=== PATIENT | male | born 1945 ===

== ENCOUNTER 2020-07-02 19:53 | Inpatient (IN) | payer MEDICARE, OTHER ==
[~2020-07-02 19:53] MED LIST: Iopamidol-370 76% 500 ML 1 ML ONE
[2020-07-02] MEDS ORDERED: cefTRIAXone\\ROCEPHIN 1 GM VIAL ONE (20:11)
[2020-07-02] MEDS ORDERED: Magnesium 2 GM/50 ML BAG (IN WATER) ONE (20:11)
[2020-07-02] MEDS ORDERED: Azithromycin 500 MG VIAL ONE (20:11)
[2020-07-02] MEDS ORDERED: Dexamethasone 10 MG/ML VIAL ONE (20:11)
[2020-07-02] MEDS ORDERED: Ondansetron PF 4 MG/2 ML Vial ONE (20:25)
[2020-07-02 20:27] LABS: Base Excess-Venous -8.6 mmol/L (-2.0 to 3.0); Bicarbonate (HCO3v) 16.1 mmol/L (22.0-28.0); CO2 Tension (PvCO2) 31.7 mmHg (40.0-50.0); Calcium, Ionized 0.89 mmol/L (1.15-1.33); Chloride 105 mmol/L (98-107); Hemoglobin - Calc 18.6 g/dL (14.0-18.0); Potassium 4.6 mmol/L (3.5-5.1); Sodium 133 mmol/L (138-145); T. Carbon Dioxide 17.1 mmol/L (22.0-28.0); vO2 Saturation-calc 47.8 % (60.0-85.0)
[2020-07-02 20:27] LABS: #Basophils 0.1 thou/uL (0.0-0.2); #Lymphocytes 1.3 thou/uL (1.20-3.40); #Monocytes 0.4 thou/uL (0.11-0.59); #Neutrophils 6.5 thou/uL (1.40-6.50); %Basophils 0.7 % (0.0-1.0); %Eosinophils 0.1 % (0.0-10.0); %Lymphocytes 15.9 % (21.0-51.0); %Monocytes 4.5 % (0.0-10.0); %Neutrophils 78.8 % (42.0-75.0); Hemoglobin 16.5 g/dL (14.0-18.0); Mean Corpuscular HGB CONC 34.1 g/dL (32.0-36.0); Mean Corpuscular Hemoglobin 34.1 pg (27.0-31.0); Mean Platelet Volume 8.5 fL (7.4-10.4); Platelet Count 150 thou/uL (130-400); RBC Distribution Width 12.7 % (11.5-14.5); Red Blood Cell (RBC) Count 4.85 mill/uL (4.70-6.10); White Blood Cell (WBC) Count 8.3 thou/uL (4.8-10.8)
--- NOTE | 2020-07-02 20:48 | RAD ---
Exam: Chest one view HISTORY: Shortness of breath. COVID positive patient. Comparison: 03/04/2013 FINDINGS: Cardiac silhouette: Normal Aorta: Unremarkable Pulmonary vessels: Normal Costophrenic angles: Clear LUNGS: Multifocal interstitial and alveolar opacities. Pneumothorax: None Osseous abnormalities: Incompletely evaluated cervical fusion hardware IMPRESSION: Multi lobar COVID pneumonia
[2020-07-02 21:12] LABS: ALT (SGPT) 20 U/L (8-55); AST (SGOT) 92 U/L (5-34); Alkaline Phosphatase 59 U/L (40-110); Anion Gap 26 mmol/L (10-20); BUN (Urea Nitrogen) 70 mg/dL (8.4-25.7); Bilirubin, Total 0.6 mg/dL (0.2-1.2); Calc. Creatinine Clearance 0 mL/min (70-130); Calcium 8.6 mg/dL (7.8-10.44); Carbon Dioxide 16 mmol/L (23-31); Chloride 98 mmol/L (98-107); Globulin 3.9 g/dL (2.4-3.5); Glucose 202 mg/dL (83-110); Lipase 38 U/L (8-78); Magnesium 2.5 mg/dL (1.6-2.6); Potassium 4.9 mmol/L (3.5-5.1); Protein, Total 7.9 g/dL (5.8-8.1); Sodium 135 mmol/L (136-145)
[2020-07-02 21:14] LABS: CKMB 16.3 ng/mL (0-6.6)
[2020-07-02] MEDS ORDERED: Norepinephrine 8 MG in Dextrose 5% in Water 242 ML IVPB PRN (21:30)
[2020-07-02 22:03] LABS: SARS-CoV-2 NAA Rapid Test DETECTED (NotDetected)
--- NOTE | 2020-07-02 22:34 | RAD ---
Exam: Chest one view HISTORY:Status post central line placement Comparison: 07/02/2019 1:39 PM FINDINGS: Lines and tubes: Interval placement of right-sided vascular catheter. Distal tip projects over the ex pected region of the superior vena cava. LUNGS: Stable multifocal opacities in the lung parenchyma. Pneumothorax: None Osseous abnormalities: None IMPRESSION: 1. Interval placement of right-sided vascular catheter. No pneumothorax.
--- NOTE | 2020-07-02 23:26 | CT ---
Exam: CT angiogram of the chest HISTORY: COVID positive patient. Respiratory distress. COMPARISON: None TECHNIQUE: CT angiogram of the chest is performed in the axial plane. Three-dimensional reformatted i mages are submitted for interpretation FINDINGS: Mediastinum: Upper normal mediastinal lymph nodes. HEART: Normal size. No significant pericardial fluid. Aorta: Scattered atherosclerosis. No aneurysm, dissection or periaortic fat stranding Upper solid abdominal viscera: No abnormality enhancement. Trachea and central bronchi: Patent Pleural spaces: No effusion Lung parenchyma: Extensive fibrotic changes throughout the lung parenchyma. There are scattered groun dglass opacities. More focal consolidation in the left lower lobe may represent atelectasis, pneumonia or radiation. Pneumothorax: None Osseous structures: There are no lytic or blastic lesions in the osseous structures. Multilevel degen erative change throughout the thoracic spine. Incompletely evaluated cervical fusion hardware. Pulmonary arteries:Adequate contrast opacification the pulmonary arterial system to the level of the distal lobar arteries. Evaluation of the segmental and subsegmental arteries is limited due to patient motion. IMPRESSION: 1. Extensive fibrotic changes of the lung parenchyma. Left lower lobe atelectasis, aspiration or pneu monia. 2. No evidence of a pulmonary artery embolism to the level of the distal lobar arteries. Evaluation t he segmental and subsegmental arteries is limited due to patient motion.
[2020-07-02 23:27] LABS: Lactic Acid 1.2 mmol/L (0.5-2.2)
[2020-07-02 23:33] LABS: Troponin I 0.066 ng/mL (< 0.028)
--- NOTE | 2020-07-02 23:55 | PDOC.HHP ---
Hospitalist HPI - History of Present Illness Shortness of breath History of Present Illness: This is a 74-year-old male patient pneumonia, prostate cancer, sleep apnea, Parkinson's disease TIA who presented on account of shortness of breath for the past couple of days.. His history was generally limited due to significant respiratory distress. He was positive for Covid 2 weeks ago. As presentation patient was awake but in significant respiratory distress and tachypneic in the 40s. His initial blood pressure was 135/101 pulse 82, saturating 93% on BiPAP which she was placed on at presentation. Blood pressures gradually worsened to as low as 79/51. He received 30 mils per KG IV fluids and subsequently a central line was placed and was started on Levophed. Initial plan was to have the patient transferred to the [facility] however given his general instability decision was made to continue treating him here. He was relatively stable on BiPAPplan for possible intubation was consulted. His labs showed lactate of 6.7, sodium 135, bicarb 16, anion gap 21, creatinine was elevated at 2.85 with no baseline on file. AST was elevated at 92, troponin 0 0.032. Chest x-ray showed multifocal interstitial and alveolar opacities and a CT scan revealed no pulmonary embolism. He was started on azithromycin and ceftriaxone dexamethasone and duo nebs. Hospitalist team consulted for admission. Hospitalist ROS - Review of Systems Respiratory: reports: cough, shortness of breath, SOB with excertion - Medication Medications: medications: Currently refer to ambulatory list. Allergies: No known drug allergies Hospitalist History - Past Medical History Other Medical History: Hypertension - Past Surgical History Past Surgical History: reports: no pertinent history - Family History Family History: reports: no pertinent history - Social History Smoking Status: Never smoker Alcohol: reports: None Living Situation: With Family - Exam General Appearance: awake alert General - other findings: In respiratory distress. BiPAP in place Eye: PERRL, anicteric sclera Heart: RRR, no murmur, no gallops, no rubs Respiratory: tachypneic, wheezes Respiratory - other findings: Coarse breath sounds Gastrointestinal: soft, non-tender, non-distended, normal bowel sounds Extremities: no cyanosis, no clubbing, no edema Neurological: cranial nerve grossly intact, no focal deficits Psychiatric: normal affect, A&O x 3 Hospitalist Results - Labs Result Diagrams: 07/02/20 20:18 07/02/20 20:18 Lab results: WBC 8.3 thou/uL (4.8-10.8) 07/02/20 20:18 Hgb 16.5 g/dL (14.0-18.0) 07/02/20 20:18 Hct 48.4 % (42.0-52.0) 07/02/20 20:18 MCV 100.0 fL (78.0-98.0) H 07/02/20 20:18 Plt Count 150 thou/uL (130-400) 07/02/20 20:18 Neutrophils % 78.8 % (42.0-75.0) H 07/02/20 20:18 VBG pCO2 31.7 mmHg (40.0-50.0) L 07/02/20 20:20 VBG pO2 27.8 mmHg (35.0-45.0) L 07/02/20 20:20 Sodium 135 mmol/L (136-145) L 07/02/20 20:18 Potassium 4.9 mmol/L (3.5-5.1) 07/02/20 20:18 Chloride 98 mmol/L (98-107) 07/02/20 20:18 Carbon Dioxide 16 mmol/L (23-31) L 07/02/20 20:18 BUN 70 mg/dL (8.4-25.7) H 07/02/20 20:18 Creatinine 2.85 mg/dL (0.7-1.3) H 07/02/20 20:18 Glucose 202 mg/dL (83-110) H 07/02/20 20:18 Lactic Acid 1.2 mmol/L (0.5-2.2) 07/02/20 22:57 Calcium 8.6 mg/dL (7.8-10.44) 07/02/20 20:18 Total Bilirubin 0.6 mg/dL (0.2-1.2) 07/02/20 20:18 AST 92 U/L (5-34) H 07/02/20 20:18 ALT 20 U/L (8-55) 07/02/20 20:18 Alkaline Phosphatase 59 U/L (40-110) 07/02/20 20:18 CK-MB (CK-2) 16.3 ng/mL (0-6.6) H* 07/02/20 20:17 Troponin I 0.066 ng/mL (< 0.028) H 07/02/20 22:57 B-Natriuretic Peptide 39.1 pg/mL (0-100) 07/02/20 20:14 Serum Total Protein 7.9 g/dL (5.8-8.1) 07/02/20 20:18 Albumin 4.0 g/dL (3.4-4.8) 07/02/20 20:18 Lipase 38 U/L (8-78) 07/02/20 20:18 Hospitalist H&P A/P - Plan Plan: This is a 74-year-old male patient history of diabetes tested positive for Covid 2 weeks ago here in acute hypoxic respiratory failure and septic shock. Acute hypoxic respiratory failure The setting of Covid Currently on BiPAP at 100% FiO2 Monitor closely May need intubation if deteriorates. Pulmonology consult in a.m. Pneumonia due to Covid Status deteriorateswe will continue Vitamin, zinc Likely out of the window for remdesivir and also poor renal function Consider convalescent plasma in a.m. Septic shock Presenting lactic acidosis 6.7 reduced to 1.2 with IV fluids. Also hypotensive refractory to fluids now on Levophed With tachypnea and Zosyn in the lungs. Currently covered on azithromycin and ceftriaxone for pneumonia Follow-up cultures NSTEMI Initial troponin 0 0.032 increased to 0.066. No concerning EKG changes Is likely due to hypoxemia unlikely ACS Also poor renal function We will keep trending Start on the coagulation Respiratory JACIEL/CKD Creatinine elevated at 2.85GFR less than 30 Unclear whether this is acute or chronic Received IV fluidswe will monitor BMP Nephro consult in a.m. Hypertension Blood pressure stable Continue monitoring. Macrocytosis Hepatology Check B12 and folate VT prophylaxisLovenox CODE STATUSfull code
[2020-07-03] MEDS: Lactated Ringer's 1,000 ML IV SCH ×3 (01:07→12:47)
[2020-07-03] MEDS ORDERED: Dextrose 50% Abboject 50 ML SYRINGE SLOW IVP PRN (01:26)
[2020-07-03] MEDS ORDERED: Dextrose 5% in Water 1,000 ML IV PRN (01:26)
[2020-07-03] MEDS ORDERED: Enoxaparin Sodium 30 MG/0.3 ML SYRINGE SC SCH ×2 (03:00→09:00)
--- NOTE | 2020-07-03 04:48 | PDOC.EVN ---
Event Note - Event Note Event Note: patient not urinating at this time- nursing completed bladder scan and showed 1L in bladder. order to place rodrigues.
[2020-07-03 05:50] LABS: Troponin I 0.064 ng/mL (< 0.028)
[2020-07-03] MEDS: HumaLOG 300 UNITS/3 ML VIAL SC PRN (06:12)
[2020-07-03] MEDS ORDERED: Dexamethasone 4 mg/ml Vial SLOW IVP SCH (09:00)
[2020-07-03] MEDS: Cholecalciferol (Vitamin D3) 400 UNITS TAB PO SCH (09:47)
[2020-07-03] MEDS: Cefepime 2 GM in Sodium Chloride 0.9% 100 ML IVPB SCH (09:47)
[2020-07-03] MEDS: Dexamethasone 4 mg/ml Vial SLOW IVP SCH (09:47)
[2020-07-03] MEDS: Ascorbic Acid 500 mg Chewable Tablet PO SCH (09:47)
--- NOTE | 2020-07-03 14:01 | CON ---
DATE OF CONSULTATION: 07/03/2020 SERVICE: Renal Medicine. HISTORY OF PRESENT ILLNESS: Mr. Cooley is a 74-year-old white male, who was admitted for COVID-19 pneumonia. He came in complaining of shortness of breath. He has been short of breath for the last couple of weeks. He said to have been COVID positive about 2 weeks ago. We are now being consulted for his presumed acute renal failure. The patient is currently on BiPAP. REVIEW OF SYSTEMS: Positive for shortness of breath. Positive for urinary retention. No nausea. No vomiting. Denies any overt fever. No chest pain. Appetite and energy level are decreased. No gross hematuria. No diarrhea. No constipation. No abdominal pain. No headache. No syncopal episode. MEDICATIONS: The patient is currently on; 1. Azithromycin 500 mg IV q.24 hours. 2. Cefepime 2 g IV q.24 hours. 3. Vitamin D 400 international units daily. 4. Dexamethasone at 8 mg IV daily. 5. Dexmedetomidine as directed. 6. Lovenox at 30 mg subcu daily. 7. Levophed drip. 8. Lactated Ringer's 175 mL/h. 9. Humalog sliding scale. PAST MEDICAL HISTORY: The patient has history of, 1. Prostate cancer in remission. 2. Sleep apnea. 3. Status post TIA. 4. Parkinson's disease. 5. Restless legs syndrome. 6. Status post pneumonia. 7. History of hypertension. 8. Hyperlipidemia. PAST SURGICAL HISTORY: Includes prostate biopsy, status post back surgery, and status post shoulder repair surgery. SOCIAL HISTORY: The patient originally from [place], currently lives in [facility]. He used to smoke - cigarettes, last smoking was about 3 years ago. He lives at home with family. He is status post cocaine abuse. Alcohol, 5 drinks per day. ALLERGIES: GABAPENTIN CAUSES DIZZINESS, BUT NO KNOWN DRUG ALLERGIES. TRAUMA: None. IMMUNIZATIONS: Up to date. FAMILY HISTORY: Noncontributory. PHYSICAL EXAMINATION: VITAL SIGNS: Blood pressure is 121/70, heart rate 70. GENERAL: The patient is awake, supine, comfortable. Currently noted to be on BiPAP. SKIN: Adequate turgor. HEENT: He has a pinkish conjunctivae. Anicteric sclerae. NECK: No neck mass. No carotid bruits. No JVD. CHEST: No deformities. LUNGS: Decreased breath sounds. HEART: Normal sinus rhythm. No murmur. No gallops. No rubs. No gallops. ABDOMEN: Globular, soft, and nontender. EXTREMITIES: No edema. NEUROLOGICAL: Awake and oriented to 3 spheres. Moving all extremities. No tremors. No asterixis. LABORATORY DATA: Laboratories of July 02, 2020; white count 8.3, hemoglobin 16.5. On July 03, 2020, glucose 193. On July 02, 2020, sodium 133, potassium 4.6, chloride 105, carbon dioxide 17, BUN 70, creatinine 2.85, and GFR 22 mL/minute. Albumin is noted at 4.0. Troponin I 0.064. Calcium 8.6. Chest x-ray, pneumonia. No evidence of overt CHF. CT angio, no evidence of PE. Serologies on July 02, 2020, positive for COVID-19. ASSESSMENT AND PLAN: 1. Acute kidney injury, consider hemodynamically-mediated renal dysfunction. I could not rule out the possibility of low bladder outlet obstruction. The patient has urinary retention and was found to have bladder full up to 1 L. Unable to do the renal ultrasound at the present time due to the COVID-19 status of this patient. Gutierrez catheter has been inserted and he has a good urine outflow. For the moment, agree with current management. Continue IV fluid - lactated Ringer's 175 mL/h. The patient is making an excellent urine output. No indication for any emergent hemodialysis. 2. Chronic renal failure - unclear if he has any underlying chronic renal failure. We will review urinalysis with this patient. 3. COVID-19 pneumonia. Continue supportive care. The patient is relatively stable at the present time. Job ID: [id number]
[2020-07-03 15:13] LABS: Bacteria/HPF None Seen HPF (None Seen); Bilirubin Negative (Negative); Blood, Urine 2+ (Negative); Clarity Clear (Clear); Glucose, Urine (Dipstick) Normal (Negative); Ketone, Urine Negative (Negative); Leukocyte Negative Leu/uL (Negative); Nitrite Negative (Negative); Protein, Urine (Dipstick) 70 mg/dL (Neg-Trace); Specific Gravity, Urine 1.026 (1.002-1.036); Squamous Epithelial None Seen HPF (0-3); Urobilinogen Normal mg/dL (Less than 2); WBC/HPF 0-3 HPF (0-3); pH, Urine 5.5 (5.0-9.0)
[2020-07-03] MEDS ORDERED: Fentanyl BOLUS 250 ML IVPB PRN (16:45)
[2020-07-03] MEDS ORDERED: Morphine 2 MG/ML VIAL SLOW IVP PRN (16:45)
[2020-07-03] MEDS ORDERED: DISCONTINUE PREVIOUS NARCOTIC PAIN MEDICATIONS AND BENZODIAZEPINES FS SCH (16:45)
[2020-07-03] MEDS ORDERED: Propofol BOLUS 1,000 MG/100 ML VIAL IV PRN (16:45)
[2020-07-03] MEDS: fentaNYL Citrate/PF 2,000 MCG in Sodium Chloride 0.9% 60 ML IV SCH (17:00)
--- NOTE | 2020-07-03 17:12 | RAD ---
PORTABLE CHEST: 07/03/20 HISTORY: Post intubation. COVID. Diffuse changes of COVID pneumonia are present. Endotracheal and NG tubes are in satisfactory positi on. IMPRESSION: Placement of endotracheal and NG tubes which are in satisfactory position. POS: OFF
[2020-07-03 17:40] LABS: Base Excess (BEa) -6.5 mEq/L (-2.0 to +3.0); Calcium, Ionized (arterial) 1.14 mmol/L (1.12-1.30); Carboxyhemoglobin (COHb) 0.2 gm% (0.0-3.0); Hemoglobin (Hb) 14.6 g/dL (14.0-18.0); O2 Tension (PaO2), arterial 72.8 mmHg (> 70.0); Potassium - ABG Lab 4.96 mmol/L (3.70-5.30); pH, Arterial 7.35 (7.35-7.45)
[2020-07-03 17:53] LABS: Puncture Site RRA
--- NOTE | 2020-07-03 18:16 | PDOC.HOSPP ---
- Subjective Encounter Date: 07/03/20 Encounter Time: 13:00 Subjective: F/u: COVID The patient was wearing his BIPAP mask , respiratory rate was around 35. He denies excessive cough. He has been SOB for the past few days. He states his tested negative. He quit smoking a few years ago. He wears oxygen at baseline at home. This afternoon, patient pulled off his BiPAP mask. He desaturated to 70%. He became extremely anxious. Due to poor work of breathing, anesthesia was called to come intubate the patient. The patient states he was diagnosed with ALS recently. He is able to move all four extremities. He states he was initially worked up for ALS because he was experiencing left arm fasciculations/twitching - Objective Vital Signs & Weight: Vital Signs (12 hours) Temp Pulse Resp Pulse Ox 07/03/20 17:15 63 07/03/20 15:26 76 39 H 91 L 07/03/20 08:00 97 07/03/20 07:00 98.2 F Weight Weight 163 lb 9.328 oz Most Recent Monitor Data Heart Rate from ECG 59 NIBP 138/89 NIBP BP-Mean 105 Respiration from ECG 37 SpO2 95 I&O: 07/02/20 07/03/20 07/04/20 06:59 06:59 06:59 Intake Total 729.5 102 Output Total 950 995 Balance -220.5 -893 Result Diagrams: 07/02/20 20:18 07/02/20 20:18 Additional Labs: Accuchecks 07/03/20 07/03/20 16:05 04:04 POC Glucose 192 H 193 H Hospitalist ROS - Review of Systems Constitutional: denies: fever, chills - Medication Medications: Active Medications Generic Name Dose Route Start Last Admin Trade Name Freq PRN Reason Stop Dose Admin Ascorbic Acid 1,000 mg 07/03/20 09:00 07/03/20 09:47 Ascorbic Acid 500 Mg Chewable Tablet PO 1,000 mg DAILY JOHN Administration Cholecalciferol 400 units 07/03/20 09:00 07/03/20 09:47 Cholecalciferol (Vitamin D3) 400 Units Tab PO 400 units DAILY JOHN Administration Dexamethasone 8 mg 07/03/20 09:00 07/03/20 09:47 Dexamethasone 4 Mg/Ml Vial SLOW IVP 8 mg DAILY JOHN Administration Cefepime HCl 2 gm/ Sodium 100 mls @ 200 mls/hr 07/03/20 09:00 07/03/20 09:47 Chloride IVPB 100 mls Q24HR JOHN Administration Dexmedetomidine HCl 400 mcg/ 100 mls @ 0 mls/hr 07/03/20 09:45 07/03/20 10:09 Sodium Chloride IVPB 100 mls INF JOHN Administration Protocol Titrate Insulin Human Lispro 0 units 07/03/20 01:26 07/03/20 06:12 Humalog 300 Units/3 Ml Vial SC 2 unit .MILD SLIDING SCALE PRN Administration Mild Correctional Scale - Exam General Appearance: NAD, awake alert General - other findings: Tachypneic on BiPAP Eye: PERRL, anicteric sclera ENT: normocephalic atraumatic, no oropharyngeal lesions Neck: no JVD Heart: RRR, no murmur, no gallops, no rubs Respiratory: CTAB, no wheezes, no rales, no ronchi Gastrointestinal: soft, non-tender, non-distended Extremities: no cyanosis, no clubbing, no edema Neurological: cranial nerve grossly intact, no weakness, no focal deficits Musculoskeletal: normal tone, normal strength, no muscle wasting Psychiatric: A&O x 3, oriented to person Hosp A/P - Plan CTA chest 07/02: extensive fibrotic changes of the lung parenchyma, left lower lobe atelectasis Chest xray 07/03: ET tube in satisfactory position This is a 74-year-old male with hole in one of his lungs from pneumonia, prostate cancer, s leep apnea, ALS, Parkinson's disease who presented with shortness of breath Acute hypoxic respiratory failure secondary to COVID vs lung fibrosis - continue cefepime and azithromycin and lovenox 60 mg SC - patient had increased work of breathing on BIPAP and was subsequently intubated .Will repeat albs - continue IV dexamethasone Hyponatremia - sodium 133. He received LR yesterday. Will resume IV fluids JACIEL - possibly from bladder outlet obstruction vs pre-renal etiology - creatinine 2.85. Gutierrez catheter was placed. Will repeat BMP . Will continue IV fluids - unable to do renal ultrasound due to COVID. Nephrology is on board Lactic acidosis -Lactic acid improved from 6.7-1.2 Transaminitis -AST is 92 on admission. Will repeat Type II NSTEMI -Troponin 0 0.032. CK-MB 16.3. Troponin peaked at 0.066. The patient denies chest pain History of Parkinson's disease and ALS - supportive care
[2020-07-03 18:54] LABS: Hemoglobin 14.4 g/dL (14.0-18.0); Mean Corpuscular HGB CONC 33.6 g/dL (32.0-36.0); Mean Corpuscular Hemoglobin 33.9 pg (27.0-31.0); Mean Platelet Volume 8.5 fL (7.4-10.4); Platelet Count 141 thou/uL (130-400); RBC Distribution Width 12.8 % (11.5-14.5); Red Blood Cell (RBC) Count 4.24 mill/uL (4.70-6.10); White Blood Cell (WBC) Count 12.5 thou/uL (4.8-10.8)
[2020-07-03 19:09] LABS: Prothrombin Time 13.3 sec (12.0-14.7)
[2020-07-03 19:10] LABS: PTT 34.7 sec (22.9-36.1)
[2020-07-03 19:14] LABS: ALT (SGPT) 22 U/L (8-55); AST (SGOT) 97 U/L (5-34); Albumin 3.1 g/dL (3.4-4.8); Alkaline Phosphatase 52 U/L (40-110); Anion Gap 17 mmol/L (10-20); BUN (Urea Nitrogen) 45 mg/dL (8.4-25.7); Bilirubin, Total 0.7 mg/dL (0.2-1.2); Calc. Creatinine Clearance 46 mL/min (70-130); Calcium 8.1 mg/dL (7.8-10.44); Carbon Dioxide 16 mmol/L (23-31); Chloride 112 mmol/L (98-107); Globulin 3.3 g/dL (2.4-3.5); Glucose 213 mg/dL (83-110); Potassium 5.3 mmol/L (3.5-5.1); Protein, Total 6.4 g/dL (5.8-8.1); Sodium 140 mmol/L (136-145)
--- NOTE | 2020-07-03 19:14 | CON ---
DATE OF CONSULTATION: 07/03/2020 HISTORY OF PRESENT ILLNESS: A 74-year-old male with multiple medical problems. He was tested positive 2 weeks prior to admission with COVID according to the admission history and physical. He presented with respiratory distress, was placed on BiPAP, was admitted to the intensive care unit. Today, he has progressed. He has become more agitated, so he has subsequently been intubated. PAST MEDICAL HISTORY: Remarkable for: 1. Prostate cancer. 2. Sleep apnea. 3. Parkinson disease. 4. History of TIA. FAMILY HISTORY: Negative for lung disease in early age. REVIEW OF SYSTEMS: Not obtainable. PHYSICAL EXAMINATION: VITAL SIGNS: Heart rate is in the 50s, blood pressure 131/84, respiratory rates in the 20s to 30s. HEAD AND NECK: Unremarkable. LUNGS: Remarkable for equal breath sounds. HEART: Regular rhythm. ABDOMEN: Soft. EXTREMITIES: Without asymmetry. LABORATORY DATA: White count has not been repeated since yesterday. No electrolytes today. IMPRESSION: COVID pneumonia with respiratory failure, convalescent plasma and remdesivir since he is 2 weeks out. He needs to continue with steroids. Supportive care mainly from here forward. Empiric gentle anticoagulation is reasonable. We will need to watch the Lovenox with a creatinine of 2.85. It would be reasonable to give him 60 mg once a day in my opinion. We will follow the other physicians caring for him. Critical care time 30 min. excluding procedure. Job ID: [id number] MTDD
[2020-07-03] MEDS: Sodium Chloride 0.9% 1,000 ML IV SCH (20:05)
[2020-07-03] MEDS: Azithromycin 500 MG in Sodium Chloride 0.9% 250 ML 250 ML IVPB SCH (20:05)
[2020-07-04] MEDS: Propofol 1,000 MG/100 ML VIAL IV PRN ×3 (00:27→20:45)
[2020-07-04] MEDS: Sodium Chloride 0.9% 1,000 ML IV SCH ×2 (06:21→20:46)
[2020-07-04] MEDS ORDERED: Enoxaparin Sodium 30 MG/0.3 ML SYRINGE SC SCH (09:00)
[2020-07-04] MEDS: Enoxaparin Sodium 60 MG/0.6 ML SYRINGE SC SCH (09:30)
[2020-07-04] MEDS: Ascorbic Acid 500 mg Chewable Tablet PO SCH (09:30)
[2020-07-04] MEDS: Dexamethasone 4 mg/ml Vial SLOW IVP SCH (09:30)
[2020-07-04] MEDS: Cholecalciferol (Vitamin D3) 400 UNITS TAB PO SCH (09:30)
[2020-07-04] MEDS: fentaNYL Citrate/PF 2,000 MCG in Sodium Chloride 0.9% 60 ML IV SCH (09:51)
[2020-07-04] MEDS: Cefepime 2 GM in Sodium Chloride 0.9% 100 ML IVPB SCH (10:07)
--- NOTE | 2020-07-04 10:13 | PRG ---
DATE OF SERVICE: 07/04/2020 SUBJECTIVE: Mr. Cooley is a 74-year-old white male, who was admitted for COVID-19 pneumonia. We are consulting this patient with regard to his acute kidney injury. Renal function has much improved with empiric volume repletion. In addition, he also had a Gutierrez catheter placed. My suspicion is there may be a combination of dehydration and/or low bladder outlet obstruction. Renal function is much improved recently. He is still diuresing. No acute events noted last night. OBJECTIVE: VITAL SIGNS: Blood pressure 116/69, heart rate 60, respiratory rate 20, O2 saturation is 97%. GENERAL: The patient is sedated, intubated, noted to be comfortable, not in distress. HEENT: He has a pinkish conjunctivae. Anicteric sclerae. No neck mass. No carotid bruits. No JVD. CHEST: No deformities. LUNGS: Decreased breath sounds. HEART: Normal sinus rhythm. No murmurs, no gallops, no rubs. ABDOMEN: Globular, soft, nontender. No masses. EXTREMITIES: No edema. MEDICATIONS: Of July 04, 2020were reviewed. LABORATORY DATA: Of July 03, 2020; white count 12.5, hemoglobin 14.4; on July 03, 2020 at 1837, sodium 140, potassium 5.3, chloride 112, carbon dioxide 16, BUN 45, creatinine 1.53, glucose 213, calcium 8.1, AST 97, ALT 22, albumin 3.1. On July 03, 2020, chest x-ray, multifocal lesions-suggestive of pneumonia. ASSESSMENT AND PLAN: 1. Acute kidney injury, consider a possibility of simple dehydration versus and/or low bladder outlet obstruction. Currently, on a Gutierrez catheter, and the patient is diuresing well. IV fluids have been adjusted downwards to a 75 mL/h of normal saline. 2. Mild hyperkalemia. We will simply observe this. There is no indication for any intervention. 3. The patient is doing better with acute kidney injury. 4. COVID-19 pneumonia. Continuing supportive care. 5. Overall prognosis remains guarded. 6. We will recheck basic metabolics in a.m. Job ID: [id number]
--- NOTE | 2020-07-04 12:56 | PDOC.HOSPP ---
- Subjective Encounter Date: 07/04/20 Encounter Time: 12:54 Subjective: F/u: COVID The patient is intubated. He is on propofol of 20, precedex of 0.7. When precedex was weaned off, patient got extremely agitated and very jerky per nursing Urine output seems adequate. His blood pressure is 122 and he is off levofed now - Objective Vital Signs & Weight: Vital Signs (12 hours) Temp Pulse Resp BP Pulse Ox 07/04/20 12:08 62 07/04/20 12:00 99.1 F 07/04/20 10:00 20 07/04/20 09:00 98.8 F 07/04/20 08:00 20 97 07/04/20 07:43 58 L 07/04/20 06:00 20 07/04/20 04:00 98.4 F 07/04/20 02:34 58 L 120/73 07/04/20 02:00 20 Weight Weight 163 lb 9.328 oz Most Recent Monitor Data Heart Rate from ECG 62 NIBP 120/69 NIBP BP-Mean 86 Respiration from ECG 20 SpO2 93 I&O: 07/03/20 07/04/20 07/05/20 06:59 06:59 06:59 Intake Total 729.5 5410.9 196.5 Output Total 950 2505 400 Balance -220.5 2905.9 -203.5 Result Diagrams: 07/03/20 18:37 07/03/20 18:37 Additional Labs: Accuchecks 07/04/20 07/03/20 06:25 16:05 POC Glucose 192 H 192 H Hospitalist ROS - Review of Systems ROS unobtainable: due to endotracheal tube Constitutional: denies: fever, chills - Medication Medications: Active Medications Generic Name Dose Route Start Last Admin Trade Name Freq PRN Reason Stop Dose Admin Ascorbic Acid 1,000 mg 07/03/20 09:00 07/04/20 09:30 Ascorbic Acid 500 Mg Chewable Tablet PO 1,000 mg DAILY JOHN Administration Cholecalciferol 400 units 07/03/20 09:00 07/04/20 09:30 Cholecalciferol (Vitamin D3) 400 Units Tab PO 400 units DAILY JOHN Administration Dexamethasone 8 mg 07/03/20 09:00 07/04/20 09:30 Dexamethasone 4 Mg/Ml Vial SLOW IVP 8 mg DAILY JOHN Administration Enoxaparin Sodium 60 mg 07/04/20 09:00 07/04/20 09:30 Enoxaparin Sodium 60 Mg/0.6 Ml Syringe SC 60 mg 0900 JOHN Administration Azithromycin 500 mg/ Sodium 250 mls @ 250 mls/hr 07/03/20 21:00 07/03/20 20:05 Chloride IVPB 250 mls Q24HR JOHN Administration Cefepime HCl 2 gm/ Sodium 100 mls @ 200 mls/hr 07/03/20 09:00 07/04/20 10:07 Chloride IVPB 100 mls Q24HR JOHN Administration Dexmedetomidine HCl 400 mcg/ 100 mls @ 0 mls/hr 07/03/20 09:45 07/04/20 06:21 Sodium Chloride IVPB 100 mls INF JOHN Administration Protocol Titrate Fentanyl Citrate 2,000 mcg/ 100 mls @ 0 mls/hr 07/03/20 16:45 07/04/20 09:51 Sodium Chloride IV 08/02/20 16:45 100 mls INF JOHN Administration Protocol Per Protocol Sodium Chloride 1,000 mls @ 75 mls/hr 07/03/20 18:30 07/04/20 06:21 Normal Saline 0.9% IV 1,000 mls .[id number] JOHN Administration Insulin Human Lispro 0 units 07/03/20 01:26 07/03/20 06:12 Humalog 300 Units/3 Ml Vial SC 2 unit .MILD SLIDING SCALE PRN Administration Mild Correctional Scale Propofol 1,000 mg 07/03/20 16:45 07/04/20 09:30 Propofol 1,000 Mg/100 Ml Vial IV 08/02/20 16:45 1,000 mg INF PRN Administration TO ACHIEVE GOAL RASS Protocol Sodium Chloride 10 ml 07/03/20 21:00 07/04/20 09:31 Flush - Normal Saline 10 Ml Syringe IVF 10 ml Q12HR JONH Administration - Exam General - other findings: intubated Eye: PERRL, anicteric sclera ENT: normocephalic atraumatic, no oropharyngeal lesions Neck: no JVD Heart: RRR, no murmur, no gallops, no rubs Respiratory: CTAB, no wheezes, no rales, no ronchi Gastrointestinal: soft, non-tender, non-distended, normal bowel sounds, no splenomegaly Extremities: no cyanosis, no clubbing, no edema Skin: normal turgor, no lesions, no rashes Hosp A/P - Plan CTA chest 07/02: extensive fibrotic changes of the lung parenchyma, left lower lobe atelectasis Chest xray 07/03: ET tube in satisfactory position This is a 74-year-old male with hole in one of his lungs from pneumonia, prostate cancer, s leep apnea, ALS, Parkinson's disease who presented with shortness of breath . He was on BIPAP but due to increased work of breathing, he was intubated on 07/03. Acute hypoxic respiratory failure secondary to COVID vs lung fibrosis - currently intubated. Continue cefepime and azithromycin and lovenox 60 mg SC - gets very agitated off sedation . WBC up to 12, could be reactive. Continue current antibiotics. Repeat CBC and chest Xray today JACIEL - possibly from bladder outlet obstruction vs pre-renal etiology - creatinine down to 1.53. Improving with rodrigues catheter placement. Repeat BMP today Transaminitis -AST still up to 97, may have been from hypotension. Repeat LFTS today Hyponatremia - resolved. Dayday repeat BMP Lactic acidosis -resolved Type II NSTEMI -Troponin 0 0.032. CK-MB 16.3. Troponin peaked at 0.066. The patient denies chest pain History of Parkinson's disease and ALS - supportive care
[2020-07-04 13:07] LABS: Hemoglobin 14.4 g/dL (14.0-18.0); Mean Corpuscular HGB CONC 33.4 g/dL (32.0-36.0); Mean Corpuscular Hemoglobin 33.5 pg (27.0-31.0); Mean Platelet Volume 8.8 fL (7.4-10.4); Platelet Count 150 thou/uL (130-400); RBC Distribution Width 12.7 % (11.5-14.5); Red Blood Cell (RBC) Count 4.28 mill/uL (4.70-6.10); White Blood Cell (WBC) Count 7.2 thou/uL (4.8-10.8)
--- NOTE | 2020-07-04 13:21 | RAD ---
Exam: Chest one view HISTORY:Intubated patient. Respiratory distress. COVID pneumonia. Comparison: 07/03/2020 FINDINGS: Lines and tubes: Endotracheal tube, nasogastric tube and right-sided vascular catheter are once again demonstrated. Cardiac silhouette:Upper normal heart size Aorta: Atherosclerosis Pulmonary vessels: Normal Costophrenic angles: Clear LUNGS: Stable multifocal interstitial and to lesser extent alveolar opacities. Pneumothorax: None Osseous abnormalities: Redemonstration of a cervical fusion plate. IMPRESSION: No significant interval change.
[2020-07-04 13:26] LABS: Anion Gap 16 mmol/L (10-20); BUN (Urea Nitrogen) 38 mg/dL (8.4-25.7); Calc. Creatinine Clearance 57 mL/min (70-130); Calcium 8.2 mg/dL (7.8-10.44); Carbon Dioxide 21 mmol/L (23-31); Chloride 111 mmol/L (98-107); Glucose 212 mg/dL (83-110); Potassium 5.1 mmol/L (3.5-5.1); Sodium 143 mmol/L (136-145)
--- NOTE | 2020-07-04 18:15 | PRG ---
DATE OF SERVICE: 07/04/2020 SUBJECTIVE: Mr. Cooley remains stable. His hemodynamics are stable. OBJECTIVE: VITAL SIGNS: Respiratory rate is 20, FiO2 is at 40, heart rate 60, blood pressure 123/73. LUNGS: Remarkable for equal breath sounds. HEART: Regular rhythm. ABDOMEN: Soft. EXTREMITIES: Without edema. LABORATORY DATA: White count 7.2, hemoglobin 14.4, platelets 150. Sodium 143, potassium 5.1, chloride 111, bicarb 21, BUN 38, creatinine 1.24. Chest x-ray is unchanged. IMPRESSION: Pneumonia with respiratory failure, clinically stable, currently not weanable. We will continue to minimize FiO2, try to gradually decrease ventilatory support. Now, this patient improved rapidly. Hopefully, he will make some progress in the next 2 or 3 days. Critical care time 30 min. Job ID: [id number] MTDD
[2020-07-04] MEDS: Azithromycin 500 MG in Sodium Chloride 0.9% 250 ML 250 ML IVPB SCH (20:44)
[2020-07-05] MEDS: HumaLOG 300 UNITS/3 ML VIAL SC PRN ×3 (01:50→18:39)
[2020-07-05] MEDS: Propofol 1,000 MG/100 ML VIAL IV PRN ×3 (04:10→23:37)
[2020-07-05 04:40] LABS: Hemoglobin 13.4 g/dL (14.0-18.0); Mean Corpuscular HGB CONC 31.8 g/dL (32.0-36.0); Mean Corpuscular Hemoglobin 32.1 pg (27.0-31.0); Mean Platelet Volume 8.6 fL (7.4-10.4); Platelet Count 184 thou/uL (130-400); RBC Distribution Width 12.6 % (11.5-14.5); Red Blood Cell (RBC) Count 4.17 mill/uL (4.70-6.10)
[2020-07-05 05:03] LABS: Anion Gap 17 mmol/L (10-20); BUN (Urea Nitrogen) 42 mg/dL (8.4-25.7); Calc. Creatinine Clearance 59 mL/min (70-130); Calcium 7.8 mg/dL (7.8-10.44); Carbon Dioxide 21 mmol/L (23-31); Chloride 113 mmol/L (98-107); Glucose 203 mg/dL (83-110); Potassium 4.8 mmol/L (3.5-5.1); Sodium 146 mmol/L (136-145)
[2020-07-05] MEDS: fentaNYL Citrate/PF 2,000 MCG in Sodium Chloride 0.9% 60 ML IV SCH (05:30)
[2020-07-05 08:25] LABS: Magnesium 2.5 mg/dL (1.6-2.6); Phosphorus 2.7 mg/dL (2.3-4.7)
[2020-07-05] MEDS: Cholecalciferol (Vitamin D3) 400 UNITS TAB PO SCH (09:25)
[2020-07-05] MEDS: Cefepime 2 GM in Sodium Chloride 0.9% 100 ML IVPB SCH (09:25)
[2020-07-05] MEDS: Enoxaparin Sodium 60 MG/0.6 ML SYRINGE SC SCH (09:25)
[2020-07-05] MEDS: Ascorbic Acid 500 mg Chewable Tablet PO SCH (09:25)
[2020-07-05] MEDS: Dexamethasone 4 mg/ml Vial SLOW IVP SCH (09:25)
[2020-07-05] MEDS: Sodium Chloride 0.9% 1,000 ML IV SCH (13:50)
--- NOTE | 2020-07-05 14:54 | PDOC.HOSPP ---
- Subjective Encounter Date: 07/05/20 non-verbal - Objective Vital Signs & Weight: Vital Signs (12 hours) Temp Pulse Resp BP Pulse Ox 07/05/20 14:25 57 L 07/05/20 14:00 20 07/05/20 12:00 98.9 F 20 07/05/20 10:58 59 L 07/05/20 10:00 20 07/05/20 08:00 98.1 F 20 92 L 07/05/20 07:51 58 L 07/05/20 06:00 21 H 07/05/20 04:34 97.7 F 07/05/20 04:00 97.7 F 20 07/05/20 03:18 61 122/66 Weight Admit Weight 163 lb 9.328 oz Weight 163 lb 9.328 oz Most Recent Monitor Data Heart Rate from ECG 62 NIBP 110/66 NIBP BP-Mean 80 Respiration from ECG 24 SpO2 94 I&O: 07/04/20 07/05/20 07/06/20 06:59 06:59 06:59 Intake Total 5410.9 3758.5 163 Output Total 2505 2350 900 Balance 2905.9 1408.5 -737 Result Diagrams: 07/05/20 04:10 07/05/20 04:10 Additional Labs: Accuchecks 07/05/20 07/05/20 07/04/20 12:37 00:12 17:49 POC Glucose 216 H 209 H 185 H Hospitalist ROS - Medication Medications: Active Medications Generic Name Dose Route Start Last Admin Trade Name Delroyq PRN Reason Stop Dose Admin Ascorbic Acid 1,000 mg 07/03/20 09:00 07/05/20 09:25 Ascorbic Acid 500 Mg Chewable Tablet PO 1,000 mg DAILY JOHN Administration Cholecalciferol 400 units 07/03/20 09:00 07/05/20 09:25 Cholecalciferol (Vitamin D3) 400 Units Tab PO 400 units DAILY JOHN Administration Dexamethasone 8 mg 07/03/20 09:00 07/05/20 09:25 Dexamethasone 4 Mg/Ml Vial SLOW IVP 8 mg DAILY JOHN Administration Enoxaparin Sodium 60 mg 07/04/20 09:00 07/05/20 09:25 Enoxaparin Sodium 60 Mg/0.6 Ml Syringe SC 60 mg 09 JOHN Administration Azithromycin 500 mg/ Sodium 250 mls @ 250 mls/hr 07/03/20 21:00 07/04/20 2 0:44 Chloride IVPB 250 mls Q24HR JOHN Administration Cefepime HCl 2 gm/ Sodium 100 mls @ 200 mls/hr 07/03/20 09:00 07/05/20 09:25 Chloride IVPB 100 mls Q24HR JOHN Administration Dexmedetomidine HCl 400 mcg/ 100 mls @ 0 mls/hr 07/03/20 09:45 07/05/20 05:34 Sodium Chloride IVPB 100 mls INF JOHN Administration Protocol Titrate Fentanyl Citrate 2,000 mcg/ 100 mls @ 0 mls/hr 07/03/20 16:45 07/05/20 05:30 Sodium Chloride IV 08/02/20 16:45 100 mls INF JOHN Administration Protocol Per Protocol Sodium Chloride 1,000 mls @ 75 mls/hr 07/03/20 18:30 07/05/20 13:50 Normal Saline 0.9% IV 1,000 mls .[id number] JOHN Administration Insulin Human Lispro 0 units 07/03/20 01:26 07/05/20 06:13 Humalog 300 Units/3 Ml Vial SC 2 unit .MILD SLIDING SCALE PRN Administration Mild Correctional Scale Propofol 1,000 mg 07/03/20 16:45 07/05/20 04:10 Propofol 1,000 Mg/100 Ml Vial IV 08/02/20 16:45 1,000 mg INF PRN Administration TO ACHIEVE GOAL RASS Protocol Sodium Chloride 10 ml 07/03/20 21:00 07/05/20 09:26 Flush - Normal Saline 10 Ml Syringe IVF 10 ml Q12HR JOHN Administration - Exam General Appearance: NAD, awake alert General - other findings: Intubated and sedated Heart: RRR, no murmur, no gallops Respiratory: rales (Modest scattered) Gastrointestinal: soft, non-distended, normal bowel sounds Extremities: no cyanosis, no clubbing, no edema Hosp A/P (1) Acute respiratory failure with hypoxia Code(s): J96.01 - ACUTE RESPIRATORY FAILURE WITH HYPOXIA Status: Acute (2) Pneumonia due to COVID-19 virus Code(s): U07.1 - COVID-19; J12.82 - PNEUMONIA DUE TO CORONAVIRUS DISEASE 2019 Status: Acute (3) Hematuria Code(s): R31.9 - HEMATURIA, UNSPECIFIED Status: Acute (4) Anemia of chronic disease Code(s): D63.8 - ANEMIA IN OTHER CHRONIC DISEASES CLASSIFIED ELSEWHERE Status: Acute (5) Hypertension Code(s): I10 - ESSENTIAL (PRIMARY) HYPERTENSION Status: Acute (6) Hyperlipidemia Code(s): E78.5 - HYPERLIPIDEMIA, UNSPECIFIED Status: Acute - Plan Acute hypoxic respiratory failure: Secondary to COVID-19 pneumonia. Remains on the ventilator. Pulmonary critical care following this patient for the respiratory issues. COVID-19 pneumonia: Currently on dexamethasone and therapeutic level Lovenox. COPD: Patient is a significant smoker. May be contributing some of his respiratory failure. Patient is on Rocephin and azithromycin which is not indicated for COVID-19 pneumonia but may be reasonable considering this could be a component of severe COPD exacerbation as well. Hypertension: Patient's blood pressure is very well controlled here without medications. Hyperlipidemia: Takes atorvastatin at home. Will resume that when and if he is able to go back to taking p.o.'s adequately.
--- NOTE | 2020-07-05 18:02 | PRG ---
DATE OF SERVICE: 07/05/2020 SUBJECTIVE: Mr. Cooley remains mechanically ventilated. OBJECTIVE: VITAL SIGNS: Heart rates in the 60s, blood pressure 123/72, respiratory rates in the 20s, oximetry is in the mid 90s with a high PEEP of 32, his exhaled volumes up to 750, so his lung compliance appears to be improved. LUNGS: Remarkable for equal breath sounds. HEART: Regular rhythm. ABDOMEN: Soft. EXTREMITIES: Without edema. DIAGNOSTIC STUDIES: There is no chest x-ray today. White count 6, hemoglobin 13, and platelets 184. Sodium 146, potassium 4.8, chloride 113, bicarb 21, BUN 42, and creatinine 1.19. IMPRESSION: Respiratory failure associated with COVID pneumonia. PLAN: Continue supportive care. Might be switched both to volume ventilation and might be possible move towards a spontaneous breathing trial here within a few days hopefully. Job ID: [id number] MTDD
[2020-07-05] MEDS: Azithromycin 500 MG in Sodium Chloride 0.9% 250 ML 250 ML IVPB SCH (21:40)
[2020-07-06] MEDS: fentaNYL Citrate/PF 2,000 MCG in Sodium Chloride 0.9% 60 ML IV SCH ×2 (00:44→16:56)
[2020-07-06] MEDS: HumaLOG 300 UNITS/3 ML VIAL SC PRN ×3 (00:47→16:35)
[2020-07-06] MEDS: Sodium Chloride 0.9% 1,000 ML IV SCH (04:14)
[2020-07-06] MEDS: Sodium Chloride 0.45% 1,000 ML IV SCH ×2 (06:13→20:22)
--- NOTE | 2020-07-06 08:23 | PRG ---
DATE OF SERVICE: 07/06/2020 SUBJECTIVE: Mr. Cooley remains mechanically ventilated. OBJECTIVE: VITAL SIGNS: Heart rates in the 50s, respiratory rate is 20, FiO2 is 45%, blood pressure 125/73. LUNGS: Clear. HEART: Regular rhythm. ABDOMEN: Soft. EXTREMITIES: Without edema. There is no lab today. Chest radiograph shows a minimal increase in interstitial markings. We will continue mechanical ventilatory support. Hopefully, we can continue to gradually decrease ventilatory support. I suspect we will reach a point where he will be a candidate for extubation in 24 to 48 hours. Critical care time 30 min. Job ID: [id number] MTDD
[2020-07-06] MEDS: Dexamethasone 4 mg/ml Vial SLOW IVP SCH (08:51)
[2020-07-06] MEDS: Cholecalciferol (Vitamin D3) 400 UNITS TAB PO SCH (08:51)
[2020-07-06] MEDS: Ascorbic Acid 500 mg Chewable Tablet PO SCH (08:51)
[2020-07-06] MEDS: Cefepime 2 GM in Sodium Chloride 0.9% 100 ML IVPB SCH (08:52)
[2020-07-06] MEDS: Enoxaparin Sodium 60 MG/0.6 ML SYRINGE SC SCH (08:52)
--- NOTE | 2020-07-06 09:27 | RAD ---
CHEST 1 VIEW: Date: 07/06/2020 HISTORY: Ventilated patient. COMPARISON: Radiograph 2 days prior. FINDINGS: Right IJ central venous catheter tip sits at the inferior SVC. The lung consolidation has improved. N o pneumothorax. No effusion. No pneumomediastinum. Enteric tube tip gastric body. IMPRESSION: 1. Slight improved lung aeration. 2. Endotracheal tube tip in similar location. POS: HOME
[2020-07-06] MEDS: Propofol 1,000 MG/100 ML VIAL IV PRN ×2 (12:06→23:31)
[2020-07-06] MEDS ORDERED: Norepinephrine 8 MG/0.9% NS 250 ML IVPB SCH (14:30)
--- NOTE | 2020-07-06 15:07 | PDOC.HOSPP ---
- Subjective Encounter Date: 07/06/20 Encounter Time: 08:30 Subjective: on vent, sedated - Objective Vital Signs & Weight: Vital Signs (12 hours) Temp Pulse Resp Pulse Ox 07/06/20 14:35 66 07/06/20 14:00 20 07/06/20 13:00 100.4 F H 07/06/20 12:00 20 07/06/20 11:13 51 L 07/06/20 10:00 20 07/06/20 08:00 99.4 F 55 L 99 07/06/20 07:20 20 07/06/20 06:00 20 07/06/20 04:00 100.7 F H 20 Weight Admit Weight 163 lb 9.328 oz Weight 154 lb 8.705 oz Most Recent Monitor Data Heart Rate from ECG 61 NIBP 140/84 NIBP BP-Mean 102 Respiration from ECG 19 SpO2 95 I&O: 07/05/20 07/06/20 07/07/20 06:59 06:59 06:59 Intake Total 3758.5 2897 150 Output Total 2350 2285 700 Balance 1408.5 612 -550 Result Diagrams: 07/05/20 04:10 07/05/20 04:10 Additional Labs: Accuchecks 07/06/20 07/05/20 07/05/20 06:19 23:46 18:18 POC Glucose 217 H 232 H 246 H 07/05/20 07/04/20 05:41 00:30 POC Glucose 168 H 186 H Hospitalist ROS - Medication Medications: Active Medications Generic Name Dose Route Start Last Admin Trade Name Delroyq PRN Reason Stop Dose Admin Ascorbic Acid 1,000 mg 07/03/20 09:00 07/06/20 08:51 Ascorbic Acid 500 Mg Chewable Tablet PO 1,000 mg DAILY JOHN Administration Cholecalciferol 400 units 07/03/20 09:00 07/06/20 08:51 Cholecalciferol (Vitamin D3) 400 Units Tab PO 400 units DAILY JOHN Administration Dexamethasone 8 mg 07/03/20 09:00 07/06/20 08:51 Dexamethasone 4 Mg/Ml Vial SLOW IVP 8 mg DAILY JOHN Administration Enoxaparin Sodium 60 mg 07/04/20 09:00 07/06/20 08:52 Enoxaparin Sodium 60 Mg/0.6 Ml Syringe SC 60 mg 0900 JOHN Administration Azithromycin 500 mg/ Sodium 250 mls @ 250 mls/hr 07/03/20 21:00 07/05/20 21:40 Chloride IVPB 250 mls Q24HR JOHN Administration Cefepime HCl 2 gm/ Sodium 100 mls @ 200 mls/hr 07/03/20 09:00 07/06/20 08:52 Chloride IVPB 100 mls Q24HR JOHN Administration Dexmedetomidine HCl 400 mcg/ 100 mls @ 0 mls/hr 07/03/20 09:45 07/06/20 09:00 Sodium Chloride IVPB 100 mls INF JOHN Administration Protocol Titrate Fentanyl Citrate 2,000 mcg/ 100 mls @ 0 mls/hr 07/03/20 16:45 07/06/20 00:44 Sodium Chloride IV 08/02/20 16:45 100 mls INF JOHN Administration Protocol Per Protocol Sodium Chloride 1,000 mls @ 75 mls/hr 07/06/20 06:15 07/06/20 06:13 1/2 Normal Saline IV 1,000 mls .[id number] JOHN Administration Insulin Human Lispro 0 units 07/03/20 01:26 07/06/20 06:20 Humalog 300 Units/3 Ml Vial SC 3 unit .MILD SLIDING SCALE PRN Administration Mild Correctional Scale Propofol 1,000 mg 07/03/20 16:45 07/06/20 12:06 Propofol 1,000 Mg/100 Ml Vial IV 08/02/20 16:45 1,000 mg INF PRN Administration TO ACHIEVE GOAL RASS Protocol Sodium Chloride 10 ml 07/03/20 21:00 07/06/20 08:52 Flush - Normal Saline 10 Ml Syringe IVF 10 ml Q12HR JOHN Administration - Exam Eye: PERRL, anicteric sclera ENT: no oropharyngeal lesions, dry oral mucosa Neck: supple, no JVD Heart: RRR, no murmur Respiratory: no wheezes, rales, rhonchi Gastrointestinal: soft, non-tender, non-distended, normal bowel sounds Extremities: no cyanosis, no edema Neurological: cranial nerve grossly intact, no focal deficits Hosp A/P (1) Pneumonia due to COVID-19 virus Code(s): U07.1 - COVID-19; J12.82 - PNEUMONIA DUE TO CORONAVIRUS DISEASE 2019 Status: Acute (2) Acute respiratory failure with hypoxia Code(s): J96.01 - ACUTE RESPIRATORY FAILURE WITH HYPOXIA Status: Acute (3) JACIEL (acute kidney injury) Code(s): N17.9 - ACUTE KIDNEY FAILURE, UNSPECIFIED Status: Acute (4) Anemia of chronic disease Code(s): D63.8 - ANEMIA IN OTHER CHRONIC DISEASES CLASSIFIED ELSEWHERE Status: Chronic (5) Diabetes mellitus type 2 in nonobese Code(s): E11.9 - TYPE 2 DIABETES MELLITUS WITHOUT COMPLICATIONS Status: Chr onic (6) Hyperlipidemia Code(s): E78.5 - HYPERLIPIDEMIA, UNSPECIFIED Status: Chronic Qualifiers: Hyperlipidemia type: unspecified Qualified Code(s): E78.5 - Hyperlipidemia, unspecified (7) Hypertension Code(s): I10 - ESSENTIAL (PRIMARY) HYPERTENSION Status: Chronic Qualifiers: Hypertension type: essential hypertension Qualified Code(s): I10 - Essential (primary) hypertension (8) TAMMY (obstructive sleep apnea) Code(s): G47.33 - OBSTRUCTIVE SLEEP APNEA (ADULT) (PEDIATRIC) Status: Chronic (9) Parkinson disease Code(s): G20 - PARKINSON'S DISEASE Status: Chronic - Plan weaning per pulm advice is on 1/2 ns, cefepime, zithromax, dexamethasone and lovenox renal function is almost at baseline d/w and gave full updates will add mirapex, cymbalta and wellbutryn to active med list has multiple med conditions in addition to extensive infiltrates seen on cxr from covid, prognosis guarded
[2020-07-06] MEDS: Acetaminophen 650 MG/20.3 ML UDCUP PER TUBE PRN ×2 (15:17→21:17)
[2020-07-06] MEDS: buPROPion 75 MG TAB PO SCH (20:23)
[2020-07-06] MEDS: Pramipexole Di-HCl 1 MG TAB PO SCH (20:23)
[2020-07-06] MEDS: Azithromycin 500 MG in Sodium Chloride 0.9% 250 ML 250 ML IVPB SCH (20:23)
[2020-07-07] MEDS: HumaLOG 300 UNITS/3 ML VIAL SC PRN ×4 (00:05→22:53)
[2020-07-07 04:05] LABS: Anion Gap 13 mmol/L (10-20); BUN (Urea Nitrogen) 44 mg/dL (8.4-25.7); Calc. Creatinine Clearance 67 mL/min (70-130); Carbon Dioxide 24 mmol/L (23-31); Chloride 109 mmol/L (98-107); Glucose 211 mg/dL (83-110); Potassium 4.8 mmol/L (3.5-5.1); Sodium 141 mmol/L (136-145)
[2020-07-07] MEDS: Ascorbic Acid 500 mg Chewable Tablet PO SCH (07:43)
[2020-07-07] MEDS: Enoxaparin Sodium 60 MG/0.6 ML SYRINGE SC SCH (07:43)
[2020-07-07] MEDS: DULoxetine 60 MG CAP PO SCH (07:43)
[2020-07-07] MEDS: buPROPion 75 MG TAB PO SCH ×2 (07:43→20:36)
[2020-07-07] MEDS: Dexamethasone 4 mg/ml Vial SLOW IVP SCH (07:43)
[2020-07-07] MEDS: Cholecalciferol (Vitamin D3) 400 UNITS TAB PO SCH (07:43)
[2020-07-07] MEDS: Pramipexole Di-HCl 1 MG TAB PO SCH ×3 (07:44→20:36)
[2020-07-07] MEDS: Sodium Chloride 0.45% 1,000 ML IV SCH ×2 (07:44→23:07)
--- NOTE | 2020-07-07 07:55 | RAD ---
XR Chest 1 View Portable History: Ventilated patient Comparison: Radiograph prior day Findings: Right IJ central venous catheter tip projects over the mid SVC. Enteric tube tip below diap hragm although out of field of view. Slight expiratory effort relative to the prior exam. Moderate perihilar and peripheral airspace opaci ties are similar. No pneumothorax. Impression: Given differences in inspiratory effort, similar examination of the chest.
[2020-07-07] MEDS ORDERED: Fentanyl CADD 100 ML ONE (10:42)
[2020-07-07] MEDS: Propofol 1,000 MG/100 ML VIAL IV PRN ×2 (11:37→20:36)
[2020-07-07] MEDS: Cefepime 2 GM in Sodium Chloride 0.9% 100 ML IVPB SCH (11:43)
[2020-07-07] MEDS ORDERED: Bisacodyl 10 MG SUPP PR SCH (14:15)
--- NOTE | 2020-07-07 15:48 | PDOC.HOSPP ---
- Subjective Encounter Date: 07/07/20 Encounter Time: 09:10 Subjective: is on vent, mild sedation - Objective Vital Signs & Weight: Vital Signs (12 hours) Temp Pulse Resp 07/07/20 14:48 53 L 07/07/20 14:00 20 07/07/20 12:00 20 07/07/20 11:00 54 L 07/07/20 10:00 20 07/07/20 08:00 100.6 F H 20 07/07/20 07:26 51 L 07/07/20 06:00 07/07/20 04:00 99.3 F 20 Weight Admit Weight 163 lb 9.328 oz Weight 159 lb 13.362 oz Most Recent Monitor Data Heart Rate from ECG 51 NIBP 138/70 NIBP BP-Mean 92 Respiration from ECG 20 SpO2 92 I&O: 07/06/20 07/07/20 07/08/20 06:59 06:59 06:59 Intake Total 2897 3282.5 60 Output Total 2285 2355 1190 Balance 612 927.5 -1130 Result Diagrams: 07/05/20 04:10 07/07/20 03:30 Additional Labs: Accuchecks 07/07/20 07/07/20 07/07/20 15:36 10:14 06:17 POC Glucose 233 H 195 H 197 H 07/06/20 07/06/20 23:44 16:32 POC Glucose 240 H 300 H Hospitalist ROS - Medication Medications: Active Medications Generic Name Dose Route Start Last Admin Trade Name Freq PRN Reason Stop Dose Admin Acetaminophen 1,000 mg 07/06/20 14:14 07/06/20 21:17 Acetaminophen 650 Mg/20.3 Ml Udcup PER TUBE 1,000 mg Q6H PRN Administration Headache/Fever or Pain Ascorbic Acid 1,000 mg 07/03/20 09:00 07/07/20 07:43 Ascorbic Acid 500 Mg Chewable Tablet PO 1,000 mg DAILY JOHN Administration Bisacodyl 10 mg 07/07/20 14:15 07/07/20 15:28 Bisacodyl 10 Mg Supp GA 07/07/20 17:00 10 mg NOW JOHN Administration Bupropion HCl 75 mg 07/06/20 21:00 07/07/20 07:43 Bupropion 75 Mg Tab PO 75 mg BID JOHN Administration Cholecalciferol 400 units 07/03/20 09:00 07/07/20 07:43 Cholecalciferol (Vitamin D3) 400 Units Tab PO 400 units DAILY JOHN Administration Dexamethasone 8 mg 07/03/20 09:00 07/07/20 07:43 Dexamethasone 4 Mg/Ml Vial SLOW IVP 8 mg DAILY JOHN Administration Duloxetine HCl 60 mg 07/07/20 09:00 07/07/20 07:43 Duloxetine 60 Mg Cap PO 60 mg DAILY JOHN Administration Enoxaparin Sodium 60 mg 07/04/20 09:00 07/07/20 07:43 Enoxaparin Sodium 60 Mg/0.6 Ml Syringe SC 60 mg 0900 JOHN Administration Cefepime HCl 2 gm/ Sodium 100 mls @ 200 mls/hr 07/03/20 09:00 07/07/20 11:43 Chloride IVPB 100 mls Q24HR JOHN Administration Dexmedetomidine HCl 400 mcg/ 100 mls @ 0 mls/hr 07/03/20 09:45 07/07/20 15:30 Sodium Chloride IVPB 100 mls INF JOHN Administration Protocol Titrate Fentanyl Citrate 2,000 mcg/ 100 mls @ 0 mls/hr 07/03/20 16:45 07/06/20 16:56 Sodium Chloride IV 08/02/20 16:45 100 mls INF JOHN Administration Protocol Per Protocol Sodium Chloride 1,000 mls @ 75 mls/hr 07/06/20 06:15 07/07/20 07:44 1/2 Normal Saline IV Not Given .[id number] [facility] Insulin Human Lispro 0 units 07/03/20 01:26 07/07/20 06:39 Humalog 300 Units/3 Ml Vial SC 2 unit .MILD SLIDING SCALE PRN Administration Mild Correctional Scale Pramipexole Dihydrochloride 1 mg 07/06/20 21:00 07/07/20 15:28 Pramipexole Di-Hcl 1 Mg Tab PO 1 mg TID JOHN Administration Propofol 1,000 mg 07/03/20 16:45 07/07/20 11:37 Propofol 1,000 Mg/100 Ml Vial IV 08/02/20 16:45 1,000 mg INF PRN Administration TO ACHIEVE GOAL RASS Protocol Sodium Chloride 10 ml 07/03/20 21:00 07/07/20 07:44 Flush - Normal Saline 10 Ml Syringe IVF 10 ml Q12HR JOHN Administration - Exam Eye: PERRL, anicteric sclera ENT: no oropharyngeal lesions, moist mucosa Neck: supple, no JVD Heart: RRR, no murmur Respiratory: no wheezes, no rales, rhonchi Gastrointestinal: soft, non-tender, non-distended, normal bowel sounds Extremities: no cyanosis, no edema Neurological: cranial nerve grossly intact, no focal deficits Hosp A/P (1) Pneumonia due to COVID-19 virus Code(s): U07.1 - COVID-19; J12.82 - PNEUMONIA DUE TO CORONAVIRUS DISEASE 2019 Status: Acute (2) Acute respiratory failure with hypoxia Code(s): J96.01 - ACUTE RESPIRATORY FAILURE WITH HYPOXIA Status: Acute (3) JACIEL (acute kidney injury) Code(s): N17.9 - ACUTE KIDNEY FAILURE, UNSPECIFIED Status: Acute (4) Anemia of chronic disease Code(s): D63.8 - ANEMIA IN OTHER CHRONIC DISEASES CLASSIFIED ELSEWHERE Status: Chronic (5) Diabetes mellitus type 2 in nonobese Code(s): E11.9 - TYPE 2 DIABETES MELLITUS WITHOUT COMPLICATIONS Status: Chronic (6) Hyperlipidemia Code(s): E78.5 - HYPERLIPIDEMIA, UNSPECIFIED Status: Chronic Qualifiers: Hyperlipidemia type: unspecified Qualified Code(s): E78.5 - Hyperlipidemia, unspecified (7) Hypertension Code(s): I10 - ESSENTIAL (PRIMARY) HYPERTENSION Status: Chronic Qualifiers: Hypertension type: essential hypertension Qualified Code(s): I10 - Essential (primary) hypertension (8) TAMMY (obstructive sleep apnea) Code(s): G47.33 - OBSTRUCTIVE SLEEP APNEA (ADULT) (PEDIATRIC) Status: Chronic (9) Parkinson disease Code(s): G20 - PARKINSON'S DISEASE Status: Chronic - Plan weaning per pulm advice is on 1/2 ns, cefepime, zithromax, dexamethasone and lovenox renal function is almost at baseline d/w and gave full updates daily. continue mirapex, cymbalta and wellbutryn has multiple med conditions in addition to extensive infiltrates seen on cxr from covid, prognosis guarded
--- NOTE | 2020-07-07 16:44 | PRG ---
DATE OF SERVICE: 07/07/2020 OBJECTIVE: VITAL SIGNS: Mr. Cooley'jossue heart rate is in the 50s, respiratory rate 20s, FiO2 is at 45%, blood pressure 138/70. LUNGS: Remarkable for clear breath sounds. HEART: Regular rhythm. ABDOMEN: Soft. EXTREMITIES: Without edema. LABORATORY DATA: White count 6, hemoglobin 13.4, platelets 184,000. Sodium 141, potassium 4.8, chloride 109, bicarb 24, BUN 44, creatinine is 0.99. IMPRESSION: His exhaled tidal volumes now are increasing. Dramatically increasing lung compliance. He is actually getting close to a point where we consider a spontaneous breathing trial and may be extubation. Continue current supportive care. Critical care time 30 min. Job ID: [id number] MTDD
[2020-07-08] MEDS: HumaLOG 300 UNITS/3 ML VIAL SC PRN ×3 (00:04→16:43)
[2020-07-08] MEDS ORDERED: Fentanyl CADD 100 ML ONE (04:47)
[2020-07-08] MEDS: Acetaminophen 650 MG/20.3 ML UDCUP PER TUBE PRN ×2 (05:37→13:19)
[2020-07-08] MEDS: Cholecalciferol (Vitamin D3) 400 UNITS TAB PO SCH (08:00)
[2020-07-08] MEDS: Ascorbic Acid 500 mg Chewable Tablet PO SCH (08:00)
[2020-07-08] MEDS: Enoxaparin Sodium 60 MG/0.6 ML SYRINGE SC SCH (08:01)
[2020-07-08] MEDS: Pramipexole Di-HCl 1 MG TAB PO SCH ×3 (08:01→20:39)
[2020-07-08] MEDS: Dexamethasone 4 mg/ml Vial SLOW IVP SCH (08:01)
[2020-07-08] MEDS: DULoxetine 60 MG CAP PO SCH (08:01)
[2020-07-08] MEDS: buPROPion 75 MG TAB PO SCH ×2 (08:01→20:39)
--- NOTE | 2020-07-08 08:02 | RAD ---
XR Chest 1 View Portable History: Ventilated patient Comparison: Radiograph prior day Findings: The right IJ central venous catheter tip projects over the inferior SVC. Airspace opacities are similar. Small left effusion. No pneumothorax or pneumomediastinum. Enteric tube tip below diaphragm although out of field of view. Impression: Similar examination of the chest.
[2020-07-08] MEDS: Cefepime 2 GM in Sodium Chloride 0.9% 100 ML IVPB SCH (10:05)
[2020-07-08] MEDS: Sodium Chloride 0.45% 1,000 ML IV SCH (10:05)
--- NOTE | 2020-07-08 15:54 | PDOC.HOSPP ---
- Subjective Encounter Date: 07/08/20 Encounter Time: 09:45 Subjective: is on vent, mild sedation awakens to touch, is not oriented is seen moving all extremities - Objective Vital Signs & Weight: Vital Signs (12 hours) Temp Pulse Resp 07/08/20 14:00 18 07/08/20 13:19 100.6 F H 07/08/20 12:00 20 07/08/20 10:17 55 L 07/08/20 10:00 20 07/08/20 08:00 99.6 F 20 07/08/20 07:49 59 L 07/08/20 06:00 20 07/08/20 05:37 100.3 F H 07/08/20 05:00 100.3 F H 07/08/20 04:00 20 Weight Admit Weight 163 lb 9.328 oz Weight 159 lb 13.362 oz Most Recent Monitor Data Heart Rate from ECG 67 NIBP 101/57 NIBP BP-Mean 71 Respiration from ECG 18 SpO2 92 I&O: 07/07/20 07/08/20 07/09/20 06:59 06:59 06:59 Intake Total 3282.5 2836.6 60 Output Total 2355 2715 775 Balance 927.5 121.6 -715 Result Diagrams: 07/05/20 04:10 07/07/20 03:30 Additional Labs: Accuchecks 07/08/20 07/08/20 07/08/20 10:49 05:20 02:14 POC Glucose 198 H 202 H 187 H 07/08/20 07/07/20 00:03 21:06 POC Glucose 174 H 228 H Hospitalist ROS - Medication Medications: Active Medications Generic Name Dose Route Start Last Admin Trade Name Freq PRN Reason Stop Dose Admin Acetaminophen 1,000 mg 07/06/20 14:14 07/08/20 13:19 Acetaminophen 650 Mg/20.3 Ml Udcup PER TUBE 1,000 mg Q6H PRN Administration Headache/Fever or Pain Ascorbic Acid 1,000 mg 07/03/20 09:00 07/08/20 08:00 Ascorbic Acid 500 Mg Chewable Tablet PO 1,000 mg DAILY JOHN Administration Bupropion HCl 75 mg 07/06/20 21:00 07/08/20 08:01 Bupropion 75 Mg Tab PO 75 mg BID JOHN Administration Cholecalciferol 400 units 07/03/20 09:00 07/08/20 08:00 Cholecalciferol (Vitamin D3) 400 Units Tab PO 400 units DAILY JOHN Administration Dexamethasone 8 mg 07/03/20 09:00 07/08/20 08:01 Dexamethasone 4 Mg/Ml Vial SLOW IVP 8 mg DAILY JOHN Administration Duloxetine HCl 60 mg 07/07/20 09:00 07/08/20 08:01 Duloxetine 60 Mg Cap PO 60 mg DAILY JOHN Administration Enoxaparin Sodium 60 mg 07/04/20 09:00 07/08/20 08:01 Enoxaparin Sodium 60 Mg/0.6 Ml Syringe SC 60 mg 0900 JOHN Administration Cefepime HCl 2 gm/ Sodium 100 mls @ 200 mls/hr 07/03/20 09:00 07/08/20 10:05 Chloride IVPB 100 mls Q24HR JOHN Administration Dexmedetomidine HCl 400 mcg/ 100 mls @ 0 mls/hr 07/03/20 09:45 07/08/20 05:39 Sodium Chloride IVPB 100 mls INF JOHN Administration Protocol Titrate Fentanyl Citrate 2,000 mcg/ 100 mls @ 0 mls/hr 07/03/20 16:45 07/06/20 16:56 Sodium Chloride IV 08/02/20 16:45 100 mls INF JOHN Administration Protocol Per Protocol Sodium Chloride 1,000 mls @ 75 mls/hr 07/06/20 06:15 07/08/20 10:05 1/2 Normal Saline IV 1,000 mls .[id number] JOHN Administration Insulin Human Lispro 0 units 07/03/20 01:26 07/08/20 00:04 Humalog 300 Units/3 Ml Vial SC 2 unit .MILD SLIDING SCALE PRN Administration Mild Correctional Scale Pramipexole Dihydrochloride 1 mg 07/06/20 21:00 07/08/20 08:01 Pramipexole Di-Hcl 1 Mg Tab PO 1 mg TID JOHN Administration Propofol 1,000 mg 07/03/20 16:45 07/07/20 20:36 Propofol 1,000 Mg/100 Ml Vial IV 08/02/20 16:45 1,000 mg INF PRN Administration TO ACHIEVE GOAL RASS Protocol Sodium Chloride 10 ml 07/03/20 21:00 07/08/20 08:01 Flush - Normal Saline 10 Ml Syringe IVF 10 ml Q12HR JOHN Administration - Exam General Appearance: ill appearing Eye: PERRL, anicteric sclera ENT: no oropharyngeal lesions, dry oral mucosa Neck: supple, no JVD Heart: RRR, no murmur Respiratory: no wheezes, no rales, rhonchi Gastrointestinal: soft, non-tender, non-distended, normal bowel sounds Extremities: no cyanosis, no edema Neurological: cranial nerve grossly intact, no focal deficits Hosp A/P (1) Pneumonia due to COVID-19 virus Code(s): U07.1 - COVID-19; J12.82 - PNEUMONIA DUE TO CORONAVIRUS DISEASE 2019 Status: Acute (2) Acute respiratory failure with hypoxia Code(s): J96.01 - ACUTE RESPIRATORY FAILURE WITH HYPOXIA Status: Acute (3) JACIEL (acute kidney injury) Code(s): N17.9 - ACUTE KIDNEY FAILURE, UNSPECIFIED Status: Acute (4) Anemia of chronic disease Code(s): D63.8 - ANEMIA IN OTHER CHRONIC DISEASES CLASSIFIED ELSEWHERE Status: Chronic (5) Diabetes mellitus type 2 in nonobese Code(s): E11.9 - TYPE 2 DIABETES MELLITUS WITHOUT COMPLICATIONS Status: Chronic (6) Hyperlipidemia Code(s): E78.5 - HYPERLIPIDEMIA, UNSPECIFIED Status: Chronic Qualifiers: Hyperlipidemia type: unspecified Qualified Code(s): E78.5 - Hyperlipidemia, unspecified (7) Hypertension Code(s): I10 - ESSENTIAL (PRIMARY) HYPERTENSION Status: Chronic Qualifiers: Hypertension type: essential hypertension Qualified Code(s): I10 - Essential (primary) hypertension (8) TAMMY (obstructive sleep apnea) Code(s): G47.33 - OBSTRUCTIVE SLEEP APNEA (ADULT) (PEDIATRIC) Status: Chronic (9) Parkinson disease Code(s): G20 - PARKINSON'S DISEASE Status: Chronic - Plan weaning per pulm advice, may get extubated if he awakens a little more and follow verbal stimuli. is on 1/2 ns, cefepime, zithromax, dexamethasone and lovenox renal function is almost at baseline d/w and gave full updates daily. continue mirapex, cymbalta and wellbutryn has multiple med conditions in addition to extensive infiltrates seen on cxr from covid, prognosis guarded has physical deconditioning
[2020-07-08] MEDS: Propofol 1,000 MG/100 ML VIAL IV PRN (17:00)
[2020-07-08] MEDS: Famotidine 20 MG TAB PO SCH (20:39)
--- NOTE | 2020-07-08 21:33 | PRG ---
DATE OF SERVICE: 07/08/2020 SUBJECTIVE: Abhay Cooley remains mechanically ventilated. OBJECTIVE: VITAL SIGNS: Heart rates in the 50s, blood pressure 102/65, FiO2 is 40. LUNGS: Remarkable for coarse equal breath sounds. HEART: Regular rhythm. ABDOMEN: Soft. EXTREMITIES: Without edema. LABORATORY DATA: CBC has not been repeated since the . Electrolytes also have not been repeated since yesterday. IMPRESSION: COVID pneumonia. PLAN: Continue supportive care. He needs a daily CBC in my opinion and a daily Chem-7. These patients are obviously at risk for nosocomial infection, so they have been in the hospital 10 to 14 days. We will continue to follow, hopefully move towards weaning and extubation. Critical care time 30 min. Job ID: [id number] MTDD
[2020-07-09] MEDS: Sodium Chloride 0.45% 1,000 ML IV SCH ×2 (00:14→12:21)
[2020-07-09] MEDS ORDERED: Fentanyl CADD 100 ML ONE ×2 (02:00→16:17)
[2020-07-09] MEDS: Propofol 1,000 MG/100 ML VIAL IV PRN ×3 (02:35→18:42)
[2020-07-09 05:02] LABS: Anion Gap 12 mmol/L (10-20); BUN (Urea Nitrogen) 34 mg/dL (8.4-25.7); Calc. Creatinine Clearance 91 mL/min (70-130); Calcium 8.2 mg/dL (7.8-10.44); Carbon Dioxide 24 mmol/L (23-31); Chloride 103 mmol/L (98-107); Glucose 172 mg/dL (83-110); Potassium 4.4 mmol/L (3.5-5.1); Sodium 135 mmol/L (136-145)
[2020-07-09 05:36] LABS: Hemoglobin 13.6 g/dL (14.0-18.0); Hypochromia SLIGHT = 6-15 cells (100X) (0-5/hpf); Lymphocytes 9 % (21-51); MDiff Complete? YES; Macrocytosis SLIGHT = 6-15 cells (100X) (0-5/hpf); Mean Corpuscular HGB CONC 33.6 g/dL (32.0-36.0); Mean Corpuscular Hemoglobin 34.6 pg (27.0-31.0); Monocytes 12 % (0-10); Neutrophil 79 % (42-75); Platelet Count 278 thou/uL (130-400); Platelet Morphology Comment Appears Adequate; RBC Distribution Width 12.3 % (11.5-14.5); Red Blood Cell (RBC) Count 3.94 mill/uL (4.70-6.10); White Blood Cell (WBC) Count 8.4 thou/uL (4.8-10.8)
--- NOTE | 2020-07-09 08:57 | RAD ---
Exam: Chest one view HISTORY:Respiratory distress. Ventilated patient. Comparison: 07/08/2020 FINDINGS: Lines and tubes: Stable endotracheal tube, nasogastric tube and right-sided internal jugular vascular catheter Cardiac silhouette: Normal Aorta: Unremarkable Pulmonary vessels: Normal Costophrenic angles: Clear LUNGS: Persistent interstitial and alveolar opacities Pneumothorax: None Osseous abnormalities: None IMPRESSION: No significant interval change.
[2020-07-09] MEDS: Dexamethasone 4 mg/ml Vial SLOW IVP SCH (09:09)
[2020-07-09] MEDS: Cholecalciferol (Vitamin D3) 400 UNITS TAB PO SCH (09:09)
[2020-07-09] MEDS: Lorazepam 2 MG/ML VIAL SLOW IVP PRN ×4 (09:10→21:50)
[2020-07-09] MEDS: DULoxetine 60 MG CAP PO SCH (09:10)
[2020-07-09] MEDS: Enoxaparin Sodium 60 MG/0.6 ML SYRINGE SC SCH (09:10)
[2020-07-09] MEDS: Famotidine 20 MG TAB PO SCH ×2 (09:10→22:36)
[2020-07-09] MEDS: Ascorbic Acid 500 mg Chewable Tablet PO SCH (09:10)
[2020-07-09] MEDS: buPROPion 75 MG TAB PO SCH ×2 (09:10→22:36)
[2020-07-09] MEDS: Pramipexole Di-HCl 1 MG TAB PO SCH ×3 (09:11→22:35)
[2020-07-09] MEDS: Cefepime 2 GM in Sodium Chloride 0.9% 100 ML IVPB SCH (09:11)
[2020-07-09] MEDS: HumaLOG 300 UNITS/3 ML VIAL SC PRN (13:53)
[2020-07-09] MEDS ORDERED: Fentanyl CADD 100 ML IV SCH (14:15)
--- NOTE | 2020-07-09 16:02 | PDOC.HOSPP ---
- Subjective Encounter Date: 07/09/20 Encounter Time: 10:45 Subjective: is on vent with sedation - Objective Vital Signs & Weight: Vital Signs (12 hours) Temp Pulse Resp 07/09/20 15:02 65 07/09/20 14:00 24 H 07/09/20 13:00 98.3 F 07/09/20 12:00 24 H 07/09/20 11:44 61 07/09/20 10:00 16 07/09/20 08:17 76 07/09/20 08:00 98.3 F 16 07/09/20 05:36 16 07/09/20 04:00 16 Weight Admit Weight 163 lb 9.328 oz Weight 159 lb 13.362 oz Most Recent Monitor Data Heart Rate from ECG 68 NIBP 101/63 NIBP BP-Mean 75 Respiration from ECG 23 SpO2 90 I&O: 07/08/20 07/09/20 07/10/20 06:59 06:59 06:59 Intake Total 2836.6 2217.5 892.1 Output Total 2715 2400 685 Balance 121.6 -182.5 207.1 Result Diagrams: 07/09/20 04:23 07/09/20 04:23 Additional Labs: Accuchecks 07/09/20 07/08/20 07/08/20 12:49 23:20 16:31 POC Glucose 180 H 159 H 215 H Hospitalist ROS - Medication Medications: Active Medications Generic Name Dose Route Start Last Admin Trade Name Freq PRN Reason Stop Dose Admin Acetaminophen 1,000 mg 07/06/20 14:14 07/08/20 13:19 Acetaminophen 650 Mg/20.3 Ml Udcup PER TUBE 1,000 mg Q6H PRN Administration Headache/Fever or Pain Ascorbic Acid 1,000 mg 07/03/20 09:00 07/09/20 09:10 Ascorbic Acid 500 Mg Chewable Tablet PO 1,000 mg DAILY JOHN Administration Bupropion HCl 75 mg 07/06/20 21:00 07/09/20 09:10 Bupropion 75 Mg Tab PO 75 mg BID JOHN Administration Cholecalciferol 400 units 07/03/20 09:00 07/09/20 09:09 Cholecalciferol (Vitamin D3) 400 Units Tab PO 400 units DAILY JOHN Administration Dexamethasone 8 mg 07/03/20 09:00 07/09/20 09:09 Dexamethasone 4 Mg/Ml Vial SLOW IVP 8 mg DAILY JOHN Administration Duloxetine HCl 60 mg 07/07/20 09:00 07/09/20 09:10 Duloxetine 60 Mg Cap PO 60 mg DAILY JOHN Administration Enoxaparin Sodium 60 mg 07/04/20 09:00 07/09/20 09:10 Enoxaparin Sodium 60 Mg/0.6 Ml Syringe SC 60 mg 0900 JOHN Administration Famotidine 20 mg 07/08/20 21:00 07/09/20 09:10 Famotidine 20 Mg Tab PO 20 mg BID JOHN Administration Cefepime HCl 2 gm/ Sodium 100 mls @ 200 mls/hr 07/03/20 09:00 07/09/20 09:11 Chloride IVPB 100 mls Q24HR JOHN Administration Dexmedetomidine HCl 400 mcg/ 100 mls @ 0 mls/hr 07/03/20 09:45 07/09/20 12:32 Sodium Chloride IVPB 100 mls INF JOHN Administration Protocol Titrate Sodium Chloride 1,000 mls @ 75 mls/hr 07/06/20 06:15 07/09/20 12:21 1/2 Normal Saline IV 1,000 mls .[id number] JOHN Administration Norepinephrine Bitartrate 250 mls @ 0 mls/hr 07/06/20 14:30 07/09/20 06:27 Levophed IVPB 250 mls INF JOHN Administration Protocol Titrate Fentanyl 100 mls @ 0 mls/hr 07/09/20 14:15 07/09/20 15:07 Fentanyl Cadd IV 08/08/20 14:15 100 mls INF JOHN Administration Protocol Per Protocol Insulin Human Lispro 0 units 07/03/20 01:26 07/09/20 13:53 Humalog 300 Units/3 Ml Vial SC 2 unit .MILD SLIDING SCALE PRN Administration Mild Correctional Scale Lorazepam 2 mg 07/03/20 16:45 07/09/20 09:10 Lorazepam 2 Mg/Ml Vial SLOW IVP 08/02/20 16:45 2 mg Q1H PRN Administration Breakthrough agitation Pramipexole Dihydrochloride 1 mg 07/06/20 21:00 07/09/20 15:06 Pramipexole Di-Hcl 1 Mg Tab PO 1 mg TID JOHN Administration Propofol 1,000 mg 07/03/20 16:45 07/09/20 09:09 Propofol 1,000 Mg/100 Ml Vial IV 08/02/20 16:45 1,000 mg INF PRN Administration TO ACHIEVE GOAL RASS Protocol Sodium Chloride 10 ml 07/03/20 21:00 07/09/20 09:12 Flush - Normal Saline 10 Ml Syringe IVF 10 ml Q12HR JOHN Administration - Exam Eye: PERRL, anicteric sclera ENT: no oropharyngeal lesions, dry oral mucosa Neck: supple, no JVD Heart: RRR, no murmur Respiratory: no wheezes, rales, rhonchi Gastrointestinal: soft, non-tender, non-distended, normal bowel sounds Extremities: no cyanosis, no edema Neurological: cranial nerve grossly intact, no focal deficits Hosp A/P (1) Pneumonia due to COVID-19 virus Code(s): U07.1 - COVID-19; J12.82 - PNEUMONIA DUE TO CORONAVIRUS DISEASE 2018 Status: Acute (2) Acute respiratory failure with hypoxia Code(s): J96.01 - ACUTE RESPIRATORY FAILURE WITH HYPOXIA Status: Acute (3) JACIEL (acute kidney injury) Code(s): N17.9 - ACUTE KIDNEY FAILURE, UNSPECIFIED Status: Resolved (4) Anemia of chronic disease Code(s): D63.8 - ANEMIA IN OTHER CHRONIC DISEASES CLASSIFIED ELSEWHERE Status: Chronic (5) Diabetes mellitus type 2 in nonobese Code(s): E11.9 - TYPE 2 DIABETES MELLITUS WITHOUT COMPLICATIONS Status: Chronic (6) Hyperlipidemia Code(s): E78.5 - HYPERLIPIDEMIA, UNSPECIFIED Status: Chronic Qualifiers: Hyperlipidemia type: unspecified Qualified Code(s): E78.5 - Hyperlipidemia, unspecified (7) Hypertension Code(s): I10 - ESSENTIAL (PRIMARY) HYPERTENSION Status: Chronic Qualifiers: Hypertension type: essential hypertension Qualified Code(s): I10 - Essential (primary) hypertension (8) TAMMY (obstructive sleep apnea) Code(s): G47.33 - OBSTRUCTIVE SLEEP APNEA (ADULT) (PEDIATRIC) Status: Chronic (9) Parkinson disease Code(s): G20 - PARKINSON'S DISEASE Status: Chronic - Plan weaning per pulm advice is on 1/2 ns, cefepime, zithromax, dexamethasone and lovenox renal function is almost at baseline d/w and gave full updates daily. continue mirapex, cymbalta and wellbutryn has multiple med conditions in addition to extensive infiltrates seen on cxr from covid, prognosis guarded has physical deconditioning he used to drink bourbon x2 daily per , will add thiamine and folic acid
--- NOTE | 2020-07-09 19:29 | PRG ---
DATE OF SERVICE: 07/09/2020 SUBJECTIVE: Mr. Cooley is allowed to awaken more today. as the afternoon progressed, he appeared to become almost rigid. His is concerned he might be alcohol withdrawing. He apparently has fairly severe Parkinson's and drinks significant amount of [place] every night, starting about 3 o'clock in the afternoon. We placed him back on propofol, but it is equally likely or more probable that this is just his Parkinson's, making him rigid. We have asked the nursing staff to contact the hospitalist to get him back on his Parkinson meds at regular intervals and we can try weaning again. OBJECTIVE: VITAL SIGNS: His heart rate is in the 60s, blood pressure 109/69, respiratory rate is 30, oximetry is in the high 80s to low 90s. His FiO2 has been between 45% and 50%. LUNGS: Remarkable for equal breath sounds. HEART: Regular rhythm. ABDOMEN: Soft. EXTREMITIES: Without asymmetry. LABORATORY DATA AND IMAGING STUDIES: Chest x-ray is unchanged. White count 8.4, hemoglobin 13.6, and platelets 278. Sodium 135, potassium 4.4, chloride 103, bicarb 24, BUN 34, creatinine 0.75. IMPRESSION: 1. Respiratory failure associated with COVID pneumonia. 2. Underlying Parkinson disease. PLAN: As above. I believe he may end up being a candidate for weaning and extubation given his static compliance has improved dramatically over several days. Critical care time 30 min. Job ID: [id number] MTDD
[2020-07-09 23:16] LABS: Actual Bicarbonate (HCO3a) 25.4 mEq/L (22-28); Base Excess (BEa) 2.1 mEq/L (-2.0 to +3.0); CO2 Tension 35.5 mmHg (35.0-45.0); Calcium, Ionized (arterial) 1.13 mmol/L (1.12-1.30); Carboxyhemoglobin (COHb) 1.6 gm% (0.0-3.0); Hemoglobin (Hb) 14.8 g/dL (14.0-18.0); Potassium - ABG Lab 4.45 mmol/L (3.70-5.30); pH, Arterial 7.47 (7.35-7.45)
[2020-07-09 23:26] LABS: O2 Tension (PaO2), arterial 42.2 mmHg (> 70.0)
[2020-07-09 23:27] LABS: Puncture Site RRA
[2020-07-09 23:31] LABS: ALV-art Gradient 412.525 mmHg (0-20)
--- NOTE | 2020-07-09 23:36 | RAD ---
Portable frontal chest radiograph: 07/09/2020 COMPARISON: 07/09/2020 HISTORY: Hypoxia, Covid pneumonia FINDINGS: Stable endotracheal tube and nasogastric tube are. Stable right-sided vascular catheter. Th ere is severe extensive interstitial and alveolar opacity bilaterally which appears to have worsened in the upper lobe regions when compared to the prior study performed earlier on 07/09/2020. IMPRESSION: Severe extensive interstitial and alveolar opacity, worsened when compared to the prior e xam.
[2020-07-09] MEDS: Acetaminophen 650 MG/20.3 ML UDCUP PER TUBE PRN (23:47)
[2020-07-10] MEDS ORDERED: Fentanyl CADD 100 ML ONE (01:12)
[2020-07-10] MEDS: Sodium Chloride 0.45% 1,000 ML IV SCH (02:29)
[2020-07-10 04:06] LABS: Anion Gap 15 mmol/L (10-20); BUN (Urea Nitrogen) 28 mg/dL (8.4-25.7); Calc. Creatinine Clearance 87 mL/min (70-130); Carbon Dioxide 24 mmol/L (23-31); Chloride 102 mmol/L (98-107); Glucose 150 mg/dL (83-110); Potassium 4.6 mmol/L (3.5-5.1); Sodium 136 mmol/L (136-145)
[2020-07-10 04:52] LABS: Band 10 % (5-11); Hemoglobin 13.8 g/dL (14.0-18.0); Lymphocytes 5 % (21-51); MDiff Complete? YES; Mean Corpuscular HGB CONC 33.6 g/dL (32.0-36.0); Mean Corpuscular Hemoglobin 33.8 pg (27.0-31.0); Mean Platelet Volume 7.8 fL (7.4-10.4); Monocytes 1 % (0-10); Neutrophil 82 % (42-75); Platelet Count 354 thou/uL (130-400); RBC Distribution Width 12.3 % (11.5-14.5); Reactive Lymphocytes 2 % (0-10); Red Blood Cell (RBC) Count 4.09 mill/uL (4.70-6.10); White Blood Cell (WBC) Count 11.8 thou/uL (4.8-10.8)
[2020-07-10] MEDS: Pramipexole Di-HCl 1 MG TAB PO SCH ×3 (07:12→20:05)
[2020-07-10] MEDS: Scopolamine 1.5 mg/72 hour Patch TOP SCH (07:43)
[2020-07-10] MEDS: Cholecalciferol (Vitamin D3) 400 UNITS TAB PO SCH (08:13)
[2020-07-10] MEDS: Folic Acid 1 MG TAB PO SCH (08:13)
[2020-07-10] MEDS: Ascorbic Acid 500 mg Chewable Tablet PO SCH (08:13)
[2020-07-10] MEDS: DULoxetine 60 MG CAP PO SCH (08:13)
[2020-07-10] MEDS: Enoxaparin Sodium 60 MG/0.6 ML SYRINGE SC SCH (08:13)
[2020-07-10] MEDS: Famotidine 20 MG TAB PO SCH (08:13)
[2020-07-10] MEDS: Dexamethasone 4 mg/ml Vial SLOW IVP SCH (08:13)
[2020-07-10] MEDS: buPROPion 75 MG TAB PO SCH ×2 (08:14→20:05)
[2020-07-10] MEDS: Pantoprazole 40 MG VIAL IVP SCH (08:15)
[2020-07-10] MEDS: Cefepime 2 GM in Sodium Chloride 0.9% 100 ML IVPB SCH (08:20)
[2020-07-10] MEDS ORDERED: Thiamine 100 MG TAB PO SCH (09:00)
--- NOTE | 2020-07-10 09:20 | RAD ---
PORTABLE CHEST: COMPARISON: Prior day's exam. HISTORY: COVID pneumonia, hypoxia. FINDINGS: Endotracheal and NG tubes and right central line are unchanged in position. Parenchymal lung infiltr ates are stable. IMPRESSION: Stable exam. POS: RAFFY
[2020-07-10] MEDS: Meropenem 2 GM, Admixture Fee 1 EACH in Sodium Chloride 0.9% 100 ML IVPB SCH ×2 (10:31→17:43)
[2020-07-10] MEDS: Albumin 25% 25 GM/100 ML BOT IVPB SCH ×2 (10:31→16:51)
--- NOTE | 2020-07-10 14:17 | PRG ---
DATE OF SERVICE: 07/10/2020 SUBJECTIVE: Abhay Cooley remains mechanically ventilated. Thought he was approaching extubation when we spiked the temperature. He has been cultured and antibiotics have been changed this morning. OBJECTIVE: VITAL SIGNS: Blood pressure is 115/77, heart rate 80, FiO2 is 50. Had increased his PEEP back up to 10. His saturations are not stable. His exhaled tidal volume is dropped from almost 700 mL to 580 mL. He is now on vancomycin and meropenem. He had been here on steroids believe that he would have potential fungal process, so enough fungal agents have been started. LUNGS: Otherwise unchanged. HEART: Otherwise unchanged. ABDOMEN: Otherwise unchanged. LABORATORY DATA: White count 11.8, hemoglobin 13.8, platelets 354. Electrolytes are unremarkable. BUN 28, creatinine 0.7. Intake and outputs +1459. We will continue current care. We will add daily Lasix to try to keep him negative fluid balance. He is unlikely to be weanable this weekend. Critical care time 30 min. Job ID: [id number] MTDD
[2020-07-10] MEDS ORDERED: Furosemide 40 MG/4 ML VIAL ONE (14:43)
[2020-07-10] MEDS: Furosemide 40 MG/4 ML VIAL SLOW IVP SCH (14:49)
--- NOTE | 2020-07-10 15:57 | PDOC.HOSPP ---
- Subjective Encounter Date: 07/10/20 Encounter Time: 10:45 Subjective: is sedated, on vent had temp of 101 last night - Objective Vital Signs & Weight: Vital Signs (12 hours) Temp Pulse Resp BP Pulse Ox 07/10/20 14:00 24 H 07/10/20 13:51 64 97/59 L 07/10/20 12:00 101.2 F H 24 H 07/10/20 10:31 80 115/77 07/10/20 10:00 24 H 07/10/20 09:00 100.1 F H 07/10/20 08:00 24 H 93 L 07/10/20 07:55 61 102/65 07/10/20 06:00 100.6 F H 24 H 07/10/20 05:00 100.6 F H 07/10/20 04:00 101.2 F H 24 H Weight Admit Weight 163 lb 9.328 oz Weight 159 lb 13.362 oz Most Recent Monitor Data Heart Rate from ECG 62 NIBP 94/57 NIBP BP-Mean 69 Respiration from ECG 24 SpO2 96 I&O: 07/09/20 07/10/20 07/11/20 06:59 06:59 06:59 Intake Total 2217.5 3924.1 150 Output Total 2400 2465 900 Balance -182.5 1459.1 -750 Result Diagrams: 07/10/20 03:00 07/10/20 03:00 Additional Labs: Accuchecks 07/10/20 07/10/20 07/09/20 15:45 09:38 17:25 POC Glucose 207 H 137 H 117 H Hospitalist ROS - Medication Medications: Active Medications Generic Name Dose Route Start Last Admin Trade Name Freq PRN Reason Stop Dose Admin Acetaminophen 1,000 mg 07/06/20 14:14 07/09/20 23:47 Acetaminophen 650 Mg/20.3 Ml Udcup PER TUBE 1,000 mg Q6H PRN Administration Headache/Fever or Pain Albumin Human 25 gm 07/10/20 12:00 07/10/20 10:31 Albumin 25% 25 Gm/100 Ml Bot IVPB 07/11/20 12:01 25 gm Q6HR JOHN Administration Ascorbic Acid 1,000 mg 07/03/20 09:00 07/10/20 08:13 Ascorbic Acid 500 Mg Chewable Tablet PO 1,000 mg DAILY JOHN Administration Bupropion HCl 75 mg 07/06/20 21:00 07/10/20 08:14 Bupropion 75 Mg Tab PO 75 mg BID JOHN Administration Cholecalciferol 400 units 07/03/20 09:00 07/10/20 08:13 Cholecalciferol (Vitamin D3) 400 Units Tab PO 400 units DAILY JOHN Administration Dexamethasone 8 mg 07/03/20 09:00 07/10/20 08:13 Dexamethasone 4 Mg/Ml Vial SLOW IVP 8 mg DAILY JOHN Administration Duloxetine HCl 60 mg 07/07/20 09:00 07/10/20 08:13 Duloxetine 60 Mg Cap PO 60 mg DAILY JOHN Administration Enoxaparin Sodium 60 mg 07/04/20 09:00 07/10/20 08:13 Enoxaparin Sodium 60 Mg/0.6 Ml Syringe SC 60 mg 0900 JOHN Administration Famotidine 20 mg 07/08/20 21:00 07/10/20 08:13 Famotidine 20 Mg Tab PO 20 mg BID JOHN Administration Folic Acid 1 mg 07/10/20 09:00 07/10/20 08:13 Folic Acid 1 Mg Tab PO 1 mg DAILY JOHN Administration Furosemide 40 mg 07/11/20 09:00 07/10/20 14:49 Furosemide 40 Mg/4 Ml Vial SLOW IVP 40 mg DAILY JOHN Administration Dexmedetomidine HCl 400 mcg/ 100 mls @ 0 mls/hr 07/03/20 09:45 07/10/20 10:31 Sodium Chloride IVPB 100 mls INF JOHN Administration Protocol Titrate Fentanyl 100 mls @ 0 mls/hr 07/09/20 14:15 07/09/20 15:07 Fentanyl Cadd IV 08/08/20 14:15 100 mls INF JOHN Administration Protocol Per Protocol Midazolam HCl 100 mg/ Sodium 100 mls @ 0 mls/hr 07/09/20 23:15 07/09/20 23:54 Chloride IVPB 100 mls INF PRN Administration Sedation Protocol As Directed Meropenem 2 gm/ Miscellaneous 100 mls @ 200 mls/hr 07/10/20 10:00 07/10/20 10:31 Medication 1 each/ Sodium IVPB 100 mls Chloride 0200,1000,1800 JOHN Administration Insulin Human Lispro 0 units 07/03/20 01:26 07/09/20 13:53 Humalog 300 Units/3 Ml Vial SC 2 unit .MILD SLIDING SCALE PRN Administration Mild Correctional Scale Lorazepam 2 mg 07/03/20 16:45 07/09/20 21:50 Lorazepam 2 Mg/Ml Vial SLOW IVP 08/02/20 16:45 2 mg Q1H PRN Administration Breakthrough agitation Pantoprazole Sodium 40 mg 07/10/20 09:00 07/10/20 08:15 Pantoprazole 40 Mg Vial IVP 40 mg DAILY JOHN Administration Pramipexole Dihydrochloride 1 mg 07/09/20 22:00 07/10/20 14:49 Pramipexole Di-Hcl 1 Mg Tab PO 1 mg Q8HR JOHN Administration Propofol 1,000 mg 07/03/20 16:45 07/09/20 18:42 Propofol 1,000 Mg/100 Ml Vial IV 08/02/20 16:45 1,000 mg INF PRN Administration TO ACHIEVE GOAL RASS Protocol Scopolamine 1.5 mg 07/09/20 23:59 07/10/20 07:43 Scopolamine 1.5 Mg/72 Hour Patch TOP 1.5 mg Q3D JOHN Administration Sodium Chloride 10 ml 07/03/20 21:00 07/10/20 08:13 Flush - Normal Saline 10 Ml Syringe IVF 10 ml Q12HR JOHN Administration - Exam General Appearance: ill appearing Eye: PERRL, anicteric sclera ENT: no oropharyngeal lesions, dry oral mucosa Neck: supple, no JVD Heart: RRR, no murmur Respiratory: no wheezes, rales, rhonchi Gastrointestinal: soft, non-tender, non-distended, normal bowel sounds Extremities: no cyanosis, no edema Neurological: cranial nerve grossly intact, no focal deficits Hosp A/P (1) Pneumonia due to COVID-19 virus Code(s): U07.1 - COVID-19; J12.82 - PNEUMONIA DUE TO CORONAVIRUS DISEASE 2019 Status: Acute (2) Acute respiratory failure with hypoxia Code(s): J96.01 - ACUTE RESPIRATORY FAILURE WITH HYPOXIA Status: Acute (3) JACIEL (acute kidney injury) Code(s): N17.9 - ACUTE KIDNEY FAILURE, UNSPECIFIED Status: Resolved (4) Anemia of chronic disease Code(s): D63.8 - ANEMIA IN OTHER CHRONIC DISEASES CLASSIFIED ELSEWHERE Status: Chronic (5) Diabetes mellitus type 2 in nonobese Code(s): E11.9 - TYPE 2 DIABETES MELLITUS WITHOUT COMPLICATIONS Status: Chronic (6) Hyperlipidemia Code(s): E78.5 - HYPERLIPIDEMIA, UNSPECIFIED Status: Chronic Qualifiers: Hyperlipidemia type: unspecified Qualified Code(s): E78.5 - Hyperlipidemia, unspecified (7) Hypertension Code(s): I10 - ESSENTIAL (PRIMARY) HYPERTENSION Status: Chronic Qualifiers: Hypertension type: essential hypertension Qualified Code(s): I10 - Essential (primary) hypertension (8) TAMMY (obstructive sleep apnea) Code(s): G47.33 - OBSTRUCTIVE SLEEP APNEA (ADULT) (PEDIATRIC) Status: Chronic (9) Parkinson disease Code(s): G20 - PARKINSON'S DISEASE Status: Chronic - Plan weaning per pulm advice is on 1/2 ns, meropenem and vanc along with repeat cultures done last evening for temp of 101, dexamethasone and lovenox renal function is at baseline d/w and gave full updates every day. continue mirapex q8h for both restless legs and parkinson's per ([facility] derrell has multiple med conditions in addition to extensive infiltrates seen on cxr from covgera, prognosis guarded has physical deconditioning he used to drink bourbon x2 daily per , on thiamine and folic acid
[2020-07-10] MEDS: HumaLOG 300 UNITS/3 ML VIAL SC PRN (17:37)
[2020-07-10] MEDS: Vancomycin 1 GM in Premix Bag 1 BAG IVPB SCH (20:04)
[2020-07-11] MEDS: HumaLOG 300 UNITS/3 ML VIAL SC PRN ×3 (00:55→17:00)
[2020-07-11] MEDS: Albumin 25% 25 GM/100 ML BOT IVPB SCH ×3 (01:01→13:15)
[2020-07-11] MEDS: Meropenem 2 GM, Admixture Fee 1 EACH in Sodium Chloride 0.9% 100 ML IVPB SCH ×3 (02:53→18:38)
[2020-07-11 04:07] LABS: Anion Gap 15 mmol/L (10-20); BUN (Urea Nitrogen) 34 mg/dL (8.4-25.7); Calc. Creatinine Clearance 82 mL/min (70-130); Calcium 8.3 mg/dL (7.8-10.44); Carbon Dioxide 27 mmol/L (23-31); Chloride 102 mmol/L (98-107); Glucose 177 mg/dL (83-110); Sodium 140 mmol/L (136-145)
[2020-07-11 04:23] LABS: Band 5 % (5-11); Hemoglobin 12.1 g/dL (14.0-18.0); Lymphocytes 6 % (21-51); MDiff Complete? YES; Mean Corpuscular HGB CONC 34.3 g/dL (32.0-36.0); Mean Corpuscular Hemoglobin 34.4 pg (27.0-31.0); Mean Platelet Volume 8.1 fL (7.4-10.4); Monocytes 9 % (0-10); Neutrophil 79 % (42-75); Platelet Count 264 thou/uL (130-400); RBC Distribution Width 12.2 % (11.5-14.5); Reactive Lymphocytes 1 % (0-10); Red Blood Cell (RBC) Count 3.52 mill/uL (4.70-6.10); White Blood Cell (WBC) Count 9.5 thou/uL (4.8-10.8)
[2020-07-11] MEDS: Pramipexole Di-HCl 1 MG TAB PO SCH ×3 (05:48→21:04)
[2020-07-11] MEDS: Lorazepam 2 MG/ML VIAL SLOW IVP PRN ×2 (07:31→13:15)
--- NOTE | 2020-07-11 08:30 | RAD ---
EXAM: CHEST ONE VIEW HISTORY: On ventilator. Follow-up evaluation. COMPARISON: 07/10/2020 FINDINGS: Endotracheal tube, nasogastric tube, right-sided vascular catheter remain in place. Cardiac silhouett e is within normal limits. Linear density overlies the lateral left midlung zone which is most likely related to an overlying skin fold. Increased interstitial and alveolar opacities are again see n within the lungs bilaterally not significantly changed given differences in technique. Postoperative changes lower cervical and upper thoracic spine with degenerative changes spine are aga in seen. No interval change from prior study. IMPRESSION: Stable chest.
--- NOTE | 2020-07-11 09:04 | CON ---
DATE OF CONSULTATION: 07/11/2020 CONSULTING PHYSICIAN: Hospitalist Service. IMPRESSION: 1. History of Parkinson disease. 2. Ongoing COVID infection with respiratory failure. 3. Diabetes. 4. Hyperlipidemia. 5. Hypertension. PLAN: 1. Recall when the patient is off sedation if he have any further questions. 2. Continue Mirapex per NG tube. HISTORY OF PRESENT ILLNESS: Mr. Cooley is an elderly gentleman, who was admitted with acute COVID respiratory failure. He has past history of Parkinson disease, among other issues as noted above. He has had a persistent fever over 100 for the last few days. He is currently on IV sedation. He apparently is encephalopathic and agitated when the sedation is reduced. I was called to give a neurologic opinion. The nurses did not have any other information as to why I was being consulted. PAST HISTORY: As listed above. ALLERGIES: NONE. SOCIAL HISTORY: Unremarkable as per chart. MEDICATIONS: List was reviewed. REVIEW OF SYSTEMS: Not obtainable. PHYSICAL EXAMINATION: VITAL SIGNS: Pulse 68; respirations, on ventilatory support; and temperature 101. HEENT: Pupils are equal. Conjunctivae clear. He is orally intubated. Cranium, normocephalic and atraumatic. NECK: Supple. No lymphadenopathy noted. ABDOMEN: Soft and nontender by gross palpation. EXTREMITIES: There are some distal ecchymoses of the great toes bilaterally. No similar lesions were noted in the hands. SKIN: Otherwise clear. NEUROLOGIC: He is deeply sedated. He responds to some peripheral stimulation in a symmetric fashion. No abnormal movements were seen. His tone appeared to be symmetric. LABORATORY STUDIES: Reviewed. SUMMARY: This is an elderly man with Parkinson disease, who is currently having an active COVID infection with respiratory failure. I did not see any acute neurologic issues at this point. Encephalopathy would be expected under these circumstances. Job ID: [id number]
[2020-07-11] MEDS: Furosemide 40 MG/4 ML VIAL SLOW IVP SCH (09:59)
[2020-07-11] MEDS: Dexamethasone 4 mg/ml Vial SLOW IVP SCH (09:59)
[2020-07-11] MEDS: DULoxetine 60 MG CAP PO SCH (09:59)
[2020-07-11] MEDS: Folic Acid 1 MG TAB PO SCH (09:59)
[2020-07-11] MEDS: Ascorbic Acid 500 mg Chewable Tablet PO SCH (09:59)
[2020-07-11] MEDS: buPROPion 75 MG TAB PO SCH ×2 (09:59→21:04)
[2020-07-11] MEDS: Cholecalciferol (Vitamin D3) 400 UNITS TAB PO SCH (09:59)
[2020-07-11] MEDS: Pantoprazole 40 MG VIAL IVP SCH (10:00)
[2020-07-11] MEDS: Vancomycin 1 GM in Premix Bag 1 BAG IVPB SCH ×2 (10:00→21:04)
[2020-07-11] MEDS: Enoxaparin Sodium 60 MG/0.6 ML SYRINGE SC SCH (10:00)
--- NOTE | 2020-07-11 10:04 | PDOC.HOSPP ---
- Subjective Encounter Date: 07/11/20 Encounter Time: 10:02 Subjective: Mr. Cooley was seen today in follow-up of respiratory failure due to COVID pneumonia. He is intubated. He is moving all extremities. - Objective Vital Signs & Weight: Vital Signs (12 hours) Temp Pulse Resp BP 07/11/20 08:30 60 07/11/20 06:00 24 H 07/11/20 04:00 24 H 07/11/20 02:35 62 116/71 07/11/20 02:00 98.9 F 24 H 07/11/20 01:54 67 109/69 07/11/20 01:04 97.7 F 07/11/20 01:00 98.7 F 07/10/20 22:18 59 L 114/70 Weight Admit Weight 163 lb 9.328 oz Weight 159 lb 13.362 oz Most Recent Monitor Data Heart Rate from ECG 58 NIBP 169/87 NIBP BP-Mean 114 Respiration from ECG 24 SpO2 99 I&O: 07/10/20 07/11/20 07/12/20 06:59 06:59 06:59 Intake Total 3924.1 1726 Output Total 2465 3200 Balance 1459.1 -1474 Result Diagrams: 07/11/20 03:00 07/11/20 03:00 Additional Labs: Accuchecks 07/10/20 07/10/20 20:36 15:45 POC Glucose 182 H 207 H Hospitalist ROS - Medication Medications: Active Medications Generic Name Dose Route Start Last Admin Trade Name Freq PRN Reason Stop Dose Admin Acetaminophen 1,000 mg 07/06/20 14:14 07/09/20 23:47 Acetaminophen 650 Mg/20.3 Ml Udcup PER TUBE 1,000 mg Q6H PRN Administration Headache/Fever or Pain Albumin Human 25 gm 07/10/20 12:00 07/11/20 05:48 Albumin 25% 25 Gm/100 Ml Bot IVPB 07/11/20 12:01 25 gm Q6HR JOHN Administration Ascorbic Acid 1,000 mg 07/03/20 09:00 07/11/20 09:59 Ascorbic Acid 500 Mg Chewable Tablet PO 1,000 mg DAILY JOHN Administration Bupropion HCl 75 mg 07/06/20 21:00 07/11/20 09:59 Bupropion 75 Mg Tab PO 75 mg BID JOHN Administration Cholecalciferol 400 units 07/03/20 09:00 07/11/20 09:59 Cholecalciferol (Vitamin D3) 400 Units Tab PO 400 units DAILY JOHN Administration Dexamethasone 8 mg 07/03/20 09:00 07/11/20 09:59 Dexamethasone 4 Mg/Ml Vial SLOW IVP 8 mg DAILY JOHN Administration Duloxetine HCl 60 mg 07/07/20 09:00 07/11/20 09:59 Duloxetine 60 Mg Cap PO 60 mg DAILY JOHN Administration Enoxaparin Sodium 60 mg 07/04/20 09:00 07/11/20 10:00 Enoxaparin Sodium 60 Mg/0.6 Ml Syringe SC 60 mg 0900 JOHN Administration Folic Acid 1 mg 07/10/20 09:00 07/11/20 09:59 Folic Acid 1 Mg Tab PO 1 mg DAILY JOHN Administration Furosemide 40 mg 07/11/20 09:00 07/11/20 09:59 Furosemide 40 Mg/4 Ml Vial SLOW IVP 40 mg DAILY JOHN Administration Dexmedetomidine HCl 400 mcg/ 100 mls @ 0 mls/hr 07/03/20 09:45 07/11/20 09:21 Sodium Chloride IVPB 100 mls INF JOHN Administration Protocol Titrate Fentanyl 100 mls @ 0 mls/hr 07/09/20 14:15 07/09/20 15:07 Fentanyl Cadd IV 08/08/20 14:15 100 mls INF JOHN Administration Protocol Per Protocol Midazolam HCl 100 mg/ Sodium 100 mls @ 0 mls/hr 07/09/20 23:15 07/11/20 08:36 Chloride IVPB 100 mls INF PRN Administration Sedation Protocol As Directed Meropenem 2 gm/ Miscellaneous 100 mls @ 200 mls/hr 07/10/20 10:00 07/11/20 02:53 Medication 1 each/ Sodium IVPB 100 mls Chloride 0200,1000,1800 JOHN Administration Vancomycin HCl 1 gm/ Device 200 mls @ 200 mls/hr 07/10/20 21:00 07/11/20 10:00 IVPB 200 mls Q12HR JOHN Administration Insulin Human Lispro 0 units 07/03/20 01:26 07/11/20 00:55 Humalog 300 Units/3 Ml Vial SC 2 unit .MILD SLIDING SCALE PRN Administration Mild Correctional Scale Lorazepam 2 mg 07/03/20 16:45 07/11/20 07:31 Lorazepam 2 Mg/Ml Vial SLOW IVP 08/02/20 16:45 2 mg Q1H PRN Administration Breakthrough agitation Pantoprazole Sodium 40 mg 07/10/20 09:00 07/11/20 10:00 Pantoprazole 40 Mg Vial IVP 40 mg DAILY JOHN Administration Pramipexole Dihydrochloride 1 mg 07/09/20 22:00 07/11/20 05:48 Pramipexole Di-Hcl 1 Mg Tab PO 1 mg Q8HR JOHN Administration Propofol 1,000 mg 07/03/20 16:45 07/09/20 18:42 Propofol 1,000 Mg/100 Ml Vial IV 08/02/20 16:45 1,000 mg INF PRN Administration TO ACHIEVE GOAL RASS Protocol Scopolamine 1.5 mg 07/09/20 23:59 07/10/20 07:43 Scopolamine 1.5 Mg/72 Hour Patch TOP 1.5 mg Q3D JOHN Administration Sodium Chloride 10 ml 07/03/20 21:00 07/11/20 10:00 Flush - Normal Saline 10 Ml Syringe IVF 10 ml Q12HR JOHN Administration - Exam Eye: PERRL, anicteric sclera Heart: RRR, no murmur, no gallops, no rubs, normal peripheral pulses Respiratory: rales (rales and rhonchi at both bases), rhonchi Gastrointestinal: soft, non-tender, non-distended, normal bowel sounds Extremities: no edema (both d.p. pulses are palpable, but his left 1 toe, has purplish discoloration, and the tip of the right toe) Hosp A/P (1) Acute respiratory failure with hypoxia Code(s): J96.01 - ACUTE RESPIRATORY FAILURE WITH HYPOXIA Status: Acute (2) Pneumonia due to COVID-19 virus Code(s): U07.1 - COVID-19; J12.82 - PNEUMONIA DUE TO CORONAVIRUS DISEASE 2019 Status: Acute (3) Diabetes mellitus type 2 in nonobese Code(s): E11.9 - TYPE 2 DIABETES MELLITUS WITHOUT COMPLICATIONS Status: Chronic (4) Hypertension Code(s): I10 - ESSENTIAL (PRIMARY) HYPERTENSION Status: Chronic Qualifiers: Hypertension type: essential hypertension Qualified Code(s): I10 - Essential (primary) hypertension (5) TAMMY (obstructive sleep apnea) Code(s): G47.33 - OBSTRUCTIVE SLEEP APNEA (ADULT) (PEDIATRIC) Status: Chronic (6) Parkinson disease Code(s): G20 - PARKINSON'S DISEASE Status: Chronic - Plan * Acute respiratory failure due to COVID pneumonia- continue supportive care. * Continue Decadron IV * Slow wean from the ventilator as per PCCM * HTN- blood pressure has been a bit labile- Lisinopril is on hold due to JACIEL- will start low dose Amlodipine for now, and consider switch back to Lisinopril at a later date * JACIEL- resolved * DM- blood glucose is stable * DVT- prophylaxis- continue Lovenox * Parkinson's disease- continue Pramipexole
--- NOTE | 2020-07-11 11:15 | EKG ---
Test Reason : Blood Pressure : / mmHG Vent. Rate : 138 BPM Atrial Rate : 138 BPM P-R Int : 124 ms QRS Dur : 092 ms QT Int : 284 ms P-R-T Axes : 023 -44 002 degrees QTc Int : 430 ms Sinus tachycardia with occasional Premature ventricular complexes and Fusion complexes Possible Left atrial enlargement Left axis deviation Incomplete right bundle branch block Abnormal ECG Confirmed by TRIPP BALLARD ([id number]), design editor JOSE MARIA MONTILLA ([id number]) on 07/11/2020 11:14:47 AM Referred By: Confirmed By:TRIPP BALLARD
--- NOTE | 2020-07-11 14:11 | PRG ---
DATE OF SERVICE: 07/11/2020 This is 35 minutes critical care time. SUBJECTIVE: The patient remains intubated on mechanical ventilation. He is sedated on Versed drip. PHYSICAL EXAMINATION: VITAL SIGNS: His temperature is 98.9, pulse 58, blood pressure 169/87. 24-hour intake 1726, output 3200. HEENT: Unremarkable. NECK: No adenopathy or JVD. LUNGS: Clear anteriorly. CARDIAC: S1 and S2, regular. ABDOMEN: Soft. EXTREMITIES: No edema. LABORATORY DATA: White blood cell count 9.5, hematocrit 35.3, and platelet count 264. Sodium 140, potassium 4, chloride 102, CO2 of 27, BUN 34, creatinine 0.8, glucose 177. Chest x-ray shows diffuse bilateral infiltrates, which may have cleared some compared to previous. His current ventilator settings show respiratory rate 24, high PEEP of 26, low PEEP of 10, and FiO2 of 40%. ASSESSMENT: 1. Acute hypoxic respiratory failure requiring mechanical ventilation. 2. COVID-19 pneumonia. 3. Encephalopathy. PLAN: I have decreased his respiratory rate some on the vent. He will continue on antibiotics, anticoagulation, and IV steroids. Job ID: [id number]
[2020-07-12] MEDS: HumaLOG 300 UNITS/3 ML VIAL SC PRN ×5 (00:28→23:05)
[2020-07-12] MEDS: Meropenem 2 GM, Admixture Fee 1 EACH in Sodium Chloride 0.9% 100 ML IVPB SCH ×3 (03:28→18:18)
[2020-07-12 05:03] LABS: Anion Gap 15 mmol/L (10-20); BUN (Urea Nitrogen) 36 mg/dL (8.4-25.7); Calc. Creatinine Clearance 88 mL/min (70-130); Calcium 8.7 mg/dL (7.8-10.44); Carbon Dioxide 25 mmol/L (23-31); Chloride 100 mmol/L (98-107); Glucose 179 mg/dL (83-110); Potassium 4.1 mmol/L (3.5-5.1); Sodium 136 mmol/L (136-145)
[2020-07-12 05:23] LABS: Band 2 % (5-11); Hemoglobin 12.9 g/dL (14.0-18.0); Lymphocytes 1 % (21-51); MDiff Complete? YES; Mean Corpuscular HGB CONC 32.9 g/dL (32.0-36.0); Mean Corpuscular Hemoglobin 32.9 pg (27.0-31.0); Mean Corpuscular Volume 99.9 fL (78.0-98.0); Mean Platelet Volume 8.2 fL (7.4-10.4); Monocytes 4 % (0-10); Neutrophil 93 % (42-75); Platelet Count 302 thou/uL (130-400); Red Blood Cell (RBC) Count 3.93 mill/uL (4.70-6.10); Toxic Granulation SLIGHT; White Blood Cell (WBC) Count 10.3 thou/uL (4.8-10.8)
[2020-07-12] MEDS: Pramipexole Di-HCl 1 MG TAB PO SCH ×3 (05:44→21:02)
--- NOTE | 2020-07-12 08:42 | RAD ---
XR Chest 1 View Portable History: Ventilated patient Comparison: Radiograph prior day Findings: Endotracheal tube tip sits above the shirin 2.8 cm. Enteric tube tip below diaphragm althou gh out of field of view. Right IJ central venous catheter tip projects over the inferior SVC. No pneumothorax or pneumomediast inum. Airspace opacities are similar. Impression: No significant change in the radiographic appearance of the chest. No pneumothorax or pne umomediastinum.
--- NOTE | 2020-07-12 08:54 | PRG ---
DATE OF SERVICE: 07/12/2020 35 minutes critical care time. SUBJECTIVE: The patient remains intubated on mechanical ventilation. He is sedated with Precedex and midazolam. OBJECTIVE: VITAL SIGNS: His temperature is 98.5, pulse 52, blood pressure 113/72, O2 saturation 97%. 24 hour intake 6096, output 3115. His current ventilator parameters are bilevel rate of 18, high pressure of 26, low pressure 10, and FiO2 of 40%. HEENT: Unremarkable. NECK: No adenopathy or JVD. LUNGS: Fairly clear anteriorly. CARDIAC: S1 and S2 regular. ABDOMEN: Soft and nontender. EXTREMITIES: No edema. IMAGING: His x-ray shows patchy bilateral infiltrates, no worse than before. LABORATORY DATA: White blood cell count 10.3, hematocrit 39.3, and platelet count 302. Sodium 136, potassium 4.1, chloride 100, CO2 of 25, BUN 36, creatinine 0.7, glucose 179. ASSESSMENT: 1. COVID-19 pneumonia. 2. Acute hypoxic respiratory failure requiring mechanical ventilation. 3. Encephalopathy. PLAN: Begin weaning the pressure and his respiratory rate. We will continue the antibiotics, anticoagulation, and steroids. Prognosis is guarded. Job ID: [id number]
[2020-07-12] MEDS: Enoxaparin Sodium 60 MG/0.6 ML SYRINGE SC SCH (08:55)
[2020-07-12] MEDS: Pantoprazole 40 MG VIAL IVP SCH (08:56)
[2020-07-12] MEDS: Cholecalciferol (Vitamin D3) 400 UNITS TAB PO SCH (08:56)
[2020-07-12] MEDS: Folic Acid 1 MG TAB PO SCH (08:56)
[2020-07-12] MEDS: buPROPion 75 MG TAB PO SCH ×2 (08:56→21:02)
[2020-07-12] MEDS: Ascorbic Acid 500 mg Chewable Tablet PO SCH (08:56)
[2020-07-12] MEDS: Furosemide 40 MG/4 ML VIAL SLOW IVP SCH (08:56)
[2020-07-12] MEDS: DULoxetine 60 MG CAP PO SCH (08:56)
[2020-07-12] MEDS: Dexamethasone 4 mg/ml Vial SLOW IVP SCH (08:56)
[2020-07-12] MEDS: Vancomycin 1 GM in Premix Bag 1 BAG IVPB SCH ×2 (08:58→21:02)
--- NOTE | 2020-07-12 11:07 | PDOC.HOSPP ---
- Subjective Encounter Date: 07/12/20 Encounter Time: 11:05 Subjective: Mr. Cooley was seen today in follow-up of respiratory failure due to COVID pneumonia. He is intubated and sedated. No problems voiced. - Objective Vital Signs & Weight: Vital Signs (12 hours) Temp Pulse Resp BP Pulse Ox 07/12/20 10:55 57 L 110/67 07/12/20 10:00 33 H 07/12/20 08:00 99.0 F 52 L 34 H 94 L 07/12/20 06:00 18 07/12/20 04:00 98.5 F 19 07/12/20 02:33 51 L 116/71 07/12/20 02:00 18 07/12/20 00:33 51 L 122/73 07/12/20 00:00 98.0 F 18 Weight Admit Weight 163 lb 9.328 oz Weight 159 lb 13.362 oz Most Recent Monitor Data Heart Rate from ECG 57 NIBP 112/69 NIBP BP-Mean 83 Respiration from ECG 34 SpO2 97 I&O: 07/11/20 07/12/20 07/13/20 06:59 06:59 06:59 Intake Total 1726 1696.8 120 Output Total 3200 3515 75 Balance -1474 -1818.2 45 Result Diagrams: 07/12/20 03:50 07/12/20 03:50 Additional Labs: Accuchecks 07/12/20 07/12/20 07/11/20 03:55 00:12 16:55 POC Glucose 183 H 205 H 178 H 07/11/20 11:07 POC Glucose 160 H Hospitalist ROS - Medication Medications: Active Medications Generic Name Dose Route Start Last Admin Trade Name Freq PRN Reason Stop Dose Admin Acetaminophen 1,000 mg 07/06/20 14:14 07/09/20 23:47 Acetaminophen 650 Mg/20.3 Ml Udcup PER TUBE 1,000 mg Q6H PRN Administration Headache/Fever or Pain Ascorbic Acid 1,000 mg 07/03/20 09:00 07/12/20 08:56 Ascorbic Acid 500 Mg Chewable Tablet PO 1,000 mg DAILY JOHN Administration Bupropion HCl 75 mg 07/06/20 21:00 07/12/20 08:56 Bupropion 75 Mg Tab PO 75 mg BID JOHN Administration Cholecalciferol 400 units 07/03/20 09:00 07/12/20 08:56 Cholecalciferol (Vitamin D3) 400 Units Tab PO 400 units DAILY JOHN Administration Dexamethasone 8 mg 07/03/20 09:00 07/12/20 08:56 Dexamethasone 4 Mg/Ml Vial SLOW IVP 8 mg DAILY JOHN Administration Duloxetine HCl 60 mg 07/07/20 09:00 07/12/20 08:56 Duloxetine 60 Mg Cap PO 60 mg DAILY JOHN Administration Enoxaparin Sodium 60 mg 07/04/20 09:00 07/12/20 08:55 Enoxaparin Sodium 60 Mg/0.6 Ml Syringe SC 60 mg 0900 JOHN Administration Folic Acid 1 mg 07/10/20 09:00 07/12/20 08:56 Folic Acid 1 Mg Tab PO 1 mg DAILY JOHN Administration Furosemide 40 mg 07/11/20 09:00 07/12/20 08:56 Furosemide 40 Mg/4 Ml Vial SLOW IVP 40 mg DAILY JOHN Administration Dexmedetomidine HCl 400 mcg/ 100 mls @ 0 mls/hr 07/03/20 09:45 07/12/20 10:34 Sodium Chloride IVPB 100 mls INF JOHN Administration Protocol Titrate Fentanyl 100 mls @ 0 mls/hr 07/09/20 14:15 07/09/20 15:07 Fentanyl Cadd IV 08/08/20 14:15 100 mls INF JOHN Administration Protocol Per Protocol Midazolam HCl 100 mg/ Sodium 100 mls @ 0 mls/hr 07/09/20 23:15 07/12/20 01:17 Chloride IVPB 100 mls INF PRN Administration Sedation Protocol As Directed Meropenem 2 gm/ Miscellaneous 100 mls @ 200 mls/hr 07/10/20 10:00 07/12/20 10 :33 Medication 1 each/ Sodium IVPB 100 mls Chloride 0200,1000,1800 JOHN Administration Vancomycin HCl 1 gm/ Device 200 mls @ 200 mls/hr 07/10/20 21:00 07/12/20 08:58 IVPB 200 mls Q12HR JOHN Administration Insulin Human Lispro 0 units 07/03/20 01:26 07/12/20 04:49 Humalog 300 Units/3 Ml Vial SC 2 unit .MILD SLIDING SCALE PRN Administration Mild Correctional Scale Lorazepam 2 mg 07/03/20 16:45 07/11/20 13:15 Lorazepam 2 Mg/Ml Vial SLOW IVP 08/02/20 16:45 2 mg Q1H PRN Administration Breakthrough agitation Pantoprazole Sodium 40 mg 07/10/20 09:00 07/12/20 08:56 Pantoprazole 40 Mg Vial IVP 40 mg DAILY JOHN Administration Pramipexole Dihydrochloride 1 mg 07/09/20 22:00 07/12/20 05:44 Pramipexole Di-Hcl 1 Mg Tab PO 1 mg Q8HR JOHN Administration Propofol 1,000 mg 07/03/20 16:45 07/09/20 18:42 Propofol 1,000 Mg/100 Ml Vial IV 08/02/20 16:45 1,000 mg INF PRN Administration TO ACHIEVE GOAL RASS Protocol Scopolamine 1.5 mg 07/09/20 23:59 07/10/20 07:43 Scopolamine 1.5 Mg/72 Hour Patch TOP 1.5 mg Q3D JOHN Administration Sodium Chloride 10 ml 07/03/20 21:00 07/12/20 08:58 Flush - Normal Saline 10 Ml Syringe IVF 10 ml Q12HR JOHN Administration - Exam Eye: PERRL, anicteric sclera Heart: RRR, no murmur, no gallops, no rubs, normal peripheral pulses Respiratory: no wheezes, no ronchi, rales (at the bases) Gastrointestinal: soft, non-tender, non-distended, normal bowel sounds, no palpable masses, no hepatomegaly Extremities: no cyanosis, no edema (pulses are palpable but diminished, the is purplish discoloration at the left 1st toe, and base of the 1st toe on the right foot) Hosp A/P (1) Acute respiratory failure with hypoxia Code(s): J96.01 - ACUTE RESPIRATORY FAILURE WITH HYPOXIA Status: Acute (2) Pneumonia due to COVID-19 virus Code(s): U07.1 - COVID-19; J12.82 - PNEUMONIA DUE TO CORONAVIRUS DISEASE 2019 Status: Acute (3) Diabetes mellitus type 2 in nonobese Code(s): E11.9 - TYPE 2 DIABETES MELLITUS WITHOUT COMPLICATIONS Status: Chronic (4) Hypertension Code(s): I10 - ESSENTIAL (PRIMARY) HYPERTENSION Status: Chronic Qualifiers: Hypertension type: essential hypertension Qualified Code(s): I10 - Essential (primary) hypertension (5) TMAMY (obstructive sleep apnea) Code(s): G47.33 - OBSTRUCTIVE SLEEP APNEA (ADULT) (PEDIATRIC) Status: Chronic (6) Parkinson disease Code(s): G20 - PARKINSON'S DISEASE Status: Chronic - Plan * Acute respiratory failure due to COVID pneumonia- continue supportive care. * Continue Decadron IV * Slow wean from the ventilator as per PCCM * HTN- blood pressure - is a bit better today * JACIEL- resolved * DM- blood glucose is stable * DVT- prophylaxis- continue Lovenox * Parkinson's disease- continue Pramipexole
[2020-07-12 20:36] LABS: Vancomycin, Trough 17.8 ug/mL
[2020-07-12] MEDS: Lorazepam 2 MG/ML VIAL SLOW IVP PRN (21:02)
[2020-07-13] MEDS: Scopolamine 1.5 mg/72 hour Patch TOP SCH
[2020-07-13] MEDS: Meropenem 2 GM, Admixture Fee 1 EACH in Sodium Chloride 0.9% 100 ML IVPB SCH ×3 (02:24→17:42)
[2020-07-13] MEDS: HumaLOG 300 UNITS/3 ML VIAL SC PRN ×2 (03:52→16:05)
[2020-07-13 04:54] LABS: Anion Gap 16 mmol/L (10-20); BUN (Urea Nitrogen) 42 mg/dL (8.4-25.7); Calc. Creatinine Clearance 82 mL/min (70-130); Calcium 8.7 mg/dL (7.8-10.44); Carbon Dioxide 25 mmol/L (23-31); Chloride 101 mmol/L (98-107); Glucose 171 mg/dL (83-110); Potassium 4.5 mmol/L (3.5-5.1); Sodium 137 mmol/L (136-145)
[2020-07-13] MEDS: Pramipexole Di-HCl 1 MG TAB PO SCH ×3 (05:34→21:10)
[2020-07-13 05:36] LABS: Band 3 % (5-11); Lymphocytes 7 % (21-51); MDiff Complete? YES; Mean Corpuscular HGB CONC 33.7 g/dL (32.0-36.0); Mean Corpuscular Hemoglobin 34.3 pg (27.0-31.0); Mean Platelet Volume 8.2 fL (7.4-10.4); Monocytes 5 % (0-10); Neutrophil 84 % (42-75); Platelet Count 327 thou/uL (130-400); Reactive Lymphocytes 1 % (0-10); Red Blood Cell (RBC) Count 4.08 mill/uL (4.70-6.10); Toxic Granulation SLIGHT; White Blood Cell (WBC) Count 15.7 thou/uL (4.8-10.8)
[2020-07-13] MEDS: Acetaminophen 650 MG/20.3 ML UDCUP PER TUBE PRN (05:54)
--- NOTE | 2020-07-13 09:15 | RAD ---
CHEST 1 VIEW: Date: 07/13/2020 HISTORY: Ventilated patient. COMPARISON: Radiograph prior day. FINDINGS: The central venous catheter right IJ approach with tip at inferior SVC. Enteric tube tip at gastric b thomas. Endotracheal tube tip just below the clavicular level. Heart size normal. No pneumothorax. No ef fusion. No acute osseous abnormality. Air space consolidation is slightly improving. IMPRESSION: 1. Slightly improving air space consolidation. 2. Satisfactory lines and tubes. POS: [facility]
[2020-07-13] MEDS: Folic Acid 1 MG TAB PO SCH (09:56)
[2020-07-13] MEDS: Ascorbic Acid 500 mg Chewable Tablet PO SCH (09:56)
[2020-07-13] MEDS: Furosemide 40 MG/4 ML VIAL SLOW IVP SCH (09:56)
[2020-07-13] MEDS: Cholecalciferol (Vitamin D3) 400 UNITS TAB PO SCH (09:56)
[2020-07-13] MEDS: Pantoprazole 40 MG VIAL IVP SCH (09:56)
[2020-07-13] MEDS: DULoxetine 60 MG CAP PO SCH (09:56)
[2020-07-13] MEDS: Dexamethasone 4 mg/ml Vial SLOW IVP SCH (09:56)
[2020-07-13] MEDS: Vancomycin 1 GM in Premix Bag 1 BAG IVPB SCH ×2 (09:57→21:10)
[2020-07-13] MEDS: Enoxaparin Sodium 60 MG/0.6 ML SYRINGE SC SCH (09:57)
[2020-07-13] MEDS: buPROPion 75 MG TAB PO SCH (09:58)
--- NOTE | 2020-07-13 11:08 | PDOC.HOSPP ---
- Subjective Encounter Date: 07/13/20 Encounter Time: 11:06 Subjective: Mr. Cooley was seen today in follow-up of COVID pneumonia. He is intubated and sedated. He was noted to become tachypeic when his FI02 was reduced. He was also noted to have high residuals with tube feeding. - Objective Vital Signs & Weight: Vital Signs (12 hours) Temp Pulse Resp BP 07/13/20 10:00 36 H 07/13/20 08:12 59 L 126/77 07/13/20 08:00 100.4 F H 34 H 07/13/20 06:00 40 H 07/13/20 05:54 100.5 F H 07/13/20 04:00 100.5 F H 38 H 07/13/20 03:20 65 07/13/20 02:00 36 H 07/13/20 00:00 99.0 F 38 H 07/12/20 23:29 63 112/72 Weight Admit Weight 163 lb 9.328 oz Weight 159 lb 13.362 oz Most Recent Monitor Data Heart Rate from ECG 61 NIBP 114/72 NIBP BP-Mean 86 Respiration from ECG 25 SpO2 100 I&O: 07/12/20 07/13/20 07/14/20 06:59 06:59 06:59 Intake Total 1696.8 3074.9 120 Output Total 3515 2740 210 Balance -1818.2 334.9 -90 Result Diagrams: 07/13/20 03:40 07/13/20 03:40 Additional Labs: Accuchecks 07/13/20 07/12/20 07/12/20 03:45 22:50 16:18 POC Glucose 172 H 191 H 191 H 07/12/20 07/11/20 07/10/20 11:38 00:42 03:14 POC Glucose 156 H 180 H 128 H 07/10/20 01:27 POC Glucose 104 H Hospitalist ROS - Medication Medications: Active Medications Generic Name Dose Route Start Last Admin Trade Name Freq PRN Reason Stop Dose Admin Acetaminophen 1,000 mg 07/06/20 14:14 07/13/20 05:54 Acetaminophen 650 Mg/20.3 Ml Udcup PER TUBE 1,000 mg Q6H PRN Administration Headache/Fever or Pain Ascorbic Acid 1,000 mg 07/03/20 09:00 07/13/20 09:56 Ascorbic Acid 500 Mg Chewable Tablet PO 1,000 mg DAILY JOHN Administration Bupropion HCl 75 mg 07/06/20 21:00 07/13/20 09:58 Bupropion 75 Mg Tab PO 75 mg BID JOHN Administration Cholecalciferol 400 units 07/03/20 09:00 07/13/20 09:56 Cholecalciferol (Vitamin D3) 400 Units Tab PO 400 units DAILY JOHN Administration Dexamethasone 8 mg 07/03/20 09:00 07/13/20 09:56 Dexamethasone 4 Mg/Ml Vial SLOW IVP 8 mg DAILY JOHN Administration Duloxetine HCl 60 mg 07/07/20 09:00 07/13/20 09:56 Duloxetine 60 Mg Cap PO 60 mg DAILY JOHN Administration Enoxaparin Sodium 60 mg 07/04/20 09:00 07/13/20 09:57 Enoxaparin Sodium 60 Mg/0.6 Ml Syringe SC 60 mg 0900 JOHN Administration Folic Acid 1 mg 07/10/20 09:00 07/13/20 09:56 Folic Acid 1 Mg Tab PO 1 mg DAILY JOHN Administration Furosemide 40 mg 07/11/20 09:00 07/13/20 09:56 Furosemide 40 Mg/4 Ml Vial SLOW IVP 40 mg DAILY JOHN Administration Dexmedetomidine HCl 400 mcg/ 100 mls @ 0 mls/hr 07/03/20 09:45 07/13/20 08:02 Sodium Chloride IVPB 100 mls INF JOHN Administration Protocol Titrate Fentanyl 100 mls @ 0 mls/hr 07/09/20 14:15 07/09/20 15:07 Fentanyl Cadd IV 08/08/20 14:15 100 mls INF JOHN Administration Protocol Per Protocol Midazolam HCl 100 mg/ Sodium 100 mls @ 0 mls/hr 07/09/20 23:15 07/13/20 09:27 Chloride IVPB 100 mls INF PRN Administration Sedation Protocol As Directed Meropenem 2 gm/ Miscellaneous 100 mls @ 200 mls/hr 07/10/20 10:00 07/13/20 02:24 Medication 1 each/ Sodium IVPB 100 mls Chloride 0200,1000,1800 JOHN Administration Vancomycin HCl 1 gm/ Device 200 mls @ 200 mls/hr 07/10/20 21:00 07/13/20 09:57 IVPB 200 mls Q12HR JOHN Administration Insulin Human Lispro 0 units 07/03/20 01:26 07/13/20 03:52 Humalog 300 Units/3 Ml Vial SC 2 unit .MILD SLIDING SCALE PRN Administration Mild Correctional Scale Lorazepam 2 mg 07/03/20 16:45 07/12/20 21:02 Lorazepam 2 Mg/Ml Vial SLOW IVP 08/02/20 16:45 2 mg Q1H PRN Administration Breakthrough agitation Morphine Sulfate 2 mg 07/03/20 16:45 07/12/20 22:40 Morphine 2 Mg/Ml Vial SLOW IVP 08/02/20 16:45 2 mg Q1H PRN Administration Breakthrough Pain/Agitation Pantoprazole Sodium 40 mg 07/10/20 09:00 07/13/20 09:56 Pantoprazole 40 Mg Vial IVP 40 mg DAILY JOHN Administration Pramipexole Dihydrochloride 1 mg 07/09/20 22:00 07/13/20 05:34 Pramipexole Di-Hcl 1 Mg Tab PO 1 mg Q8HR JOHN Administration Propofol 1,000 mg 07/03/20 16:45 07/09/20 18:42 Propofol 1,000 Mg/100 Ml Vial IV 08/02/20 16:45 1,000 mg INF PRN Administration TO ACHIEVE GOAL RASS Protocol Scopolamine 1.5 mg 07/09/20 23:59 07/13/20 00:00 Scopolamine 1.5 Mg/72 Hour Patch TOP 1.5 mg Q3D JOHN Administration Sodium Chloride 10 ml 07/03/20 21:00 07/13/20 09:58 Flush - Normal Saline 10 Ml Syringe IVF 10 ml Q12HR JOHN Administration - Exam Eye: PERRL, anicteric sclera Heart: RRR, no murmur, no gallops, no rubs, normal peripheral pulses Respiratory: rales (at both bases, and coarse breath sounds) Gastrointestinal: soft, non-tender, non-distended, normal bowel sounds, no palpable masses Extremities: no cyanosis, no edema (pulses are diminished but palpable. Feet appear the same) Hosp A/P (1) Acute respiratory failure with hypoxia Code(s): J96.01 - ACUTE RESPIRATORY FAILURE WITH HYPOXIA Status: Acute (2) Pneumonia due to COVID-19 virus Code(s): U07.1 - COVID-19; J12.82 - PNEUMONIA DUE TO CORONAVIRUS DISEASE 2019 Status: Acute (3) Diabetes mellitus type 2 in nonobese Code(s): E11.9 - TYPE 2 DIABETES MELLITUS WITHOUT COMPLICATIONS Status: Chronic (4) Hypertension Code(s): I10 - ESSENTIAL (PRIMARY) HYPERTENSION Status: Chronic Qualifiers: Hypertension type: essential hypertension Qualified Code(s): I10 - Essential (primary) hypertension (5) TAMMY (obstructive sleep apnea) Code(s): G47.33 - OBSTRUCTIVE SLEEP APNEA (ADULT) (PEDIATRIC) Status: Chronic (6) Parkinson disease Code(s): G20 - PARKINSON'S DISEASE Status: Chronic - Plan * Acute respiratory failure due to COVID pneumonia- continue supportive care . He is not yet weanable * Continue Decadron IV * HTN- blood pressure - is a bit better today * JACIEL- resolved * DM- blood glucose is stable * DVT- prophylaxis- continue Lovenox * Parkinson's disease- continue Pramipexole * Nutritional support with tube feeds- but with high residuals will add Dulcolax, and Reglan as needed
[2020-07-13] MEDS: Bisacodyl 10 MG SUPP PR PRN (12:18)
[2020-07-13] MEDS: Metoclopramide HCl 10 MG/2 ML VIAL IVP PRN (12:19)
[2020-07-13] MEDS ORDERED: Haloperidol Lactate 5 MG/ML VIAL IM SCH (17:30)
[2020-07-13] MEDS ORDERED: Fentanyl BOLUS 250 ML IVPB PRN (17:35)
--- NOTE | 2020-07-13 17:43 | PRG ---
DATE OF SERVICE: 07/13/2020 Abhay Cooley is very tachypneic. He is allowed to awaken. We may try putting him on some Haldol to see if this helps. I doubt the Wellbutrin is making much difference in his current clinical situation, so I will discontinue this. His lung compliance is still better than most of the COVID patients in the ICU, but given his agitation and his tachypnea, I am not sure he will wean successfully unless he is either more controlled psychologically or he has a tracheostomy. We will try adding Haldol [id number] for a day or two and see if this helps. I suspect he will at some point end up with a tracheostomy if he does not get better. Critical care time 30 min. Job ID: [id number] MTDD
[2020-07-13] MEDS: Haloperidol Lactate 5 MG/ML VIAL IM SCH (21:09)
[2020-07-14] MEDS: Sodium Chloride 0.45% 1,000 ML IV SCH (02:20)
[2020-07-14] MEDS: Haloperidol Lactate 5 MG/ML VIAL IM SCH ×8 (02:21→22:31)
[2020-07-14] MEDS: Meropenem 2 GM, Admixture Fee 1 EACH in Sodium Chloride 0.9% 100 ML IVPB SCH ×3 (03:08→18:24)
[2020-07-14 05:23] LABS: Anion Gap 17 mmol/L (10-20); BUN (Urea Nitrogen) 58 mg/dL (8.4-25.7); Calc. Creatinine Clearance 59 mL/min (70-130); Calcium 8.5 mg/dL (7.8-10.44); Carbon Dioxide 23 mmol/L (23-31); Chloride 100 mmol/L (98-107); Glucose 222 mg/dL (83-110); Potassium 4.2 mmol/L (3.5-5.1); Sodium 136 mmol/L (136-145)
[2020-07-14 05:54] LABS: Band 7 % (5-11); Hemoglobin 13.8 g/dL (14.0-18.0); Lymphocytes 5 % (21-51); MDiff Complete? YES; Mean Corpuscular HGB CONC 32.5 g/dL (32.0-36.0); Mean Corpuscular Hemoglobin 32.4 pg (27.0-31.0); Mean Corpuscular Volume 99.7 fL (78.0-98.0); Mean Platelet Volume 8.2 fL (7.4-10.4); Monocytes 7 % (0-10); Neutrophil 81 % (42-75); Platelet Count 398 thou/uL (130-400); RBC Distribution Width 12.1 % (11.5-14.5); Red Blood Cell (RBC) Count 4.24 mill/uL (4.70-6.10); White Blood Cell (WBC) Count 18.5 thou/uL (4.8-10.8)
[2020-07-14] MEDS: Pramipexole Di-HCl 1 MG TAB PO SCH ×3 (06:51→20:58)
--- NOTE | 2020-07-14 07:56 | RAD ---
Portable frontal chest radiograph: 07/14/2020 COMPARISON: 07/13/2020 HISTORY: Ventilated patient FINDINGS: Stable endotracheal tube, nasogastric tube, and right vascular catheter. Increased interstitial opacity noted bilaterally with superimposed groundglass opacity in the right l marina base, the lateral aspect of the right upper lobe region, and to a lesser degree, within the medial left base and lateral aspect of the mid left lung zone. Aeration appears to be slightly worsen ed within the right midlung zone and the right lung base. IMPRESSION: Lines and tubes as detailed above. Nonspecific interstitial and alveolar opacity, slightl y worsened on the right.
[2020-07-14] MEDS: Ascorbic Acid 500 mg Chewable Tablet PO SCH (09:36)
[2020-07-14] MEDS: DULoxetine 60 MG CAP PO SCH (09:37)
[2020-07-14] MEDS: Cholecalciferol (Vitamin D3) 400 UNITS TAB PO SCH (09:37)
[2020-07-14] MEDS: Enoxaparin Sodium 60 MG/0.6 ML SYRINGE SC SCH (09:37)
[2020-07-14] MEDS: Folic Acid 1 MG TAB PO SCH (09:37)
[2020-07-14] MEDS: Dexamethasone 4 mg/ml Vial SLOW IVP SCH (09:37)
[2020-07-14] MEDS: Vancomycin 1 GM in Premix Bag 1 BAG IVPB SCH (09:38)
[2020-07-14] MEDS: Pantoprazole 40 MG VIAL IVP SCH (09:38)
[2020-07-14] MEDS: HumaLOG 300 UNITS/3 ML VIAL SC PRN ×2 (11:50→17:21)
--- NOTE | 2020-07-14 14:18 | PDOC.HOSPP ---
- Subjective Encounter Date: 07/14/20 Encounter Time: 14:09 Subjective: Mr. Cooley was seen today in follow-up of respiratory failure. He is intubated, sedated, but will grimace a bit when I speak to him. - Objective Vital Signs & Weight: Vital Signs (12 hours) Temp Pulse Resp BP Pulse Ox 07/14/20 12:00 97.8 F 07/14/20 10:41 69 87/56 L 07/14/20 10:00 24 H 07/14/20 08:00 24 H 07/14/20 07:45 72 99/60 07/14/20 07:30 21 H 97 07/14/20 04:00 27 H 07/14/20 03:11 85 Weight Admit Weight 163 lb 9.328 oz Weight 159 lb 13.362 oz Most Recent Monitor Data Heart Rate from ECG 70 NIBP 99/62 NIBP BP-Mean 74 Respiration from ECG 25 SpO2 98 I&O: 07/13/20 07/14/20 07/15/20 06:59 06:59 06:59 Intake Total 3074.9 2455.1 300 Output Total 2740 1840 260 Balance 334.9 615.1 40 Result Diagrams: 07/14/20 04:00 07/14/20 04:00 Additional Labs: Accuchecks 07/14/20 07/13/20 07/13/20 11:32 21:25 16:01 POC Glucose 210 H 113 H 178 H Hospitalist ROS - Medication Medications: Active Medications Generic Name Dose Route Start Last Admin Trade Name Freq PRN Reason Stop Dose Admin Acetaminophen 1,000 mg 07/06/20 14:14 07/13/20 05:54 Acetaminophen 650 Mg/20.3 Ml Udcup PER TUBE 1,000 mg Q6H PRN Administration Headache/Fever or Pain Ascorbic Acid 1,000 mg 07/03/20 09:00 07/14/20 09:36 Ascorbic Acid 500 Mg Chewable Tablet PO 1,000 mg DAILY JOHN Administration Bisacodyl 10 mg 07/13/20 11:09 07/13/20 12:18 Bisacodyl 10 Mg Supp AR 10 mg Q8H PRN Administration Constipation Cholecalciferol 400 units 07/03/20 09:00 07/14/20 09:37 Cholecalciferol (Vitamin D3) 400 Units Tab PO 400 units DAILY JOHN Administration Dexamethasone 8 mg 07/03/20 09:00 07/14/20 09:37 Dexamethasone 4 Mg/Ml Vial SLOW IVP 8 mg DAILY JOHN Administration Duloxetine HCl 60 mg 07/07/20 09:00 07/14/20 09:37 Duloxetine 60 Mg Cap PO 60 mg DAILY JOHN Administration Folic Acid 1 mg 07/10/20 09:00 07/14/20 09:37 Folic Acid 1 Mg Tab PO 1 mg DAILY JOHN Administration Haloperidol Lactate 5 mg 07/13/20 21:00 07/14/20 13:55 Haloperidol Lactate 5 Mg/Ml Vial IM Not Given Q4HR JOHN Dexmedetomidine HCl 400 mcg/ 100 mls @ 0 mls/hr 07/03/20 09:45 07/14/20 04:53 Sodium Chloride IVPB 100 mls INF JOHN Administration Protocol Titrate Fentanyl 100 mls @ 0 mls/hr 07/09/20 14:15 07/09/20 15:07 Fentanyl Cadd IV 08/08/20 14:15 100 mls INF JOHN Administration Protocol Per Protocol Midazolam HCl 100 mg/ Sodium 100 mls @ 0 mls/hr 07/09/20 23:15 07/14/20 05:28 Chloride IVPB 100 mls INF PRN Administration Sedation Protocol As Directed Meropenem 2 gm/ Miscellaneous 100 mls @ 200 mls/hr 07/10/20 10:00 07/14/20 09:38 Medication 1 each/ Sodium IVPB 100 mls Chloride 0200,1000,1800 JOHN Administration Sodium Chloride 1,000 mls @ 0 mls/hr 07/10/20 13:40 07/14/20 02:20 1/2 Normal Saline IV 1,000 mls .Q0M JOHN Administration KVO Insulin Human Lispro 0 units 07/03/20 01:26 07/14/20 11:50 Humalog 300 Units/3 Ml Vial SC 3 unit .MILD SLIDING SCALE PRN Administration Mild Correctional Scale Metoclopramide HCl 10 mg 07/13/20 11:09 07/13/20 12:19 Metoclopramide Hcl 10 Mg/2 Ml Vial IVP 10 mg Q6H PRN Administration Nausea/Vomiting Pantoprazole Sodium 40 mg 07/10/20 09:00 07/14/20 09:38 Pantoprazole 40 Mg Vial IVP 40 mg DAILY JOHN Administration Pramipexole Dihydrochloride 1 mg 07/09/20 22:00 07/14/20 06:51 Pramipexole Di-Hcl 1 Mg Tab PO 1 mg Q8HR JOHN Administration Propofol 1,000 mg 07/03/20 16:45 07/09/20 18:42 Propofol 1,000 Mg/100 Ml Vial IV 08/02/20 16:45 1,000 mg INF PRN Administration TO ACHIEVE GOAL RASS Protocol Scopolamine 1.5 mg 07/09/20 23:59 07/13/20 00:00 Scopolamine 1.5 Mg/72 Hour Patch TOP 1.5 mg Q3D JOHN Administration Sodium Chloride 10 ml 07/03/20 21:00 07/14/20 09:38 Flush - Normal Saline 10 Ml Syringe IVF 10 ml Q12HR JOHN Administration - Exam Eye: PERRL, anicteric sclera Heart: RRR Respiratory: no wheezes, no ronchi, rales Gastrointestinal: soft, non-tender, non-distended, normal bowel sounds, no palpable masses, no hepatomegaly Extremities: no cyanosis (purplish discoloration of the 1st toe on the right foot, and tip of the 1st toe on the left foot), no edema Hosp A/P (1) Acute respiratory failure with hypoxia Code(s): J96.01 - ACUTE RESPIRATORY FAILURE WITH HYPOXIA Status: Acute (2) Pneumonia due to COVID-19 virus Code(s): U07.1 - COVID-19; J12.82 - PNEUMONIA DUE TO CORONAVIRUS DISEASE 2019 Status: Acute (3) Diabetes mellitus type 2 in nonobese Code(s): E11.9 - TYPE 2 DIABETES MELLITUS WITHOUT COMPLICATIONS Status: Chronic (4) Hypertension Code(s): I10 - ESSENTIAL (PRIMARY) HYPERTENSION Status: Chronic Qualifiers: Hypertension type: essential hypertension Qualified Code(s): I10 - Essential (primary) hypertension (5) TAMMY (obstructive sleep apnea) Code(s): G47.33 - OBSTRUCTIVE SLEEP APNEA (ADULT) (PEDIATRIC) Status: Chronic (6) Parkinson disease Code(s): G20 - PARKINSON'S DISEASE Status: Chronic - Plan * Acute respiratory failure due to COVID pneumonia- continue supportive care . He is not yet weanable- probable trach and PEG soon * Continue Decadron IV * HTN- blood pressure - is a bit on the lower side- will observe * JACIEL- resolved * DM- blood glucose is stable * DVT- prophylaxis- continue Lovenox * Parkinson's disease- continue Pramipexole * Nutritional support with tube feeds
--- NOTE | 2020-07-14 16:03 | PRG ---
DATE OF SERVICE: 07/14/2020 OBJECTIVE: VITAL SIGNS: Heart rate is 79, blood pressure 89/60, respiratory rates in the 20s, FiO2 is 40. LUNGS: Equal breath sounds. HEART: Regular rhythm. ABDOMEN: Soft. Met with the and answered all of her questions. I recommended a tracheostomy and PEG placement isolation. He is still in isolation, but his brought a COVID test that was from the end of May, so tomorrow morning we will discontinue his isolation. Critical care time 30 min. Job ID: [id number] MTDD
[2020-07-14] MEDS: Lorazepam 2 MG/ML VIAL SLOW IVP PRN (19:23)
[2020-07-15] MEDS: Meropenem 2 GM, Admixture Fee 1 EACH in Sodium Chloride 0.9% 100 ML IVPB SCH ×3 (02:41→18:20)
[2020-07-15] MEDS: Lorazepam 2 MG/ML VIAL SLOW IVP PRN (05:17)
[2020-07-15] MEDS: Haloperidol Lactate 5 MG/ML VIAL IM SCH ×5 (05:17→21:08)
[2020-07-15 05:26] LABS: Anion Gap 13 mmol/L (10-20); BUN (Urea Nitrogen) 52 mg/dL (8.4-25.7); Calc. Creatinine Clearance 76 mL/min (70-130); Calcium 8.3 mg/dL (7.8-10.44); Carbon Dioxide 25 mmol/L (23-31); Chloride 103 mmol/L (98-107); Glucose 158 mg/dL (83-110); Potassium 4.2 mmol/L (3.5-5.1); Sodium 137 mmol/L (136-145)
[2020-07-15 05:39] LABS: Band 3 % (5-11); Hemoglobin 12.4 g/dL (14.0-18.0); Lymphocytes 6 % (21-51); MDiff Complete? YES; Mean Corpuscular HGB CONC 34.7 g/dL (32.0-36.0); Mean Corpuscular Hemoglobin 35.2 pg (27.0-31.0); Monocytes 8 % (0-10); Neutrophil 83 % (42-75); Platelet Count 304 thou/uL (130-400); Red Blood Cell (RBC) Count 3.53 mill/uL (4.70-6.10); White Blood Cell (WBC) Count 15.9 thou/uL (4.8-10.8)
[2020-07-15] MEDS: Pramipexole Di-HCl 1 MG TAB PO SCH ×3 (07:53→21:10)
[2020-07-15] MEDS: Dexamethasone 4 mg/ml Vial SLOW IVP SCH (07:54)
[2020-07-15] MEDS: DULoxetine 60 MG CAP PO SCH (07:54)
[2020-07-15] MEDS: Folic Acid 1 MG TAB PO SCH (07:54)
[2020-07-15] MEDS: Cholecalciferol (Vitamin D3) 400 UNITS TAB PO SCH (07:54)
[2020-07-15] MEDS: Pantoprazole 40 MG VIAL IVP SCH (07:54)
[2020-07-15] MEDS: Ascorbic Acid 500 mg Chewable Tablet PO SCH (07:54)
--- NOTE | 2020-07-15 08:07 | RAD ---
Exam: Chest one view HISTORY:Respiratory distress. Ventilated patient. Comparison: 07/14/2020 FINDINGS: Lines and tubes: Stable endotracheal tube, nasogastric tube and right-sided internal jugular vascular catheter. Cardiac silhouette: Normal Aorta: Unremarkable Pulmonary vessels: Normal Costophrenic angles: Clear LUNGS: Stable multifocal interstitial and to lesser extent alveolar opacities. Pneumothorax: None Osseous abnormalities: None IMPRESSION: No significant interval change.
[2020-07-15] MEDS: Morphine 2 MG/ML VIAL SLOW IVP PRN (08:27)
--- NOTE | 2020-07-15 09:47 | CON ---
DATE OF CONSULTATION: HISTORY OF PRESENT ILLNESS: A 74-year-old male patient. I have been asked by Dr. Ames for a tracheostomy and PEG placement due to COVID pneumonia, respiratory failure, ventilator dependency, malnutrition, oropharyngeal dysphagia. The patient was admitted on 07/02/2020, presented to the emergency room, admitted to the hospitalist service, seen by Dr. Ames and Dr. Chakraborty. He has a history of pneumonia, prostate cancer, sleep apnea, Parkinson disease, TIA. He presented with dyspnea for 2 days. Positive for COVID 2 weeks prior. The patient was in respiratory distress, required ventilatory management and vasopressors. Central line administered. Initially, it was planned to transfer to [place], but instability precluded this and he was treated here locally. Lactate 6.7. CT scan; no pulmonary embolus, opacities consistent with COVID. Serology positive COVID past diagnosis 2 weeks ago. ALLERGIES: NONE. PAST MEDICAL HISTORY: As above. PAST SURGICAL HISTORY: Noncontributory. TOBACCO: None. ALCOHOL: None. PHYSICAL EXAMINATION: VITAL SIGNS: Height 5 feet 5 inches, 159 pounds. Blood pressure 94/53, heart rate 49. LUNGS: Clear to auscultation. Coarse rhonchi. No wheezing. CARDIAC: Regular rate and rhythm. ABDOMEN: Soft, nontender. No surgical scars. EXTREMITIES: Unremarkable. LABORATORY DATA: White count 15, hemoglobin 12. Basic metabolic profile; BUN 52, creatinine 0.9, GFR 83, glucose 133. ASSESSMENT AND PLAN: 1. COVID pneumonia, respiratory failure. Plan is. 2. Tracheostomy. 3. Malnutrition, oropharyngeal dysphagia, prolonged intubation. Plan is PEG tube placement. 4. Other medical problems as listed above. Job ID: [id number]
[2020-07-15] MEDS ORDERED: Rocuronium Bromide 10 MG/ML (10ML VIAL) ONE (09:55)
[2020-07-15] MEDS ORDERED: PHENYLEPHRINE-NS 100 MCG/ML 10 ML SYRINGE ONE (09:55)
[2020-07-15] MEDS ORDERED: ePHEDrine 50 MG/ML VIAL ONE (09:55)
--- NOTE | 2020-07-15 10:17 | PDOC.HOSPP ---
- Subjective Encounter Date: 07/15/20 Encounter Time: 10:15 Subjective: Mr. Cooley was seen today in follow-up of COVID pneumonia and respiratory failure. No complaints voiced by staff. - Objective Vital Signs & Weight: Vital Signs (12 hours) Pulse Resp BP Pulse Ox 07/15/20 07:53 49 L 86/52 L 07/15/20 07:15 28 H 95 07/15/20 06:00 25 H 07/15/20 03:42 55 L 97/62 07/15/20 00:00 14 07/14/20 23:28 58 L Weight Admit Weight 163 lb 9.328 oz Weight 159 lb 13.362 oz Most Recent Monitor Data Heart Rate from ECG 48 NIBP 83/49 NIBP BP-Mean 60 Respiration from ECG 29 SpO2 92 I&O: 07/14/20 07/15/20 07/16/20 06:59 06:59 06:59 Intake Total 2455.1 1392.4 Output Total 1840 1545 Balance 615.1 -152.6 Result Diagrams: 07/15/20 03:50 07/15/20 03:50 Additional Labs: Accuchecks 07/14/20 07/14/20 16:39 11:32 POC Glucose 263 H 210 H Hospitalist ROS - Medication Medications: Active Medications Generic Name Dose Route Start Last Admin Trade Name Freq PRN Reason Stop Dose Admin Acetaminophen 1,000 mg 07/06/20 14:14 07/13/20 05:54 Acetaminophen 650 Mg/20.3 Ml Udcup PER TUBE 1,000 mg Q6H PRN Administration Headache/Fever or Pain Ascorbic Acid 1,000 mg 07/03/20 09:00 07/15/20 07:54 Ascorbic Acid 500 Mg Chewable Tablet PO 1,000 mg DAILY JOHN Administration Bisacodyl 10 mg 07/13/20 11:09 07/13/20 12:18 Bisacodyl 10 Mg Supp MD 10 mg Q8H PRN Administration Constipation Cholecalciferol 400 units 07/03/20 09:00 07/15/20 07:54 Cholecalciferol (Vitamin D3) 400 Units Tab PO 400 units DAILY JOHN Administration Dexamethasone 8 mg 07/03/20 09:00 07/15/20 07:54 Dexamethasone 4 Mg/Ml Vial SLOW IVP 8 mg DAILY JOHN Administration Duloxetine HCl 60 mg 07/07/20 09:00 07/15/20 07:54 Duloxetine 60 Mg Cap PO 60 mg DAILY JOHN Administration Folic Acid 1 mg 07/10/20 09:00 07/15/20 07:54 Folic Acid 1 Mg Tab PO 1 mg DAILY JOHN Administration Haloperidol Lactate 5 mg 07/13/20 21:00 07/15/20 07:54 Haloperidol Lactate 5 Mg/Ml Vial IM 5 mg Q4HR JOHN Administration Dexmedetomidine HCl 400 mcg/ 100 mls @ 0 mls/hr 07/03/20 09:45 07/14/20 22:14 Sodium Chloride IVPB 100 mls INF JOHN Administration Protocol Titrate Fentanyl 100 mls @ 0 mls/hr 07/09/20 14:15 07/09/20 15:07 Fentanyl Cadd IV 08/08/20 14:15 100 mls INF JOHN Administration Protocol Per Protocol Midazolam HCl 100 mg/ Sodium 100 mls @ 0 mls/hr 07/09/20 23:15 07/14/20 22:06 Chloride IVPB 100 mls INF PRN Administration Sedation Protocol As Directed Meropenem 2 gm/ Miscellaneous 100 mls @ 200 mls/hr 07/10/20 10:00 07/15/20 02:41 Medication 1 each/ Sodium IVPB 100 mls Chloride 0200,1000,1800 JOHN Administration Sodium Chloride 1,000 mls @ 0 mls/hr 07/10/20 13:40 07/14/20 02:20 1/2 Normal Saline IV 1,000 mls .Q0M JOHN Administration KVO Insulin Human Lispro 0 units 07/03/20 01:26 07/14/20 17:21 Humalog 300 Units/3 Ml Vial SC 4 unit .MILD SLIDING SCALE PRN Administration Mild Correctional Scale Lorazepam 2 mg 07/13/20 17:35 07/15/20 05:17 Lorazepam 2 Mg/Ml Vial SLOW IVP 2 mg Q1H PRN Administration Breakthrough agitation Metoclopramide HCl 10 mg 07/13/20 11:09 07/13/20 12:19 Metoclopramide Hcl 10 Mg/2 Ml Vial IVP 10 mg Q6H PRN Administration Nausea/Vomiting Morphine Sulfate 2 mg 07/13/20 17:34 07/15/20 08:27 Morphine 2 Mg/Ml Vial SLOW IVP 08/12/20 17:35 2 mg Q1H PRN Administration Breakthrough Pain/Agitation Pantoprazole Sodium 40 mg 07/10/20 09:00 07/15/20 07:54 Pantoprazole 40 Mg Vial IVP 40 mg DAILY JOHN Administration Pramipexole Dihydrochloride 1 mg 07/09/20 22:00 07/15/20 07:53 Pramipexole Di-Hcl 1 Mg Tab PO 1 mg Q8HR JOHN Administration Propofol 1,000 mg 07/03/20 16:45 07/09/20 18:42 Propofol 1,000 Mg/100 Ml Vial IV 08/02/20 16:45 1,000 mg INF PRN Administration TO ACHIEVE GOAL RASS Protocol Scopolamine 1.5 mg 07/09/20 23:59 07/13/20 00:00 Scopolamine 1.5 Mg/72 Hour Patch TOP 1.5 mg Q3D JOHN Administration Sodium Chloride 10 ml 07/03/20 21:00 07/15/20 07:55 Flush - Normal Saline 10 Ml Syringe IVF 10 ml Q12HR JOHN Administration - Exam Eye: PERRL, anicteric sclera Heart: RRR, no murmur, no gallops, no rubs, normal peripheral pulses Respiratory: no wheezes, no ronchi, rales (at the bases) Gastrointestinal: soft, non-tender, non-distended, normal bowel sounds, no palpable masses, no hepatomegaly Extremities: no cyanosis, no edema (pulses palpable, no new lesions) Hosp A/P (1) Acute respiratory failure with hypoxia Code(s): J96.01 - ACUTE RESPIRATORY FAILURE WITH HYPOXIA Status: Acute (2) Pneumonia due to COVID-19 virus Code(s): U07.1 - COVID-19; J12.82 - PNEUMONIA DUE TO CORONAVIRUS DISEASE 2019 Status: Acute (3) Diabetes mellitus type 2 in nonobese Code(s): E11.9 - TYPE 2 DIABETES MELLITUS WITHOUT COMPLICATIONS Status: Chronic (4) Hypertension Code(s): I10 - ESSENTIAL (PRIMARY) HYPERTENSION Status: Chronic Qualifiers: Hypertension type: essential hypertension Qualified Code(s): I10 - Essential (primary) hypertension (5) TAMMY (obstructive sleep apnea) Code(s): G47.33 - OBSTRUCTIVE SLEEP APNEA (ADULT) (PEDIATRIC) Status: Chronic (6) Parkinson disease Code(s): G20 - PARKINSON'S DISEASE Status: Chronic - Plan * Acute respiratory failure due to COVID pneumonia- continue supportive care . He is not yet weanable- for trach and PEG today * Continue Decadron IV * HTN- blood pressure - is a bit on the lower side- will observe * JACIEL- resolved * DM- blood glucose is stable * DVT- prophylaxis- continue Lovenox * Parkinson's disease- continue Pramipexole * Nutritional support with tube feeds
[2020-07-15] MEDS ORDERED: Bupivacaine PF 0.5% 30 ML VIAL ONE (10:32)
[2020-07-15] MEDS ORDERED: Lidocaine 2% w/Epinephrine 1:200K 20 ML VIAL ONE (10:32)
[2020-07-15] MEDS ORDERED: Fentanyl 100 MCG/2 ML VIAL ONE (10:46)
[2020-07-15] MEDS ORDERED: Midazolam HCl 2 mg/2 ml Vial ONE (10:46)
--- NOTE | 2020-07-15 17:42 | PRG ---
DATE OF SERVICE: 07/15/2020 SUBJECTIVE: Abhay Cooley has tracheostomy in place now. I have met with the and answered her questions. We will try to start weaning process tomorrow LTAC placement. OBJECTIVE: VITAL SIGNS: Heart rate 60, blood pressure 89/62, and respiratory rate is 22. LUNGS: Remarkable for coarse equal breath sounds. HEART: Regular rhythm. ABDOMEN: Soft. LABORATORY DATA: White count 15.9, hemoglobin 12.4, platelets 304. Electrolytes are unchanged. IMPRESSION: 1. COVID pneumonia, now with tracheostomy and a PEG. Hopefully, we can get him into a long-term acute care facility for too long. I suspect he will progress nicely. He is underlying comorbidities of Parkinson disease, but he remains extremely active according to the . He also starts drinking whiskey at 3 o'clock in the afternoon and drinks most part till bedtime, but has not had any alcohol withdrawal while he has been here. He does have severe anxiety according to . 2. Start decreasing sedation, try to work more towards spontaneous breathing tomorrow. He is out of the COVID isolation. Job ID: [id number]
[2020-07-16] MEDS: Scopolamine 1.5 mg/72 hour Patch TOP SCH (01:26)
[2020-07-16] MEDS: Haloperidol Lactate 5 MG/ML VIAL IM SCH ×6 (02:39→21:08)
[2020-07-16] MEDS: Meropenem 2 GM, Admixture Fee 1 EACH in Sodium Chloride 0.9% 100 ML IVPB SCH ×3 (02:57→17:27)
[2020-07-16 05:30] LABS: Anion Gap 12 mmol/L (10-20); BUN (Urea Nitrogen) 44 mg/dL (8.4-25.7); Calc. Creatinine Clearance 90 mL/min (70-130); Calcium 8.1 mg/dL (7.8-10.44); Carbon Dioxide 25 mmol/L (23-31); Chloride 102 mmol/L (98-107); Glucose 143 mg/dL (83-110); Potassium 4.6 mmol/L (3.5-5.1); Sodium 134 mmol/L (136-145)
[2020-07-16 06:12] LABS: Band 11 % (5-11); Hemoglobin 12.2 g/dL (14.0-18.0); Lymphocytes 7 % (21-51); MDiff Complete? YES; Mean Corpuscular HGB CONC 32.5 g/dL (32.0-36.0); Mean Corpuscular Hemoglobin 32.4 pg (27.0-31.0); Mean Corpuscular Volume 99.7 fL (78.0-98.0); Mean Platelet Volume 7.9 fL (7.4-10.4); Monocytes 5 % (0-10); Neutrophil 77 % (42-75); Platelet Count 303 thou/uL (130-400); Red Blood Cell (RBC) Count 3.78 mill/uL (4.70-6.10); White Blood Cell (WBC) Count 13.7 thou/uL (4.8-10.8)
--- NOTE | 2020-07-16 06:15 | OP ---
DATE OF PROCEDURE: 07/15/2020 PREOPERATIVE DIAGNOSES: COVID pneumonia, respiratory failure, protein-calorie malnutrition, dysphagia, oropharyngeal phase. ANESTHESIA: General, local 0.5% Marcaine 30 mL mixed with 1% Xylocaine with epinephrine 20 mL. PROCEDURES PERFORMED: Tracheostomy, #8 Shiley low-pressure cuff, percutaneous endoscopic gastrostomy tube. DESCRIPTION OF PROCEDURE: The patient was taken to the operating room, where under general anesthesia, neck and chest and abdomen were prepared with ChloraPrep and draped in routine fashion. Local anesthetic was infiltrated into the skin and subcutaneous tissue about the operative sites. Incision was made at anterior neck inferiorly above the manubrium through an old scar, carried down to skin, platysma, strap muscles were reflected laterally. Scar tissue dissected free off the trachea placing strap sutures of 3-0 Prolene on either side of the trachea anterolateral, air knots tied. Tracheal hook inserted below the cricoid, anterior window of the trachea was created sharply over 2 cartilaginous rings. Visualized endotracheal tube, withdrawing it, inserting a #8 Shiley low-pressure cuffed tracheostomy tube in the trachea, balloon inflated, connected to the ventilator with good CO2 return, oxygenation. Hemostasis noted. Heena placed. Skin on either side approximated with continuous suture of 3-0 Prolene. Tracheostomy appliance was secured to the skin with 3-0 Prolene on both sides. Tracheostomy securing device secured. Sterile dressings applied. Endoscope was placed per os under direct visualization with air insufflation and passed throughout the esophagus into the stomach noting good indentation of left medial subcostal. Stab incision was made, trocar catheter was introduced percutaneously, visualized endoscopically within the gastric lumen, grasping the wire, introduced with a snare, removing the endoscope and snare and wire out of the mouth, noting normal esophagus, stomach visualized. Feeding tube lubricated, connected to the wire, dragged back down through the esophagus, stomach, fixated to the abdominal wall with fixation device and clamp device and tube tailored to length and transected. Feeding device secured. Sterile dressings applied. The patient tolerated the procedure well. Job ID: [id number]
[2020-07-16] MEDS: Pramipexole Di-HCl 1 MG TAB PO SCH ×3 (06:34→20:35)
[2020-07-16] MEDS: Sodium Chloride 0.45% 1,000 ML IV SCH (06:41)
--- NOTE | 2020-07-16 08:10 | PRG ---
DATE OF SERVICE: 07/16/2020 Mr. Cooley is doing well today. He underwent a tracheostomy and PEG tube yesterday. Tracheostomy site is dry. Abdomen is soft and nontender. He is tolerating his tube feedings. At this point, he is doing well, I will see him as needed, please call if necessary. Job ID: [id number]
--- NOTE | 2020-07-16 09:23 | PDOC.HOSPP ---
- Subjective Encounter Date: 07/16/20 Encounter Time: 09: Subjective: Mr. Cooley was seen today in follow-up of COVID pneumonia. He has a trach and PEG now. He will grimace some. - Objective Vital Signs & Weight: Vital Signs (12 hours) Temp Pulse Resp BP Pulse Ox 07/16/20 08:00 97.9 F 24 H 95 07/16/20 06:59 50 L 99/60 07/16/20 04:00 24 H 07/16/20 02:49 52 L 07/16/20 00:00 24 H 07/15/20 22:43 57 L Weight Admit Weight 163 lb 9.328 oz Weight 159 lb 13.362 oz Most Recent Monitor Data Heart Rate from ECG 55 NIBP 95/58 NIBP BP-Mean 70 Respiration from ECG 24 SpO2 94 I&O: 07/15/20 07/16/20 07/17/20 06:59 06:59 06:59 Intake Total 1392.4 934.5 Output Total 1545 1530 150 Balance -152.6 -595.5 -150 Result Diagrams: 07/16/20 04:40 07/16/20 04:40 Additional Labs: Accuchecks 07/15/20 07/15/20 22:16 16:50 POC Glucose 177 H 195 H Hospitalist ROS - Medication Medications: Active Medications Generic Name Dose Route Start Last Admin Trade Name Freq PRN Reason Stop Dose Admin Acetaminophen 1,000 mg 07/06/20 14:14 07/13/20 05:54 Acetaminophen 650 Mg/20.3 Ml Udcup PER TUBE 1,000 mg Q6H PRN Administration Headache/Fever or Pain Ascorbic Acid 1,000 mg 07/03/20 09:00 07/15/20 07:54 Ascorbic Acid 500 Mg Chewable Tablet PO 1,000 mg DAILY JOHN Administration Bisacodyl 10 mg 07/13/20 11:09 07/13/20 12:18 Bisacodyl 10 Mg Supp ME 10 mg Q8H PRN Administration Constipation Cholecalciferol 400 units 07/03/20 09:00 07/15/20 07:54 Cholecalciferol (Vitamin D3) 400 Units Tab PO 400 units DAILY JOHN Administration Dexamethasone 8 mg 07/03/20 09:00 07/15/20 07:54 Dexamethasone 4 Mg/Ml Vial SLOW IVP 8 mg DAILY JOHN Administration Duloxetine HCl 60 mg 07/07/20 09:00 07/15/20 07:54 Duloxetine 60 Mg Cap PO 60 mg DAILY JOHN Administration Folic Acid 1 mg 07/10/20 09:00 07/15/20 07:54 Folic Acid 1 Mg Tab PO 1 mg DAILY JOHN Administration Haloperidol Lactate 5 mg 07/13/20 21:00 07/16/20 06:32 Haloperidol Lactate 5 Mg/Ml Vial IM Not Given Q4HR JOHN Dexmedetomidine HCl 400 mcg/ 100 mls @ 0 mls/hr 07/03/20 09:45 07/16/20 01:28 Sodium Chloride IVPB 100 mls INF JOHN Administration Protocol Titrate Fentanyl 100 mls @ 0 mls/hr 07/09/20 14:15 07/09/20 15:07 Fentanyl Cadd IV 08/08/20 14:15 100 mls INF JOHN Administration Protocol Per Protocol Midazolam HCl 100 mg/ Sodium 100 mls @ 0 mls/hr 07/09/20 23:15 07/16/20 01:28 Chloride IVPB 100 mls INF PRN Administration Sedation Protocol As Directed Meropenem 2 gm/ Miscellaneous 100 mls @ 200 mls/hr 07/10/20 10:00 07/16/20 02:57 Medication 1 each/ Sodium IVPB 100 mls Chloride 0200,1000,1800 JOHN Administration Sodium Chloride 1,000 mls @ 0 mls/hr 07/10/20 13:40 07/16/20 06:41 1/2 Normal Saline IV 1,000 mls .Q0M JOHN Administration KVO Insulin Human Lispro 0 units 07/03/20 01:26 07/14/20 17:21 Humalog 300 Units/3 Ml Vial SC 4 unit .MILD SLIDING SCALE PRN Administration Mild Correctional Scale Lorazepam 2 mg 07/13/20 17:35 07/15/20 05:17 Lorazepam 2 Mg/Ml Vial SLOW IVP 2 mg Q1H PRN Administration Breakthrough agitation Metoclopramide HCl 10 mg 07/13/20 11:09 07/13/20 12:19 Metoclopramide Hcl 10 Mg/2 Ml Vial IVP 10 mg Q6H PRN Administration Nausea/Vomiting Morphine Sulfate 2 mg 07/13/20 17:34 07/15/20 08:27 Morphine 2 Mg/Ml Vial SLOW IVP 08/12/20 17:35 2 mg Q1H PRN Administration Breakthrough Pain/Agitation Pramipexole Dihydrochloride 1 mg 07/09/20 22:00 07/16/20 06:34 Pramipexole Di-Hcl 1 Mg Tab PO 1 mg Q8HR JOHN Administration Propofol 1,000 mg 07/03/20 16:45 07/09/20 18:42 Propofol 1,000 Mg/100 Ml Vial IV 08/02/20 16:45 1,000 mg INF PRN Administration TO ACHIEVE GOAL RASS Protocol Scopolamine 1.5 mg 07/09/20 23:59 07/16/20 01:26 Scopolamine 1.5 Mg/72 Hour Patch TOP 1.5 mg Q3D JOHN Administration Sodium Chloride 10 ml 07/03/20 21:00 07/15/20 21:10 Flush - Normal Saline 10 Ml Syringe IVF 10 ml Q12HR JOHN Administration - Exam Eye: PERRL, anicteric sclera Heart: RRR, no murmur, no gallops, no rubs, normal peripheral pulses Respiratory: no wheezes, no ronchi, rales (at the bases) Gastrointestinal: soft, non-tender, non-distended, normal bowel sounds, no palpable masses Extremities: no cyanosis, no edema Hosp A/P (1) Acute respiratory failure with hypoxia Code(s): J96.01 - ACUTE RESPIRATORY FAILURE WITH HYPOXIA Status: Acute (2) Pneumonia due to COVID-19 virus Code(s): U07.1 - COVID-19; J12.82 - PNEUMONIA DUE TO CORONAVIRUS DISEASE 2019 Status: Acute (3) Diabetes mellitus type 2 in nonobese Code(s): E11.9 - TYPE 2 DIABETES MELLITUS WITHOUT COMPLICATIONS Status: Chronic (4) Hypertension Code(s): I10 - ESSENTIAL (PRIMARY) HYPERTENSION Status: Chronic Qualifiers: Hypertension type: essential hypertension Qualified Code(s): I10 - Essential (primary) hypertension (5) TAMMY (obstructive sleep apnea) Code(s): G47.33 - OBSTRUCTIVE SLEEP APNEA (ADULT) (PEDIATRIC) Status: Chronic (6) Parkinson disease Code(s): G20 - PARKINSON'S DISEASE Status: Chronic - Plan * Acute respiratory failure due to COVID pneumonia- continue supportive care .- He had Trach and PEG tube placed * HTN- blood pressure - is a bit on the lower side- will observe * JACIEL- resolved * DM- blood glucose is stable * DVT- prophylaxis- continue Lovenox * Parkinson's disease- continue Pramipexole * Nutritional support with tube feeds * Continue Slow wean from the vent
[2020-07-16] MEDS: Ascorbic Acid 500 mg Chewable Tablet PO SCH (09:39)
[2020-07-16] MEDS: Enoxaparin Sodium 40 MG/0.4 ML SYRINGE SC SCH (09:40)
[2020-07-16] MEDS: DULoxetine 60 MG CAP PO SCH (09:40)
[2020-07-16] MEDS: Folic Acid 1 MG TAB PO SCH (09:40)
[2020-07-16] MEDS: Cholecalciferol (Vitamin D3) 400 UNITS TAB PO SCH (09:40)
[2020-07-16] MEDS: Dexamethasone 4 mg/ml Vial SLOW IVP SCH (09:40)
[2020-07-16] MEDS: Pantoprazole 40 MG GRANULES PACKET PER TUBE SCH (09:40)
--- NOTE | 2020-07-16 09:47 | PRG ---
DATE OF SERVICE: SUBJECTIVE: The patient is on mechanical ventilation through a tracheostomy. He looks comfortable. OBJECTIVE: VITAL SIGNS: Pulse is 58, blood pressure 87/59, O2 saturation 93%, respiratory rate 27, temperature 97.9. HEENT: Unremarkable. NECK: Trach in good position. LUNGS: Clear anteriorly. CARDIOVASCULAR: S1 and S2. Regular. ABDOMEN: Soft and nontender. EXTREMITIES: Trace edema. LABORATORY DATA: White blood cell count 13.7, hematocrit 37.7, platelet count 303. Sodium 134, potassium 4.6, chloride 102, CO2 of 25, BUN 44, creatinine 0.7, glucose 143. ASSESSMENT: COVID-19 pneumonia with persistent respiratory failure, requiring mechanical ventilation. PLAN: The patient is currently on fairly low ventilator parameters with bilevel rate 12, high pressure 20, low pressure 8 with FiO2 of 40%. I think he is definitely to the point where he can be sent to an LTAC for prolonged weaning. Job ID: [id number]
[2020-07-16] MEDS: HumaLOG 300 UNITS/3 ML VIAL SC PRN ×3 (12:53→21:08)
[2020-07-17] MEDS: Haloperidol Lactate 5 MG/ML VIAL IM SCH ×7 (02:47→20:27)
[2020-07-17] MEDS: Meropenem 2 GM, Admixture Fee 1 EACH in Sodium Chloride 0.9% 100 ML IVPB SCH ×3 (02:52→17:52)
[2020-07-17 05:08] LABS: Anion Gap 15 mmol/L (10-20); BUN (Urea Nitrogen) 44 mg/dL (8.4-25.7); Calc. Creatinine Clearance 87 mL/min (70-130); Calcium 8.1 mg/dL (7.8-10.44); Carbon Dioxide 20 mmol/L (23-31); Chloride 100 mmol/L (98-107); Glucose 194 mg/dL (83-110); Potassium 4.2 mmol/L (3.5-5.1); Sodium 131 mmol/L (136-145)
[2020-07-17 05:20] LABS: Band 4 % (5-11); Hemoglobin 12.3 g/dL (14.0-18.0); Hypochromia SLIGHT = 6-15 cells (100X) (0-5/hpf); Lymphocytes 10 % (21-51); MDiff Complete? YES; Mean Corpuscular HGB CONC 33.8 g/dL (32.0-36.0); Mean Corpuscular Hemoglobin 33.7 pg (27.0-31.0); Mean Corpuscular Volume 99.7 fL (78.0-98.0); Monocytes 8 % (0-10); Neutrophil 78 % (42-75); Platelet Count 276 thou/uL (130-400); Platelet Morphology Comment Appears Adequate; RBC Distribution Width 12.1 % (11.5-14.5); Red Blood Cell (RBC) Count 3.64 mill/uL (4.70-6.10); White Blood Cell (WBC) Count 13.3 thou/uL (4.8-10.8)
[2020-07-17] MEDS: Pramipexole Di-HCl 1 MG TAB PO SCH ×3 (06:44→20:27)
[2020-07-17] MEDS: DULoxetine 60 MG CAP PO SCH (08:19)
[2020-07-17] MEDS: Pantoprazole 40 MG GRANULES PACKET PER TUBE SCH (08:19)
[2020-07-17] MEDS: Folic Acid 1 MG TAB PO SCH (08:20)
[2020-07-17] MEDS: Enoxaparin Sodium 40 MG/0.4 ML SYRINGE SC SCH (08:20)
[2020-07-17] MEDS: Cholecalciferol (Vitamin D3) 400 UNITS TAB PO SCH (08:20)
[2020-07-17] MEDS: Ascorbic Acid 500 mg Chewable Tablet PO SCH (08:20)
[2020-07-17] MEDS: Dexamethasone 4 mg/ml Vial SLOW IVP SCH (08:20)
--- NOTE | 2020-07-17 08:32 | PDOC.HOSPP ---
- Subjective Encounter Date: 07/17/20 Encounter Time: 08:31 Subjective: Mr. Cooley was seen today in follow-up of COVID pneumonia. He is on a trach collar. He is following commands. He squeezed my hand,and gave a thumbs up on command. - Objective Vital Signs & Weight: Vital Signs (12 hours) Pulse Resp BP 07/17/20 06:46 60 94/61 07/17/20 04:00 26 H 07/17/20 02:27 62 07/17/20 00:00 23 H 07/16/20 22:59 61 Weight Admit Weight 163 lb 9.328 oz Weight 159 lb 13.362 oz Most Recent Monitor Data Heart Rate from ECG 61 NIBP 96/64 NIBP BP-Mean 74 Respiration from ECG 24 SpO2 95 I&O: 07/16/20 07/17/20 07/18/20 06:59 06:59 06:59 Intake Total 934.5 2063.7 Output Total 1530 1660 100 Balance -595.5 403.7 -100 Result Diagrams: 07/17/20 03:40 07/17/20 03:30 Additional Labs: Accuchecks 07/16/20 07/16/20 07/16/20 21:04 16:37 11:26 POC Glucose 210 H 184 H 170 H Hospitalist ROS - Medication Medications: Active Medications Generic Name Dose Route Start Last Admin Trade Name Freq PRN Reason Stop Dose Admin Acetaminophen 1,000 mg 07/06/20 14:14 07/13/20 05:54 Acetaminophen 650 Mg/20.3 Ml Udcup PER TUBE 1,000 mg Q6H PRN Administration Headache/Fever or Pain Ascorbic Acid 1,000 mg 07/03/20 09:00 07/17/20 08:20 Ascorbic Acid 500 Mg Chewable Tablet PO 1,000 mg DAILY JOHN Administration Bisacodyl 10 mg 07/13/20 11:09 07/13/20 12:18 Bisacodyl 10 Mg Supp [place] 10 mg Q8H PRN Administration Constipation Cholecalciferol 400 units 07/03/20 09:00 07/17/20 08:20 Cholecalciferol (Vitamin D3) 400 Units Tab PO 400 units DAILY JOHN Administration Dexamethasone 8 mg 07/03/20 09:00 07/17/20 08:20 Dexamethasone 4 Mg/Ml Vial SLOW IVP 8 mg DAILY JOHN Administration Duloxetine HCl 60 mg 07/07/20 09:00 07/17/20 08:19 Duloxetine 60 Mg Cap PO 60 mg DAILY JOHN Administration Enoxaparin Sodium 40 mg 07/16/20 09:00 07/17/20 08:20 Enoxaparin Sodium 40 Mg/0.4 Ml Syringe SC 40 mg 0900 JOHN Administration Folic Acid 1 mg 07/10/20 09:00 07/17/20 08:20 Folic Acid 1 Mg Tab PO 1 mg DAILY JOHN Administration Haloperidol Lactate 5 mg 07/13/20 21:00 07/17/20 05:33 Haloperidol Lactate 5 Mg/Ml Vial IM 5 mg Q4HR JOHN Administration Dexmedetomidine HCl 400 mcg/ 100 mls @ 0 mls/hr 07/03/20 09:45 07/16/20 20:35 Sodium Chloride IVPB 100 mls INF JOHN Administration Protocol Titrate Fentanyl 100 mls @ 0 mls/hr 07/09/20 14:15 07/09/20 15:07 Fentanyl Cadd IV 08/08/20 14:15 100 mls INF JOHN Administration Protocol Per Protocol Midazolam HCl 100 mg/ Sodium 100 mls @ 0 mls/hr 07/09/20 23:15 07/16/20 14:37 Chloride IVPB 100 mls INF PRN Administration Sedation Protocol As Directed Meropenem 2 gm/ Miscellaneous 100 mls @ 200 mls/hr 07/10/20 10:00 07/17/20 02:52 Medication 1 each/ Sodium IVPB 100 mls Chloride 0200,1000,1800 JOHN Administration Sodium Chloride 1,000 mls @ 0 mls/hr 07/10/20 13:40 07/16/20 06:41 1/2 Normal Saline IV 1,000 mls .Q0M JOHN Administration KVO Insulin Human Lispro 0 units 07/03/20 01:26 07/16/20 21:08 Humalog 300 Units/3 Ml Vial SC 3 unit .MILD SLIDING SCALE PRN Administration Mild Correctional Scale Lorazepam 2 mg 07/13/20 17:35 07/15/20 05:17 Lorazepam 2 Mg/Ml Vial SLOW IVP 2 mg Q1H PRN Administration Breakthrough agitation Metoclopramide HCl 10 mg 07/13/20 11:09 07/13/20 12:19 Metoclopramide Hcl 10 Mg/2 Ml Vial IVP 10 mg Q6H PRN Administration Nausea/Vomiting Morphine Sulfate 2 mg 07/13/20 17:34 07/15/20 08:27 Morphine 2 Mg/Ml Vial SLOW IVP 08/12/20 17:35 2 mg Q1H PRN Administration Breakthrough Pain/Agitation Pantoprazole Sodium 40 mg 07/16/20 09:00 07/17/20 08:19 Pantoprazole 40 Mg Granules Packet PER TUBE 40 mg DAILY JOHN Administration Pramipexole Dihydrochloride 1 mg 07/09/20 22:00 07/17/20 06:44 Pramipexole Di-Hcl 1 Mg Tab PO 1 mg Q8HR JOHN Administration Propofol 1,000 mg 07/03/20 16:45 07/09/20 18:42 Propofol 1,000 Mg/100 Ml Vial IV 08/02/20 16:45 1,000 mg INF PRN Administration TO ACHIEVE GOAL RASS Protocol Scopolamine 1.5 mg 07/09/20 23:59 07/16/20 01:26 Scopolamine 1.5 Mg/72 Hour Patch TOP 1.5 mg Q3D JOHN Administration Sodium Chloride 10 ml 07/03/20 21:00 07/17/20 08:20 Flush - Normal Saline 10 Ml Syringe IVF 10 ml Q12HR JOHN Administration - Exam Eye: PERRL Heart: RRR, no murmur, no gallops, no rubs, normal peripheral pulses Respiratory: no ronchi, rales (at the bases) Gastrointestinal: soft, non-tender, non-distended, normal bowel sounds, no palpa ble masses, no hepatomegaly Extremities: no cyanosis, no edema Hosp A/P (1) Acute respiratory failure with hypoxia Code(s): J96.01 - ACUTE RESPIRATORY FAILURE WITH HYPOXIA Status: Acute (2) Pneumonia due to COVID-19 virus Code(s): U07.1 - COVID-19; J12.82 - PNEUMONIA DUE TO CORONAVIRUS DISEASE 2019 Status: Acute (3) Diabetes mellitus type 2 in nonobese Code(s): E11.9 - TYPE 2 DIABETES MELLITUS WITHOUT COMPLICATIONS Status: Chronic (4) Hypertension Code(s): I10 - ESSENTIAL (PRIMARY) HYPERTENSION Status: Chronic Qualifiers: Hypertension type: essential hypertension Qualified Code(s): I10 - Essential (primary) hypertension (5) TAMMY (obstructive sleep apnea) Code(s): G47.33 - OBSTRUCTIVE SLEEP APNEA (ADULT) (PEDIATRIC) Status: Chronic (6) Parkinson disease Code(s): G20 - PARKINSON'S DISEASE Status: Chronic - Plan * Acute respiratory failure due to COVID pneumonia- continue supportive care .- He had Trach and PEG tube placed * HTN- blood pressure -low normal- continue to observe. Blood pressure medications are on hold * JACIEL- resolved * DM- blood glucose is stable * DVT- prophylaxis- continue Lovenox * Parkinson's disease- continue Pramipexole * Nutritional support with tube feeds * LTAC evaluation
[2020-07-17] MEDS: Bisacodyl 10 MG SUPP PR PRN (14:07)
[2020-07-17] MEDS: HumaLOG 300 UNITS/3 ML VIAL SC PRN (16:45)
--- NOTE | 2020-07-17 18:23 | PRG ---
DATE OF SERVICE: 07/17/2020 SUBJECTIVE: Abhay Cooley remains ventilated. He is afebrile, heart rate 70, blood pressure 107/70. Trying to work towards weaning from mechanical ventilation now that he has tracheostomy. OBJECTIVE: LUNGS: He has equal breath sounds. HEART: Regular rhythm. ABDOMEN: Soft. LABORATORY DATA: White count 13.3, hemoglobin 12.3, platelets 276. Sodium 131, potassium 4.2, chloride 100, bicarb 20, BUN 44, creatinine 0.79. His exhaled volumes are over 600 mL. IMPRESSION: COVID pneumonia with respiratory failure, now with a tracheostomy and a PEG. We switched him to volume ventilation and awaiting LTAC placement. Job ID: [id number]
[2020-07-17] MEDS ORDERED: Clopidogrel Bisulfate 75 MG TAB ONE ×2 (19:28→20:29)
[2020-07-18] MEDS: Haloperidol Lactate 5 MG/ML VIAL IM SCH ×6 (01:02→20:50)
[2020-07-18] MEDS: Meropenem 2 GM, Admixture Fee 1 EACH in Sodium Chloride 0.9% 100 ML IVPB SCH ×3 (02:38→17:04)
[2020-07-18 04:34] LABS: Band 5 % (5-11); Hemoglobin 12.5 g/dL (14.0-18.0); Lymphocytes 5 % (21-51); MDiff Complete? YES; Mean Corpuscular HGB CONC 32.9 g/dL (32.0-36.0); Mean Corpuscular Hemoglobin 32.7 pg (27.0-31.0); Mean Corpuscular Volume 99.6 fL (78.0-98.0); Monocytes 12 % (0-10); Neutrophil 78 % (42-75); Platelet Count 271 thou/uL (130-400); Platelet Morphology Comment Appears Adequate; RBC Distribution Width 12.1 % (11.5-14.5); Red Blood Cell (RBC) Count 3.82 mill/uL (4.70-6.10)
[2020-07-18 04:35] LABS: Anion Gap 14 mmol/L (10-20); BUN (Urea Nitrogen) 38 mg/dL (8.4-25.7); Calc. Creatinine Clearance 90 mL/min (70-130); Calcium 8.1 mg/dL (7.8-10.44); Carbon Dioxide 21 mmol/L (23-31); Chloride 102 mmol/L (98-107); Glucose 180 mg/dL (83-110); Sodium 133 mmol/L (136-145)
[2020-07-18] MEDS: Pramipexole Di-HCl 1 MG TAB PO SCH ×3 (06:16→20:46)
[2020-07-18] MEDS: HumaLOG 300 UNITS/3 ML VIAL SC PRN ×2 (06:17→20:52)
[2020-07-18] MEDS: DULoxetine 60 MG CAP PO SCH (09:39)
[2020-07-18] MEDS: Dexamethasone 4 mg/ml Vial SLOW IVP SCH (09:39)
[2020-07-18] MEDS: Enoxaparin Sodium 40 MG/0.4 ML SYRINGE SC SCH (09:39)
[2020-07-18] MEDS: Folic Acid 1 MG TAB PO SCH (09:39)
[2020-07-18] MEDS: Ascorbic Acid 500 mg Chewable Tablet PO SCH (09:39)
[2020-07-18] MEDS: Pantoprazole 40 MG GRANULES PACKET PER TUBE SCH (09:39)
[2020-07-18] MEDS: Cholecalciferol (Vitamin D3) 400 UNITS TAB PO SCH (09:39)
[2020-07-18] MEDS: Morphine 2 MG/ML VIAL SLOW IVP PRN (10:31)
--- NOTE | 2020-07-18 14:49 | PDOC.HOSPP ---
- Subjective Encounter Date: 07/18/20 Subjective: Pt seen laying comfortably in the room Denies complaints - Objective Vital Signs & Weight: Vital Signs (12 hours) Temp Pulse Resp BP Pulse Ox 07/18/20 14:00 25 H 07/18/20 12:00 21 H 07/18/20 11:30 68 100/63 07/18/20 11:12 99.1 F 07/18/20 10:00 26 H 07/18/20 08:00 34 H 95 07/18/20 07:43 96.0 F L 07/18/20 07:39 62 07/18/20 04:00 28 H Weight Admit Weight 163 lb 9.328 oz Weight 159 lb 13.362 oz Most Recent Monitor Data Heart Rate from ECG 71 NIBP 103/64 NIBP BP-Mean 77 Respiration from ECG 30 SpO2 98 I&O: 07/17/20 07/18/20 07/19/20 06:59 06:59 06:59 Intake Total 2063.7 1912.9 172 Output Total 1660 1865 682 Balance 403.7 47.9 -510 Result Diagrams: 07/18/20 03:40 07/18/20 03:40 Additional Labs: Accuchecks 07/18/20 07/17/20 11:06 20:37 POC Glucose 124 H 151 H Hospitalist ROS - Review of Systems Constitutional: denies: fever Eyes: denies: pain ENT: denies: ear pain Respiratory: reports: cough, shortness of breath Cardiovascular: denies: chest pain Gastrointestinal: denies: nausea Musculoskeletal: denies: neck pain Neurological: denies: weakness - Medication Medications: Active Medications Generic Name Dose Route Start Last Admin Trade Name Freq PRN Reason Stop Dose Admin Acetaminophen 1,000 mg 07/06/20 14:14 07/13/20 05:54 Acetaminophen 650 Mg/20.3 Ml Udcup PER TUBE 1,000 mg Q6H PRN Administration Headache/Fever or Pain Ascorbic Acid 1,000 mg 07/03/20 09:00 07/18/20 09:39 Ascorbic Acid 500 Mg Chewable Tablet PO 1,000 mg DAILY JOHN Administration Bisacodyl 10 mg 07/13/20 11:09 07/17/20 14:07 Bisacodyl 10 Mg Supp [place] 10 mg Q8H PRN Administration Constipation Cholecalciferol 400 units 07/03/20 09:00 07/18/20 09:39 Cholecalciferol (Vitamin D3) 400 Units Tab PO 400 units DAILY JOHN Administration Dexamethasone 8 mg 07/03/20 09:00 07/18/20 09:39 Dexamethasone 4 Mg/Ml Vial SLOW IVP 8 mg DAILY JOHN Administration Duloxetine HCl 60 mg 07/07/20 09:00 07/18/20 09:39 Duloxetine 60 Mg Cap PO 60 mg DAILY JOHN Administration Enoxaparin Sodium 40 mg 07/16/20 09:00 07/18/20 09:39 Enoxaparin Sodium 40 Mg/0.4 Ml Syringe SC 40 mg 0900 JOHN Administration Folic Acid 1 mg 07/10/20 09:00 07/18/20 09:39 Folic Acid 1 Mg Tab PO 1 mg DAILY JOHN Administration Haloperidol Lactate 5 mg 07/13/20 21:00 07/18/20 12:59 Haloperidol Lactate 5 Mg/Ml Vial IM 5 mg Q4HR JOHN Administration Dexmedetomidine HCl 400 mcg/ 100 mls @ 0 mls/hr 07/03/20 09:45 07/18/20 14:14 Sodium Chloride IVPB 100 mls INF JOHN Administration Protocol Titrate Fentanyl 100 mls @ 0 mls/hr 07/09/20 14:15 07/09/20 15:07 Fentanyl Cadd IV 08/08/20 14:15 100 mls INF JOHN Administration Protocol Per Protocol Midazolam HCl 100 mg/ Sodium 100 mls @ 0 mls/hr 07/09/20 23:15 07/17/20 08:36 Chloride IVPB 100 mls INF PRN Administration Sedation Protocol As Directed Meropenem 2 gm/ Miscellaneous 100 mls @ 200 mls/hr 07/10/20 10:00 07/18/20 10:28 Medication 1 each/ Sodium IVPB 100 mls Chloride 0200,1000,1800 JOHN Administration Sodium Chloride 1,000 mls @ 0 mls/hr 07/10/20 13:40 07/16/20 06:41 1/2 Normal Saline IV 1,000 mls .Q0M JOHN Administration KVO Insulin Human Lispro 0 units 07/03/20 01:26 07/18/20 06:17 Humalog 300 Units/3 Ml Vial SC 2 unit .MILD SLIDING SCALE PRN Administration Mild Correctional Scale Lorazepam 2 mg 07/13/20 17:35 07/15/20 05:17 Lorazepam 2 Mg/Ml Vial SLOW IVP 2 mg Q1H PRN Administration Breakthrough agitation Metoclopramide HCl 10 mg 07/13/20 11:09 07/13/20 12:19 Metoclopramide Hcl 10 Mg/2 Ml Vial IVP 10 mg Q6H PRN Administration Nausea/Vomiting Morphine Sulfate 2 mg 07/13/20 17:34 07/18/20 10:31 Morphine 2 Mg/Ml Vial SLOW IVP 08/12/20 17:35 2 mg Q1H PRN Administration Breakthrough Pain/Agitation Pantoprazole Sodium 40 mg 07/16/20 09:00 07/18/20 09:39 Pantoprazole 40 Mg Granules Packet PER TUBE 40 mg DAILY JOHN Administration Pramipexole Dihydrochloride 1 mg 07/09/20 22:00 07/18/20 12:59 Pramipexole Di-Hcl 1 Mg Tab PO 1 mg Q8HR JOHN Administration Propofol 1,000 mg 07/03/20 16:45 07/09/20 18:42 Propofol 1,000 Mg/100 Ml Vial IV 08/02/20 16:45 1,000 mg INF PRN Administration TO ACHIEVE GOAL RASS Protocol Scopolamine 1.5 mg 07/09/20 23:59 07/16/20 01:26 Scopolamine 1.5 Mg/72 Hour Patch TOP 1.5 mg Q3D JOHN Administration Sodium Chloride 10 ml 07/03/20 21:00 07/18/20 09:40 Flush - Normal Saline 10 Ml Syringe IVF 10 ml Q12HR JOHN Administration - Exam General Appearance: awake alert Eye: anicteric sclera ENT: normocephalic atraumatic Neck: symmetric Heart: no murmur Respiratory: no wheezes Gastrointestinal: soft Extremities: no cyanosis Skin: no lesions Neurological: cranial nerve grossly intact Musculoskeletal: normal tone Psychiatric: normal affect, oriented to person Hosp A/P - Plan Acute respiratory failure with hypoxia Pneumonia due to COVID-19 virus s/p Trach and peg , continue respiratory management as per Pulmonary , Continue steroids and antibiotics , Continue Nutritional support with tube feeds Diabetes mellitus type 2 in nonobese Continue to monitor blood sugar Hypertension Continue to monitor BP TAMMY (obstructive sleep apnea) Parkinson disease continue Pramipexole DVT prophylaxis Continue lovenox Pending disposition to LTAC once bed available Discussed with nursing staff and
--- NOTE | 2020-07-18 18:05 | PRG ---
DATE OF SERVICE: 07/18/2020 SUBJECTIVE: Abhay Cooley is awake and alert. OBJECTIVE: VITAL SIGNS: His heart rate is in the 50s, blood pressure is around 100 systolic, respiratory rate in the 20s, oximetry is in the high 90s. LUNGS: Unchanged. HEART: Unchanged. ABDOMEN: Unchanged. EXTREMITIES: Without edema. LABORATORY DATA: White count 13, hemoglobin 12.5, platelets 271. Sodium 133, potassium 4, chloride 102, bicarb 21, BUN 38, creatinine 0.76. IMPRESSION: Respiratory failure secondary to COVID-19. PLAN: He denies trach and PEG. He appears to be progressing nicely and working towards trach collar trials. Job ID: [id number] [facility]
[2020-07-18] MEDS: Lorazepam 2 MG/ML VIAL SLOW IVP PRN (23:14)
[2020-07-18] MEDS: Scopolamine 1.5 mg/72 hour Patch TOP SCH (23:47)
[2020-07-19] MEDS: Haloperidol Lactate 5 MG/ML VIAL IM SCH ×6 (01:57→21:14)
[2020-07-19] MEDS: Meropenem 2 GM, Admixture Fee 1 EACH in Sodium Chloride 0.9% 100 ML IVPB SCH ×3 (03:00→21:19)
[2020-07-19 04:39] LABS: Anion Gap 11 mmol/L (10-20); BUN (Urea Nitrogen) 31 mg/dL (8.4-25.7); Calc. Creatinine Clearance 101 mL/min (70-130); Calcium 8.4 mg/dL (7.8-10.44); Carbon Dioxide 23 mmol/L (23-31); Chloride 100 mmol/L (98-107); Glucose 129 mg/dL (83-110); Potassium 4.2 mmol/L (3.5-5.1); Sodium 130 mmol/L (136-145)
[2020-07-19 04:43] LABS: Band 2 % (5-11); Hemoglobin 12.3 g/dL (14.0-18.0); Hypochromia SLIGHT = 6-15 cells (100X) (0-5/hpf); Lymphocytes 9 % (21-51); MDiff Complete? YES; Mean Corpuscular HGB CONC 32.2 g/dL (32.0-36.0); Mean Corpuscular Hemoglobin 31.9 pg (27.0-31.0); Monocytes 13 % (0-10); Neutrophil 76 % (42-75); Platelet Count 249 thou/uL (130-400); Platelet Morphology Comment Appears Adequate; RBC Distribution Width 12.2 % (11.5-14.5); Red Blood Cell (RBC) Count 3.86 mill/uL (4.70-6.10); White Blood Cell (WBC) Count 12.3 thou/uL (4.8-10.8)
[2020-07-19] MEDS: Sodium Chloride 0.45% 1,000 ML IV SCH (05:06)
[2020-07-19] MEDS: Pramipexole Di-HCl 1 MG TAB PO SCH ×3 (05:07→20:42)
[2020-07-19] MEDS: Cholecalciferol (Vitamin D3) 400 UNITS TAB PO SCH (08:41)
[2020-07-19] MEDS: Folic Acid 1 MG TAB PO SCH (08:41)
[2020-07-19] MEDS: DULoxetine 60 MG CAP PO SCH (08:41)
[2020-07-19] MEDS: Ascorbic Acid 500 mg Chewable Tablet PO SCH (08:41)
[2020-07-19] MEDS: Pantoprazole 40 MG GRANULES PACKET PER TUBE SCH (08:42)
[2020-07-19] MEDS: Enoxaparin Sodium 40 MG/0.4 ML SYRINGE SC SCH (08:42)
[2020-07-19] MEDS: Dexamethasone 4 mg/ml Vial SLOW IVP SCH (08:42)
--- NOTE | 2020-07-19 11:57 | PDOC.HOSPP ---
- Subjective Encounter Date: 07/19/20 Subjective: Pt seen not in distress no complaints - Objective Vital Signs & Weight: Vital Signs (12 hours) Temp Pulse Resp 07/19/20 10:00 39 H 07/19/20 08:00 96.8 F L 07/19/20 07:33 37 H 07/19/20 07:25 65 07/19/20 04:26 97.9 F 07/19/20 04:00 35 H 07/19/20 03:11 57 L 07/19/20 00:00 29 H Weight Admit Weight 163 lb 9.328 oz Weight 159 lb 13.362 oz Most Recent Monitor Data Heart Rate from ECG 68 NIBP 114/70 NIBP BP-Mean 84 Respiration from ECG 34 SpO2 94 I&O: 07/18/20 07/19/20 07/20/20 06:59 06:59 06:59 Intake Total 1912.9 1910 Output Total 1865 1951 550 Balance 47.9 -42 -550 Result Diagrams: 07/19/20 04:00 07/19/20 04:00 Additional Labs: Accuchecks 07/19/20 07/18/20 07/18/20 10:05 19:52 16:13 POC Glucose 111 H 190 H 173 H Hospitalist ROS - Review of Systems Constitutional: denies: fever Eyes: denies: pain ENT: denies: ear discharge Respiratory: denies: cough Cardiovascular: denies: chest pain Gastrointestinal: denies: nausea Genitourinary: denies: dysuria Musculoskeletal: denies: neck pain Neurological: denies: weakness All other systems reviewed; all pertinent +/- noted in HPI/Subj - Medication Medications: Active Medications Generic Name Dose Route Start Last Admin Trade Name Freq PRN Reason Stop Dose Admin Acetaminophen 1,000 mg 07/06/20 14:14 07/13/20 05:54 Acetaminophen 650 Mg/20.3 Ml Udcup PER TUBE 1,000 mg Q6H PRN Administration Headache/Fever or Pain Ascorbic Acid 1,000 mg 07/03/20 09:00 07/19/20 08:41 Ascorbic Acid 500 Mg Chewable Tablet PO 1,000 mg DAILY JOHN Administration Bisacodyl 10 mg 07/13/20 11:09 07/17/20 14:07 Bisacodyl 10 Mg Supp [place] 10 mg Q8H PRN Administration Constipation Cholecalciferol 400 units 07/03/20 09:00 07/19/20 08:41 Cholecalciferol (Vitamin D3) 400 Units Tab PO 400 units DAILY JOHN Administration Dexamethasone 8 mg 07/03/20 09:00 07/19/20 08:42 Dexamethasone 4 Mg/Ml Vial SLOW IVP 8 mg DAILY JOHN Administration Duloxetine HCl 60 mg 07/07/20 09:00 07/19/20 08:41 Duloxetine 60 Mg Cap PO 60 mg DAILY JOHN Administration Enoxaparin Sodium 40 mg 07/16/20 09:00 07/19/20 08:42 Enoxaparin Sodium 40 Mg/0.4 Ml Syringe SC 40 mg 0900 JOHN Administration Folic Acid 1 mg 07/10/20 09:00 07/19/20 08:41 Folic Acid 1 Mg Tab PO 1 mg DAILY JOHN Administration Haloperidol Lactate 5 mg 07/13/20 21:00 07/19/20 08:42 Haloperidol Lactate 5 Mg/Ml Vial IM 5 mg Q4HR JOHN Administration Dexmedetomidine HCl 400 mcg/ 100 mls @ 0 mls/hr 07/03/20 09:45 07/18/20 22:58 Sodium Chloride IVPB 100 mls INF JOHN Administration Protocol Titrate Fentanyl 100 mls @ 0 mls/hr 07/09/20 14:15 07/09/20 15:07 Fentanyl Cadd IV 08/08/20 14:15 100 mls INF JOHN Administration Protocol Per Protocol Midazolam HCl 100 mg/ Sodium 100 mls @ 0 mls/hr 07/09/20 23:15 07/17/20 08:36 Chloride IVPB 100 mls INF PRN Administration Sedation Protocol As Directed Meropenem 2 gm/ Miscellaneous 100 mls @ 200 mls/hr 07/10/20 10:00 07/19/20 11:12 Medication 1 each/ Sodium IVPB 100 mls Chloride 0200,1000,1800 JOHN Administration Sodium Chloride 1,000 mls @ 0 mls/hr 07/10/20 13:40 07/19/20 05:06 1/2 Normal Saline IV 1,000 mls .Q0M JOHN Administration KVO Insulin Human Lispro 0 units 07/03/20 01:26 07/18/20 20:52 Humalog 300 Units/3 Ml Vial SC 2 unit .MILD SLIDING SCALE PRN Administration Mild Correctional Scale Lorazepam 2 mg 07/13/20 17:35 07/18/20 23:14 Lorazepam 2 Mg/Ml Vial SLOW IVP 2 mg Q1H PRN Administration Breakthrough agitation Metoclopramide HCl 10 mg 07/13/20 11:09 07/13/20 12:19 Metoclopramide Hcl 10 Mg/2 Ml Vial IVP 10 mg Q6H PRN Administration Nausea/Vomiting Morphine Sulfate 2 mg 07/13/20 17:34 07/18/20 10:31 Morphine 2 Mg/Ml Vial SLOW IVP 08/12/20 17:35 2 mg Q1H PRN Administration Breakthrough Pain/Agitation Pantoprazole Sodium 40 mg 07/16/20 09:00 07/19/20 08:42 Pantoprazole 40 Mg Granules Packet PER TUBE 40 mg DAILY JOHN Administration Pramipexole Dihydrochloride 1 mg 07/09/20 22:00 07/19/20 05:07 Pramipexole Di-Hcl 1 Mg Tab PO 1 mg Q8HR JOHN Administration Propofol 1,000 mg 07/03/20 16:45 07/09/20 18:42 Propofol 1,000 Mg/100 Ml Vial IV 08/02/20 16:45 1,000 mg INF PRN Administration TO ACHIEVE GOAL RASS Protocol Scopolamine 1.5 mg 07/09/20 23:59 07/18/20 23:47 Scopolamine 1.5 Mg/72 Hour Patch TOP 1.5 mg Q3D JOHN Administration Sodium Chloride 10 ml 07/03/20 21:00 07/19/20 08:42 Flush - Normal Saline 10 Ml Syringe IVF 10 ml Q12HR JOHN Administration - Exam Eye: negative: anicteric sclera ENT: negative: normocephalic atraumatic Neck: negative: symmetric Heart: negative: no murmur Respiratory - other findings: decrease air antry bases Gastrointestinal: soft Extremities: no cyanosis Neurological: cranial nerve grossly intact Musculoskeletal: normal tone Psychiatric: normal affect Hosp A/P - Plan Acute respiratory failure with hypoxia Pneumonia due to COVID-19 virus s/p Trach and peg , continue respiratory management as per Pulmonary Continue steroids and antibiotics , Continue Nutritional support with tube feeds Diabetes mellitus type 2 in nonobese Continue to monitor blood sugar Hypertension Continue to monitor BP TAMMY (obstructive sleep apnea) Parkinson disease continue Pramipexole DVT prophylaxis Continue lovenox Pending disposition to LTAC once bed available Discussed with nursing staff
[2020-07-19] MEDS ORDERED: Fentanyl CADD 100 ML IV SCH (14:30)
--- NOTE | 2020-07-19 16:00 | PRG ---
DATE OF SERVICE: 07/19/2020 SUBJECTIVE: Abhay Cooley is in no distress. OBJECTIVE: VITAL SIGNS: Heart rates in the 70s, blood pressure 110/69, FiO2 is at 40%. Bee: He is awake and nods and tries to interact and follows commands. LUNGS: Remarkable for equal breath sounds. HEART: Regular rhythm. ABDOMEN: Soft. EXTREMITIES: Without edema. LABORATORY DATA: White count 12.3, hemoglobin 12.3, and platelets 249. Sodium 130, potassium 4.2, chloride 100, bicarb 23, BUN 31, and creatinine 0.68. IMPRESSION: Respiratory failure, associated with COVID pneumonia, clinically improving, now with tracheostomy. He will have increase in times with T collar trials. Hopefully, make some progress and get him placed in a long-term acute care facility. Job ID: [id number]
--- NOTE | 2020-07-19 19:32 | EKG ---
Test Reason : Blood Pressure : / mmHG Vent. Rate : 051 BPM Atrial Rate : 051 BPM P-R Int : 120 ms QRS Dur : 096 ms QT Int : 500 ms P-R-T Axes : 055 010 -21 degrees QTc Int : 460 ms Sinus bradycardia Incomplete right bundle branch block Nonspecific ST abnormality Abnormal ECG Confirmed by SANTOSH ESTES MD ([id number] on 07/19/2020 7:32:21 PM Referred By: RADHA Confirmed By:SANTOSH ESTSE MD
[2020-07-20] MEDS: Haloperidol Lactate 5 MG/ML VIAL IM SCH ×4 (00:41→13:39)
[2020-07-20] MEDS: Meropenem 2 GM, Admixture Fee 1 EACH in Sodium Chloride 0.9% 100 ML IVPB SCH ×3 (03:44→17:32)
[2020-07-20 05:25] LABS: Band 9 % (5-11); Eosinophils 1 % (0-10); Hemoglobin 13.7 g/dL (14.0-18.0); Lymphocytes 2 % (21-51); MDiff Complete? YES; Mean Corpuscular HGB CONC 34.3 g/dL (32.0-36.0); Mean Corpuscular Hemoglobin 33.5 pg (27.0-31.0); Mean Corpuscular Volume 97.8 fL (78.0-98.0); Mean Platelet Volume 7.9 fL (7.4-10.4); Monocytes 2 % (0-10); Neutrophil 86 % (42-75); Platelet Count 251 thou/uL (130-400); Platelet Morphology Comment Appears Adequate; RBC Distribution Width 12.1 % (11.5-14.5); Red Blood Cell (RBC) Count 4.08 mill/uL (4.70-6.10); White Blood Cell (WBC) Count 14.6 thou/uL (4.8-10.8)
[2020-07-20 06:02] LABS: Anion Gap 14 mmol/L (10-20); BUN (Urea Nitrogen) 26 mg/dL (8.4-25.7); Calc. Creatinine Clearance 94 mL/min (70-130); Calcium 8.8 mg/dL (7.8-10.44); Carbon Dioxide 25 mmol/L (23-31); Chloride 97 mmol/L (98-107); Glucose 126 mg/dL (83-110); Potassium 4.1 mmol/L (3.5-5.1); Sodium 132 mmol/L (136-145)
[2020-07-20] MEDS: Pramipexole Di-HCl 1 MG TAB PO SCH ×3 (07:56→20:00)
[2020-07-20] MEDS: Cholecalciferol (Vitamin D3) 400 UNITS TAB PO SCH (08:04)
[2020-07-20] MEDS: DULoxetine 60 MG CAP PO SCH (08:04)
[2020-07-20] MEDS: Enoxaparin Sodium 40 MG/0.4 ML SYRINGE SC SCH (08:05)
[2020-07-20] MEDS: Pantoprazole 40 MG GRANULES PACKET PER TUBE SCH (08:05)
[2020-07-20] MEDS: Folic Acid 1 MG TAB PO SCH (08:05)
[2020-07-20] MEDS: Dexamethasone 4 mg/ml Vial SLOW IVP SCH (08:05)
[2020-07-20] MEDS: Ascorbic Acid 500 mg Chewable Tablet PO SCH (08:05)
--- NOTE | 2020-07-20 09:22 | PDOC.HOSPP ---
- Subjective Encounter Date: 07/20/20 Encounter Time: 11:30 Subjective: Patient sitting up in bed. Trach and vent in place. Patient is working with physical therapy. No events overnight. Awaiting bed at [facility]. - Objective Vital Signs & Weight: Vital Signs (12 hours) Temp Pulse Resp BP 07/20/20 07:41 29 H 07/20/20 07:33 68 120/77 07/20/20 07:00 96.7 F L 07/20/20 06:00 35 H 07/20/20 04:00 32 H 07/20/20 02:00 67 36 H 07/20/20 00:00 38 H 07/19/20 23:22 97.9 F 07/19/20 23:08 76 130/78 07/19/20 22:00 36 H Weight Admit Weight 163 lb 9.328 oz Weight 159 lb 13.362 oz Most Recent Monitor Data Heart Rate from ECG 61 NIBP 88/59 NIBP BP-Mean 68 Respiration from ECG 24 SpO2 94 I&O: 07/19/20 07/20/20 07/21/20 06:59 06:59 06:59 Intake Total 1910 2340 30 Output Total 1787 3241 275 Balance -42 -1455 -245 Result Diagrams: 07/20/20 05:00 07/20/20 05:00 Additional Labs: Accuchecks 07/20/20 07/19/20 07/19/20 05:07 20:20 17:51 POC Glucose 84 136 H 152 H 07/19/20 07/17/20 10:05 16:24 POC Glucose 111 H 244 H Hospitalist ROS - Review of Systems ROS unobtainable: due to endotracheal tube - Medication Medications: Active Medications Generic Name Dose Route Start Last Admin Trade Name Freq PRN Reason Stop Dose Admin Acetaminophen 1,000 mg 07/06/20 14:14 07/13/20 05:54 Acetaminophen 650 Mg/20.3 Ml Udcup PER TUBE 1,000 mg Q6H PRN Administration Headache/Fever or Pain Ascorbic Acid 1,000 mg 07/03/20 09:00 07/20/20 08:05 Ascorbic Acid 500 Mg Chewable Tablet PO 1,000 mg DAILY JOHN Administration Bisacodyl 10 mg 07/13/20 11:09 07/17/20 14:07 Bisacodyl 10 Mg Supp [place] 10 mg Q8H PRN Administration Constipation Cholecalciferol 400 units 07/03/20 09:00 07/20/20 08:04 Cholecalciferol (Vitamin D3) 400 Units Tab PO 400 units DAILY JOHN Administration Dexamethasone 8 mg 07/03/20 09:00 07/20/20 08:05 Dexamethasone 4 Mg/Ml Vial SLOW IVP 8 mg DAILY JOHN Administration Duloxetine HCl 60 mg 07/07/20 09:00 07/20/20 08:04 Duloxetine 60 Mg Cap PO 60 mg DAILY JOHN Administration Enoxaparin Sodium 40 mg 07/16/20 09:00 07/20/20 08:05 Enoxaparin Sodium 40 Mg/0.4 Ml Syringe SC 40 mg 0900 JOHN Administration Folic Acid 1 mg 07/10/20 09:00 07/20/20 08:05 Folic Acid 1 Mg Tab PO 1 mg DAILY JOHN Administration Haloperidol Lactate 5 mg 07/13/20 21:00 07/20/20 08:05 Haloperidol Lactate 5 Mg/Ml Vial IM 5 mg Q4HR JOHN Administration Dexmedetomidine HCl 400 mcg/ 100 mls @ 0 mls/hr 07/03/20 09:45 07/20/20 03:45 Sodium Chloride IVPB 100 mls INF JOHN Administration Protocol Titrate Meropenem 2 gm/ Miscellaneous 100 mls @ 200 mls/hr 07/10/20 10:00 07/20/20 03:44 Medication 1 each/ Sodium IVPB 100 mls Chloride 0200,1000,1800 JOHN Administration Sodium Chloride 1,000 mls @ 0 mls/hr 07/10/20 13:40 07/19/20 05:06 1/2 Normal Saline IV 1,000 mls .Q0M JOHN Administration KVO Insulin Human Lispro 0 units 07/03/20 01:26 07/18/20 20:52 Humalog 300 Units/3 Ml Vial SC 2 unit .MILD SLIDING SCALE PRN Administration Mild Correctional Scale Lorazepam 2 mg 07/13/20 17:35 07/18/20 23:14 Lorazepam 2 Mg/Ml Vial SLOW IVP 2 mg Q1H PRN Administration Breakthrough agitation Metoclopramide HCl 10 mg 07/13/20 11:09 07/13/20 12:19 Metoclopramide Hcl 10 Mg/2 Ml Vial IVP 10 mg Q6H PRN Administration Nausea/Vomiting Morphine Sulfate 2 mg 07/13/20 17:34 07/18/20 10:31 Morphine 2 Mg/Ml Vial SLOW IVP 08/12/20 17:35 2 mg Q1H PRN Administration Breakthrough Pain/Agitation Pantoprazole Sodium 40 mg 07/16/20 09:00 07/20/20 08:05 Pantoprazole 40 Mg Granules Packet PER TUBE 40 mg DAILY JOHN Administration Pramipexole Dihydrochloride 1 mg 07/20/20 07:00 07/20/20 07:56 Pramipexole Di-Hcl 1 Mg Tab PO 1 mg 0700,1300,2000 JOHN Administration Propofol 1,000 mg 07/03/20 16:45 07/09/20 18:42 Propofol 1,000 Mg/100 Ml Vial IV 08/02/20 16:45 1,000 mg INF PRN Administration TO ACHIEVE GOAL RASS Protocol Scopolamine 1.5 mg 07/09/20 23:59 07/18/20 23:47 Scopolamine 1.5 Mg/72 Hour Patch TOP 1.5 mg Q3D JOHN Administration Sodium Chloride 10 ml 07/03/20 21:00 07/20/20 08:05 Flush - Normal Saline 10 Ml Syringe IVF 10 ml Q12HR JOHN Administration - Exam General Appearance: NAD, awake alert ENT: moist mucosa Heart: RRR, no murmur, no gallops, no rubs Respiratory: CTAB, no wheezes, no rales, no ronchi Gastrointestinal: soft, non-tender, non-distended, normal bowel sounds Extremities: no edema Neurological - other findings: Moving all extremities Psychiatric: normal affect, normal behavior Hosp A/P - Plan (1) Acute respiratory failure with hypoxia Code(s): J96.01 - ACUTE RESPIRATORY FAILURE WITH HYPOXIA Status: Acute (2) Pneumonia due to COVID-19 virus Code(s): U07.1 - COVID-19; J12.82 - PNEUMONIA DUE TO CORONAVIRUS DISEASE 2019 Status: Acute (3) Diabetes mellitus type 2 in nonobese Code(s): E11.9 - TYPE 2 DIABETES MELLITUS WITHOUT COMPLICATIONS Status: Chronic (4) Hypertension Code(s): I10 - ESSENTIAL (PRIMARY) HYPERTENSION Status: Chronic Qualifiers: Hypertension type: essential hypertension Qualified Code(s): I10 - Essential (primary) hypertension (5) TAMMY (obstructive sleep apnea) Code(s): G47.33 - OBSTRUCTIVE SLEEP APNEA (ADULT) (PEDIATRIC) Status: Chronic (6) Parkinson disease Code(s): G20 - PARKINSON'S DISEASE Status: Chronic - Plan * Acute respiratory failure due to COVID pneumonia- continue supportive care .- He had Trach and PEG tube placed * HTN- blood pressure -low normal- continue to observe. Blood pressure medi cations are on hold * JACIEL- resolved * DM- blood glucose is stable * DVT- prophylaxis- continue Lovenox * Parkinson's disease- continue Pramipexole * Nutritional support with tube feeds * LTAC evaluation and placement- patient has been accepted to [facility] in [place], awaiting available bed.
--- NOTE | 2020-07-20 10:27 | PRG ---
DATE OF SERVICE: 07/20/2020 SUBJECTIVE: The patient is awake, alert. He is currently on minimal ventilator settings-CPAP 5, pressure support 5 with FiO2 40%. He is awake, interactive with me today. He is on a little bit of Precedex. OBJECTIVE: VITAL SIGNS: Temperature 96.7, pulse 61, blood pressure 88/59, and O2 saturation 94%. HEENT: Unremarkable. NECK: Trach in good position. LUNGS: Clear. CARDIAC: S1 and S2. Regular. ABDOMEN: Soft. EXTREMITIES: No edema. LABORATORY DATA: White blood cell count 14.6, hematocrit 39.9, and platelet count 251. Sodium 132, potassium 4.1, chloride 97, CO2 of 25, BUN 26, creatinine 0.7, glucose 126. ASSESSMENT: 1. COVID-19 pneumonia. 2. Respiratory failure, requiring tracheostomy and mechanical ventilation. PLAN: The patient is currently doing T-collar trials at times. I think he has low enough ventilator settings where he can do that again today. We will initiate physical therapy. He has been accepted to an LTAC, but they do not have a bed yet. Job ID: [id number]
[2020-07-20] MEDS: Lorazepam 2 MG/ML VIAL SLOW IVP PRN (19:56)
[2020-07-21 04:06] LABS: Band 7 % (5-11); Hemoglobin 14.4 g/dL (14.0-18.0); Hypochromia SLIGHT = 6-15 cells (100X) (0-5/hpf); Lymphocytes 8 % (21-51); MDiff Complete? YES; Mean Corpuscular HGB CONC 34.6 g/dL (32.0-36.0); Mean Corpuscular Volume 98.4 fL (78.0-98.0); Mean Platelet Volume 8.8 fL (7.4-10.4); Monocytes 3 % (0-10); Neutrophil 82 % (42-75); Platelet Count 264 thou/uL (130-400); Platelet Morphology Comment Appears Adequate; RBC Distribution Width 12.2 % (11.5-14.5); Red Blood Cell (RBC) Count 4.23 mill/uL (4.70-6.10); White Blood Cell (WBC) Count 14.2 thou/uL (4.8-10.8)
[2020-07-21 04:17] LABS: Anion Gap 15 mmol/L (10-20); BUN (Urea Nitrogen) 34 mg/dL (8.4-25.7); Calc. Creatinine Clearance 96 mL/min (70-130); Calcium 9.4 mg/dL (7.8-10.44); Carbon Dioxide 24 mmol/L (23-31); Chloride 98 mmol/L (98-107); Glucose 125 mg/dL (83-110); Potassium 4.2 mmol/L (3.5-5.1); Sodium 133 mmol/L (136-145)
[2020-07-21] MEDS: Ascorbic Acid 500 mg Chewable Tablet PO SCH (07:42)
[2020-07-21] MEDS: Cholecalciferol (Vitamin D3) 400 UNITS TAB PO SCH (07:42)
[2020-07-21] MEDS: Dexamethasone 4 mg/ml Vial SLOW IVP SCH (07:42)
[2020-07-21] MEDS: DULoxetine 60 MG CAP PO SCH (07:42)
[2020-07-21] MEDS: Enoxaparin Sodium 40 MG/0.4 ML SYRINGE SC SCH (07:42)
[2020-07-21] MEDS: Pantoprazole 40 MG GRANULES PACKET PER TUBE SCH (07:42)
[2020-07-21] MEDS: Pramipexole Di-HCl 1 MG TAB PO SCH ×3 (07:42→19:25)
[2020-07-21] MEDS: Folic Acid 1 MG TAB PO SCH (07:42)
--- NOTE | 2020-07-21 09:04 | PDOC.HOSPP ---
- Subjective Encounter Date: 07/21/20 Encounter Time: 11:45 Subjective: Patient without event overnight. A little agitated during the day today per the . Breathing easily on the vent. - Objective Vital Signs & Weight: Vital Signs (12 hours) Temp Pulse Resp Pulse Ox 07/21/20 08:00 97.6 F 07/21/20 07:11 92 L 07/21/20 06:59 60 07/21/20 06:00 24 H 07/21/20 04:00 97.9 F 30 H 07/21/20 02:52 64 07/21/20 02:00 22 H 07/21/20 00:00 97.6 F 24 H 07/20/20 22:39 64 07/20/20 22:00 27 H Weight Admit Weight 163 lb 9.328 oz Weight 143 lb 1.28 oz Most Recent Monitor Data Heart Rate from ECG 55 NIBP 87/61 NIBP BP-Mean 69 Respiration from ECG 30 SpO2 92 I&O: 07/20/20 07/21/20 07/22/20 06:59 06:59 06:59 Intake Total 2340 2152.9 30 Output Total 3795 2560 80 Balance -1455 -407.1 -50 Result Diagrams: 07/21/20 03:34 07/21/20 03:34 Additional Labs: Accuchecks 07/20/20 07/20/20 22:17 17:29 POC Glucose 138 H 158 H Hospitalist ROS - Review of Systems ROS unobtainable: due to endotracheal tube - Medication Medications: Active Medications Generic Name Dose Route Start Last Admin Trade Name Freq PRN Reason Stop Dose Admin Acetaminophen 1,000 mg 07/06/20 14:14 07/13/20 05:54 Acetaminophen 650 Mg/20.3 Ml Udcup PER TUBE 1,000 mg Q6H PRN Administration Headache/Fever or Pain Ascorbic Acid 1,000 mg 07/03/20 09:00 07/21/20 07:42 Ascorbic Acid 500 Mg Chewable Tablet PO 1,000 mg DAILY JOHN Administration Bisacodyl 10 mg 07/13/20 11:09 07/17/20 14:07 Bisacodyl 10 Mg Supp [place] 10 mg Q8H PRN Administration Constipation Cholecalciferol 400 units 07/03/20 09:00 07/21/20 07:42 Cholecalciferol (Vitamin D3) 400 Units Tab PO 400 units DAILY JOHN Administration Dexamethasone 8 mg 07/03/20 09:00 07/21/20 07:42 Dexamethasone 4 Mg/Ml Vial SLOW IVP 8 mg DAILY JOHN Administration Duloxetine HCl 60 mg 07/07/20 09:00 07/21/20 07:42 Duloxetine 60 Mg Cap PO 60 mg DAILY JOHN Administration Enoxaparin Sodium 40 mg 07/16/20 09:00 07/21/20 07:42 Enoxaparin Sodium 40 Mg/0.4 Ml Syringe SC 40 mg 0900 JOHN Administration Folic Acid 1 mg 07/10/20 09:00 07/21/20 07:42 Folic Acid 1 Mg Tab PO 1 mg DAILY JOHN Administration Dexmedetomidine HCl 400 mcg/ 100 mls @ 0 mls/hr 07/03/20 09:45 07/20/20 03:45 Sodium Chloride IVPB 100 mls INF JOHN Administration Protocol Titrate Sodium Chloride 1,000 mls @ 0 mls/hr 07/10/20 13:40 07/19/20 05:06 1/2 Normal Saline IV 1,000 mls .Q0M JOHN Administration KVO Insulin Human Lispro 0 units 07/03/20 01:26 07/18/20 20:52 Humalog 300 Units/3 Ml Vial SC 2 unit .MILD SLIDING SCALE PRN Administration Mild Correctional Scale Lorazepam 2 mg 07/13/20 17:35 07/20/20 19:56 Lorazepam 2 Mg/Ml Vial SLOW IVP 2 mg Q1H PRN Administration Breakthrough agitation Metoclopramide HCl 10 mg 07/13/20 11:09 07/13/20 12:19 Metoclopramide Hcl 10 Mg/2 Ml Vial IVP 10 mg Q6H PRN Administration Nausea/Vomiting Morphine Sulfate 2 mg 07/13/20 17:34 07/18/20 10:31 Morphine 2 Mg/Ml Vial SLOW IVP 08/12/20 17:35 2 mg Q1H PRN Administration Breakthrough Pain/Agitation Pantoprazole Sodium 40 mg 07/16/20 09:00 07/21/20 07:42 Pantoprazole 40 Mg Granules Packet PER TUBE 40 mg DAILY JOHN Administration Pramipexole Dihydrochloride 1 mg 07/20/20 07:00 07/21/20 07:42 Pramipexole Di-Hcl 1 Mg Tab PO 1 mg 0700,1300,2000 JOHN Administration Propofol 1,000 mg 07/03/20 16:45 07/09/20 18:42 Propofol 1,000 Mg/100 Ml Vial IV 08/02/20 16:45 1,000 mg INF PRN Administration TO ACHIEVE GOAL RASS Protocol Scopolamine 1.5 mg 07/09/20 23:59 07/18/20 23:47 Scopolamine 1.5 Mg/72 Hour Patch TOP 1.5 mg Q3D JOHN Administration Sodium Chloride 10 ml 07/03/20 21:00 07/21/20 07:42 Flush - Normal Saline 10 Ml Syringe IVF 10 ml Q12HR JOHN Administration Hospitalist Exam Vitals: Vital Signs (12 hours) Temp Pulse Resp Pulse Ox 07/21/20 08:00 97.6 F 07/21/20 07:11 92 L 07/21/20 06:59 60 07/21/20 06:00 24 H 07/21/20 04:00 97.9 F 30 H 07/21/20 02:52 64 07/21/20 02:00 22 H 07/21/20 00:00 97.6 F 24 H 07/20/20 22:39 64 07/20/20 22:00 27 H Weight Admit Weight 163 lb 9.328 oz Weight 143 lb 1.28 oz Most Recent Monitor Data Heart Rate from ECG 55 NIBP 87/61 NIBP BP-Mean 69 Respiration from ECG 30 SpO2 92 General Appearance: NAD, awake alert ENT: moist mucosa Heart: RRR, no murmur, no gallops, no rubs Respiratory: normal chest expansion, no tachypnea Respiratory - other findings: Coarse upper airway sounds otherwise clear Gastrointestinal: soft, non-tender, non-distended, normal bowel sounds Gastrointestinal - other findings: PEG tube in place, patient motions here when asked if in pain Extremities: no edema Neurological - other findings: Moves all extremities Psychiatric: normal affect, normal behavior Psychiatric - other findings: Following commands Hosp A/P - Plan (1) Acute respiratory failure with hypoxia Code(s): J96.01 - ACUTE RESPIRATORY FAILURE WITH HYPOXIA Status: Acute (2) Pneumonia due to COVID-19 virus Code(s): U07.1 - COVID-19; J12.82 - PNEUMONIA DUE TO CORONAVIRUS DISEASE 2019 Status: Acute (3) Diabetes mellitus type 2 in nonobese Code(s): E11.9 - TYPE 2 DIABETES MELLITUS WITHOUT COMPLICATIONS Status: Chronic (4) Hypertension Code(s): I10 - ESSENTIAL (PRIMARY) HYPERTENSION Status: Chronic Qualifiers: Hypertension type: essential hypertension Qualified Code(s): I10 - Essential (primary) hypertension (5) TAMMY (obstructive sleep apnea) Code(s): G47.33 - OBSTRUCTIVE SLEEP APNEA (ADULT) (PEDIATRIC) Status: Chronic (6) Parkinson disease Code(s): G20 - PARKINSON'S DISEASE Status: Chronic - Plan * Acute respiratory failure due to COVID pneumonia- continue supportive care .- He had Trach and PEG tube placed * HTN- blood pressure -low normal- continue to observe. Blood pressure medications are on hold. Stable. * JACIEL- resolved * DM- blood glucose is stable * DVT- prophylaxis- continue Lovenox * Parkinson's disease- continue Pramipexole * Nutritional support with tube feeds * LTAC evaluation and placement- patient has been accepted to [facility] in [place], awaiting available bed.
--- NOTE | 2020-07-21 15:47 | PRG ---
DATE OF SERVICE: 07/21/2020 SUBJECTIVE: Abhay Cooley remains stable on minimal ventilatory support. OBJECTIVE: VITAL SIGNS: Heart rates in the 70s, FiO2 is at 40, blood pressure 107/69, respiratory rates in the 20s, oximetry is 94% to 95%. LUNGS: Distant, clear. HEART: Regular rhythm. ABDOMEN: Soft. EXTREMITIES: Without edema. LABORATORY DATA: White count 14.2, hemoglobin 14.4, and platelets 264. Sodium 133, potassium 4.2, chloride 98, bicarb 24, BUN 34, and creatinine 0.7. IMPRESSION: Respiratory failure associated with COVID pneumonia with tracheostomy and PEG, dramatically improved, still weak. We will continue with physical therapy and T-collar trials as tolerated. Job ID: [id number]
[2020-07-21] MEDS: Lorazepam 2 MG/ML VIAL SLOW IVP PRN (21:24)
[2020-07-22] MEDS: Scopolamine 1.5 mg/72 hour Patch TOP SCH (02:06)
[2020-07-22] MEDS: Morphine 2 MG/ML VIAL SLOW IVP PRN (02:31)
[2020-07-22 04:46] LABS: Band 3 % (5-11); Hemoglobin 13.1 g/dL (14.0-18.0); Lymphocytes 4 % (21-51); MDiff Complete? YES; Mean Corpuscular HGB CONC 34.2 g/dL (32.0-36.0); Mean Corpuscular Hemoglobin 33.8 pg (27.0-31.0); Mean Corpuscular Volume 98.9 fL (78.0-98.0); Monocytes 6 % (0-10); Neutrophil 87 % (42-75); Platelet Count 224 thou/uL (130-400); Platelet Morphology Comment Appears Adequate; RBC Distribution Width 12.3 % (11.5-14.5); Red Blood Cell (RBC) Count 3.87 mill/uL (4.70-6.10); White Blood Cell (WBC) Count 14.4 thou/uL (4.8-10.8)
[2020-07-22 04:50] LABS: Anion Gap 13 mmol/L (10-20); BUN (Urea Nitrogen) 37 mg/dL (8.4-25.7); Calc. Creatinine Clearance 86 mL/min (70-130); Calcium 8.7 mg/dL (7.8-10.44); Carbon Dioxide 26 mmol/L (23-31); Chloride 98 mmol/L (98-107); Glucose 122 mg/dL (83-110); Sodium 133 mmol/L (136-145)
--- NOTE | 2020-07-22 07:51 | PDOC.HOSPP ---
- Subjective Encounter Date: 07/22/20 Encounter Time: 08:40 Subjective: Patient with some restlessness overnight and some confusion. Otherwise stable. - Objective Vital Signs & Weight: Vital Signs (12 hours) Temp Pulse Resp BP Pulse Ox 07/22/20 07:26 70 107/67 96 07/22/20 06:00 24 H 07/22/20 04:00 97.6 F 20 07/22/20 02:23 73 121/72 07/22/20 02:00 24 H 07/22/20 00:15 75 116/75 07/22/20 00:00 97.9 F 26 H 07/21/20 22:00 32 H 07/21/20 21:40 91 07/21/20 20:00 28 H 93 L Weight Admit Weight 163 lb 9.328 oz Weight 142 lb 10.225 oz Most Recent Monitor Data Heart Rate from ECG 75 NIBP 114/60 NIBP BP-Mean 78 Respiration from ECG 18 SpO2 92 I&O: 07/21/20 07/22/20 07/23/20 06:59 06:59 06:59 Intake Total 2152.9 1428.8 Output Total 2560 1600 Balance -407.1 -171.2 Result Diagrams: 07/22/20 04:05 07/22/20 04:05 Additional Labs: Accuchecks 07/21/20 07/21/20 17:07 10:14 POC Glucose 157 H 153 H Hospitalist ROS - Review of Systems ROS unobtainable: due to endotracheal tube - Medication Medications: Active Medications Generic Name Dose Route Start Last Admin Trade Name Freq PRN Reason Stop Dose Admin Acetaminophen 1,000 mg 07/06/20 14:14 07/13/20 05:54 Acetaminophen 650 Mg/20.3 Ml Udcup PER TUBE 1,000 mg Q6H PRN Administration Headache/Fever or Pain Ascorbic Acid 1,000 mg 07/03/20 09:00 07/21/20 07:42 Ascorbic Acid 500 Mg Chewable Tablet PO 1,000 mg DAILY JOHN Administration Bisacodyl 10 mg 07/13/20 11:09 07/17/20 14:07 Bisacodyl 10 Mg Supp [place] 10 mg Q8H PRN Administration Constipation Cholecalciferol 400 units 07/03/20 09:00 07/21/20 07:42 Cholecalciferol (Vitamin D3) 400 Units Tab PO 400 units DAILY JOHN Administration Dexamethasone 8 mg 07/03/20 09:00 07/21/20 07:42 Dexamethasone 4 Mg/Ml Vial SLOW IVP 8 mg DAILY JOHN Administration Duloxetine HCl 60 mg 07/07/20 09:00 07/21/20 07:42 Duloxetine 60 Mg Cap PO 60 mg DAILY JOHN Administration Enoxaparin Sodium 40 mg 07/16/20 09:00 07/21/20 07:42 Enoxaparin Sodium 40 Mg/0.4 Ml Syringe SC 40 mg 0900 JOHN Administration Folic Acid 1 mg 07/10/20 09:00 07/21/20 07:42 Folic Acid 1 Mg Tab PO 1 mg DAILY JOHN Administration Dexmedetomidine HCl 400 mcg/ 100 mls @ 0 mls/hr 07/03/20 09:45 07/20/20 03:45 Sodium Chloride IVPB 100 mls INF JOHN Administration Protocol Titrate Sodium Chloride 1,000 mls @ 0 mls/hr 07/10/20 13:40 07/19/20 05:06 1/2 Normal Saline IV 1,000 mls .Q0M JOHN Administration KVO Insulin Human Lispro 0 units 07/03/20 01:26 07/18/20 20:52 Humalog 300 Units/3 Ml Vial SC 2 unit .MILD SLIDING SCALE PRN Administration Mild Correctional Scale Lorazepam 2 mg 07/13/20 17:35 07/21/20 21:24 Lorazepam 2 Mg/Ml Vial SLOW IVP 2 mg Q1H PRN Administration Breakthrough agitation Metoclopramide HCl 10 mg 07/13/20 11:09 07/13/20 12:19 Metoclopramide Hcl 10 Mg/2 Ml Vial IVP 10 mg Q6H PRN Administration Nausea/Vomiting Morphine Sulfate 2 mg 07/13/20 17:34 07/22/20 02:31 Morphine 2 Mg/Ml Vial SLOW IVP 08/12/20 17:35 2 mg Q1H PRN Administration Breakthrough Pain/Agitation Pantoprazole Sodium 40 mg 07/16/20 09:00 07/21/20 07:42 Pantoprazole 40 Mg Granules Packet PER TUBE 40 mg DAILY JOHN Administration Pramipexole Dihydrochloride 1 mg 07/20/20 07:00 07/21/20 19:25 Pramipexole Di-Hcl 1 Mg Tab PO 1 mg 0700,1300,2000 JOHN Administration Propofol 1,000 mg 07/03/20 16:45 07/09/20 18:42 Propofol 1,000 Mg/100 Ml Vial IV 08/02/20 16:45 1,000 mg INF PRN Administration TO ACHIEVE GOAL RASS Protocol Scopolamine 1.5 mg 07/09/20 23:59 07/22/20 02:06 Scopolamine 1.5 Mg/72 Hour Patch TOP 1.5 mg Q3D JOHN Administration Sodium Chloride 10 ml 07/03/20 21:00 07/21/20 19:28 Flush - Normal Saline 10 Ml Syringe IVF 10 ml Q12HR JOHN Administration Hospitalist Exam Vitals: Vital Signs (12 hours) Temp Pulse Resp BP Pulse Ox 07/22/20 07:26 70 107/67 96 07/22/20 06:00 24 H 07/22/20 04:00 97.6 F 20 07/22/20 02:23 73 121/72 07/22/20 02:00 24 H 07/22/20 00:15 75 116/75 07/22/20 00:00 97.9 F 26 H 07/21/20 22:00 32 H 07/21/20 21:40 91 07/21/20 20:00 28 H 93 L Weight Admit Weight 163 lb 9.328 oz Weight 142 lb 10.225 oz Most Recent Monitor Data Heart Rate from ECG 75 NIBP 114/60 NIBP BP-Mean 78 Respiration from ECG 18 SpO2 92 General Appearance: NAD, awake alert ENT: moist mucosa ENT - other findings: Tracheostomy in place on ventilator Heart: RRR, no murmur, no gallops, no rubs Respiratory: CTAB, no wheezes, no rales, no ronchi Respiratory - other findings: Some upper airway noises from trach, good air movement throughout Gastrointestinal: soft, non-tender, non-distended, normal bowel sounds Gastrointestinal - other findings: PEG tube in place Extremities: no edema Psychiatric: normal affect, normal behavior Hosp A/P - Plan (1) Acute respiratory failure with hypoxia Code(s): J96.01 - ACUTE RESPIRATORY FAILURE WITH HYPOXIA Status: Acute (2) Pneumonia due to COVID-19 virus Code(s): U07.1 - COVID-19; J12.82 - PNEUMONIA DUE TO CORONAVIRUS DISEASE 2019 Status: Acute (3) Diabetes mellitus type 2 in nonobese Code(s): E11.9 - TYPE 2 DIABETES MELLITUS WITHOUT COMPLICATIONS Status: Chronic (4) Hypertension Code(s): I10 - ESSENTIAL (PRIMARY) HYPERTENSION Status: Chronic Qualifiers: Hypertension type: essential hypertension Qualified Code(s): I10 - Essential (primary) hypertension (5) TAMMY (obstructive sleep apnea) Code(s): G47.33 - OBSTRUCTIVE SLEEP APNEA (ADULT) (PEDIATRIC) Status: Chronic (6) Parkinson disease Code(s): G20 - PARKINSON'S DISEASE Status: Chronic - Plan * Acute respiratory failure due to COVID pneumonia- continue supportive care .- He had Trach and PEG tube placed * HTN- blood pressure -low normal- continue to observe. Blood pressure medications are on hold. Stable. * JACIEL- resolved * DM- blood glucose is stable * DVT- prophylaxis- continue Lovenox * Parkinson's disease- continue Pramipexole * Nutritional support with tube feeds * LTAC evaluation and placement- patient has been accepted to [facility] in [place], awaiting available bed.
[2020-07-22] MEDS: Enoxaparin Sodium 40 MG/0.4 ML SYRINGE SC SCH (09:01)
[2020-07-22] MEDS: DULoxetine 60 MG CAP PO SCH (09:02)
[2020-07-22] MEDS: Pantoprazole 40 MG GRANULES PACKET PER TUBE SCH (09:02)
[2020-07-22] MEDS: Ascorbic Acid 500 mg Chewable Tablet PO SCH (09:02)
[2020-07-22] MEDS: Cholecalciferol (Vitamin D3) 400 UNITS TAB PO SCH (09:03)
[2020-07-22] MEDS: Dexamethasone 4 mg/ml Vial SLOW IVP SCH (09:03)
[2020-07-22] MEDS: Folic Acid 1 MG TAB PO SCH (09:03)
[2020-07-22] MEDS: Pramipexole Di-HCl 1 MG TAB PO SCH ×3 (09:04→20:12)
--- NOTE | 2020-07-22 14:14 | PRG ---
DATE OF SERVICE: 07/22/2020 SUBJECTIVE: Heart rates in the 50s, blood pressures in the high 80s, respiratory rates in the 20s. Oximetry is in mid 90s. He is on and off minimal ventilatory support. OBJECTIVE: LUNGS: Remarkable for coarse equal breath sounds. HEART: Regular rhythm. ABDOMEN: Soft and nontender. EXTREMITIES: Without asymmetry. LABORATORY DATA: White count 14.4, hemoglobin 13.1, platelets 224. Sodium 133, potassium 4, chloride 98, bicarb 26, BUN 37, creatinine 0.7. IMPRESSION: Respiratory failure with tracheostomy and PEG in place after COVID pneumonia, making slow progress. Continue supportive care, awaiting placement. Job ID: [id number]
[2020-07-22] MEDS: Apixaban 2.5 MG TAB PO SCH (19:38)
[2020-07-23 04:52] LABS: Band 2 % (5-11); Eosinophils 1 % (0-10); Hemoglobin 12.2 g/dL (14.0-18.0); Hypochromia SLIGHT = 6-15 cells (100X) (0-5/hpf); MDiff Complete? YES; Mean Corpuscular HGB CONC 32.2 g/dL (32.0-36.0); Mean Corpuscular Volume 99.4 fL (78.0-98.0); Monocytes 15 % (0-10); Neutrophil 82 % (42-75); Platelet Count 222 thou/uL (130-400); Platelet Morphology Comment Appears Adequate; RBC Distribution Width 12.2 % (11.5-14.5); Red Blood Cell (RBC) Count 3.83 mill/uL (4.70-6.10); White Blood Cell (WBC) Count 13.4 thou/uL (4.8-10.8)
[2020-07-23 05:01] LABS: Anion Gap 14 mmol/L (10-20); BUN (Urea Nitrogen) 36 mg/dL (8.4-25.7); Calc. Creatinine Clearance 91 mL/min (70-130); Carbon Dioxide 26 mmol/L (23-31); Chloride 98 mmol/L (98-107); Glucose 114 mg/dL (83-110); Potassium 4.1 mmol/L (3.5-5.1); Sodium 134 mmol/L (136-145)
[2020-07-23] MEDS: Pramipexole Di-HCl 1 MG TAB PO SCH ×3 (08:08→20:04)
[2020-07-23] MEDS: Pantoprazole 40 MG GRANULES PACKET PER TUBE SCH (08:08)
[2020-07-23] MEDS: Dexamethasone 4 MG TAB PO SCH (08:08)
[2020-07-23] MEDS: DULoxetine 60 MG CAP PO SCH (08:08)
[2020-07-23] MEDS: Cholecalciferol (Vitamin D3) 400 UNITS TAB PO SCH (08:08)
[2020-07-23] MEDS: Ascorbic Acid 500 mg Chewable Tablet PO SCH ×2 (08:08→08:09)
[2020-07-23] MEDS: Folic Acid 1 MG TAB PO SCH (08:08)
[2020-07-23] MEDS: Metoclopramide HCl 10 MG/2 ML VIAL IVP PRN (11:25)
[2020-07-23] MEDS: HumaLOG 300 UNITS/3 ML VIAL SC PRN (12:44)
--- NOTE | 2020-07-23 14:26 | PDOC.HOSPP ---
- Subjective Encounter Date: 07/23/20 Encounter Time: 10:30 - Objective Vital Signs & Weight: Vital Signs (12 hours) Temp Pulse Resp BP 07/23/20 11:00 75 109/57 L 07/23/20 08:00 20 07/23/20 07:05 59 L 92/62 07/23/20 06:00 22 H 07/23/20 04:00 97.6 F 24 H Weight Admit Weight 163 lb 9.328 oz Weight 139 lb 8.842 oz Most Recent Monitor Data Heart Rate from ECG 65 NIBP 87/57 NIBP BP-Mean 67 Respiration from ECG 20 SpO2 95 I&O: 07/22/20 07/23/20 07/24/20 06:59 06:59 06:59 Intake Total 1428.8 1953 30 Output Total 1600 1620 175 Balance -171.2 333 -145 Result Diagrams: 07/23/20 03:25 07/23/20 03:25 Additional Labs: Accuchecks 07/23/20 07/22/20 11:29 18:36 POC Glucose 165 H 154 H Hospitalist ROS - Medication Medications: Active Medications Generic Name Dose Route Start Last Admin Trade Name Freq PRN Reason Stop Dose Admin Acetaminophen 1,000 mg 07/06/20 14:14 07/13/20 05:54 Acetaminophen 650 Mg/20.3 Ml Udcup PER TUBE 1,000 mg Q6H PRN Administration Headache/Fever or Pain Apixaban 2.5 mg 07/22/20 21:00 07/22/20 19:38 Apixaban 2.5 Mg Tab PO Not Given BID JOHN Ascorbic Acid 1,000 mg 07/03/20 09:00 07/23/20 08:09 Ascorbic Acid 500 Mg Chewable Tablet PO 1,000 mg DAILY JOHN Administration Bisacodyl 10 mg 07/13/20 11:09 07/17/20 14:07 Bisacodyl 10 Mg Supp [place] 10 mg Q8H PRN Administration Constipation Cholecalciferol 400 units 07/03/20 09:00 07/23/20 08:08 Cholecalciferol (Vitamin D3) 400 Units Tab PO 400 units DAILY JOHN Administration Dexamethasone 4 mg 07/23/20 08:00 07/23/20 08:08 Dexamethasone 4 Mg Tab PO 4 mg QA- JOHN Administration Duloxetine HCl 60 mg 07/07/20 09:00 07/23/20 08:08 Duloxetine 60 Mg Cap PO 60 mg DAILY JOHN Administration Folic Acid 1 mg 07/10/20 09:00 07/23/20 08:08 Folic Acid 1 Mg Tab PO 1 mg DAILY JOHN Administration Dexmedetomidine HCl 400 mcg/ 100 mls @ 0 mls/hr 07/03/20 09:45 07/23/20 13:05 Sodium Chloride IVPB 100 mls INF JOHN Administration Protocol Titrate Sodium Chloride 1,000 mls @ 0 mls/hr 07/10/20 13:40 07/19/20 05:06 1/2 Normal Saline IV 1,000 mls .Q0M JOHN Administration KVO Insulin Human Lispro 0 units 07/03/20 01:26 07/23/20 12:44 Humalog 300 Units/3 Ml Vial SC 2 unit .MILD SLIDING SCALE PRN Administration Mild Correctional Scale Metoclopramide HCl 10 mg 07/13/20 11:09 07/23/20 11:25 Metoclopramide Hcl 10 Mg/2 Ml Vial IVP 10 mg Q6H PRN Administration Nausea/Vomiting Morphine Sulfate 2 mg 07/13/20 17:34 07/22/20 02:31 Morphine 2 Mg/Ml Vial SLOW IVP 08/12/20 17:35 2 mg Q1H PRN Administration Breakthrough Pain/Agitation Pantoprazole Sodium 40 mg 07/16/20 09:00 07/23/20 08:08 Pantoprazole 40 Mg Granules Packet PER TUBE 40 mg DAILY JOHN Administration Pramipexole Dihydrochloride 1 mg 07/20/20 07:00 07/23/20 12:44 Pramipexole Di-Hcl 1 Mg Tab PO 1 mg 0700,1300,2000 JOHN Administration Scopolamine 1.5 mg 07/09/20 23:59 07/22/20 02:06 Scopolamine 1.5 Mg/72 Hour Patch TOP 1.5 mg Q3D JOHN Administration Sodium Chloride 10 ml 07/03/20 21:00 07/23/20 08:50 Flush - Normal Saline 10 Ml Syringe IVF 10 ml Q12HR JOHN Administration Hospitalist Exam Vitals: Vital Signs (12 hours) Temp Pulse Resp BP 07/23/20 11:00 75 109/57 L 07/23/20 08:00 20 07/23/20 07:05 59 L 92/62 07/23/20 06:00 22 H 07/23/20 04:00 97.6 F 24 H Weight Admit Weight 163 lb 9.328 oz Weight 139 lb 8.842 oz Most Recent Monitor Data Heart Rate from ECG 65 NIBP 87/57 NIBP BP-Mean 67 Respiration from ECG 20 SpO2 95 Hosp A/P - Plan Acute respiratory failure with hypoxia Code(s): J96.01 - ACUTE RESPIRATORY FAILURE WITH HYPOXIA Status: Acute (2) Pneumonia due to COVID-19 virus Code(s): U07.1 - COVID-19; J12.82 - PNEUMONIA DUE TO CORONAVIRUS DISEASE 2018 Status: Acute (3) Diabetes mellitus type 2 in nonobese Code(s): E11.9 - TYPE 2 DIABETES MELLITUS WITHOUT COMPLICATIONS Status: Chronic (4) Hypertension Code(s): I10 - ESSENTIAL (PRIMARY) HYPERTENSION Status: Chronic Qualifiers: Hypertension type: essential hypertension Qualified Code(s): I10 - Essential (primary) hypertension (5) TAMMY (obstructive sleep apnea) Code(s): G47.33 - OBSTRUCTIVE SLEEP APNEA (ADULT) (PEDIATRIC) Status: Chronic (6) Parkinson disease Code(s): G20 - PARKINSON'S DISEASE Status: Chronic - Plan * Parkinson's disease- continue Pramipexole * Acute respiratory failure due to COVID pneumonia-on steroid * - Trach and PEG tube placed * HTN- blood pressur * -Blood pressure medications are on hold. * -Short course of IV fluid bolus as needed to keep the systolic blood pressure above 85 * * * Mild leukocytes * -Probably because of being on steroid * * * JACIEL- resolved * DM- blood glucose is stable * DVT- prophylaxis- continue Lovenox * Nutritional support with tube feeds * LTAC evaluation and placement- patient has been accepted to [facility] in [place] * Pending bed availability.
[2020-07-23] MEDS ORDERED: Sodium Chloride 0.9% 250 ML IV SCH (14:30)
[2020-07-23] MEDS: Apixaban 2.5 MG TAB PO SCH ×2 (19:22→20:04)
--- NOTE | 2020-07-23 22:21 | PRG ---
DATE OF SERVICE: 07/23/2020 SUBJECTIVE: Mr. Cooley is tolerating very tiny decreases in ventilatory support. Making very small changes each day. OBJECTIVE: VITAL SIGNS: Blood pressure is 111/61, heart rate is in 70s, respiratory rates in the 20s, FiO2 is at 50%, oximetry is in mid 90s. LUNGS: Remarkable for coarse equal breath sounds. HEART: Regular rhythm. ABDOMEN: Soft. EXTREMITIES: Without edema. LABORATORY DATA: White count 13.4, hemoglobin 12.2, platelets 222. Sodium 134, potassium 4.1, chloride 98, bicarb 26, BUN 36, creatinine 0.67. IMPRESSION: COVID pneumonia with respiratory failure, status post tracheostomy and PEG, making clinically slow progress. We are awaiting LTAC placement. He is making much more progress from a strength standpoint over the last 3 days than I would have anticipated. Continue current tiny decreases in ventilatory support. Job ID: [id number] MTDD
[2020-07-24 05:08] LABS: Anion Gap 14 mmol/L (10-20); BUN (Urea Nitrogen) 32 mg/dL (8.4-25.7); Calc. Creatinine Clearance 79 mL/min (70-130); Calcium 9.3 mg/dL (7.8-10.44); Carbon Dioxide 29 mmol/L (23-31); Chloride 97 mmol/L (98-107); Glucose 113 mg/dL (83-110); Potassium 4.2 mmol/L (3.5-5.1); Sodium 136 mmol/L (136-145)
[2020-07-24 05:31] LABS: Hemoglobin 12.7 g/dL (14.0-18.0); Mean Corpuscular HGB CONC 32.5 g/dL (32.0-36.0); Mean Corpuscular Hemoglobin 32.2 pg (27.0-31.0); Mean Corpuscular Volume 99.1 fL (78.0-98.0); Platelet Count 211 thou/uL (130-400); RBC Distribution Width 12.1 % (11.5-14.5); Red Blood Cell (RBC) Count 3.94 mill/uL (4.70-6.10)
[2020-07-24 05:32] LABS: Band 6 % (5-11); Lymphocytes 6 % (21-51); MDiff Complete? YES; Monocytes 4 % (0-10); Neutrophil 84 % (42-75); Toxic Granulation SLIGHT
[2020-07-24] MEDS: Pramipexole Di-HCl 1 MG TAB PO SCH ×3 (08:31→19:22)
[2020-07-24] MEDS: Dexamethasone 4 MG TAB PO SCH (08:31)
[2020-07-24] MEDS: Ascorbic Acid 500 mg Chewable Tablet PO SCH (08:31)
[2020-07-24] MEDS: Apixaban 2.5 MG TAB PO SCH ×2 (08:31→19:22)
[2020-07-24] MEDS: DULoxetine 60 MG CAP PO SCH (08:31)
[2020-07-24] MEDS: Pantoprazole 40 MG GRANULES PACKET PER TUBE SCH (08:31)
[2020-07-24] MEDS: Cholecalciferol (Vitamin D3) 400 UNITS TAB PO SCH (08:32)
[2020-07-24] MEDS: Folic Acid 1 MG TAB PO SCH (08:32)
[2020-07-24] MEDS: Metoclopramide HCl 10 MG/2 ML VIAL IVP PRN (08:32)
--- NOTE | 2020-07-24 10:57 | PRG ---
DATE OF SERVICE: 07/24/2020 SUBJECTIVE: Mr. Cooley is awake, alert. He is texting on his phone. He is currently off the ventilator on a high-flow adaptor through his tracheostomy. OBJECTIVE: VITAL SIGNS: On exam, temperature 98.6, pulse 63, blood pressure 91/51, and O2 saturation 93%. HEENT: Unremarkable. NECK: No adenopathy or JVD. Trach in good position. LUNGS: Coarse rhonchi. CARDIAC: S1 and S2. Regular. ABDOMEN: Soft. EXTREMITIES: No edema. LABORATORY DATA: White blood cell count 14, hematocrit 39, and platelet count 211. Sodium 136, potassium 4.2, chloride 97, CO2 of 29, BUN 32, creatinine 0.7, and glucose 113. ASSESSMENT: 1. COVID-19 pneumonia. 2. Status post tracheostomy placement. PLAN: This patient is doing very well. Main issue is now rehabilitative in nature. Probably needs to be in an LTAC going forward. Discussed with his at bedside. Job ID: [id number]
[2020-07-24] MEDS: HumaLOG 300 UNITS/3 ML VIAL SC PRN (12:24)
--- NOTE | 2020-07-24 15:18 | PDOC.HOSPP ---
- Subjective Encounter Date: 07/24/20 Encounter Time: 11:45 Subjective: Patient complaining of some pleuritic related chest pain. at bedside. Previously he had normal conversation with the nurse. Analgesic as needed. He appears well during my exam. Not in any acute respiratory distress. - Objective Vital Signs & Weight: Vital Signs (12 hours) Temp Resp Pulse Ox 07/24/20 12:00 97.6 F 07/24/20 11:42 91 L 07/24/20 08:00 97.8 F 07/24/20 06:47 90 L 07/24/20 06:00 22 H 07/24/20 04:00 22 H Weight Admit Weight 163 lb 9.328 oz Weight 62 lb 6.4 oz Most Recent Monitor Data Heart Rate from ECG 60 NIBP 108/62 NIBP BP-Mean 77 Respiration from ECG 26 SpO2 92 I&O: 07/23/20 07/24/20 07/25/20 06:59 06:59 06:59 Intake Total 1953 1497 60 Output Total 1620 1885 380 Balance 333 -388 -320 Result Diagrams: 07/24/20 03:42 07/24/20 03:42 Additional Labs: Accuchecks 07/24/20 07/23/20 07/23/20 12:14 23:17 16:51 POC Glucose 170 H 112 H 119 H Hospitalist ROS - Medication Medications: Active Medications Generic Name Dose Route Start Last Admin Trade Name Freq PRN Reason Stop Dose Admin Acetaminophen 1,000 mg 07/06/20 14:14 07/13/20 05:54 Acetaminophen 650 Mg/20.3 Ml Udcup PER TUBE 1,000 mg Q6H PRN Administration Headache/Fever or Pain Apixaban 2.5 mg 07/22/20 21:00 07/24/20 08:31 Apixaban 2.5 Mg Tab PO 2.5 mg BID JOHN Administration Ascorbic Acid 1,000 mg 07/03/20 09:00 07/24/20 08:31 Ascorbic Acid 500 Mg Chewable Tablet PO 1,000 mg DAILY JOHN Administration Bisacodyl 10 mg 07/13/20 11:09 07/17/20 14:07 Bisacodyl 10 Mg Supp [place] 10 mg Q8H PRN Administration Constipation Cholecalciferol 400 units 07/03/20 09:00 07/24/20 08:32 Cholecalciferol (Vitamin D3) 400 Units Tab PO 400 units DAILY JOHN Administration Dexamethasone 4 mg 07/23/20 08:00 07/24/20 08:31 Dexamethasone 4 Mg Tab PO 4 mg QAM-WM JOHN Administration Duloxetine HCl 60 mg 07/07/20 09:00 07/24/20 08:31 Duloxetine 60 Mg Cap PO 60 mg DAILY JOHN Administration Folic Acid 1 mg 07/10/20 09:00 07/24/20 08:32 Folic Acid 1 Mg Tab PO 1 mg DAILY JOHN Administration Dexmedetomidine HCl 400 mcg/ 100 mls @ 0 mls/hr 07/03/20 09:45 07/24/20 09:18 Sodium Chloride IVPB 100 mls INF JOHN Administration Protocol Titrate Sodium Chloride 1,000 mls @ 0 mls/hr 07/10/20 13:40 07/19/20 05:06 1/2 Normal Saline IV 1,000 mls .Q0M JOHN Administration KVO Insulin Human Lispro 0 units 07/03/20 01:26 07/24/20 12:24 Humalog 300 Units/3 Ml Vial SC 2 unit .MILD SLIDING SCALE PRN Administration Mild Correctional Scale Metoclopramide HCl 10 mg 07/13/20 11:09 07/24/20 08:32 Metoclopramide Hcl 10 Mg/2 Ml Vial IVP 10 mg Q6H PRN Administration Nausea/Vomiting Pantoprazole Sodium 40 mg 07/16/20 09:00 07/24/20 08:31 Pantoprazole 40 Mg Granules Packet PER TUBE 40 mg DAILY JOHN Administration Pramipexole Dihydrochloride 1 mg 07/20/20 07:00 07/24/20 12:11 Pramipexole Di-Hcl 1 Mg Tab PO 1 mg 0700,1300,2000 JOHN Administration Scopolamine 1.5 mg 07/09/20 23:59 07/22/20 02:06 Scopolamine 1.5 Mg/72 Hour Patch TOP 1.5 mg Q3D JOHN Administration Sodium Chloride 10 ml 07/03/20 21:00 07/24/20 08:32 Flush - Normal Saline 10 Ml Syringe IVF 10 ml Q12HR JOHN Administration Hospitalist Exam Vitals: Vital Signs (12 hours) Temp Resp Pulse Ox 07/24/20 12:00 97.6 F 07/24/20 11:42 91 L 07/24/20 08:00 97.8 F 07/24/20 06:47 90 L 07/24/20 06:00 22 H 07/24/20 04:00 22 H Weight Admit Weight 163 lb 9.328 oz Weight 62 lb 6.4 oz Most Recent Monitor Data Heart Rate from ECG 60 NIBP 108/62 NIBP BP-Mean 77 Respiration from ECG 26 SpO2 92 General Appearance: NAD, awake alert Eye: PERRL ENT: normocephalic atraumatic Neck: supple Heart: RRR, normal peripheral pulses Respiratory: CTAB, normal chest expansion Gastrointestinal: soft, normal bowel sounds Neurological: no focal deficits Psychiatric: not oriented Hosp A/P - Plan Acute respiratory failure with hypoxia Code(s): J96.01 - ACUTE RESPIRATORY FAILURE WITH HYPOXIA Status: Acute (2) Pneumonia due to COVID-19 virus Code(s): U07.1 - COVID-19; J12.82 - PNEUMONIA DUE TO CORONAVIRUS DISEASE 2019 Status: Acute (3) Diabetes mellitus type 2 in nonobese Code(s): E11.9 - TYPE 2 DIABETES MELLITUS WITHOUT COMPLICATIONS Status: Chronic (4) Hypertension Code(s): I10 - ESSENTIAL (PRIMARY) HYPERTENSION Status: Chronic Qualifiers: Hypertension type: essential hypertension Qualified Code(s): I10 - Essential (primary) hypertension (5) TAMMY (obstructive sleep apnea) Code(s): G47.33 - OBSTRUCTIVE SLEEP APNEA (ADULT) (PEDIATRIC) Status: Chronic (6) Parkinson disease Code(s): G20 - PARKINSON'S DISEASE Status: Chronic - Plan * Parkinson's disease- continue Pramipexole * Acute respiratory failure due to COVID pneumonia-on steroid * - Trach and PEG tube placed * HTN- blood pressur * -Blood pressure medications are on hold. * -Short course of IV fluid bolus as needed to keep the systolic blood pressure above 85 * * * Mild leukocytes * -Probably because of being on steroid * * * JACIEL- resolved * DM- blood glucose is stable * DVT- prophylaxis- continue Lovenox * Nutritional support with tube feeds * LTAC evaluation and placement- patient has been accepted to [facility] in [place] * Pending bed availability.
[2020-07-25] MEDS: Scopolamine 1.5 mg/72 hour Patch TOP SCH (04:47)
[2020-07-25 04:56] LABS: Anion Gap 12 mmol/L (10-20); BUN (Urea Nitrogen) 32 mg/dL (8.4-25.7); Calc. Creatinine Clearance 39 mL/min (70-130); Calcium 9.5 mg/dL (7.8-10.44); Carbon Dioxide 27 mmol/L (23-31); Chloride 98 mmol/L (98-107); Glucose 133 mg/dL (83-110); Potassium 4.2 mmol/L (3.5-5.1); Sodium 133 mmol/L (136-145)
[2020-07-25 05:02] LABS: Band 9 % (5-11); Eosinophils 2 % (0-10); Hemoglobin 12.8 g/dL (14.0-18.0); Lymphocytes 1 % (21-51); MDiff Complete? YES; Mean Corpuscular HGB CONC 33.6 g/dL (32.0-36.0); Mean Corpuscular Hemoglobin 33.7 pg (27.0-31.0); Mean Platelet Volume 7.8 fL (7.4-10.4); Monocytes 2 % (0-10); Neutrophil 86 % (42-75); Platelet Count 186 thou/uL (130-400); Red Blood Cell (RBC) Count 3.79 mill/uL (4.70-6.10); White Blood Cell (WBC) Count 12.6 thou/uL (4.8-10.8)
[2020-07-25] MEDS: DULoxetine 60 MG CAP PO SCH (09:58)
[2020-07-25] MEDS: Folic Acid 1 MG TAB PO SCH (09:58)
[2020-07-25] MEDS: Cholecalciferol (Vitamin D3) 400 UNITS TAB PO SCH (09:58)
[2020-07-25] MEDS: Pantoprazole 40 MG GRANULES PACKET PER TUBE SCH (09:58)
[2020-07-25] MEDS: Pramipexole Di-HCl 1 MG TAB PO SCH ×3 (09:59→23:26)
[2020-07-25] MEDS: Dexamethasone 4 MG TAB PO SCH (09:59)
[2020-07-25] MEDS: Apixaban 2.5 MG TAB PO SCH ×2 (09:59→23:26)
[2020-07-25] MEDS: Acetaminophen 650 MG/20.3 ML UDCUP PER TUBE PRN ×2 (10:15→18:15)
--- NOTE | 2020-07-25 11:31 | PRG ---
DATE OF SERVICE: 07/25/2020 SUBJECTIVE: The patient is doing well. Has no acute complaints. He is up in a chair. His is sitting beside him. OBJECTIVE: VITAL SIGNS: His temperature is 98.5, pulse 65, blood pressure 88/56. He is on the vent at night, but on trach collars to high-flow adapter during the day. HEENT: Unremarkable. NECK: No adenopathy or JVD. CHEST: Fairly clear. CARDIAC: S1 and S2, regular. ABDOMEN: Soft. EXTREMITIES: Muscle wasting. No edema. LABORATORY DATA: White blood cell count 12.6, hematocrit 38, and platelet count 186. Sodium 132, potassium 4.2, BUN 32, creatinine 0.6, and glucose 133. ASSESSMENT: 1. COVID-19 pneumonia. 2. Status post respiratory failure requiring mechanical ventilation and tracheostomy placement. PLAN: Awaiting LTAC placement. I have reviewed his orders. Everything seems to be in order. I have talked to his who was at the bedside. Job ID: [id number]
--- NOTE | 2020-07-25 15:58 | PDOC.HOSPP ---
- Subjective Subjective: Patient was seen examined at bedside. He is out of bed to chair. Stated he is feeling better. Status post trach and PEG, on high flow - Objective Vital Signs & Weight: Vital Signs (12 hours) Temp Pulse BP Pulse Ox 07/25/20 14:54 96 07/25/20 14:50 94 L 07/25/20 12:00 98.7 F 07/25/20 08:00 99.1 F 07/25/20 07:18 70 100/59 L 94 L Weight Admit Weight 163 lb 9.328 oz Weight 138 lb 3.677 oz Most Recent Monitor Data Heart Rate from ECG 79 NIBP 132/73 NIBP BP-Mean 92 Respiration from ECG 18 SpO2 99 I&O: 07/24/20 07/25/20 07/26/20 06:59 06:59 06:59 Intake Total 1497 910 120 Output Total 1885 7750 427 Balance -388 -770 -307 Result Diagrams: 07/25/20 03:42 07/25/20 03:42 Additional Labs: Accuchecks 07/25/20 07/25/20 07/24/20 10:11 04:12 21:06 POC Glucose 94 125 H 133 H 07/24/20 17:51 POC Glucose 145 H Radiology Reviewed by me: Yes EKG Reviewed by me: Yes Hospitalist ROS - Medication Medications: Active Medications Generic Name Dose Route Start Last Admin Trade Name Freq PRN Reason Stop Dose Admin Acetaminophen 1,000 mg 07/06/20 14:14 07/25/20 10:15 Acetaminophen 650 Mg/20.3 Ml Udcup PER TUBE 1,000 mg Q6H PRN Administration Headache/Fever or Pain Apixaban 2.5 mg 07/22/20 21:00 07/25/20 09:59 Apixaban 2.5 Mg Tab PO 2.5 mg BID JOHN Administration Ascorbic Acid 1,000 mg 07/03/20 09:00 07/24/20 08:31 Ascorbic Acid 500 Mg Chewable Tablet PO 1,000 mg DAILY JOHN Administration Bisacodyl 10 mg 07/13/20 11:09 07/17/20 14:07 Bisacodyl 10 Mg Supp [place] 10 mg Q8H PRN Administration Constipation Cholecalciferol 400 units 07/03/20 09:00 07/25/20 09:58 Cholecalciferol (Vitamin D3) 400 Units Tab PO 400 units DAILY JOHN Administration Dexamethasone 4 mg 07/23/20 08:00 07/25/20 09:59 Dexamethasone 4 Mg Tab PO 4 mg QAM-WM JOHN Administration Duloxetine HCl 60 mg 07/07/20 09:00 07/25/20 09:58 Duloxetine 60 Mg Cap PO 60 mg DAILY JOHN Administration Folic Acid 1 mg 07/10/20 09:00 07/25/20 09:58 Folic Acid 1 Mg Tab PO 1 mg DAILY JOHN Administration Dexmedetomidine HCl 400 mcg/ 100 mls @ 0 mls/hr 07/03/20 09:45 07/25/20 07:42 Sodium Chloride IVPB 100 mls INF JOHN Administration Protocol Titrate Sodium Chloride 1,000 mls @ 0 mls/hr 07/10/20 13:40 07/19/20 05:06 1/2 Normal Saline IV 1,000 mls .Q0M JOHN Administration KVO Insulin Human Lispro 0 units 07/03/20 01:26 07/24/20 12:24 Humalog 300 Units/3 Ml Vial SC 2 unit .MILD SLIDING SCALE PRN Administration Mild Correctional Scale Metoclopramide HCl 10 mg 07/13/20 11:09 07/24/20 08:32 Metoclopramide Hcl 10 Mg/2 Ml Vial IVP 10 mg Q6H PRN Administration Nausea/Vomiting Pantoprazole Sodium 40 mg 07/16/20 09:00 07/25/20 09:58 Pantoprazole 40 Mg Granules Packet PER TUBE 40 mg DAILY JOHN Administration Pramipexole Dihydrochloride 1 mg 07/20/20 07:00 07/25/20 13:10 Pramipexole Di-Hcl 1 Mg Tab PO 1 mg 0700,1300,2000 JOHN Administration Scopolamine 1.5 mg 07/25/20 04:00 07/25/20 04:47 Scopolamine 1.5 Mg/72 Hour Patch TOP 1.5 mg Q3D JOHN Administration Sodium Chloride 10 ml 07/03/20 21:00 07/25/20 10:02 Flush - Normal Saline 10 Ml Syringe IVF 10 ml Q12HR JOHN Administration Hospitalist Exam Vitals: Vital Signs (12 hours) Temp Pulse BP Pulse Ox 07/25/20 14:54 96 07/25/20 14:50 94 L 07/25/20 12:00 98.7 F 07/25/20 08:00 99.1 F 07/25/20 07:18 70 100/59 L 94 L Weight Admit Weight 163 lb 9.328 oz Weight 138 lb 3.677 oz Most Recent Monitor Data Heart Rate from ECG 79 NIBP 132/73 NIBP BP-Mean 92 Respiration from ECG 18 SpO2 99 General Appearance: NAD Eye: PERRL ENT: normocephalic atraumatic Neck: supple Neck - other findings: s/p trach Heart: RRR Respiratory: CTAB Gastrointestinal: soft Extremities: no cyanosis Skin: normal turgor Hosp A/P - Plan Acute respiratory failure with hypoxia Code(s): J96.01 - ACUTE RESPIRATORY FAILURE WITH HYPOXIA Status: Acute (2) Pneumonia due to COVID-19 virus Code(s): U07.1 - COVID-19; J12.82 - PNEUMONIA DUE TO CORONAVIRUS DISEASE 2019 Status: Acute (3) Diabetes mellitus type 2 in nonobese Code(s): E11.9 - TYPE 2 DIABETES MELLITUS WITHOUT COMPLICATIONS Status: Chronic (4) Hypertension Code(s): I10 - ESSENTIAL (PRIMARY) HYPERTENSION Status: Chronic Qualifiers: Hypertension type: essential hypertension Qualified Code(s): I10 - Essential (primary) hypertension (5) TAMMY (obstructive sleep apnea) Code(s): G47.33 - OBSTRUCTIVE SLEEP APNEA (ADULT) (PEDIATRIC) Status: Chronic (6) Parkinson disease Code(s): G20 - PARKINSON'S DISEASE Status: Chronic - Plan s/p trach and peg, improving. Accepted to [facility], pending bed availability Decadron tapered to 4 mg daily. cont low dose Eliquis for DVT ppx Cont home medications. PT eval supportive cares. Follow up labs.
[2020-07-25] MEDS: HumaLOG 300 UNITS/3 ML VIAL SC PRN (16:07)
[2020-07-26] MEDS ORDERED: Sterile Water 10 ML VIAL FS PRN (01:00)
[2020-07-26] MEDS ORDERED: OLANZapine 10 MG VIAL IM SCH (01:00)
[2020-07-26 04:26] LABS: Anion Gap 13 mmol/L (10-20); BUN (Urea Nitrogen) 29 mg/dL (8.4-25.7); Calc. Creatinine Clearance 69 mL/min (70-130); Calcium 9.5 mg/dL (7.8-10.44); Carbon Dioxide 30 mmol/L (23-31); Chloride 97 mmol/L (98-107); Glucose 112 mg/dL (83-110); Potassium 4.4 mmol/L (3.5-5.1); Sodium 136 mmol/L (136-145)
[2020-07-26 05:13] LABS: Band 7 % (5-11); Eosinophils 5 % (0-10); Hemoglobin 13.2 g/dL (14.0-18.0); Lymphocytes 5 % (21-51); MDiff Complete? YES; Mean Corpuscular HGB CONC 32.1 g/dL (32.0-36.0); Mean Corpuscular Hemoglobin 31.8 pg (27.0-31.0); Mean Corpuscular Volume 99.1 fL (78.0-98.0); Mean Platelet Volume 7.7 fL (7.4-10.4); Monocytes 4 % (0-10); Neutrophil 79 % (42-75); Platelet Count 219 thou/uL (130-400); RBC Distribution Width 12.1 % (11.5-14.5); Red Blood Cell (RBC) Count 4.14 mill/uL (4.70-6.10); White Blood Cell (WBC) Count 12.3 thou/uL (4.8-10.8)
[2020-07-26] MEDS: Acetaminophen 650 MG/20.3 ML UDCUP PER TUBE PRN ×3 (05:22→19:58)
[2020-07-26] MEDS: Pramipexole Di-HCl 1 MG TAB PO SCH ×3 (05:50→19:58)
[2020-07-26] MEDS: Dexamethasone 4 MG TAB PO SCH (07:57)
[2020-07-26] MEDS: Cholecalciferol (Vitamin D3) 400 UNITS TAB PO SCH (10:01)
[2020-07-26] MEDS: Ascorbic Acid 500 mg Chewable Tablet PO SCH (10:01)
[2020-07-26] MEDS: DULoxetine 60 MG CAP PO SCH (10:01)
[2020-07-26] MEDS: Folic Acid 1 MG TAB PO SCH (10:01)
[2020-07-26] MEDS: Apixaban 2.5 MG TAB PO SCH ×2 (10:02→20:05)
[2020-07-26] MEDS: Pantoprazole 40 MG GRANULES PACKET PER TUBE SCH (10:02)
[2020-07-26] MEDS: ALPRAZolam 0.25 MG TAB PO PRN ×2 (11:05→20:05)
[2020-07-26] MEDS ORDERED: ALPRAZolam 0.25 MG TAB PO PRN (13:00)
--- NOTE | 2020-07-26 14:18 | PDOC.HOSPP ---
- Subjective Subjective: d/w nursing staff, pt had some anxiety. Restless overnight. - Objective Vital Signs & Weight: Vital Signs (12 hours) Temp Pulse Resp Pulse Ox 07/26/20 12:00 98.7 F 07/26/20 10:30 98 07/26/20 10:00 33 H 07/26/20 08:00 98.8 F 32 H 92 L 07/26/20 06:22 86 93 L 07/26/20 06:00 25 H 07/26/20 05:00 97.2 F L 07/26/20 04:00 96.3 F L 25 H Weight Admit Weight 163 lb 9.328 oz Weight 132 lb 4.438 oz Most Recent Monitor Data Heart Rate from ECG 81 NIBP 121/75 NIBP BP-Mean 90 Respiration from ECG 19 SpO2 93 I&O: 07/25/20 07/26/20 07/27/20 06:59 06:59 06:59 Intake Total 910 1409 340 Output Total 1680 1322 353 Balance -770 87 -13 Result Diagrams: 07/26/20 03:40 07/26/20 03:40 Additional Labs: Accuchecks 07/26/20 07/26/20 07/25/20 10:23 00:17 20:10 POC Glucose 129 H 122 H 120 H 07/25/20 16:04 POC Glucose 176 H Hospitalist ROS - Medication Medications: Active Medications Generic Name Dose Route Start Last Admin Trade Name Freq PRN Reason Stop Dose Admin Acetaminophen 1,000 mg 07/06/20 14:14 07/26/20 10:44 Acetaminophen 650 Mg/20.3 Ml Udcup PER TUBE 1,000 mg Q6H PRN Administration Headache/Fever or Pain Alprazolam 0.25 mg 07/26/20 11:01 07/26/20 11:05 Alprazolam 0.25 Mg Tab PO 0.25 mg QID PRN Administration Anxiety Apixaban 2.5 mg 07/22/20 21:00 07/26/20 10:02 Apixaban 2.5 Mg Tab PO 2.5 mg BID JOHN Administration Ascorbic Acid 1,000 mg 07/03/20 09:00 07/26/20 10:01 Ascorbic Acid 500 Mg Chewable Tablet PO 1,000 mg DAILY JOHN Administration Bisacodyl 10 mg 07/13/20 11:09 07/17/20 14:07 Bisacodyl 10 Mg Supp [place] 10 mg Q8H PRN Administration Constipation Cholecalciferol 400 units 07/03/20 09:00 07/26/20 10:01 Cholecalciferol (Vitamin D3) 400 Units Tab PO 400 units DAILY JOHN Administration Dexamethasone 4 mg 07/23/20 08:00 07/26/20 07:57 Dexamethasone 4 Mg Tab PO 4 mg QAM-WM JOHN Administration Duloxetine HCl 60 mg 07/07/20 09:00 07/26/20 10:01 Duloxetine 60 Mg Cap PO 60 mg DAILY JOHN Administration Folic Acid 1 mg 07/10/20 09:00 07/26/20 10:01 Folic Acid 1 Mg Tab PO 1 mg DAILY JOHN Administration Dexmedetomidine HCl 400 mcg/ 100 mls @ 0 mls/hr 07/03/20 09:45 07/25/20 07:42 Sodium Chloride IVPB 100 mls INF JOHN Administration Protocol Titrate Sodium Chloride 1,000 mls @ 0 mls/hr 07/10/20 13:40 07/19/20 05:06 1/2 Normal Saline IV 1,000 mls .Q0M JOHN Administration KVO Insulin Human Lispro 0 units 07/03/20 01:26 07/25/20 16:07 Humalog 300 Units/3 Ml Vial SC 2 unit .MILD SLIDING SCALE PRN Administration Mild Correctional Scale Pantoprazole Sodium 40 mg 07/16/20 09:00 07/26/20 10:02 Pantoprazole 40 Mg Granules Packet PER TUBE 40 mg DAILY JOHN Administration Pramipexole Dihydrochloride 1 mg 07/20/20 07:00 07/26/20 12:50 Pramipexole Di-Hcl 1 Mg Tab PO 1 mg 0700,1300,2000 JOHN Administration Scopolamine 1.5 mg 07/25/20 04:00 07/25/20 04:47 Scopolamine 1.5 Mg/72 Hour Patch TOP 1.5 mg Q3D JOHN Administration Sodium Chloride 10 ml 07/03/20 21:00 07/26/20 10:03 Flush - Normal Saline 10 Ml Syringe IVF 10 ml Q12HR JOHN Administration Hospitalist Exam Vitals: Vital Signs (12 hours) Temp Pulse Resp Pulse Ox 07/26/20 12:00 98.7 F 07/26/20 10:30 98 07/26/20 10:00 33 H 07/26/20 08:00 98.8 F 32 H 92 L 07/26/20 06:22 86 93 L 07/26/20 06:00 25 H 07/26/20 05:00 97.2 F L 07/26/20 04:00 96.3 F L 25 H Weight Admit Weight 163 lb 9.328 oz Weight 132 lb 4.438 oz Most Recent Monitor Data Heart Rate from ECG 81 NIBP 121/75 NIBP BP-Mean 90 Respiration from ECG 19 SpO2 93 General - other findings: s/p trach Eye: PERRL ENT: normocephalic atraumatic Neck: supple Heart: RRR Respiratory: no wheezes Extremities: no cyanosis Skin: normal turgor Musculoskeletal: normal tone Hosp A/P - Plan Acute respiratory failure with hypoxia Code(s): J96.01 - ACUTE RESPIRATORY FAILURE WITH HYPOXIA Status: Acute (2) Pneumonia due to COVID-19 virus Code(s): U07.1 - COVID-19; J12.82 - PNEUMONIA DUE TO CORONAVIRUS DISEASE 2019 Status: Acute (3) Diabetes mellitus type 2 in nonobese Code(s): E11.9 - TYPE 2 DIABETES MELLITUS WITHOUT COMPLICATIONS Status: C hronic (4) Hypertension Code(s): I10 - ESSENTIAL (PRIMARY) HYPERTENSION Status: Chronic Qualifiers: Hypertension type: essential hypertension Qualified Code(s): I10 - Essen tial (primary) hypertension (5) TAMMY (obstructive sleep apnea) Code(s): G47.33 - OBSTRUCTIVE SLEEP APNEA (ADULT) (PEDIATRIC) Status: Chronic (6) Parkinson disease Code(s): G20 - PARKINSON'S DISEASE Status: Chronic - Plan s/p trach and peg, improving. Accepted to [facility], pending bed availability Decadron tapered to 4 mg daily. cont low dose Eliquis for DVT ppx Cont home medications. PT eval supportive cares. add Seroquel at bedtime, and prn Xanax for anxiety
--- NOTE | 2020-07-26 15:36 | PRG ---
DATE OF SERVICE: 07/26/2020 SUBJECTIVE: The patient is currently on a high-flow trach collar, doing well. He is complaining that he cannot sleep at night. Ordinarily takes melatonin at home, which is very helpful with his Parkinson disease. OBJECTIVE: VITAL SIGNS: His temperature is 98.7, pulse 81, blood pressure 121/75, saturation 93%. GENERAL: He appears in no distress. He has some mild secretions coming from his tracheostomy site. NECK: No JVD. LUNGS: Fairly clear. CARDIAC: S1, S2. Regular. ABDOMEN: Soft. EXTREMITIES: No edema. LABORATORY DATA: White blood cell count 12, hematocrit 41, and platelet count 219. Sodium 136, potassium 4.4, BUN 29, creatinine 0.8, glucose 112. ASSESSMENT: 1. Status post COVID pneumonia. 2. Status post trach and PEG placement. 3. Parkinson disease. PLAN: I would go ahead and stop the order for the Precedex. I will add melatonin at night. I would also stop the Seroquel at night as it could aggravate his Parkinson's symptoms. Also consider stopping the Cymbalta soon. The main issue now is rehabilitative in nature. I think we can go ahead and start cutting his steroid dose down. Job ID: [id number]
[2020-07-26] MEDS: HumaLOG 300 UNITS/3 ML VIAL SC PRN (16:23)
[2020-07-26] MEDS: Melatonin 3 MG TAB PER TUBE SCH (19:58)
[2020-07-27] MEDS: ALPRAZolam 0.25 MG TAB PO PRN (03:38)
[2020-07-27 04:15] LABS: Anion Gap 14 mmol/L (10-20); BUN (Urea Nitrogen) 30 mg/dL (8.4-25.7); Calc. Creatinine Clearance 71 mL/min (70-130); Calcium 9.2 mg/dL (7.8-10.44); Carbon Dioxide 30 mmol/L (23-31); Chloride 97 mmol/L (98-107); Glucose 100 mg/dL (83-110); Sodium 137 mmol/L (136-145)
[2020-07-27 04:24] LABS: Band 10 % (5-11); Eosinophils 1 % (0-10); Hemoglobin 13.2 g/dL (14.0-18.0); Lymphocytes 6 % (21-51); MDiff Complete? YES; Mean Corpuscular HGB CONC 34.5 g/dL (32.0-36.0); Mean Corpuscular Hemoglobin 34.7 pg (27.0-31.0); Mean Platelet Volume 7.6 fL (7.4-10.4); Monocytes 4 % (0-10); Neutrophil 79 % (42-75); Platelet Count 212 thou/uL (130-400); RBC Distribution Width 11.9 % (11.5-14.5); Red Blood Cell (RBC) Count 3.81 mill/uL (4.70-6.10); White Blood Cell (WBC) Count 9.7 thou/uL (4.8-10.8)
[2020-07-27] MEDS: Pramipexole Di-HCl 1 MG TAB PO SCH ×3 (06:22→20:55)
[2020-07-27] MEDS: DULoxetine 60 MG CAP PO SCH (08:58)
[2020-07-27] MEDS: Cholecalciferol (Vitamin D3) 400 UNITS TAB PO SCH (08:58)
[2020-07-27] MEDS: Dexamethasone 1 MG TAB PO SCH (08:58)
[2020-07-27] MEDS: Pantoprazole 40 MG GRANULES PACKET PER TUBE SCH (08:58)
[2020-07-27] MEDS: Ascorbic Acid 500 mg Chewable Tablet PO SCH (08:59)
[2020-07-27] MEDS: Folic Acid 1 MG TAB PO SCH (08:59)
[2020-07-27] MEDS: Apixaban 2.5 MG TAB PO SCH ×2 (09:00→20:55)
[2020-07-27] MEDS: Scopolamine 1.5 mg/72 hour Patch TOP SCH (13:31)
--- NOTE | 2020-07-27 18:05 | PDOC.HOSPP ---
- Subjective Subjective: Patient was seen examined at bedside. d/w with his at bedside - Objective Vital Signs & Weight: Vital Signs (12 hours) Temp Pulse Pulse BP BP Pulse Ox Pulse Ox 07/27/20 16:00 97.9 F 07/27/20 13:38 121 H 112 H 122/91 H 117/68 87 L 07/27/20 11:00 98.4 F 07/27/20 07:35 96 07/27/20 07:00 98.2 F Pulse Ox 07/27/20 16:00 07/27/20 13:38 89 L 07/27/20 11:00 07/27/20 07:35 07/27/20 07:00 Weight Admit Weight 163 lb 9.328 oz Weight 133 lb 6.075 oz Most Recent Monitor Data Heart Rate from ECG 105 NIBP 128/99 NIBP BP-Mean 108 Respiration from ECG 23 SpO2 78 I&O: 07/26/20 07/27/20 07/28/20 06:59 06:59 06:59 Intake Total 1409 2146 541 Output Total 1322 1418 1030 Balance 87 728 -489 Result Diagrams: 07/27/20 03:50 07/27/20 03:50 Additional Labs: Accuchecks 07/27/20 07/26/20 07/26/20 16:43 22:09 16:21 POC Glucose 144 H 179 H 193 H 07/26/20 06:02 POC Glucose 132 H Radiology Reviewed by me: Yes EKG Reviewed by me: Yes Hospitalist ROS - Medication Medications: Active Medications Generic Name Dose Route Start Last Admin Trade Name Freq PRN Reason Stop Dose Admin Acetaminophen 1,000 mg 07/06/20 14:14 07/26/20 19:58 Acetaminophen 650 Mg/20.3 Ml Udcup PER TUBE 1,000 mg Q6H PRN Administration Headache/Fever or Pain Alprazolam 0.25 mg 07/26/20 11:01 07/27/20 03:38 Alprazolam 0.25 Mg Tab PO 0.25 mg QID PRN Administration Anxiety Apixaban 2.5 mg 07/22/20 21:00 07/27/20 09:00 Apixaban 2.5 Mg Tab PO 2.5 mg BID JOHN Administration Ascorbic Acid 1,000 mg 07/03/20 09:00 07/27/20 08:59 Ascorbic Acid 500 Mg Chewable Tablet PO 1,000 mg DAILY JOHN Administration Bisacodyl 10 mg 07/13/20 11:09 07/17/20 14:07 Bisacodyl 10 Mg Supp [place] 10 mg Q8H PRN Administration Constipation Cholecalciferol 400 units 07/03/20 09:00 07/27/20 08:58 Cholecalciferol (Vitamin D3) 400 Units Tab PO 400 units DAILY JOHN Administration Dexamethasone 2 mg 07/27/20 08:00 07/27/20 08:58 Dexamethasone 1 Mg Tab PO 2 mg QAM-WM JOHN Administration Duloxetine HCl 60 mg 07/07/20 09:00 07/27/20 08:58 Duloxetine 60 Mg Cap PO 60 mg DAILY JOHN Administration Folic Acid 1 mg 07/10/20 09:00 07/27/20 08:59 Folic Acid 1 Mg Tab PO 1 mg DAILY JOHN Administration Sodium Chloride 1,000 mls @ 0 mls/hr 07/10/20 13:40 07/19/20 05:06 1/2 Normal Saline IV 1,000 mls .Q0M JOHN Administration KVO Insulin Human Lispro 0 units 07/03/20 01:26 07/26/20 16:23 Humalog 300 Units/3 Ml Vial SC 2 unit .MILD SLIDING SCALE PRN Administration Mild Correctional Scale Melatonin 9 mg 07/26/20 21:00 07/26/20 19:58 Melatonin 3 Mg Tab PER TUBE 9 mg HS JOHN Administration Pantoprazole Sodium 40 mg 07/16/20 09:00 07/27/20 08:58 Pantoprazole 40 Mg Granules Packet PER TUBE 40 mg DAILY JOHN Administration Pramipexole Dihydrochloride 1 mg 07/20/20 07:00 07/27/20 13:32 Pramipexole Di-Hcl 1 Mg Tab PO 1 mg 0700,1300,2000 JOHN Administration Scopolamine 1.5 mg 07/25/20 04:00 07/25/20 04:47 Scopolamine 1.5 Mg/72 Hour Patch TOP 1.5 mg Q3D JOHN Administration Sodium Chloride 10 ml 07/03/20 21:00 07/27/20 09:00 Flush - Normal Saline 10 Ml Syringe IVF 10 ml Q12HR JOHN Administration Hospitalist Exam Vitals: Vital Signs (12 hours) Temp Pulse Pulse BP BP Pulse Ox Pulse Ox 07/27/20 16:00 97.9 F 07/27/20 13:38 121 H 112 H 122/91 H 117/68 87 L 07/27/20 11:00 98.4 F 07/27/20 07:35 96 07/27/20 07:00 98.2 F Pulse Ox 07/27/20 16:00 07/27/20 13:38 89 L 07/27/20 11:00 07/27/20 07:35 07/27/20 07:00 Weight Admit Weight 163 lb 9.328 oz Weight 133 lb 6.075 oz Most Recent Monitor Data Heart Rate from ECG 105 NIBP 128/99 NIBP BP-Mean 108 Respiration from ECG 23 SpO2 78 General Appearance: NAD Eye: PERRL Eye - other findings: s/p trach ENT: normocephalic atraumatic Neck: supple Heart: RRR Respiratory: CTAB Gastrointestinal: soft Extremities: no cyanosis, no clubbing Skin: normal turgor Neurological: cranial nerve grossly intact Musculoskeletal: normal tone Psychiatric: normal affect, normal behavior, A&O x 3 Hosp A/P - Plan Acute respiratory failure with hypoxia Code(s): J96.01 - ACUTE RESPIRATORY FAILURE WITH HYPOXIA Status: Acute (2) Pneumonia due to COVID-19 virus Code(s): U07.1 - COVID-19; J12.82 - PNEUMONIA DUE TO CORONAVIRUS DISEASE 2019 Status: Acute (3) Diabetes mellitus type 2 in nonobese Code(s): E11.9 - TYPE 2 DIABETES MELLITUS WITHOUT COMPLICATIONS Status: Chronic (4) Hypertension Code(s): I10 - ESSENTIAL (PRIMARY) HYPERTENSION Status: Chronic Qualifiers: Hypertension type: essential hypertension Qualified Code(s): I10 - Essential (primary) hypertension (5) TAMMY (obstructive sleep apnea) Code(s): G47.33 - OBSTRUCTIVE SLEEP APNEA (ADULT) (PEDIATRIC) Status: Chronic (6) Parkinson disease Code(s): G20 - PARKINSON'S DISEASE Status: Chronic - Plan s/p trach and peg, improving. Accepted to [facility], pending bed availability/[place] [facility] Decadron tapered to 4 mg daily. cont low dose Eliquis for DVT ppx Cont home medications. PT eval supportive cares. add Seroquel at bedtime, and prn Xanax for anxiety labs stable, normalized. will d/c serial labs
--- NOTE | 2020-07-27 19:18 | PRG ---
DATE OF SERVICE: 07/27/2020 SUBJECTIVE: Abhay Cooley continues to be intermittently encephalopathic. He is stable for the most part, off mechanical ventilation. He went back on mechanical ventilation last night at 2 a.m., so I have recommended that we ventilate him from midnight to 6 a.m. every night to give him some muscle rest. OBJECTIVE: VITAL SIGNS: Heart rate is 92, blood pressure 122/82, respiratory rates in the 20s. LUNGS: Remarkable for coarse equal breath sounds. HEART: Regular rhythm. ABDOMEN: Soft. EXTREMITIES: Without edema. IMPRESSION: 1. COVID pneumonia, status post tracheostomy and PEG, clinically stable. 2. Deconditioning. PLAN: Continue supportive care. Job ID: [id number]
[2020-07-27] MEDS: Melatonin 3 MG TAB PER TUBE SCH (20:55)
[2020-07-28] MEDS: Scopolamine 1.5 mg/72 hour Patch TOP SCH (05:33)
[2020-07-28] MEDS: Pramipexole Di-HCl 1 MG TAB PO SCH ×3 (05:33→20:20)
[2020-07-28] MEDS: Dexamethasone 1 MG TAB PO SCH (08:23)
[2020-07-28] MEDS: Pantoprazole 40 MG GRANULES PACKET PER TUBE SCH (08:23)
[2020-07-28] MEDS: DULoxetine 60 MG CAP PO SCH (08:23)
[2020-07-28] MEDS: Apixaban 2.5 MG TAB PO SCH ×2 (08:24→20:20)
[2020-07-28] MEDS: Cholecalciferol (Vitamin D3) 400 UNITS TAB PO SCH (08:24)
[2020-07-28] MEDS: Folic Acid 1 MG TAB PO SCH (08:24)
[2020-07-28] MEDS: Ascorbic Acid 500 mg Chewable Tablet PO SCH (08:24)
--- NOTE | 2020-07-28 08:33 | PRG ---
DATE OF SERVICE: 07/28/2020 SUBJECTIVE: Mr. Cooley is sitting at the bedside chair with his head down on the bedside table, resting comfortably. OBJECTIVE: VITAL SIGNS: His oximetry is 97% on trach collar. He is afebrile, blood pressure 103/76. LUNGS: Otherwise unchanged. HEART: Otherwise unchanged. ABDOMEN: Otherwise unchanged. LABORATORY DATA: There is no new lab. IMPRESSION: COVID pneumonia, status post trach and PEG, clinically progressing from a strength standpoint. PLAN: Continue physical therapy, nocturnal ventilation, eventual placement. Job ID: [id number]
[2020-07-28] MEDS: Acetaminophen 650 MG/20.3 ML UDCUP PER TUBE PRN (10:09)
[2020-07-28] MEDS ORDERED: Haloperidol Lactate 5 MG/ML VIAL SLOW IVP PRN (18:08)
--- NOTE | 2020-07-28 18:11 | PDOC.HOSPP ---
- Subjective Subjective: Pt was seen and examined. Pt was restless overnight. - Objective Vital Signs & Weight: Vital Signs (12 hours) Temp Pulse BP Pulse Ox Pulse Ox Pulse Ox Pulse Ox 07/28/20 15:00 97.9 F 07/28/20 11:00 98.1 F 07/28/20 10:14 89 115/77 88 L 89 L 90 L 07/28/20 07:34 97 07/28/20 07:00 98.2 F Weight Admit Weight 163 lb 9.328 oz Weight 130 lb 1.164 oz Most Recent Monitor Data Heart Rate from ECG 78 NIBP 118/64 NIBP BP-Mean 82 Respiration from ECG 23 SpO2 95 I&O: 07/27/20 07/28/20 07/29/20 06:59 06:59 06:59 Intake Total 2146 1276 815 Output Total 1418 1810 680 Balance 728 -534 135 Result Diagrams: 07/27/20 03:50 07/27/20 03:50 Additional Labs: Accuchecks 07/28/20 07/27/20 07/27/20 05:29 23:31 09:47 POC Glucose 123 H 124 H 110 H Hospitalist ROS - Medication Medications: Active Medications Generic Name Dose Route Start Last Admin Trade Name Freq PRN Reason Stop Dose Admin Acetaminophen 1,000 mg 07/06/20 14:14 07/28/20 10:09 Acetaminophen 650 Mg/20.3 Ml Udcup PER TUBE 1,000 mg Q6H PRN Administration Headache/Fever or Pain Alprazolam 0.25 mg 07/26/20 11:01 07/27/20 03:38 Alprazolam 0.25 Mg Tab PO 0.25 mg QID PRN Administration Anxiety Apixaban 2.5 mg 07/22/20 21:00 07/28/20 08:24 Apixaban 2.5 Mg Tab PO 2.5 mg BID JOHN Administration Ascorbic Acid 1,000 mg 07/03/20 09:00 07/28/20 08:24 Ascorbic Acid 500 Mg Chewable Tablet PO 1,000 mg DAILY JOHN Administration Bisacodyl 10 mg 07/13/20 11:09 07/17/20 14:07 Bisacodyl 10 Mg Supp [place] 10 mg Q8H PRN Administration Constipation Cholecalciferol 400 units 07/03/20 09:00 07/28/20 08:24 Cholecalciferol (Vitamin D3) 400 Units Tab PO 400 units DAILY JOHN Administration Dexamethasone 2 mg 07/27/20 08:00 07/28/20 08:23 Dexamethasone 1 Mg Tab PO 2 mg QAM-WM JOHN Administration Duloxetine HCl 60 mg 07/07/20 09:00 07/28/20 08:23 Duloxetine 60 Mg Cap PO 60 mg DAILY JOHN Administration Folic Acid 1 mg 07/10/20 09:00 07/28/20 08:24 Folic Acid 1 Mg Tab PO 1 mg DAILY JOHN Administration Sodium Chloride 1,000 mls @ 0 mls/hr 07/10/20 13:40 07/19/20 05:06 1/2 Normal Saline IV 1,000 mls .Q0M JOHN Administration KVO Insulin Human Lispro 0 units 07/03/20 01:26 07/26/20 16:23 Humalog 300 Units/3 Ml Vial SC 2 unit .MILD SLIDING SCALE PRN Administration Mild Correctional Scale Melatonin 9 mg 07/26/20 21:00 07/27/20 20:55 Melatonin 3 Mg Tab PER TUBE 9 mg HS JOHN Administration Pantoprazole Sodium 40 mg 07/16/20 09:00 07/28/20 08:23 Pantoprazole 40 Mg Granules Packet PER TUBE 40 mg DAILY JOHN Administration Pramipexole Dihydrochloride 1 mg 07/20/20 07:00 07/28/20 13:28 Pramipexole Di-Hcl 1 Mg Tab PO 1 mg 0700,1300,2000 JOHN Administration Scopolamine 1.5 mg 07/25/20 04:00 07/28/20 05:33 Scopolamine 1.5 Mg/72 Hour Patch TOP 1.5 mg Q3D JOHN Administration Sodium Chloride 10 ml 07/03/20 21:00 07/28/20 08:25 Flush - Normal Saline 10 Ml Syringe IVF 10 ml Q12HR JOHN Administration Hospitalist Exam Vitals: Vital Signs (12 hours) Temp Pulse BP Pulse Ox Pulse Ox Pulse Ox Pulse Ox 07/28/20 15:00 97.9 F 07/28/20 11:00 98.1 F 07/28/20 10:14 89 115/77 88 L 89 L 90 L 07/28/20 07:34 97 07/28/20 07:00 98.2 F Weight Admit Weight 163 lb 9.328 oz Weight 130 lb 1.164 oz Most Recent Monitor Data Heart Rate from ECG 78 NIBP 118/64 NIBP BP-Mean 82 Respiration from ECG 23 SpO2 95 General Appearance: NAD Eye: PERRL Eye - other findings: s/p trach ENT: normocephalic atraumatic Neck: supple Heart: RRR Respiratory: CTAB Gastrointestinal: soft Extremities: no cyanosis Skin: normal turgor Hosp A/P - Plan Acute respiratory failure with hypoxia Code(s): J96.01 - ACUTE RESPIRATORY FAILURE WITH HYPOXIA Status: Acute (2) Pneumonia due to COVID-19 virus Code(s): U07.1 - COVID-19; J12.82 - PNEUMONIA DUE TO CORONAVIRUS DISEASE 2018 Status: Acute (3) Diabetes mellitus type 2 in nonobese Code(s): E11.9 - TYPE 2 DIABETES MELLITUS WITHOUT COMPLICATIONS Status: Chronic (4) Hypertension Code(s): I10 - ESSENTIAL (PRIMARY) HYPERTENSION Status: Chronic Qualifiers: Hypertension type: essential hypertension Qualified Code(s): I10 - Essential (primary) hypertension (5) TAMMY (obstructive sleep apnea) Code(s): G47.33 - OBSTRUCTIVE SLEEP APNEA (ADULT) (PEDIATRIC) Status: Chronic (6) Parkinson disease Code(s): G20 - PARKINSON'S DISEASE Status: Chronic - Plan s/p trach and peg, improving. Accepted to [facility], pending bed avai lability/[place] auth Decadron tapered to 2 mg daily. cont low dose Eliquis for DVT ppx Cont home medications. PT eval cont supportive cares. add Seroquel at bedtime, and prn Xanax for anxiety labs stable, normalized. will d/c serial labs
[2020-07-28] MEDS: ALPRAZolam 0.25 MG TAB PO PRN (20:20)
[2020-07-28] MEDS: Melatonin 3 MG TAB PER TUBE SCH (20:20)
[2020-07-29] MEDS: Ascorbic Acid 500 mg Chewable Tablet PO SCH (09:03)
[2020-07-29] MEDS: DULoxetine 60 MG CAP PO SCH (09:03)
[2020-07-29] MEDS: Pramipexole Di-HCl 1 MG TAB PO SCH ×3 (09:03→19:53)
[2020-07-29] MEDS: Cholecalciferol (Vitamin D3) 400 UNITS TAB PO SCH (09:03)
[2020-07-29] MEDS: Dexamethasone 1 MG TAB PO SCH (09:04)
[2020-07-29] MEDS: Pantoprazole 40 MG GRANULES PACKET PER TUBE SCH (09:04)
[2020-07-29] MEDS: Apixaban 2.5 MG TAB PO SCH ×2 (09:04→19:53)
[2020-07-29] MEDS: Folic Acid 1 MG TAB PO SCH (09:04)
[2020-07-29] MEDS: ALPRAZolam 0.25 MG TAB PO PRN (12:01)
[2020-07-29] MEDS: Haloperidol Lactate 5 MG/ML VIAL IM SCH ×3 (12:59→19:53)
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
[2020-07-29] MEDS: Melatonin 3 MG TAB PER TUBE SCH (19:53)
[2020-07-30] MEDS: Haloperidol Lactate 5 MG/ML VIAL IM SCH ×6 (02:11→20:32)
[2020-07-30 04:22] LABS: Anion Gap 14 mmol/L (10-20); BUN (Urea Nitrogen) 43 mg/dL (8.4-25.7); Calc. Creatinine Clearance 61 mL/min (70-130); Calcium 9.4 mg/dL (7.8-10.44); Carbon Dioxide 28 mmol/L (23-31); Chloride 102 mmol/L (98-107); Glucose 137 mg/dL (83-110); Potassium 4.4 mmol/L (3.5-5.1); Sodium 140 mmol/L (136-145)
[2020-07-30 04:30] LABS: Hemoglobin 12.5 g/dL (14.0-18.0); Mean Corpuscular HGB CONC 33.7 g/dL (32.0-36.0); Mean Corpuscular Hemoglobin 34.2 pg (27.0-31.0); Mean Platelet Volume 7.7 fL (7.4-10.4); Platelet Count 221 thou/uL (130-400); RBC Distribution Width 12.2 % (11.5-14.5); Red Blood Cell (RBC) Count 3.66 mill/uL (4.70-6.10); White Blood Cell (WBC) Count 9.7 thou/uL (4.8-10.8)
[2020-07-30 05:22] LABS: Band 14 % (5-11); Eosinophils 1 % (0-10); Lymphocytes 7 % (21-51); MDiff Complete? YES; Monocytes 2 % (0-10); Neutrophil 75 % (42-75)
[2020-07-30] MEDS: Pramipexole Di-HCl 1 MG TAB PO SCH ×3 (06:39→20:32)
[2020-07-30] MEDS: Pantoprazole 40 MG GRANULES PACKET PER TUBE SCH (09:34)
[2020-07-30] MEDS: Apixaban 2.5 MG TAB PO SCH ×2 (09:34→20:32)
[2020-07-30] MEDS: Dexamethasone 1 MG TAB PO SCH (09:34)
[2020-07-30] MEDS: Ascorbic Acid 500 mg Chewable Tablet PO SCH (09:34)
[2020-07-30] MEDS: Cholecalciferol (Vitamin D3) 400 UNITS TAB PO SCH (09:34)
[2020-07-30] MEDS: Folic Acid 1 MG TAB PO SCH (09:34)
[2020-07-30] MEDS: Acetaminophen 650 MG/20.3 ML UDCUP PER TUBE PRN (10:48)
[2020-07-30] MEDS: ALPRAZolam 0.25 MG TAB PO PRN (10:48)
--- NOTE | 2020-07-30 11:00 | PRG ---
DATE OF SERVICE: 07/30/2020 SUBJECTIVE: Abhay Cooley is clinically unchanged. He is more cooperative today than yesterday per my discussion with the nurses. OBJECTIVE: VITAL SIGNS: Heart rates in the 90s, blood pressure 99/73, respiratory rates in the 20s, otherwise unchanged. IMPRESSION: Respiratory failure after coronavirus disease with a trach and a PEG in place. PLAN: Continue supportive care. Awaiting LTAC placement. Job ID: [id number]
--- NOTE | 2020-07-30 19:08 | PDOC.HOSPP ---
- Subjective Subjective: Patient was seen examined at bedside. He is currently is on trach collar, discussed with his . Patient is more cooperative today per nursing staff. - Objective Vital Signs & Weight: Vital Signs (12 hours) Pulse Pulse BP BP Pulse Ox Pulse Ox Pulse Ox 07/30/20 09:40 91 73 99/73 107/65 92 L 94 L 07/30/20 08:00 95 07/30/20 07:15 92 L Weight Admit Weight 163 lb 9.328 oz Weight 130 lb 1.164 oz Most Recent Monitor Data Heart Rate from ECG 87 NIBP 117/82 NIBP BP-Mean 93 Respiration from ECG 20 SpO2 85 I&O: 07/29/20 07/30/20 07/31/20 06:59 06:59 06:59 Intake Total 815 1323 1152 Output Total 985 1510 585 Balance -170 -187 567 Result Diagrams: 07/30/20 03:40 07/30/20 03:40 Additional Labs: Accuchecks 07/30/20 07/30/20 07/29/20 10:46 00:13 17:06 POC Glucose 120 H 125 H 120 H Radiology Reviewed by me: Yes EKG Reviewed by me: Yes Hospitalist ROS - Medication Medications: Active Medications Generic Name Dose Route Start Last Admin Trade Name Freq PRN Reason Stop Dose Admin Acetaminophen 1,000 mg 07/06/20 14:14 07/30/20 10:48 Acetaminophen 650 Mg/20.3 Ml Udcup PER TUBE 1,000 mg Q6H PRN Administration Headache/Fever or Pain Alprazolam 0.25 mg 07/26/20 11:01 07/30/20 10:48 Alprazolam 0.25 Mg Tab PO 0.25 mg QID PRN Administration Anxiety Apixaban 2.5 mg 07/22/20 21:00 07/30/20 09:34 Apixaban 2.5 Mg Tab PO 2.5 mg BID JOHN Administration Ascorbic Acid 1,000 mg 07/03/20 09:00 07/30/20 09:34 Ascorbic Acid 500 Mg Chewable Tablet PO 1,000 mg DAILY JOHN Administration Bisacodyl 10 mg 07/13/20 11:09 07/17/20 14:07 Bisacodyl 10 Mg Supp [place] 10 mg Q8H PRN Administration Constipation Cholecalciferol 400 units 07/03/20 09:00 07/30/20 09:34 Cholecalciferol (Vitamin D3) 400 Units Tab PO 400 units DAILY JOHN Administration Dexamethasone 2 mg 07/27/20 08:00 07/30/20 09:34 Dexamethasone 1 Mg Tab PO 2 mg QAM-WM JOHN Administration Folic Acid 1 mg 07/10/20 09:00 07/30/20 09:34 Folic Acid 1 Mg Tab PO 1 mg DAILY JOHN Administration Haloperidol Lactate 5 mg 07/29/20 12:30 07/30/20 16:34 Haloperidol Lactate 5 Mg/Ml Vial IM Not Given Q4H JOHN Sodium Chloride 1,000 mls @ 0 mls/hr 07/10/20 13:40 07/19/20 05:06 1/2 Normal Saline IV 1,000 mls .Q0M JOHN Administration KVO Insulin Human Lispro 0 units 07/03/20 01:26 07/26/20 16:23 Humalog 300 Units/3 Ml Vial SC 2 unit .MILD SLIDING SCALE PRN Administration Mild Correctional Scale Melatonin 9 mg 07/26/20 21:00 07/29/20 19:53 Melatonin 3 Mg Tab PER TUBE 9 mg HS JOHN Administration Pantoprazole Sodium 40 mg 07/16/20 09:00 07/30/20 09:34 Pantoprazole 40 Mg Granules Packet PER TUBE 40 mg DAILY JOHN Administration Pramipexole Dihydrochloride 1 mg 07/20/20 07:00 07/30/20 13:21 Pramipexole Di-Hcl 1 Mg Tab PO 1 mg 0700,1300,2000 JOHN Administration Quetiapine Fumarate 25 mg 07/29/20 21:00 07/29/20 19:53 Quetiapine Fumarate 25 Mg Tab PO 25 mg HS JOHN Administration Scopolamine 1.5 mg 07/25/20 04:00 07/28/20 05:33 Scopolamine 1.5 Mg/72 Hour Patch TOP 1.5 mg Q3D JOHN Administration Sodium Chloride 10 ml 07/03/20 21:00 07/30/20 09:38 Flush - Normal Saline 10 Ml Syringe IVF 10 ml Q12HR JOHN Administration Hospitalist Exam Vitals: Vital Signs (12 hours) Pulse Pulse BP BP Pulse Ox Pulse Ox Pulse Ox 07/30/20 09:40 91 73 99/73 107/65 92 L 94 L 07/30/20 08:00 95 07/30/20 07:15 92 L Weight Admit Weight 163 lb 9.328 oz Weight 130 lb 1.164 oz Most Recent Monitor Data Heart Rate from ECG 87 NIBP 117/82 NIBP BP-Mean 93 Respiration from ECG 20 SpO2 85 General Appearance: NAD General - other findings: Status post tracheotomy Eye: PERRL ENT: normocephalic atraumatic Neck: supple Heart: RRR Respiratory: CTAB Extremities: no cyanosis Skin: normal turgor Neurological: cranial nerve grossly intact Psychiatric: not oriented Hosp A/P (1) Acute respiratory failure with hypoxia Code(s): J96.01 - ACUTE RESPIRATORY FAILURE WITH HYPOXIA Status: Acute (2) Pneumonia due to COVID-19 virus Code(s): U07.1 - COVID-19; J12.82 - PNEUMONIA DUE TO CORONAVIRUS DISEASE 2018 Status: Acute (3) Restless leg syndrome Status: Acute (4) Delirium Code(s): R41.0 - DISORIENTATION, UNSPECIFIED Status: Acute (5) Diabetes mellitus type 2 in nonobese Code(s): E11.9 - TYPE 2 DIABETES MELLITUS WITHOUT COMPLICATIONS Status: Chronic (6) Hyperlipidemia Code(s): E78.5 - HYPERLIPIDEMIA, UNSPECIFIED Status: Chronic Qualifiers: Hyperlipidemia type: unspecified Qualified Code(s): E78.5 - Hyperlipidemia, unspecified (7) Hypertension Code(s): I10 - ESSENTIAL (PRIMARY) HYPERTENSION Status: Chronic Qualifiers: Hypertension type: essential hypertension Qualified Code(s): I10 - Essential (primary) hypertension (8) TAMMY (obstructive sleep apnea) Code(s): G47.33 - OBSTRUCTIVE SLEEP APNEA (ADULT) (PEDIATRIC) Status: Chronic (9) JACIEL (acute kidney injury) Code(s): N17.9 - ACUTE KIDNEY FAILURE, UNSPECIFIED Status: Resolved - Plan Patient is a pleasant 74years old who has significant past medical history of prostate cancer, obstructive sleep apnea, Parkinson's disease, restless leg syndrome, who presented to ED with complaint of shortness of breath. Patient with tested positive for Covid 2 weeks prior to admission. Patient was found in respiratory distress, hypoxic. Initially required BiPAP on admission, however, patient did not responded well. He was ultimately intubated for acute hypoxic respiratory failure secondary to COVID-19 pneumonia. His hospital was prolonged, and ultimately had a trach and PEG done on July 16, 2020. Patient recovered well from Covid, currently waiting for LTAC placement Acute hypoxic respiratory failure secondary to COVID-19 pneumonia -Patient was intubated, status post trach and PEG done was on 07/16/2020. He currently is on trach collar -Decadron has been tapered down. Continue PPI for GI prophylaxis. Patient is on Eliquis for DVT prophylaxis. -Pending LTAC placement COVID-19 pneumonia -Resolving, management subtherapeutic continue taper steroid. Patient is on Eliquis for DVT prophylaxis Diabetes type 2 -Continue sliding scale, blood glucose stable Delirium -With agitations, continue Seroquel. As needed Haldol TAMMY -CPAP at bedtime Restless leg syndrome -Continue Mirapex JACIEL -Patient was evaluated by nephrology. Resolved. Creatinine normalized Disposition: Pending LTAC placement
[2020-07-30] MEDS: Melatonin 3 MG TAB PER TUBE SCH (20:31)
[2020-07-31] MEDS: Haloperidol Lactate 5 MG/ML VIAL IM SCH ×3 (02:51→09:54)
[2020-07-31] MEDS: Scopolamine 1.5 mg/72 hour Patch TOP SCH (04:47)
[2020-07-31 05:01] LABS: Anion Gap 17 mmol/L (10-20); BUN (Urea Nitrogen) 43 mg/dL (8.4-25.7); Calc. Creatinine Clearance 62 mL/min (70-130); Calcium 9.5 mg/dL (7.8-10.44); Carbon Dioxide 28 mmol/L (23-31); Chloride 102 mmol/L (98-107); Glucose 107 mg/dL (83-110); Potassium 4.1 mmol/L (3.5-5.1); Sodium 143 mmol/L (136-145)
[2020-07-31 05:10] LABS: Hemoglobin 12.5 g/dL (14.0-18.0); Mean Corpuscular HGB CONC 30.5 g/dL (32.0-36.0); Mean Corpuscular Hemoglobin 30.5 pg (27.0-31.0); Mean Platelet Volume 7.9 fL (7.4-10.4); Platelet Count 275 thou/uL (130-400); RBC Distribution Width 12.4 % (11.5-14.5); Red Blood Cell (RBC) Count 4.12 mill/uL (4.70-6.10); White Blood Cell (WBC) Count 10.5 thou/uL (4.8-10.8)
[2020-07-31 05:11] LABS: Band 44 % (5-11); Eosinophils 1 % (0-10); Lymphocytes 7 % (21-51); MDiff Complete? YES; Monocytes 5 % (0-10); Neutrophil 43 % (42-75); Platelet Morphology Comment Appears Adequate
[2020-07-31] MEDS: Pramipexole Di-HCl 1 MG TAB PO SCH ×3 (07:54→21:08)
[2020-07-31] MEDS: Dexamethasone 1 MG TAB PO SCH (07:54)
[2020-07-31] MEDS: Ascorbic Acid 500 mg Chewable Tablet PO SCH (08:37)
[2020-07-31] MEDS: Apixaban 2.5 MG TAB PO SCH ×2 (08:38→21:08)
[2020-07-31] MEDS: Folic Acid 1 MG TAB PO SCH (08:38)
[2020-07-31] MEDS: Cholecalciferol (Vitamin D3) 400 UNITS TAB PO SCH (08:38)
[2020-07-31] MEDS: Pantoprazole 40 MG GRANULES PACKET PER TUBE SCH (08:56)
[2020-07-31] MEDS ORDERED: Sterile Water 10 ML VIAL FS PRN (11:00)
--- NOTE | 2020-07-31 12:08 | PRG ---
DATE OF SERVICE: 07/31/2020 SUBJECTIVE: Abhay Cooley is less encephalopathic. He does not recall striking his several days ago. OBJECTIVE: VITAL SIGNS: Heart rate is 111, blood pressure is 117/95, respiratory rate is in the 20s, FiO2 is 95% to 100% on trach collar. LUNGS: Remarkable for coarse equal breath sounds. HEART: Regular rhythm. ABDOMEN: Soft. LABORATORY DATA: White count 10.5, hemoglobin 12.5, platelets 275. We are going to try some ice chips today. Electrolytes are unremarkable. BUN 43, creatinine 0.8. IMPRESSION: 1. Respiratory failure, status post trach and percutaneous endoscopic gastrostomy for COVID-19. 2. Encephalopathy secondary to COVID. Appears to be making slow progress while awaiting for long-term care placement. Job ID: [id number]
--- NOTE | 2020-07-31 18:49 | PDOC.HOSPP ---
- Subjective Subjective: he is much cooperative now. d/w his at bedside. - Objective Vital Signs & Weight: Vital Signs (12 hours) Temp Pulse Pulse BP BP Pulse Ox Pulse Ox 07/31/20 15:00 98.1 F 07/31/20 13:20 93 89 144/82 H 129/83 100 07/31/20 12:00 98.4 F 07/31/20 08:00 94 L 07/31/20 07:26 92 L 07/31/20 07:00 98.6 F Weight Admit Weight 163 lb 9.328 oz Weight 120 lb 5.958 oz Most Recent Monitor Data Heart Rate from ECG 113 NIBP 116/88 NIBP BP-Mean 95 Respiration from ECG 21 SpO2 100 I&O: 07/30/20 07/31/20 08/01/20 06:59 06:59 06:59 Intake Total 1323 1841 1370 Output Total 1510 1105 670 Balance -187 736 700 Result Diagrams: 07/31/20 04:05 07/31/20 04:05 Additional Labs: Accuchecks 07/31/20 07/30/20 04:53 22:16 POC Glucose 80 155 H Radiology Reviewed by me: Yes EKG Reviewed by me: Yes Hospitalist ROS - Medication Medications: Active Medications Generic Name Dose Route Start Last Admin Trade Name Freq PRN Reason Stop Dose Admin Acetaminophen 1,000 mg 07/06/20 14:14 07/30/20 10:48 Acetaminophen 650 Mg/20.3 Ml Udcup PER TUBE 1,000 mg Q6H PRN Administration Headache/Fever or Pain Alprazolam 0.25 mg 07/26/20 11:01 07/30/20 10:48 Alprazolam 0.25 Mg Tab PO 0.25 mg QID PRN Administration Anxiety Apixaban 2.5 mg 07/22/20 21:00 07/31/20 08:38 Apixaban 2.5 Mg Tab PO 2.5 mg BID JOHN Administration Ascorbic Acid 1,000 mg 07/03/20 09:00 07/31/20 08:37 Ascorbic Acid 500 Mg Chewable Tablet PO 1,000 mg DAILY JOHN Administration Bisacodyl 10 mg 07/13/20 11:09 07/17/20 14:07 Bisacodyl 10 Mg Supp [place] 10 mg Q8H PRN Administration Constipation Cholecalciferol 400 units 07/03/20 09:00 07/31/20 08:38 Cholecalciferol (Vitamin D3) 400 Units Tab PO 400 units DAILY JOHN Administration Dexamethasone 2 mg 07/27/20 08:00 07/31/20 07:54 Dexamethasone 1 Mg Tab PO 2 mg QAM-WM JOHN Administration Folic Acid 1 mg 07/10/20 09:00 07/31/20 08:38 Folic Acid 1 Mg Tab PO 1 mg DAILY JOHN Administration Sodium Chloride 1,000 mls @ 0 mls/hr 07/10/20 13:40 07/19/20 05:06 1/2 Normal Saline IV 1,000 mls .Q0M JOHN Administration KVO Insulin Human Lispro 0 units 07/03/20 01:26 07/26/20 16:23 Humalog 300 Units/3 Ml Vial SC 2 unit .MILD SLIDING SCALE PRN Administration Mild Correctional Scale Melatonin 9 mg 07/26/20 21:00 07/30/20 20:31 Melatonin 3 Mg Tab PER TUBE 9 mg HS JOHN Administration Pantoprazole Sodium 40 mg 07/16/20 09:00 07/31/20 08:56 Pantoprazole 40 Mg Granules Packet PER TUBE 40 mg DAILY JOHN Administration Pramipexole Dihydrochloride 1 mg 07/20/20 07:00 07/31/20 15:23 Pramipexole Di-Hcl 1 Mg Tab PO 1 mg 0700,1300,2000 JOHN Administration Quetiapine Fumarate 25 mg 07/29/20 21:00 07/30/20 20:32 Quetiapine Fumarate 25 Mg Tab PO 25 mg HS JOHN Administration Scopolamine 1.5 mg 07/25/20 04:00 07/31/20 04:47 Scopolamine 1.5 Mg/72 Hour Patch TOP 1.5 mg Q3D JOHN Administration Sodium Chloride 10 ml 07/03/20 21:00 07/31/20 08:39 Flush - Normal Saline 10 Ml Syringe IVF 10 ml Q12HR JOHN Administration Hospitalist Exam Vitals: Vital Signs (12 hours) Temp Pulse Pulse BP BP Pulse Ox Pulse Ox 07/31/20 15:00 98.1 F 07/31/20 13:20 93 89 144/82 H 129/83 100 07/31/20 12:00 98.4 F 07/31/20 08:00 94 L 07/31/20 07:26 92 L 07/31/20 07:00 98.6 F Weight Admit Weight 163 lb 9.328 oz Weight 120 lb 5.958 oz Most Recent Monitor Data Heart Rate from ECG 113 NIBP 116/88 NIBP BP-Mean 95 Respiration from ECG 21 SpO2 100 General Appearance: NAD General - other findings: trach in place Eye: PERRL ENT: normocephalic atraumatic Neck: supple Heart: RRR Respiratory: rhonchi Gastrointestinal: soft Extremities: no cyanosis Skin: normal turgor Neurological: cranial nerve grossly intact Musculoskeletal: normal tone Psychiatric: normal affect Hosp A/P (1) Acute respiratory failure with hypoxia Code(s): J96.01 - ACUTE RESPIRATORY FAILURE WITH HYPOXIA Status: Acute (2) Pneumonia due to COVID-19 virus Code(s): U07.1 - COVID-19; J12.82 - PNEUMONIA DUE TO CORONAVIRUS DISEASE 2018 Status: Acute (3) Restless leg syndrome Status: Acute (4) Delirium Code(s): R41.0 - DISORIENTATION, UNSPECIFIED Status: Acute (5) Diabetes mellitus type 2 in nonobese Code(s): E11.9 - TYPE 2 DIABETES MELLITUS WITHOUT COMPLICATIONS Status: Chronic (6) Hyperlipidemia Code(s): E78.5 - HYPERLIPIDEMIA, UNSPECIFIED Status: Chronic Qualifiers: Hyperlipidemia type: unspecified Qualified Code(s): E78.5 - Hyperlipidemia, unspecified (7) Hypertension Code(s): I10 - ESSENTIAL (PRIMARY) HYPERTENSION Status: Chronic Qualifiers: Hypertension type: essential hypertension Qualified Code(s): I10 - Essential (primary) hypertension (8) TAMMY (obstructive sleep apnea) Code(s): G47.33 - OBSTRUCTIVE SLEEP APNEA (ADULT) (PEDIATRIC) Status: Chronic (9) JACIEL (acute kidney injury) Code(s): N17.9 - ACUTE KIDNEY FAILURE, UNSPECIFIED Status: Resolved - Plan Patient is a pleasant 74years old who has significant past medical history of prostate cancer, obstructive sleep apnea, Parkinson's disease, restless leg syndrome, who presented to ED with complaint of shortness of breath. Patient with tested positive for Covid 2 weeks prior to admission. Patient was found in respiratory distress, hypoxic. Initially required BiPAP on admission, however, patient did not responded well. He was ultimately intubated for acute hypoxic respiratory failure secondary to COVID-19 pneumonia. His hospital was prolonged, and ultimately had a trach and PEG done on July 16, 2020. Patient recovered well from Covid, currently waiting for LTAC placement Acute hypoxic respiratory failure secondary to COVID-19 pneumonia -Patient was intubated, status post trach and PEG done was on 07/16/2020. He currently is on trach collar -Decadron has been tapered down. Continue PPI for GI prophylaxis. Patient is on Eliquis for DVT prophylaxis. -Pending LTAC placement COVID-19 pneumonia -Resolving, management subtherapeutic continue taper steroid. Patient is on Eliquis for DVT prophylaxis Diabetes type 2 -Continue sliding scale, blood glucose stable Delirium -With agitations, continue Seroquel. As needed Haldol. Pt is much more cooperative now. TAMMY -CPAP at bedtime Restless leg syndrome -Continue Mirapex JACIEL -Patient was evaluated by nephrology. Resolved. Creatinine normalized Disposition: Pending LTAC placement
[2020-07-31] MEDS: Melatonin 3 MG TAB PER TUBE SCH (21:08)
[2020-07-31] MEDS: Ziprasidone 20 MG VIAL IM SCH (21:15)
[2020-07-31] MEDS: ALPRAZolam 0.25 MG TAB PO PRN (21:15)
[2020-08-01] MEDS: ALPRAZolam 0.25 MG TAB PO PRN (02:48)
[2020-08-01 04:46] LABS: Anion Gap 18 mmol/L (10-20); BUN (Urea Nitrogen) 50 mg/dL (8.4-25.7); Calc. Creatinine Clearance 54 mL/min (70-130); Calcium 9.3 mg/dL (7.8-10.44); Carbon Dioxide 26 mmol/L (23-31); Chloride 101 mmol/L (98-107); Glucose 148 mg/dL (83-110); Potassium 4.1 mmol/L (3.5-5.1); Sodium 141 mmol/L (136-145)
[2020-08-01 05:07] LABS: Eosinophils 2 % (0-10); Hemoglobin 12.6 g/dL (14.0-18.0); Lymphocytes 6 % (21-51); MDiff Complete? YES; Mean Corpuscular HGB CONC 32.2 g/dL (32.0-36.0); Mean Corpuscular Hemoglobin 32.2 pg (27.0-31.0); Mean Corpuscular Volume 99.9 fL (78.0-98.0); Mean Platelet Volume 7.9 fL (7.4-10.4); Monocytes 2 % (0-10); Myelocyte 1 % (0-0); Neutrophil 88 % (42-75); Platelet Count 290 thou/uL (130-400); Platelet Morphology Comment Appears Adequate; RBC Distribution Width 12.4 % (11.5-14.5); Reactive Lymphocytes 1 % (0-10); Red Blood Cell (RBC) Count 3.91 mill/uL (4.70-6.10); White Blood Cell (WBC) Count 10.6 thou/uL (4.8-10.8)
[2020-08-01] MEDS: Ascorbic Acid 500 mg Chewable Tablet PO SCH (09:15)
[2020-08-01] MEDS: Cholecalciferol (Vitamin D3) 400 UNITS TAB PO SCH (09:15)
[2020-08-01] MEDS: Pramipexole Di-HCl 1 MG TAB PO SCH ×3 (09:15→20:48)
[2020-08-01] MEDS: Apixaban 2.5 MG TAB PO SCH (09:15)
[2020-08-01] MEDS: Folic Acid 1 MG TAB PO SCH (09:15)
[2020-08-01] MEDS: Dexamethasone 1 MG TAB PO SCH (09:15)
[2020-08-01] MEDS: Ziprasidone 20 MG VIAL IM SCH ×2 (09:16→20:51)
[2020-08-01] MEDS: Pantoprazole 40 MG GRANULES PACKET PER TUBE SCH (09:16)
--- NOTE | 2020-08-01 12:51 | PDOC.HOSPP ---
- Subjective Encounter Date: 08/01/20 Encounter Time: 12:50 Subjective: f/u for prolonged hospital stay due to COVID PNA/hypoxic resp failure s/p trach/PEG awaiting LTAC placement. Remains on O2 via T-collar @ 10l/min. - Objective Vital Signs & Weight: Vital Signs (12 hours) Temp Pulse Ox 08/01/20 11:00 96.3 F L 08/01/20 08:00 98 08/01/20 07:43 99 08/01/20 07:00 98.3 F 08/01/20 04:00 97.6 F Weight Admit Weight 163 lb 9.328 oz Weight 121 lb 4.068 oz Most Recent Monitor Data Heart Rate from ECG 128 NIBP 135/103 NIBP BP-Mean 113 Respiration from ECG 30 SpO2 100 I&O: 07/31/20 08/01/20 08/02/20 06:59 06:59 06:59 Intake Total 1841 2411 285 Output Total 1105 1270 Balance 736 1141 285 Result Diagrams: 08/01/20 04:15 08/01/20 04:15 EKG Reviewed by me: Yes (Tele - sinus tachycardia in 120's) Hospitalist ROS - Medication Medications: Active Medications Generic Name Dose Route Start Last Admin Trade Name Freq PRN Reason Stop Dose Admin Acetaminophen 1,000 mg 07/06/20 14:14 07/30/20 10:48 Acetaminophen 650 Mg/20.3 Ml Udcup PER TUBE 1,000 mg Q6H PRN Administration Headache/Fever or Pain Alprazolam 0.25 mg 07/26/20 11:01 08/01/20 02:48 Alprazolam 0.25 Mg Tab PO 0.25 mg QID PRN Administration Anxiety Apixaban 2.5 mg 07/22/20 21:00 08/01/20 09:15 Apixaban 2.5 Mg Tab PO 2.5 mg BID JOHN Administration Ascorbic Acid 1,000 mg 07/03/20 09:00 08/01/20 09:15 Ascorbic Acid 500 Mg Chewable Tablet PO 1,000 mg DAILY JOHN Administration Bisacodyl 10 mg 07/13/20 11:09 07/17/20 14:07 Bisacodyl 10 Mg Supp [place] 10 mg Q8H PRN Administration Constipation Cholecalciferol 400 units 07/03/20 09:00 08/01/20 09:15 Cholecalciferol (Vitamin D3) 400 Units Tab PO 400 units DAILY JOHN Administration Dexamethasone 2 mg 07/27/20 08:00 08/01/20 09:15 Dexamethasone 1 Mg Tab PO 2 mg QAM-WM JOHN Administration Folic Acid 1 mg 07/10/20 09:00 08/01/20 09:15 Folic Acid 1 Mg Tab PO 1 mg DAILY JOHN Administration Sodium Chloride 1,000 mls @ 0 mls/hr 07/10/20 13:40 07/19/20 05:06 1/2 Normal Saline IV 1,000 mls .Q0M JOHN Administration KVO Insulin Human Lispro 0 units 07/03/20 01:26 07/26/20 16:23 Humalog 300 Units/3 Ml Vial SC 2 unit .MILD SLIDING SCALE PRN Administration Mild Correctional Scale Melatonin 9 mg 07/26/20 21:00 07/31/20 21:08 Melatonin 3 Mg Tab PER TUBE 9 mg HS JOHN Administration Pantoprazole Sodium 40 mg 07/16/20 09:00 08/01/20 09:16 Pantoprazole 40 Mg Granules Packet PER TUBE 40 mg DAILY JOHN Administration Pramipexole Dihydrochloride 1 mg 07/20/20 07:00 08/01/20 12:42 Pramipexole Di-Hcl 1 Mg Tab PO 1 mg 0700,1300,2000 JOHN Administration Quetiapine Fumarate 25 mg 07/29/20 21:00 07/31/20 21:08 Quetiapine Fumarate 25 Mg Tab PO 25 mg HS JOHN Administration Scopolamine 1.5 mg 07/25/20 04:00 07/31/20 04:47 Scopolamine 1.5 Mg/72 Hour Patch TOP 1.5 mg Q3D JOHN Administration Sodium Chloride 10 ml 07/03/20 21:00 08/01/20 09:33 Flush - Normal Saline 10 Ml Syringe IVF 10 ml Q12HR JOHN Administration Sterile Water 1.2 ml 07/31/20 11:00 07/31/20 21:16 Sterile Water 10 Ml Vial FS 1.2 ml PRN PRN Administration RECONSTITUTION Ziprasidone 10 mg 07/31/20 21:00 08/01/20 09:16 Ziprasidone 20 Mg Vial IM 10 mg Q12HR JOHN Administration Hospitalist Exam Vitals: Vital Signs (12 hours) Temp Pulse Ox 08/01/20 11:00 96.3 F L 08/01/20 08:00 98 08/01/20 07:43 99 08/01/20 07:00 98.3 F 08/01/20 04:00 97.6 F Weight Admit Weight 163 lb 9.328 oz Weight 121 lb 4.068 oz Most Recent Monitor Data Heart Rate from ECG 128 NIBP 135/103 NIBP BP-Mean 113 Respiration from ECG 30 SpO2 100 General Appearance: NAD, awake alert Eye: PERRL, anicteric sclera ENT: normocephalic atraumatic, no oropharyngeal lesions Neck: supple, symmetric, no JVD, no thyromegaly, no lymphadenopathy Neck - other findings: trach in place with T-piece Heart: no murmur, no gallops, no rubs, normal peripheral pulses Heart - other findings: S1, S2 tachycardic Respiratory - other findings: coarse and diminished bilat Gastrointestinal: soft, non-tender, non-distended, normal bowel sounds, no palpable masses, no hepatomegaly Extremities: no cyanosis, no clubbing, no edema Skin: normal turgor, no lesions Neurological: cranial nerve grossly intact, no new deficit Musculoskeletal: generalized weakness Psychiatric: oriented to person, flat affect Hosp A/P (1) Acute respiratory failure with hypoxia Code(s): J96.01 - ACUTE RESPIRATORY FAILURE WITH HYPOXIA Status: Acute Plan: s/p trach with T-piece, continue general pulm support (2) Delirium Code(s): R41.0 - DISORIENTATION, UNSPECIFIED Status: Acute Plan: Multifactorial including prolonged ICU stay, infectious process, sleep disturbance and likely prior dementia, Geodon/Seroquel (3) Pneumonia due to COVID-19 virus Code(s): U07.1 - COVID-19; J12.82 - PNEUMONIA DUE TO CORONAVIRUS DISEASE 2019 Status: Acute Plan: Continue pulmonary support, continue Vit C/Zinc/D3/Eliquis/Dexamethasone (4) Diabetes mellitus type 2 in nonobese Code(s): E11.9 - TYPE 2 DIABETES MELLITUS WITHOUT COMPLICATIONS Status: Chronic Plan: ISS, serial accuchecks, ADA (5) Parkinson disease Code(s): G20 - PARKINSON'S DISEASE Status: Chronic - Plan plan discussed w/ family, PT/OT, group social worker, speech therapy, respiratory therapy, DVT proph w/SCDs Stable overall Continue pulmonary support with T-collar OOB with PT Await LTAC options Nutritional support with TF's Geodon/Seroquel PRN agitation/combativeness AM lab: BMP, CBC
--- NOTE | 2020-08-01 16:55 | PRG ---
DATE OF SERVICE: 08/01/2020 SUBJECTIVE: Mr. Cooley is encephalopathic again today. He is having less frequent days like this, but continues to have days like this. OBJECTIVE: VITAL SIGNS: Blood pressure 103/89, he has mild resting sinus tachycardia. Respiratory rates in the teens. LUNGS: Remarkable for coarse equal breath sounds. HEART: Regular rhythm. ABDOMEN: Soft. EXTREMITIES: Without edema. LABORATORY DATA: White count 10.6, hemoglobin 12.6, platelets 290. Electrolytes are unremarkable. BUN 50, creatinine 0.94. IMPRESSION: Respiratory failure secondary to COVID, status post tracheostomy. Plan to go ahead and fully anticoagulate him. In theory, his resting tachycardia could be related to microvascular thrombosis, and at this point in time, he does not have any contraindication to anticoagulation. Job ID: [id number]
[2020-08-01] MEDS: Melatonin 3 MG TAB PER TUBE SCH (20:47)
[2020-08-01] MEDS: Apixaban 5 MG TAB PO SCH (20:48)
[2020-08-01] MEDS: Acetaminophen 650 MG/20.3 ML UDCUP PER TUBE PRN (23:34)
[2020-08-02 03:52] LABS: Band 31 % (5-11); Hemoglobin 14.5 g/dL (14.0-18.0); Lymphocytes 7 % (21-51); MDiff Complete? YES; Mean Corpuscular HGB CONC 33.9 g/dL (32.0-36.0); Mean Corpuscular Hemoglobin 34.5 pg (27.0-31.0); Mean Platelet Volume 7.5 fL (7.4-10.4); Monocytes 9 % (0-10); Neutrophil 53 % (42-75); Platelet Count 245 thou/uL (130-400); Platelet Morphology Comment Appears Adequate; RBC Distribution Width 12.3 % (11.5-14.5); White Blood Cell (WBC) Count 12.4 thou/uL (4.8-10.8)
[2020-08-02 07:24] LABS: Anion Gap 16 mmol/L (10-20); BUN (Urea Nitrogen) 44 mg/dL (8.4-25.7); Calc. Creatinine Clearance 48 mL/min (70-130); Calcium 9.3 mg/dL (7.8-10.44); Carbon Dioxide 28 mmol/L (23-31); Chloride 100 mmol/L (98-107); Glucose 120 mg/dL (83-110); Potassium 4.1 mmol/L (3.5-5.1); Sodium 140 mmol/L (136-145)
[2020-08-02] MEDS: Pramipexole Di-HCl 1 MG TAB PO SCH ×3 (07:40→20:57)
[2020-08-02] MEDS: Ziprasidone 20 MG VIAL IM SCH ×2 (07:57→20:56)
[2020-08-02] MEDS: Folic Acid 1 MG TAB PO SCH (07:58)
[2020-08-02] MEDS: Dexamethasone 1 MG TAB PO SCH (07:58)
[2020-08-02] MEDS: Apixaban 5 MG TAB PO SCH ×2 (07:58→20:57)
[2020-08-02] MEDS: Ascorbic Acid 500 mg Chewable Tablet PO SCH (07:58)
[2020-08-02] MEDS: Pantoprazole 40 MG GRANULES PACKET PER TUBE SCH (07:59)
[2020-08-02] MEDS: Cholecalciferol (Vitamin D3) 400 UNITS TAB PO SCH (07:59)
--- NOTE | 2020-08-02 15:03 | PRG ---
DATE OF SERVICE: 08/02/2020 SUBJECTIVE: Abhay Cooley remains intermittently encephalopathic. OBJECTIVE: VITAL SIGNS: Blood pressure 100/66, heart rate 91, respiratory rate 16, oximetry is 98%. LUNGS: Remarkable for equal breath sounds. HEART: Regular rhythm. ABDOMEN: Soft. EXTREMITIES: Without asymmetry. LABORATORY DATA: White count 12.4, hemoglobin 14.5, platelets 245. Electrolytes are normal. BUN 44, creatinine 0.9. IMPRESSION: Respiratory failure, now with tracheostomy, doing well. He did not require ventilation last night. We will continue supportive care and keep the ventilator on standby. Geodon did not really appear to have helped much. Another option would be to put him on Seroquel twice a day and a bigger dose at bedtime. The Haldol seemed to work very well, but we are out of Interana. Job ID: [id number]
--- NOTE | 2020-08-02 16:53 | PDOC.HOSPP ---
- Subjective Encounter Date: 08/02/20 Encounter Time: 16:50 Subjective: f/u for COVID PNA/resp failure s/p trach with T-collar on 10L/min. Intermittent confusion but no agitation per receiving Geodon/Seroquel. Nursing reports urinary retention up to 1L requiring intermittent in/out catheterization. - Objective Vital Signs & Weight: Vital Signs (12 hours) Temp Pulse Ox 08/02/20 15:00 97.9 F 08/02/20 11:00 97.8 F 08/02/20 07:28 92 L 08/02/20 07:00 97.3 F L Weight Admit Weight 163 lb 9.328 oz Weight 113 lb 1.554 oz Most Recent Monitor Data Heart Rate from ECG 109 NIBP 112/80 NIBP BP-Mean 90 Respiration from ECG 28 SpO2 93 I&O: 08/01/20 08/02/20 08/03/20 06:59 06:59 06:59 Intake Total 2411 1310 1280 Output Total 0307 634 1483 Balance 1141 709 180 Result Diagrams: 08/02/20 03:31 08/02/20 06:46 EKG Reviewed by me: Yes (Tele - sinus tachycardia) Hospitalist ROS - Medication Medications: Active Medications Generic Name Dose Route Start Last Admin Trade Name Freq PRN Reason Stop Dose Admin Acetaminophen 1,000 mg 07/06/20 14:14 08/01/20 23:34 Acetaminophen 650 Mg/20.3 Ml Udcup PER TUBE 1,000 mg Q6H PRN Administration Headache/Fever or Pain Alprazolam 0.25 mg 07/26/20 11:01 08/01/20 02:48 Alprazolam 0.25 Mg Tab PO 0.25 mg QID PRN Administration Anxiety Apixaban 5 mg 08/01/20 21:00 08/02/20 07:58 Apixaban 5 Mg Tab PO 5 mg BID JOHN Administration Ascorbic Acid 1,000 mg 07/03/20 09:00 08/02/20 07:58 Ascorbic Acid 500 Mg Chewable Tablet PO 1,000 mg DAILY JOHN Administration Bisacodyl 10 mg 07/13/20 11:09 07/17/20 14:07 Bisacodyl 10 Mg Supp [place] 10 mg Q8H PRN Administration Constipation Cholecalciferol 400 units 07/03/20 09:00 08/02/20 07:59 Cholecalciferol (Vitamin D3) 400 Units Tab PO 400 units DAILY JOHN Administration Dexamethasone 2 mg 07/27/20 08:00 08/02/20 07:58 Dexamethasone 1 Mg Tab PO 2 mg QAM-WM JOHN Administration Folic Acid 1 mg 07/10/20 09:00 08/02/20 07:58 Folic Acid 1 Mg Tab PO 1 mg DAILY JOHN Administration Sodium Chloride 1,000 mls @ 0 mls/hr 07/10/20 13:40 07/19/20 05:06 1/2 Normal Saline IV 1,000 mls .Q0M JOHN Administration KVO Insulin Human Lispro 0 units 07/03/20 01:26 07/26/20 16:23 Humalog 300 Units/3 Ml Vial SC 2 unit .MILD SLIDING SCALE PRN Administration Mild Correctional Scale Melatonin 9 mg 07/26/20 21:00 08/01/20 20:47 Melatonin 3 Mg Tab PER TUBE 9 mg HS JOHN Administration Pantoprazole Sodium 40 mg 07/16/20 09:00 08/02/20 07:59 Pantoprazole 40 Mg Granules Packet PER TUBE 40 mg DAILY JOHN Administration Pramipexole Dihydrochloride 1 mg 07/20/20 07:00 08/02/20 12:52 Pramipexole Di-Hcl 1 Mg Tab PO 1 mg 0700,1300,2000 JOHN Administration Quetiapine Fumarate 25 mg 07/29/20 21:00 08/01/20 20:47 Quetiapine Fumarate 25 Mg Tab PO 25 mg HS JOHN Administration Scopolamine 1.5 mg 07/25/20 04:00 07/31/20 04:47 Scopolamine 1.5 Mg/72 Hour Patch TOP 1.5 mg Q3D JOHN Administration Sodium Chloride 10 ml 07/03/20 21:00 08/02/20 07:59 Flush - Normal Saline 10 Ml Syringe IVF 10 ml Q12HR JOHN Administration Sterile Water 1.2 ml 07/31/20 11:00 07/31/20 21:16 Sterile Water 10 Ml Vial FS 1.2 ml PRN PRN Administration RECONSTITUTION Ziprasidone 10 mg 07/31/20 21:00 08/02/20 07:57 Ziprasidone 20 Mg Vial IM 10 mg Q12HR JOHN Administration Hospitalist Exam Vitals: Vital Signs (12 hours) Temp Pulse Ox 08/02/20 15:00 97.9 F 08/02/20 11:00 97.8 F 08/02/20 07:28 92 L 08/02/20 07:00 97.3 F L Weight Admit Weight 163 lb 9.328 oz Weight 113 lb 1.554 oz Most Recent Monitor Data Heart Rate from ECG 109 NIBP 112/80 NIBP BP-Mean 90 Respiration from ECG 28 SpO2 93 General Appearance: NAD, awake alert Eye: PERRL, anicteric sclera ENT: normocephalic atraumatic, no oropharyngeal lesions Neck: supple, symmetric, no JVD, no thyromegaly, no lymphadenopathy Neck - other findings: trach in place with T-collar Heart: no gallops, no rubs, normal peripheral pulses Heart - other findings: S1, S2 tachycardic Respiratory: CTAB, no wheezes, no rales, no ronchi, normal chest expansion Gastrointestinal: soft, non-tender, non-distended, normal bowel sounds, no palpable masses, no hepatomegaly Extremities: no cyanosis, no clubbing, no edema Skin: normal turgor, no lesions Neurological: cranial nerve grossly intact, no new deficit Musculoskeletal: normal tone, generalized weakness Psychiatric: normal affect, oriented to person Hosp A/P (1) Acute respiratory failure with hypoxia Code(s): J96.01 - ACUTE RESPIRATORY FAILURE WITH HYPOXIA Status: Acute Plan: Continue T-collar O2 supplementation, intermittent ventilatory support PRN (2) Delirium Code(s): R41.0 - DISORIENTATION, UNSPECIFIED Status: Acute Plan: Improved, continue to avoid daytime sedation and limit psychotropes, family for support/re-orientation (3) Pneumonia due to COVID-19 virus Code(s): U07.1 - COVID-19; J12.82 - PNEUMONIA DUE TO CORONAVIRUS DISEASE 2019 Status: Acute (4) Diabetes mellitus type 2 in nonobese Code(s): E11.9 - TYPE 2 DIABETES MELLITUS WITHOUT COMPLICATIONS Status: Chronic (5) Parkinson disease Code(s): G20 - PARKINSON'S DISEASE Status: Chronic (6) Urinary retention Code(s): R33.9 - RETENTION OF URINE, UNSPECIFIED Status: Acute Plan: Likely multifactorial including prolonged illness/decreased mobility and prior BPH s/p prostatectomy, trial Flomax, Urology consult, intermittent bladder cath eterization, UA with cx to r/o infectious process - Plan plan discussed w/ family, PT/OT, social media sr strategy manager, speech therapy, respiratory therapy, DVT proph w/SCDs Stable overall Continue pulmonary support with T-collar OOB with PT Await LTAC options Nutritional support with TF's Geodon/Seroquel PRN agitation/combativeness AM lab: BMP, CBC
[2020-08-02] MEDS: Melatonin 3 MG TAB PER TUBE SCH (20:56)
[2020-08-02] MEDS: Tamsulosin HCl 0.4 MG CAP PO SCH (20:56)
[2020-08-02] MEDS: ALPRAZolam 0.25 MG TAB PO PRN (20:57)
[2020-08-03 04:22] LABS: Band 6 % (5-11); Hemoglobin 12.7 g/dL (14.0-18.0); Hypochromia SLIGHT = 6-15 cells (100X) (0-5/hpf); Lymphocytes 3 % (21-51); MDiff Complete? YES; Mean Corpuscular HGB CONC 32.8 g/dL (32.0-36.0); Mean Corpuscular Hemoglobin 32.7 pg (27.0-31.0); Mean Corpuscular Volume 99.6 fL (78.0-98.0); Mean Platelet Volume 7.7 fL (7.4-10.4); Monocytes 12 % (0-10); Neutrophil 79 % (42-75); Platelet Count 321 thou/uL (130-400); Platelet Morphology Comment Appears Adequate; RBC Distribution Width 12.3 % (11.5-14.5); Red Blood Cell (RBC) Count 3.87 mill/uL (4.70-6.10); White Blood Cell (WBC) Count 11.6 thou/uL (4.8-10.8)
[2020-08-03 04:29] LABS: Anion Gap 16 mmol/L (10-20); BUN (Urea Nitrogen) 53 mg/dL (8.4-25.7); Calc. Creatinine Clearance 51 mL/min (70-130); Carbon Dioxide 27 mmol/L (23-31); Chloride 103 mmol/L (98-107); Potassium 4.3 mmol/L (3.5-5.1); Sodium 142 mmol/L (136-145)
[2020-08-03 04:30] LABS: Calcium 9.1 mg/dL (7.8-10.44); Glucose 141 mg/dL (83-110)
[2020-08-03 06:48] LABS: Bilirubin Negative (Negative); Blood, Urine 1+ (Negative); Clarity Clear (Clear); Glucose, Urine (Dipstick) Normal (Negative); Ketone, Urine Negative (Negative); Leukocyte 250 Leu/uL (Negative); Nitrite 1+ (Negative); Protein, Urine (Dipstick) 30 mg/dL (Neg-Trace); Specific Gravity, Urine 1.027 (1.002-1.036); Squamous Epithelial None Seen HPF (0-3); WBC/HPF Greater than 50 HPF (0-3); pH, Urine 5.5 (5.0-9.0)
[2020-08-03 06:50] LABS: Bacteria/HPF 1+ HPF (None Seen); Urine Culture Reflex Yes Yes
[2020-08-03] MEDS: Pramipexole Di-HCl 1 MG TAB PO SCH ×3 (07:16→19:59)
[2020-08-03] MEDS: Scopolamine 1.5 mg/72 hour Patch TOP SCH (07:37)
--- NOTE | 2020-08-03 07:51 | PRG ---
DATE OF SERVICE: 08/03/2020 SUBJECTIVE: Abhay Cooley had an uneventful night. OBJECTIVE: VITAL SIGNS: Heart rate is 88, blood pressure is 105/86, respiratory rates in the 20s, oximetry is 96. LUNGS: Remarkable for equal breath sounds. HEART: Regular rhythm. ABDOMEN: Soft. EXTREMITIES: Without asymmetry. LABORATORY DATA: White count 11.6, hemoglobin 12.7, platelets 321. Electrolytes are unremarkable. BUN 52, creatinine 0.9. IMPRESSION: 1. Respiratory failure after COVID with tracheostomy. 2. Persistent encephalopathy that waxes and wanes is expected with this critical illness. PLAN: We will continue with supportive care. Job ID: [id number] MTDD
[2020-08-03] MEDS: Ziprasidone 20 MG VIAL IM SCH ×2 (08:13→20:00)
[2020-08-03] MEDS: Dexamethasone 1 MG TAB PO SCH (08:15)
[2020-08-03] MEDS: Ascorbic Acid 500 mg Chewable Tablet PO SCH (08:16)
[2020-08-03] MEDS: Cholecalciferol (Vitamin D3) 400 UNITS TAB PO SCH (08:16)
[2020-08-03] MEDS: Folic Acid 1 MG TAB PO SCH (08:17)
[2020-08-03] MEDS: Pantoprazole 40 MG GRANULES PACKET PER TUBE SCH (08:17)
[2020-08-03] MEDS: Apixaban 5 MG TAB PO SCH ×2 (08:17→20:00)
--- NOTE | 2020-08-03 15:34 | CON ---
DATE OF CONSULTATION: HISTORY OF PRESENT ILLNESS: This is a 75-year-old white male admitted to this hospital I think since about the 02 of July. He came in after having COVID for a couple of weeks and developing hypoxia at home. He has been in the ICU and intubated. He had a trach. He had some renal insufficiency, saw Dr. Chakraborty, that has since corrected. He has been seeing the hospitalist as well as Dr. Ames. He is at this point, not ventilator dependent, but it sounds like on talking to his nurse that occasionally he is still using a ventilator when he tires. He is still in the intensive care unit. He is no longer on any COVID quarantine as he has been here long enough. His was with him today. The patient does have some confusion, and with a trach, he could not answer questions, but she had good knowledge of his history. He had prostate cancer, that was treated with a radical prostatectomy by Dr. Levi well over 10 years ago. [facility] She states that his PSA has been undetectable. He has not had other urologic concerns. The reason I was asked to be seen as that his Gutierrez catheter has been in while he has been so sick, but it was removed 2 or 3 days ago when he has had trouble urinating since apparently he has done nothing more than just a small amount of incontinence, and when he has had bladder volumes checked, his bladder has been full, sometimes up I think 500 to 600 mL, so he has been in and out catheterization a couple times. His states that he had a little bit of incontinence of urine after his radical prostatectomy, but really in the last number of years has had really no significant problems. He has been afebrile. His heart rate has been up, but his blood pressure has been stable. He is currently sitting in a chair. He had a trach in, his is sitting next to him. His white count is 11.6 and his hemoglobin is 12.7. His creatinine is 0.9. He had a urinalysis this morning, that showed greater than 50 white cells, 1+ bacteria. I do not know if it was center or not, but I have asked the next time they cath him to send a urine culture on that. One exam, he has no urethral erosion. He is circumcised. The testicles descended, soft, and nontender, nothing to suggest epididymitis. No perineal skin breakdown. IMPRESSION: 1. History of prostate cancer. He apparently has done very well following radical prostatectomy. 2. Inability to empty his bladder after at least a 4- to 5-week stay with COVID patient who was critically ill and is currently improving, although he is very weak and still not out of the ICU. I talked with his about options. I would not look at a suprapubic tube yet. There is a little risk in placing it because of his prior radical prostatectomy. I think he could either go with the indwelling catheter and then maybe once every 7-10 days have it removed and give him days of wearing trial. The other option is to do in-and-out catheterization, preferably, this will be done by him, but that is not going to be possible currently. I talked with the nursing staff in the ICU and they can do this and I think we need to do it about 5 times a day and need to do it to keep his in-and-out catheterization volumes no more than 400 to 500 mL, so his bladder does not become distended and make it harder for him to recover his urinary tract function. I would hope that what we are dealing with is just a weak bladder from his illness. I talked with the nursing staff there was no difficulty in passing his Gutierrez catheter. I would not expect him to have any form of outlet obstruction related to him having a radical prostatectomy, so he does not have any prostate tissue left. The would not like to look at trying in-and-out catheterization, so I have talked with the nursing staff and they will do that. They will make sure to send a urine culture in the next time they in-and-out catheterizing him. Depending on what is growing, he may or may not be treated as a colonization, such a common finding and managed with indwelling catheters and then even when being maintained with in-and-out catheterization, but we will see what grows and see what type of organism is and what risk it will be with him. Hopefully, we will see him in the next few weeks that his bladder returns and that will be able to start urinating, even though when he does do this, he is going to need to still be in and out catheterization to look at what his residuals are, but hopefully his residuals return to low values. I do not think I would do anything further at this time. I think going back to indwelling catheter is not unreasonable and give him a voiding trial every 7 to 10 days, and if his feels like the catheterization frequency is bothering him, then leaving an indwelling catheter and checking him periodically is another option. Job ID: [id number] MTDD
--- NOTE | 2020-08-03 16:33 | PDOC.HOSPP ---
- Subjective Encounter Date: 08/03/20 Encounter Time: 16:30 Subjective: f/u for COVID PNA/resp failure with trach/PEG. Nursing noted urinary retention treated with Rodrigues catheterization/Flomax. - Objective Vital Signs & Weight: Vital Signs (12 hours) Temp Pulse Ox 08/03/20 15:00 97.9 F 08/03/20 11:00 97.9 F 08/03/20 07:38 97 08/03/20 07:00 96.5 F L Weight Admit Weight 163 lb 9.328 oz Weight 119 lb 0.794 oz Most Recent Monitor Data Heart Rate from ECG 100 NIBP 104/76 NIBP BP-Mean 85 Respiration from ECG 20 SpO2 97 I&O: 08/02/20 08/03/20 08/04/20 06:59 06:59 06:59 Intake Total 1310 1670 770 Output Total 601 2750 555 Balance 709 -3473 215 Result Diagrams: 08/03/20 03:24 08/03/20 03:24 EKG Reviewed by me: Yes (Tele - SR) Hospitalist ROS - Medication Medications: Active Medications Generic Name Dose Route Start Last Admin Trade Name Freq PRN Reason Stop Dose Admin Acetaminophen 1,000 mg 07/06/20 14:14 08/01/20 23:34 Acetaminophen 650 Mg/20.3 Ml Udcup PER TUBE 1,000 mg Q6H PRN Administration Headache/Fever or Pain Alprazolam 0.25 mg 07/26/20 11:01 08/02/20 20:57 Alprazolam 0.25 Mg Tab PO 0.25 mg QID PRN Administration Anxiety Apixaban 5 mg 08/01/20 21:00 08/03/20 08:17 Apixaban 5 Mg Tab PO 5 mg BID JOHN Administration Ascorbic Acid 1,000 mg 07/03/20 09:00 08/03/20 08:16 Ascorbic Acid 500 Mg Chewable Tablet PO 1,000 mg DAILY JOHN Administration Bisacodyl 10 mg 07/13/20 11:09 07/17/20 14:07 Bisacodyl 10 Mg Supp [place] 10 mg Q8H PRN Administration Constipation Cholecalciferol 400 units 07/03/20 09:00 08/03/20 08:16 Cholecalciferol (Vitamin D3) 400 Units Tab PO 400 units DAILY JOHN Administration Dexamethasone 2 mg 07/27/20 08:00 08/03/20 08:15 Dexamethasone 1 Mg Tab PO 2 mg QAM-WM JOHN Administration Folic Acid 1 mg 07/10/20 09:00 08/03/20 08:17 Folic Acid 1 Mg Tab PO 1 mg DAILY JOHN Administration Sodium Chloride 1,000 mls @ 0 mls/hr 07/10/20 13:40 07/19/20 05:06 1/2 Normal Saline IV 1,000 mls .Q0M JOHN Administration KVO Insulin Human Lispro 0 units 07/03/20 01:26 07/26/20 16:23 Humalog 300 Units/3 Ml Vial SC 2 unit .MILD SLIDING SCALE PRN Administration Mild Correctional Scale Melatonin 9 mg 07/26/20 21:00 08/02/20 20:56 Melatonin 3 Mg Tab PER TUBE 9 mg HS JOHN Administration Pantoprazole Sodium 40 mg 07/16/20 09:00 08/03/20 08:17 Pantoprazole 40 Mg Granules Packet PER TUBE 40 mg DAILY JOHN Administration Pramipexole Dihydrochloride 1 mg 07/20/20 07:00 08/03/20 12:55 Pramipexole Di-Hcl 1 Mg Tab PO 1 mg 0700,1300,2000 JOHN Administration Quetiapine Fumarate 25 mg 07/29/20 21:00 08/02/20 20:57 Quetiapine Fumarate 25 Mg Tab PO 25 mg HS JOHN Administration Scopolamine 1.5 mg 07/25/20 04:00 08/03/20 07:37 Scopolamine 1.5 Mg/72 Hour Patch TOP 1.5 mg Q3D JOHN Administration Sodium Chloride 10 ml 07/03/20 21:00 08/03/20 08:17 Flush - Normal Saline 10 Ml Syringe IVF 10 ml Q12HR JOHN Administration Sterile Water 1.2 ml 07/31/20 11:00 07/31/20 21:16 Sterile Water 10 Ml Vial FS 1.2 ml PRN PRN Administration RECONSTITUTION Tamsulosin HCl 0.4 mg 08/02/20 21:00 08/02/20 20:56 Tamsulosin Hcl 0.4 Mg Cap PO 0.4 mg HS JOHN Administration Ziprasidone 10 mg 07/31/20 21:00 08/03/20 08:13 Ziprasidone 20 Mg Vial IM 10 mg Q12HR JOHN Administration Hospitalist Exam Vitals: Vital Signs (12 hours) Temp Pulse Ox 08/03/20 15:00 97.9 F 08/03/20 11:00 97.9 F 08/03/20 07:38 97 08/03/20 07:00 96.5 F L Weight Admit Weight 163 lb 9.328 oz Weight 119 lb 0.794 oz Most Recent Monitor Data Heart Rate from ECG 100 NIBP 104/76 NIBP BP-Mean 85 Respiration from ECG 20 SpO2 97 General Appearance: NAD, awake alert Eye: PERRL, anicteric sclera ENT: normocephalic atraumatic, no oropharyngeal lesions Neck: supple, symmetric, no JVD, no thyromegaly, no lymphadenopathy Heart: RRR, no gallops, no rubs, normal peripheral pulses Heart - other findings: S1, S2 Respiratory - other findings: diminished in bases o/w clear Gastrointestinal: soft, non-tender, non-distended, normal bowel sounds, no palpable masses, no hepatomegaly Extremities: no cyanosis, no clubbing, no edema Skin: normal turgor Hosp A/P (1) Acute respiratory failure with hypoxia Code(s): J96.01 - ACUTE RESPIRATORY FAILURE WITH HYPOXIA Status: Acute Plan: Continue T-collar with trach, titrate to clinical response (2) Delirium Code(s): R41.0 - DISORIENTATION, UNSPECIFIED Status: Acute Plan: Improved but fluctuating, support mgmt, re-orientation techniques (3) Pneumonia due to COVID-19 virus Code(s): U07.1 - COVID-19; J12.82 - PNEUMONIA DUE TO CORONAVIRUS DISEASE 2018 Status: Acute (4) Diabetes mellitus type 2 in nonobese Code(s): E11.9 - TYPE 2 DIABETES MELLITUS WITHOUT COMPLICATIONS Status: Chronic (5) Parkinson disease Code(s): G20 - PARKINSON'S DISEASE Status: Chronic (6) Urinary retention Code(s): R33.9 - RETENTION OF URINE, UNSPECIFIED Status: Acute Plan: Rodrigues catheter insertion and monitor output, Flomax 0.4mg daily - Plan rodrigues catheter, continue antibiotics, PT/OT, social work coordinator, speech therapy, respiratory therapy, DVT proph w/SCDs Stable overall Continue pulmonary support with T-collar OOB with PT Await LTAC options, likely transfer in 24h Nutritional support with TF's Geodon/Seroquel PRN agitation/combativeness AM lab: BMP, CBC
[2020-08-03] MEDS: cefTRIAXone\\ROCEPHIN 1 GM in Sodium Chloride 0.9% 100 ML IVPB SCH (16:54)
[2020-08-03] MEDS: Melatonin 3 MG TAB PER TUBE SCH (20:00)
[2020-08-03] MEDS: Tamsulosin HCl 0.4 MG CAP PO SCH (20:00)
[2020-08-03] MEDS: ALPRAZolam 0.25 MG TAB PO PRN (20:08)
[2020-08-04 04:03] LABS: Anion Gap 16 mmol/L (10-20); BUN (Urea Nitrogen) 39 mg/dL (8.4-25.7); Band 19 % (5-11); Calc. Creatinine Clearance 81 mL/min (70-130); Calcium 6.1 mg/dL (7.8-10.44); Carbon Dioxide 15 mmol/L (23-31); Chloride 119 mmol/L (98-107); Glucose 96 mg/dL (83-110); Hemoglobin 12.9 g/dL (14.0-18.0); Lymphocytes 3 % (21-51); MDiff Complete? YES; Mean Corpuscular HGB CONC 32.9 g/dL (32.0-36.0); Mean Corpuscular Hemoglobin 32.9 pg (27.0-31.0); Mean Platelet Volume 7.9 fL (7.4-10.4); Metamyelocyte 1 % (0-0); Monocytes 10 % (0-10); Neutrophil 67 % (42-75); Platelet Count 295 thou/uL (130-400); Platelet Morphology Comment Appears Adequate; Potassium 3.5 mmol/L (3.5-5.1); RBC Distribution Width 12.4 % (11.5-14.5); Red Blood Cell (RBC) Count 3.92 mill/uL (4.70-6.10); Sodium 146 mmol/L (136-145); White Blood Cell (WBC) Count 10.9 thou/uL (4.8-10.8)
[2020-08-04] MEDS: Pramipexole Di-HCl 1 MG TAB PO SCH ×4 (07:49→22:34)
[2020-08-04] MEDS: Dexamethasone 1 MG TAB PO SCH (07:49)
[2020-08-04] MEDS: Ziprasidone 20 MG VIAL IM SCH ×3 (08:00→22:37)
[2020-08-04] MEDS: Ascorbic Acid 500 mg Chewable Tablet PO SCH (08:03)
[2020-08-04] MEDS: Apixaban 5 MG TAB PO SCH ×2 (08:03→22:33)
[2020-08-04] MEDS: Cholecalciferol (Vitamin D3) 400 UNITS TAB PO SCH (08:03)
[2020-08-04] MEDS: Folic Acid 1 MG TAB PO SCH (08:03)
[2020-08-04] MEDS: Pantoprazole 40 MG GRANULES PACKET PER TUBE SCH (08:03)
[2020-08-04] MEDS: Acetaminophen 650 MG/20.3 ML UDCUP PER TUBE PRN (10:35)
[2020-08-04] MEDS: ALPRAZolam 0.25 MG TAB PO PRN (10:36)
--- NOTE | 2020-08-04 14:33 | PRG ---
DATE OF SERVICE: 08/04/2020 He has been afebrile with stable vital signs. He has had decent urine output via Gutierrez. The decided it would be easier on him just to leave a Gutierrez in. I think that is not unreasonable. I think maybe every 7 to 10 days as long as he is improving give him a day without a Gutierrez and voiding trial. It looks like he is going to be going to LTAC unit that is not going to be near here probably in the next couple of days. I think that they could certainly do voiding trials there. It does look like he has a gram-negative akhil growing in his urine, which is not unexpected, will probably be back tomorrow. I do not really know if it is with much value to treat this in a patient that is asymptomatic with a normal white count and catheter in. We will just see what organism grows. If it is growing out Pseudomonas or something like that, it is probably reasonable to treat it. I would doubt that he has any obstructive process related to his inability to urinate. Does not have a prostate anymore. I think this is probably more of a weak bladder and hopefully with better nutrition and improvement from his COVID this will return for him. Job ID: [id number]
--- NOTE | 2020-08-04 14:40 | PRG ---
DATE OF SERVICE: 08/04/2020 SUBJECTIVE: Abhay Cooley was more encephalopathic at night, last night. We will increase his Geodon dose in the evening to 20 mg. OBJECTIVE: VITAL SIGNS: Remain stable. LUNGS: Unchanged. HEART: Unchanged. ABDOMEN: Unchanged. ASSESSMENT AND PLAN: Encephalopathy associated with being in the ICU, Parkinson's, and COVID. He is stable to move out of the Critical Care Unit with a sitter in my opinion. I met with the and answered all of her questions. Job ID: [id number]
[2020-08-04] MEDS ORDERED: Sterile Water 10 ML VIAL FS PRN (15:00)
--- NOTE | 2020-08-04 15:00 | PDOC.HOSPP ---
- Subjective Encounter Date: 08/04/20 Encounter Time: 15:00 Subjective: f/u for COVID PNA/resp failure with trach/T-collar. Feels ok overall but intermittent confusion. - Objective Vital Signs & Weight: Vital Signs (12 hours) Temp Pulse Ox 08/04/20 12:00 98.7 F 08/04/20 11:04 97 08/04/20 08:00 98.9 F 94 L 08/04/20 07:23 100 08/04/20 04:00 98 F 08/04/20 03:48 98.4 F Weight Admit Weight 163 lb 9.328 oz Weight 126 lb 8.725 oz Most Recent Monitor Data Heart Rate from ECG 106 NIBP 126/67 NIBP BP-Mean 86 Respiration from ECG 20 SpO2 94 I&O: 08/03/20 08/04/20 08/05/20 06:59 06:59 06:59 Intake Total 1670 1490 794 Output Total 2750 1550 450 Balance -1080 -60 344 Result Diagrams: 08/04/20 03:30 08/04/20 03:30 Additional Labs: Microbiology 08/03/20 06:50 Urine Straight Catheter Urine Culture - Preliminary Gram Negative Fidel EKG Reviewed by me: Yes (Tele - Sinus tachycardia) Hospitalist ROS - Medication Medications: Active Medications Generic Name Dose Route Start Last Admin Trade Name Freq PRN Reason Stop Dose Admin Acetaminophen 1,000 mg 07/06/20 14:14 08/04/20 10:35 Acetaminophen 650 Mg/20.3 Ml Udcup PER TUBE 1,000 mg Q6H PRN Administration Headache/Fever or Pain Alprazolam 0.25 mg 07/26/20 11:01 08/04/20 10:36 Alprazolam 0.25 Mg Tab PO 0.25 mg QID PRN Administration Anxiety Apixaban 5 mg 08/01/20 21:00 08/04/20 08:03 Apixaban 5 Mg Tab PO 5 mg BID JOHN Administration Ascorbic Acid 1,000 mg 07/03/20 09:00 08/04/20 08:03 Ascorbic Acid 500 Mg Chewable Tablet PO 1,000 mg DAILY JOHN Administration Bisacodyl 10 mg 07/13/20 11:09 07/17/20 14:07 Bisacodyl 10 Mg Supp ID 10 mg Q8H PRN Administration Constipation Cholecalciferol 400 units 07/03/20 09:00 08/04/20 08:03 Cholecalciferol (Vitamin D3) 400 Units Tab PO 400 units DAILY JOHN Administration Dexamethasone 2 mg 07/27/20 08:00 08/04/20 07:49 Dexamethasone 1 Mg Tab PO 2 mg QAM-WM JOHN Administration Folic Acid 1 mg 07/10/20 09:00 08/04/20 08:03 Folic Acid 1 Mg Tab PO 1 mg DAILY JOHN Administration Sodium Chloride 1,000 mls @ 0 mls/hr 07/10/20 13:40 07/19/20 05:06 1/2 Normal Saline IV 1,000 mls .Q0M JOHN Administration KVO Ceftriaxone Sodium 1 gm/ 100 mls @ 200 mls/hr 08/03/20 17:00 08/03/20 16:54 Sodium Chloride IVPB 100 mls Q24HR JOHN Administration Insulin Human Lispro 0 units 07/03/20 01:26 07/26/20 16:23 Humalog 300 Units/3 Ml Vial SC 2 unit .MILD SLIDING SCALE PRN Administration Mild Correctional Scale Melatonin 9 mg 07/26/20 21:00 08/03/20 20:00 Melatonin 3 Mg Tab PER TUBE 9 mg HS JOHN Administration Pantoprazole Sodium 40 mg 07/16/20 09:00 08/04/20 08:03 Pantoprazole 40 Mg Granules Packet PER TUBE 40 mg DAILY JOHN Administration Pramipexole Dihydrochloride 1 mg 07/20/20 07:00 08/04/20 13:17 Pramipexole Di-Hcl 1 Mg Tab PO 1 mg 0700,1300,2000 JOHN Administration Quetiapine Fumarate 25 mg 07/29/20 21:00 08/03/20 19:59 Quetiapine Fumarate 25 Mg Tab PO 25 mg HS JOHN Administration Scopolamine 1.5 mg 07/25/20 04:00 08/03/20 07:37 Scopolamine 1.5 Mg/72 Hour Patch TOP 1.5 mg Q3D JOHN Administration Sodium Chloride 10 ml 07/03/20 21:00 08/04/20 08:03 Flush - Normal Saline 10 Ml Syringe IVF 10 ml Q12HR JOHN Administration Sterile Water 1.2 ml 07/31/20 11:00 07/31/20 21:16 Sterile Water 10 Ml Vial FS 1.2 ml PRN PRN Administration RECONSTITUTION Tamsulosin HCl 0.4 mg 08/02/20 21:00 08/03/20 20:00 Tamsulosin Hcl 0.4 Mg Cap PO 0.4 mg HS JOHN Administration Hospitalist Exam Vitals: Vital Signs (12 hours) Temp Pulse Ox 08/04/20 12:00 98.7 F 08/04/20 11:04 97 08/04/20 08:00 98.9 F 94 L 08/04/20 07:23 100 08/04/20 04:00 98 F 08/04/20 03:48 98.4 F Weight Admit Weight 163 lb 9.328 oz Weight 126 lb 8.725 oz Most Recent Monitor Data Heart Rate from ECG 106 NIBP 126/67 NIBP BP-Mean 86 Respiration from ECG 20 SpO2 94 General Appearance: NAD, awake alert Eye: PERRL, anicteric sclera ENT: normocephalic atraumatic, no oropharyngeal lesions Neck: supple, symmetric, no JVD, no thyromegaly Neck - other findings: trach in place with T-piece Heart: no gallops, no rubs, normal peripheral pulses Heart - other findings: S1, S2 tachycardic Respiratory: tachypneic Respiratory - other findings: coarse sounds bilat, diminished in bases Gastrointestinal: soft, non-tender, non-distended, normal bowel sounds, no palpable masses Gastrointestinal - other findings: PEG in place Extremities: no cyanosis, no clubbing, no edema Skin: normal turgor Neurological: cranial nerve grossly intact, no new deficit Musculoskeletal: normal tone, generalized weakness Psychiatric: normal affect, oriented to person Hosp A/P (1) Acute respiratory failure with hypoxia Code(s): J96.01 - ACUTE RESPIRATORY FAILURE WITH HYPOXIA Status: Acute (2) Delirium Code(s): R41.0 - DISORIENTATION, UNSPECIFIED Status: Acute (3) Pneumonia due to COVID-19 virus Code(s): U07.1 - COVID-19; J12.82 - PNEUMONIA DUE TO CORONAVIRUS DISEASE 2019 Status: Acute (4) Diabetes mellitus type 2 in nonobese Code(s): E11.9 - TYPE 2 DIABETES MELLITUS WITHOUT COMPLICATIONS Status: Chronic (5) Parkinson disease Code(s): G20 - PARKINSON'S DISEASE Status: Chronic (6) Urinary retention Code(s): R33.9 - RETENTION OF URINE, UNSPECIFIED Status: Acute - Plan continue antibiotics, PT/OT, drug abuse social worker, speech therapy, respiratory therapy, out of bed/ambulate, DVT proph w/SCDs Stable overall Continue pulmonary support with T-collar OOB with PT Await LTAC options, likely transfer in 24h Nutritional support with TF's Geodon/Seroquel PRN agitation/combativeness Transfer to medical floor AM lab: BMP, CBC
[2020-08-04] MEDS: cefTRIAXone\\ROCEPHIN 1 GM in Sodium Chloride 0.9% 100 ML IVPB SCH (16:00)
[2020-08-04] MEDS ORDERED: Ziprasidone 20 MG VIAL IM SCH (21:00)
[2020-08-04] MEDS: Tamsulosin HCl 0.4 MG CAP PO SCH (22:33)
[2020-08-04] MEDS: Melatonin 3 MG TAB PER TUBE SCH (22:34)
[2020-08-04] MEDS ORDERED: Sterile Water 10 ML ONE (22:39)
[2020-08-05 06:15] LABS: Band 8 % (5-11); Hemoglobin 12.8 g/dL (14.0-18.0); Hypochromia SLIGHT = 6-15 cells (100X) (0-5/hpf); Lymphocytes 17 % (21-51); MDiff Complete? YES; Mean Corpuscular Hemoglobin 29.9 pg (27.0-31.0); Mean Corpuscular Volume 99.6 fL (78.0-98.0); Mean Platelet Volume 7.7 fL (7.4-10.4); Monocytes 3 % (0-10); Neutrophil 72 % (42-75); Platelet Count 417 thou/uL (130-400); Platelet Morphology Comment Appears Increased; RBC Distribution Width 12.4 % (11.5-14.5); Red Blood Cell (RBC) Count 4.29 mill/uL (4.70-6.10); White Blood Cell (WBC) Count 13.3 thou/uL (4.8-10.8)
[2020-08-05 06:18] LABS: Anion Gap 14 mmol/L (10-20); BUN (Urea Nitrogen) 59 mg/dL (8.4-25.7); Calc. Creatinine Clearance 48 mL/min (70-130); Calcium 8.9 mg/dL (7.8-10.44); Carbon Dioxide 26 mmol/L (23-31); Chloride 106 mmol/L (98-107); Glucose 205 mg/dL (83-110); Potassium 4.4 mmol/L (3.5-5.1); Sodium 142 mmol/L (136-145)
[2020-08-05] MEDS: Folic Acid 1 MG TAB PO SCH (08:13)
[2020-08-05] MEDS: Ascorbic Acid 500 mg Chewable Tablet PO SCH (08:13)
[2020-08-05] MEDS: Pantoprazole 40 MG GRANULES PACKET PER TUBE SCH (08:13)
[2020-08-05] MEDS: Apixaban 5 MG TAB PO SCH ×2 (08:13→20:38)
[2020-08-05] MEDS: Cholecalciferol (Vitamin D3) 400 UNITS TAB PO SCH (08:14)
[2020-08-05] MEDS: Ziprasidone 20 MG VIAL IM SCH ×2 (08:27→20:37)
[2020-08-05] MEDS: Dexamethasone 1 MG TAB PO SCH (08:27)
[2020-08-05] MEDS ORDERED: Ziprasidone 20 MG VIAL IM SCH (09:00)
--- NOTE | 2020-08-05 10:56 | PDOC.HOSPP ---
- Subjective Encounter Date: 08/05/20 Encounter Time: 10:45 Subjective: f/u for COVID PNA/resp failure requiring trach placement. Receiving O2 via T- collar. Awaiting LTAC options. - Objective Vital Signs & Weight: Vital Signs (12 hours) Temp Pulse Resp BP Pulse Ox 08/05/20 08:00 91 L 08/05/20 07:20 98.4 F 104 H 16 118/77 100 08/05/20 01:14 97.9 F 105 H 22 H 119/76 93 L Weight Admit Weight 163 lb 9.328 oz Weight 135 lb 3.2 oz Most Recent Monitor Data Heart Rate from ECG 89 NIBP 110/76 NIBP BP-Mean 87 Respiration from ECG 17 SpO2 94 I&O: 08/04/20 08/05/20 08/06/20 06:59 06:59 06:59 Intake Total 1490 794 820 Output Total 1550 560 Balance -60 234 820 Result Diagrams: 08/05/20 05:31 08/05/20 05:31 Additional Labs: Accuchecks 08/05/20 05:35 POC Glucose 191 H Microbiology 08/03/20 06:50 Urine Straight Catheter Urine Culture - Preliminary Gram Negative Fidel Hospitalist ROS - Medication Medications: Active Medications Generic Name Dose Route Start Last Admin Trade Name Freq PRN Reason Stop Dose Admin Acetaminophen 1,000 mg 07/06/20 14:14 08/04/20 10:35 Acetaminophen 650 Mg/20.3 Ml Udcup PER TUBE 1,000 mg Q6H PRN Administration Headache/Fever or Pain Alprazolam 0.25 mg 07/26/20 11:01 08/04/20 10:36 Alprazolam 0.25 Mg Tab PO 0.25 mg QID PRN Administration Anxiety Apixaban 5 mg 08/01/20 21:00 08/05/20 08:13 Apixaban 5 Mg Tab PO 5 mg BID JOHN Administration Ascorbic Acid 1,000 mg 07/03/20 09:00 08/05/20 08:13 Ascorbic Acid 500 Mg Chewable Tablet PO 1,000 mg DAILY JOHN Administration Bisacodyl 10 mg 07/13/20 11:09 07/17/20 14:07 Bisacodyl 10 Mg Supp [place] 10 mg Q8H PRN Administration Constipation Cholecalciferol 400 units 07/03/20 09:00 08/05/20 08:14 Cholecalciferol (Vitamin D3) 400 Units Tab PO 400 units DAILY JOHN Administration Dexamethasone 2 mg 07/27/20 08:00 08/05/20 08:27 Dexamethasone 1 Mg Tab PO 2 mg QAM-WM JOHN Administration Folic Acid 1 mg 07/10/20 09:00 08/05/20 08:13 Folic Acid 1 Mg Tab PO 1 mg DAILY JOHN Administration Sodium Chloride 1,000 mls @ 0 mls/hr 07/10/20 13:40 07/19/20 05:06 1/2 Normal Saline IV 1,000 mls .Q0M JOHN Administration KVO Ceftriaxone Sodium 1 gm/ 100 mls @ 200 mls/hr 08/03/20 17:00 08/04/20 16:00 Sodium Chloride IVPB 100 mls Q24HR JOHN Administration Insulin Human Lispro 0 units 07/03/20 01:26 07/26/20 16:23 Humalog 300 Units/3 Ml Vial SC 2 unit .MILD SLIDING SCALE PRN Administration Mild Correctional Scale Melatonin 9 mg 07/26/20 21:00 08/04/20 22:34 Melatonin 3 Mg Tab PER TUBE 9 mg HS JOHN Administration Pantoprazole Sodium 40 mg 07/16/20 09:00 08/05/20 08:13 Pantoprazole 40 Mg Granules Packet PER TUBE 40 mg DAILY JOHN Administration Pramipexole Dihydrochloride 1 mg 07/20/20 07:00 08/04/20 22:34 Pramipexole Di-Hcl 1 Mg Tab PO 1 mg 0700,1300,2000 JOHN Administration Quetiapine Fumarate 25 mg 07/29/20 21:00 08/04/20 22:34 Quetiapine Fumarate 25 Mg Tab PO 25 mg HS JOHN Administration Scopolamine 1.5 mg 07/25/20 04:00 08/03/20 07:37 Scopolamine 1.5 Mg/72 Hour Patch TOP 1.5 mg Q3D JOHN Administration Sodium Chloride 10 ml 07/03/20 21:00 08/05/20 08:27 Flush - Normal Saline 10 Ml Syringe IVF 10 ml Q12HR JOHN Administration Sterile Water 1.2 ml 07/31/20 11:00 07/31/20 21:16 Sterile Water 10 Ml Vial FS 1.2 ml PRN PRN Administration RECONSTITUTION Tamsulosin HCl 0.4 mg 08/02/20 21:00 08/04/20 22:33 Tamsulosin Hcl 0.4 Mg Cap PO 0.4 mg HS JOHN Administration Ziprasidone 10 mg 08/05/20 09:00 08/05/20 08:27 Ziprasidone 20 Mg Vial IM 10 mg QAM JOHN Administration Ziprasidone 20 mg 08/04/20 21:00 08/04/20 22:37 Ziprasidone 20 Mg Vial IM 20 mg QPM JOHN Administration Hospitalist Exam Vitals: Vital Signs (12 hours) Temp Pulse Resp BP Pulse Ox 08/05/20 08:00 91 L 08/05/20 07:20 98.4 F 104 H 16 118/77 100 08/05/20 01:14 97.9 F 105 H 22 H 119/76 93 L Weight Admit Weight 163 lb 9.328 oz Weight 135 lb 3.2 oz Most Recent Monitor Data Heart Rate from ECG 89 NIBP 110/76 NIBP BP-Mean 87 Respiration from ECG 17 SpO2 94 General Appearance: NAD, awake alert Eye: PERRL, anicteric sclera ENT: normocephalic atraumatic, no oropharyngeal lesions Neck: supple, symmetric, no JVD, no thyromegaly, no lymphadenopathy Neck - other findings: trach in place with T-piece Heart: RRR, no gallops, no rubs, normal peripheral pulses Heart - other findings: S1, S2 Respiratory - other findings: diminished in bases, occ rhonchi Gastrointestinal: soft, non-tender, non-distended, normal bowel sounds, no palpable masses Extremities: no cyanosis, no clubbing, no edema Skin: normal turgor Neurological: cranial nerve grossly intact, no new deficit Musculoskeletal: normal tone, generalized weakness Psychiatric: oriented to person, oriented to place Hosp A/P (1) Acute respiratory failure with hypoxia Code(s): J96.01 - ACUTE RESPIRATORY FAILURE WITH HYPOXIA Status: Acute Plan: Continue T-collar and titrate to clinical response (2) Delirium Code(s): R41.0 - DISORIENTATION, UNSPECIFIED Status: Acute Plan: Improved, continue supportive mgmt, family support, re-orientation techniques, limit daytime sedation/pain meds (3) Pneumonia due to COVID-19 virus Code(s): U07.1 - COVID-19; J12.82 - PNEUMONIA DUE TO CORONAVIRUS DISEASE 2019 Status: Acute (4) Diabetes mellitus type 2 in nonobese Code(s): E11.9 - TYPE 2 DIABETES MELLITUS WITHOUT COMPLICATIONS Status: Chronic (5) Parkinson disease Code(s): G20 - PARKINSON'S DISEASE Status: Chronic (6) Urinary retention Code(s): R33.9 - RETENTION OF URINE, UNSPECIFIED Status: Acute Plan: Continue Gutierrez catheter, Rocephin 1gm IV daily, await final Ucx results - Plan plan discussed w/ family, continue antibiotics, PT/OT, social service liaison, respiratory therapy, out of bed/ambulate, DVT proph w/SCDs Stable overall Continue pulmonary support with T-collar OOB with PT Await LTAC options, likely [facility] in [place], [place] Nutritional support with TF's Geodon/Seroquel PRN agitation/combativeness
[2020-08-05] MEDS ORDERED: ALPRAZolam 0.25 MG TAB PO PRN (11:11)
--- NOTE | 2020-08-05 13:04 | PRG ---
DATE OF SERVICE: 08/05/2020 The patient has been afebrile. Good urine output. His white count went up slightly. His preliminary urine cultures now Pseudomonas. Sensitivities probably will be back on tomorrow. I think that we should probably treat his Pseudomonas and I am writing him for gram of cefepime today, it should have good urinary tract coverage. Change him over to, hopefully, an oral antibiotic or would continue IV antibiotic depending on what the sensitivities show tomorrow. Job ID: [id number]
[2020-08-05] MEDS: Pramipexole Di-HCl 1 MG TAB PO SCH ×2 (13:22→20:37)
[2020-08-05] MEDS: Cefepime 1 GM in Sodium Chloride 0.9% 100 ML IVPB SCH (13:23)
--- NOTE | 2020-08-05 14:57 | PRG ---
DATE OF SERVICE: 08/05/2020 OBJECTIVE: VITAL SIGNS: Abhay Cooley is afebrile, heart rate is 98, respiratory rate is 16, oximetry is 98% on his trach collar, blood pressure 102/73. LUNGS: Clear. HEART: Regular rhythm. ABDOMEN: Soft. He continues to . LABORATORY DATA: White count 13.3, hemoglobin 12.8, and platelets 417. Electrolytes are normal. BUN 59, creatinine 1.2. Intake and output were positive 234. IMPRESSION: 1. COVID pneumonia, respiratory failure, doing well after tracheostomy and PEG. 2. Persistent encephalopathy that waxes and wanes. We will continue to adjust medications to see if we can get better control of his symptoms. He had Pseudomonas on the urine culture via straight catheterization. 3. Pseudomonas is being treated with cefepime for now. 4. His urinary difficulty is felt to be secondary to weak bladder. 5. Dr. Lim is following him. He does not really have any need for both cefepime and ceftriaxone, so the Rocephin will be discontinued. We will go up on his dose of Seroquel at bedtime to see if that helps. I doubt the melatonin is doing much. Job ID: [id number]
[2020-08-05] MEDS: Acetaminophen 650 MG/20.3 ML UDCUP PER TUBE PRN (15:11)
[2020-08-05] MEDS: Tamsulosin HCl 0.4 MG CAP PO SCH (20:38)
[2020-08-06] MEDS: Scopolamine 1.5 mg/72 hour Patch TOP SCH (04:01)
[2020-08-06] MEDS ORDERED: Activase 2 MG VIAL CATH SCH (04:45)
[2020-08-06] MEDS ORDERED: Sterile Water 10 ML VIAL IVP SCH (04:45)
[2020-08-06] MEDS: Pramipexole Di-HCl 1 MG TAB PO SCH ×3 (05:41→19:45)
[2020-08-06] MEDS: Sodium Chloride 0.45% 1,000 ML IV SCH (05:41)
[2020-08-06] MEDS ORDERED: Sterile Water 10 ML ONE (08:04)
[2020-08-06] MEDS: Ziprasidone 20 MG VIAL IM SCH (08:25)
[2020-08-06] MEDS: Apixaban 5 MG TAB PO SCH ×2 (08:44→19:45)
[2020-08-06] MEDS: Dexamethasone 1 MG TAB PO SCH (08:45)
[2020-08-06] MEDS: Folic Acid 1 MG TAB PO SCH (08:45)
[2020-08-06] MEDS: Ascorbic Acid 500 mg Chewable Tablet PO SCH (08:45)
[2020-08-06] MEDS: Pantoprazole 40 MG GRANULES PACKET PER TUBE SCH (08:45)
[2020-08-06] MEDS: Cholecalciferol (Vitamin D3) 400 UNITS TAB PO SCH (08:45)
[2020-08-06] MEDS: Cefepime 1 GM in Sodium Chloride 0.9% 100 ML IVPB SCH (12:07)
[2020-08-06] MEDS: Haloperidol Lactate 5 MG/ML VIAL IM SCH ×3 (12:08→19:44)
[2020-08-06] MEDS: Acetaminophen 650 MG/20.3 ML UDCUP PER TUBE PRN (12:08)
--- NOTE | 2020-08-06 17:11 | PDOC.HOSPP ---
- Subjective Encounter Date: 08/06/20 Encounter Time: 17:10 Subjective: f/u for COVID PNA/resp failure s/p trach/PEG receiving Dexamethasone/Eliquis/Cefepime. Awaiting approval for LTAC. - Objective Vital Signs & Weight: Vital Signs (12 hours) Temp Pulse Resp BP Pulse Ox 08/06/20 12:00 97.7 F 86 20 173/98 H 94 L 08/06/20 09:03 104 H 24 H 120/78 98 08/06/20 09:00 96 Weight Admit Weight 163 lb 9.328 oz Weight 135 lb 3.2 oz Most Recent Monitor Data Heart Rate from ECG 89 NIBP 110/76 NIBP BP-Mean 87 Respiration from ECG 17 SpO2 94 I&O: 08/05/20 08/06/20 08/07/20 06:59 06:59 06:59 Intake Total 794 2510 237 Output Total 560 Balance 234 2510 237 Result Diagrams: 08/05/20 05:31 08/05/20 05:31 Additional Labs: Accuchecks 08/06/20 08/06/20 08/05/20 11:37 06:01 19:38 POC Glucose 127 H 118 H 125 H 08/05/20 15:37 POC Glucose 179 H Microbiology 08/03/20 06:50 Urine Straight Catheter Urine Culture - Preliminary Gram Negative Fidel Hospitalist ROS - Medication Medications: Active Medications Generic Name Dose Route Start Last Admin Trade Name Freq PRN Reason Stop Dose Admin Acetaminophen 1,000 mg 07/06/20 14:14 08/06/20 12:08 Acetaminophen 650 Mg/20.3 Ml Udcup PER TUBE 1,000 mg Q6H PRN Administration Headache/Fever or Pain Apixaban 5 mg 08/01/20 21:00 08/06/20 08:44 Apixaban 5 Mg Tab PO 5 mg BID JOHN Administration Ascorbic Acid 1,000 mg 07/03/20 09:00 08/06/20 08:45 Ascorbic Acid 500 Mg Chewable Tablet PO 1,000 mg DAILY JOHN Administration Bisacodyl 10 mg 07/13/20 11:09 07/17/20 14:07 Bisacodyl 10 Mg Supp [place] 10 mg Q8H PRN Administration Constipation Cholecalciferol 400 units 07/03/20 09:00 08/06/20 08:45 Cholecalciferol (Vitamin D3) 400 Units Tab PO 400 units DAILY JOHN Administration Dexamethasone 2 mg 07/27/20 08:00 08/06/20 08:45 Dexamethasone 1 Mg Tab PO 2 mg QAM-WM JOHN Administration Folic Acid 1 mg 07/10/20 09:00 08/06/20 08:45 Folic Acid 1 Mg Tab PO 1 mg DAILY JOHN Administration Haloperidol Lactate 5 mg 08/06/20 11:30 08/06/20 16:13 Haloperidol Lactate 5 Mg/Ml Vial IM 5 mg Q4H JOHN Administration Sodium Chloride 1,000 mls @ 0 mls/hr 07/10/20 13:40 08/06/20 05:41 1/2 Normal Saline IV 1,000 mls .Q0M JOHN Administration KVO Insulin Human Lispro 0 units 07/03/20 01:26 07/26/20 16:23 Humalog 300 Units/3 Ml Vial SC 2 unit .MILD SLIDING SCALE PRN Administration Mild Correctional Scale Pantoprazole Sodium 40 mg 07/16/20 09:00 08/06/20 08:45 Pantoprazole 40 Mg Granules Packet PER TUBE 40 mg DAILY JOHN Administration Pramipexole Dihydrochloride 1 mg 07/20/20 07:00 08/06/20 12:08 Pramipexole Di-Hcl 1 Mg Tab PO 1 mg 0700,1300,2000 JOHN Administration Scopolamine 1.5 mg 07/25/20 04:00 08/06/20 04:01 Scopolamine 1.5 Mg/72 Hour Patch TOP 1.5 mg Q3D JOHN Administration Sodium Chloride 10 ml 07/03/20 21:00 08/06/20 08:45 Flush - Normal Saline 10 Ml Syringe IVF Not Given Q12HR JOHN Tamsulosin HCl 0.4 mg 08/02/20 21:00 08/05/20 20:38 Tamsulosin Hcl 0.4 Mg Cap PO 0.4 mg HS JOHN Administration Hospitalist Exam Vitals: Vital Signs (12 hours) Temp Pulse Resp BP Pulse Ox 08/06/20 12:00 97.7 F 86 20 173/98 H 94 L 08/06/20 09:03 104 H 24 H 120/78 98 08/06/20 09:00 96 Weight Admit Weight 163 lb 9.328 oz Weight 135 lb 3.2 oz Most Recent Monitor Data Heart Rate from ECG 89 NIBP 110/76 NIBP BP-Mean 87 Respiration from ECG 17 SpO2 94 General Appearance: NAD, awake alert Eye: PERRL, anicteric sclera ENT: normocephalic atraumatic, no oropharyngeal lesions Neck: supple, symmetric, no JVD, no thyromegaly, no lymphadenopathy Heart: RRR, no gallops, no rubs, normal peripheral pulses Heart - other findings: S1, S2 Respiratory: no tachypnea Respiratory - other findings: diminished in bases , few rhochi noted Gastrointestinal: soft, non-tender, non-distended, normal bowel sounds, no palpable masses, no guarding Extremities: no cyanosis, no clubbing, no edema Skin: normal turgor Neurological: cranial nerve grossly intact, no new deficit Musculoskeletal: normal tone, generalized weakness Psychiatric: oriented to person, flat affect Hosp A/P (1) Acute respiratory failure with hypoxia Code(s): J96.01 - ACUTE RESPIRATORY FAILURE WITH HYPOXIA Status: Acute Plan: Continue pulmonary support with T-collar (2) Delirium Code(s): R41.0 - DISORIENTATION, UNSPECIFIED Status: Acute Plan: Intermittent, Haldol trial (3) Pneumonia due to COVID-19 virus Code(s): U07.1 - COVID-19; J12.82 - PNEUMONIA DUE TO CORONAVIRUS DISEASE 2019 Status: Acute Plan: Continue Cefepime/Dexamethasone/Eliquis (4) Diabetes mellitus type 2 in nonobese Code(s): E11.9 - TYPE 2 DIABETES MELLITUS WITHOUT COMPLICATIONS Status: Chronic (5) Parkinson disease Code(s): G20 - PARKINSON'S DISEASE Status: Chronic (6) Urinary retention Code(s): R33.9 - RETENTION OF URINE, UNSPECIFIED Status: Acute Plan: Gutierrez catheter for decompression, continue Cefepime for Pseudomonas UTI - Plan plan discussed w/ family, continue antibiotics, PT/OT, professor of social 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
--- NOTE | 2020-08-06 17:51 | PRG ---
DATE OF SERVICE: 08/06/2020 SUBJECTIVE: Mr. Cooley still getting very encephalopathic Geodon, Seroquel. Apparently, we have Haldol again. Earlier in this admission that was working well for him, so we will restart that. OBJECTIVE: VITAL SIGNS: He is afebrile. Heart rate is in 90s, respiratory rates in the 20s, oximetry is 94%, blood pressure 173/98. LUNGS: Clear. HEART: Regular rhythm. ABDOMEN: Soft. IMPRESSION: 1. Recent COVID pneumonia with a trach and a PEG. 2. Persistent encephalopathy. 3. Parkinson disease. PLAN: Continue supportive care. LTAC bed was available. Restart Haldol. Job ID: [id number]
[2020-08-06] MEDS: Tamsulosin HCl 0.4 MG CAP PO SCH (19:44)
[2020-08-07] MEDS: Haloperidol Lactate 5 MG/ML VIAL IM SCH ×6 (00:07→20:11)
[2020-08-07] MEDS: Pramipexole Di-HCl 1 MG TAB PO SCH ×3 (05:58→23:52)
[2020-08-07] MEDS: Ascorbic Acid 500 mg Chewable Tablet PO SCH (08:05)
[2020-08-07] MEDS: Cholecalciferol (Vitamin D3) 400 UNITS TAB PO SCH (08:05)
[2020-08-07] MEDS: Apixaban 5 MG TAB PO SCH ×2 (08:05→23:49)
[2020-08-07] MEDS: Dexamethasone 1 MG TAB PO SCH (08:05)
[2020-08-07] MEDS: Folic Acid 1 MG TAB PO SCH (08:05)
[2020-08-07] MEDS: Pantoprazole 40 MG GRANULES PACKET PER TUBE SCH (08:05)
--- NOTE | 2020-08-07 12:44 | PRG ---
DATE OF SERVICE: 08/07/2020 SUBJECTIVE: Abhay Cooley pulled his trach out this morning. He has been in the hospital for 36 days. He is still encephalopathic. I will discontinue his steroids. Hopefully, this lead to some improvement encephalopathy. We have also changed his Haldol dosing Haldol available and giving him a bigger dose of Seroquel at bedtime. Lungs, heart, and abdomen are unchanged. Apparently, he was turned down by the long-term acute care facility in [place], that is [place] approved. He has Pseudomonas in his bladder that has not caused any clinical problems. It is interesting that it is partially sensitive to Levaquin and meropenem. He has had urinary retention. It was felt to be more of a neurogenic bladder or weak bladder or some bladder outlet obstruction since he has had a prostatectomy. I appreciate Urology's assistance for this. Job ID: [id number]
[2020-08-07] MEDS: Acetaminophen 650 MG/20.3 ML UDCUP PER TUBE PRN (14:41)
--- NOTE | 2020-08-07 14:58 | PDOC.HOSPP ---
- Subjective Encounter Date: 08/07/20 Encounter Time: 09:30 Subjective: Patient pulled out his trach this morning r Respiratory therapist reinserted that back. sats are 93% at bedside. Sitter also nearby. He is on soft restraints. - Objective Vital Signs & Weight: Vital Signs (12 hours) Temp Pulse Resp BP Pulse Ox 08/07/20 12:42 97.9 F 97 20 115/78 96 08/07/20 08:52 93 L 08/07/20 07:02 97.5 F L 105 H 24 H 123/83 90 L 08/07/20 04:00 98.5 F 74 20 112/70 99 Weight Admit Weight 163 lb 9.328 oz Weight 135 lb 3.2 oz Most Recent Monitor Data Heart Rate from ECG 89 NIBP 110/76 NIBP BP-Mean 87 Respiration from ECG 17 SpO2 94 I&O: 08/06/20 08/07/20 08/08/20 06:59 06:59 06:59 Intake Total 2510 2197 750 Output Total 1400 350 Balance 2510 797 400 Result Diagrams: 08/05/20 05:31 08/05/20 05:31 Additional Labs: Accuchecks 08/07/20 08/07/20 08/06/20 11:56 04:26 19:43 POC Glucose 143 H 114 H 149 H 08/06/20 17:05 POC Glucose 106 H Hospitalist ROS - Medication Medications: Active Medications Generic Name Dose Route Start Last Admin Trade Name Freq PRN Reason Stop Dose Admin Acetaminophen 1,000 mg 07/06/20 14:14 08/07/20 14:41 Acetaminophen 650 Mg/20.3 Ml Udcup PER TUBE 1,000 mg Q6H PRN Administration Headache/Fever or Pain Apixaban 5 mg 08/01/20 21:00 08/07/20 08:05 Apixaban 5 Mg Tab PO 5 mg BID JOHN Administration Ascorbic Acid 1,000 mg 07/03/20 09:00 08/07/20 08:05 Ascorbic Acid 500 Mg Chewable Tablet PO 1,000 mg DAILY JOHN Administration Bisacodyl 10 mg 07/13/20 11:09 07/17/20 14:07 Bisacodyl 10 Mg Supp [place] 10 mg Q8H PRN Administration Constipation Cholecalciferol 400 units 07/03/20 09:00 08/07/20 08:05 Cholecalciferol (Vitamin D3) 400 Units Tab PO 400 units DAILY JOHN Administration Folic Acid 1 mg 07/10/20 09:00 08/07/20 08:05 Folic Acid 1 Mg Tab PO 1 mg DAILY JOHN Administration Haloperidol Lactate 10 mg 08/07/20 12:00 08/07/20 11:40 Haloperidol Lactate 5 Mg/Ml Vial IM 10 mg Q6HR JOHN Administration Sodium Chloride 1,000 mls @ 0 mls/hr 07/10/20 13:40 08/06/20 05:41 1/2 Normal Saline IV 1,000 mls .Q0M JOHN Administration KVO Insulin Human Lispro 0 units 07/03/20 01:26 07/26/20 16:23 Humalog 300 Units/3 Ml Vial SC 2 unit .MILD SLIDING SCALE PRN Administration Mild Correctional Scale Pantoprazole Sodium 40 mg 07/16/20 09:00 08/07/20 08:05 Pantoprazole 40 Mg Granules Packet PER TUBE 40 mg DAILY JOHN Administration Pramipexole Dihydrochloride 1 mg 07/20/20 07:00 08/07/20 11:43 Pramipexole Di-Hcl 1 Mg Tab PO 1 mg 0700,1300,2000 JOHN Administration Scopolamine 1.5 mg 07/25/20 04:00 08/06/20 04:01 Scopolamine 1.5 Mg/72 Hour Patch TOP 1.5 mg Q3D JOHN Administration Sodium Chloride 10 ml 07/03/20 21:00 08/07/20 08:06 Flush - Normal Saline 10 Ml Syringe IVF 10 ml Q12HR JOHN Administration Tamsulosin HCl 0.4 mg 08/02/20 21:00 08/06/20 19:44 Tamsulosin Hcl 0.4 Mg Cap PO 0.4 mg HS JOHN Administration Hospitalist Exam Vitals: Vital Signs (12 hours) Temp Pulse Resp BP Pulse Ox 08/07/20 12:42 97.9 F 97 20 115/78 96 08/07/20 08:52 93 L 08/07/20 07:02 97.5 F L 105 H 24 H 123/83 90 L 08/07/20 04:00 98.5 F 74 20 112/70 99 Weight Admit Weight 163 lb 9.328 oz Weight 135 lb 3.2 oz Most Recent Monitor Data Heart Rate from ECG 89 NIBP 110/76 NIBP BP-Mean 87 Respiration from ECG 17 SpO2 94 General Appearance: ill appearing General - other findings: Agitated Eye: PERRL ENT: normocephalic atraumatic Neck: supple Heart: RRR Respiratory: normal chest expansion Neurological: no new deficit Psychiatric: not oriented Hosp A/P - Plan Acute respiratory failure with hypoxia Code(s): J96.01 - ACUTE RESPIRATORY FAILURE WITH HYPOXIA Status: Acute (2) Pneumonia due to COVID-19 virus Code(s): U07.1 - COVID-19; J12.82 - PNEUMONIA DUE TO CORONAVIRUS DISEASE 2019 Status: Acute (3) Diabetes mellitus type 2 in nonobese Code(s): E11.9 - TYPE 2 DIABETES MELLITUS WITHOUT COMPLICATIONS Status: Chr onic (4) Hypertension Code(s): I10 - ESSENTIAL (PRIMARY) HYPERTENSION Status: Chronic Qualifiers: Hypertension type: essential hypertension Qualified Code(s): I10 - Essenti al (primary) hypertension (5) TAMMY (obstructive sleep apnea) Code(s): G47.33 - OBSTRUCTIVE SLEEP APNEA (ADULT) (PEDIATRIC) Status: Chronic (6) Parkinson disease Code(s): G20 - PARKINSON'S DISEASE Status: Chronic - Plan * Parkinson's disease- continue Pramipexole * Acute respiratory failure due to COVID pneumonia-on steroid * - Trach and PEG tube placed * * HTN- blood pressur * -Blood pressure medications are on hold. * -Short course of IV fluid bolus as needed to keep the systolic blood pressure above 85 * * Mild leukocytes * -Probably because of being on steroid * * JACIEL- resolved * DM- blood glucose is stable * DVT- prophylaxis- continue Lovenox * Nutritional support with tube feeds 12th -Quite agitated this morning. -Needs soft restraints. Ongoing metabolic encephalopathy Steroid discontinued. * LTAC evaluation and placement- patient has been accepted to [facility] in [place] * Pending bed availability.
--- NOTE | 2020-08-07 17:12 | PRG ---
DATE OF SERVICE: 08/07/2020 I came by and saw the patient yesterday, talked with his . His urine culture was growing out a Pseudomonas with sensitivities, they were not back. They are back now. It is intermediately resistant to Levaquin. It was sensitive to Cipro, it is sensitive to the cefepime. He is not going to be transferred to an LTAC facility in the next 2 to 3 days, so I think it is just reasonable just to give him five more doses of cefepime and have this organism treated that way. His is not here tonight for me to talk and I tried their home phone, but no one answered, but I have written order for cefepime 1 g IV piggyback for 5 days q.24 hours. Otherwise, he seems to be doing okay. His vital signs are stable. He was confused some and was pulling on his trach earlier, but his urine is clear. Does not look like pulling on his Gutierrez. Job ID: [id number]
[2020-08-07] MEDS: Cefepime 1 GM in Sodium Chloride 0.9% 100 ML IVPB SCH (17:15)
[2020-08-07] MEDS: Tamsulosin HCl 0.4 MG CAP PO SCH (23:48)
[2020-08-08] MEDS: Haloperidol Lactate 5 MG/ML VIAL IM PRN ×2 (05:57→14:43)
[2020-08-08] MEDS: Haloperidol Lactate 5 MG/ML VIAL IM SCH ×3 (06:06→19:33)
[2020-08-08] MEDS: Cholecalciferol (Vitamin D3) 400 UNITS TAB PO SCH (08:39)
[2020-08-08] MEDS: Ascorbic Acid 500 mg Chewable Tablet PO SCH (08:39)
[2020-08-08] MEDS: Folic Acid 1 MG TAB PO SCH (08:40)
[2020-08-08] MEDS: Pantoprazole 40 MG GRANULES PACKET PER TUBE SCH (08:40)
[2020-08-08] MEDS: Apixaban 5 MG TAB PO SCH ×2 (08:40→21:35)
[2020-08-08] MEDS: Pramipexole Di-HCl 1 MG TAB PO SCH ×3 (08:40→21:34)
[2020-08-08 12:13] LABS: Anion Gap 14 mmol/L (10-20); BUN (Urea Nitrogen) 27 mg/dL (8.4-25.7); Calc. Creatinine Clearance 77 mL/min (70-130); Calcium 8.5 mg/dL (7.8-10.44); Carbon Dioxide 25 mmol/L (23-31); Chloride 98 mmol/L (98-107); Glucose 175 mg/dL (83-110); Potassium 4.3 mmol/L (3.5-5.1); Sodium 133 mmol/L (136-145)
[2020-08-08 12:55] LABS: Actual Bicarbonate (HCO3a) 23.5 mEq/L (22-28); Base Excess (BEa) 0.4 mEq/L (-2.0 to +3.0); CO2 Tension 33.3 mmHg (35.0-45.0); Calcium, Ionized (arterial) 1.12 mmol/L (1.12-1.30); Carboxyhemoglobin (COHb) 1.1 gm% (0.0-3.0); Hemoglobin (Hb) 13.7 g/dL (14.0-18.0); Potassium - ABG Lab 4.65 mmol/L (3.70-5.30); pH, Arterial 7.47 (7.35-7.45)
[2020-08-08 13:21] LABS: ALV-art Gradient 637.475 mmHg (0-20); O2 Tension (PaO2), arterial 33.9 mmHg (> 70.0); Puncture Site LBA
[2020-08-08 14:05] LABS: Actual Bicarbonate (HCO3a) 24.2 mEq/L (22-28); Base Excess (BEa) 0.8 mEq/L (-2.0 to +3.0); CO2 Tension 34.8 mmHg (35.0-45.0); Calcium, Ionized (arterial) 1.12 mmol/L (1.12-1.30); Carboxyhemoglobin (COHb) 1.2 gm% (0.0-3.0); Hemoglobin (Hb) 12.8 g/dL (14.0-18.0); Potassium - ABG Lab 4.39 mmol/L (3.70-5.30); pH, Arterial 7.46 (7.35-7.45)
[2020-08-08 14:07] LABS: O2 Tension (PaO2), arterial 55.1 mmHg (> 70.0); Puncture Site RBA
[2020-08-08 14:42] LABS: INR-International Normal Ratio 1.3; Prothrombin Time 15.9 sec (12.0-14.7)
[2020-08-08 14:43] LABS: D-Dimer Test 0.93 *mcg/mL (0.27-0.43)
--- NOTE | 2020-08-08 15:06 | RAD ---
EXAM: CHEST ONE VIEW: 08/08/20 HISTORY: Respiratory insufficiency, hypoxemia. COMPARISON: 07/15/20. FINDINGS: There are minimally progressive bilateral interstitial, alveolar, and ground glass opacity changes wi th poor inspiratory effort. Tracheostomy tube in place. Minimal right hemidiaphragm elevation. IMPRESSION: Progressive bilateral interstitial, alveolar, and ground glass opacity changes with poor inspiratory effort somewhat worse than on prior study. Continued short term follow-up. POS: RRE
[2020-08-08] MEDS: Cefepime 1 GM in Sodium Chloride 0.9% 100 ML IVPB SCH (16:47)
--- NOTE | 2020-08-08 18:36 | PDOC.HOSPP ---
- Subjective Encounter Date: 08/08/20 Encounter Time: 18:34 Subjective: F/u; COVId Overnight, patient pulled his trach out. He is requiring sitter and in restraints. Patient denies chest pain. He requires frequent suctioning - Objective Vital Signs & Weight: Vital Signs (12 hours) Temp Pulse Resp BP BP Pulse Ox 08/08/20 14:00 98.7 F 86 22 H 106/72 96 08/08/20 12:00 98.6 F 98 24 H 110/66 96 08/08/20 08:19 91 L 08/08/20 07:28 98.2 F 100 20 115/86 98 Weight Admit Weight 163 lb 9.328 oz Weight 135 lb 3.2 oz Most Recent Monitor Data Heart Rate from ECG 89 NIBP 110/76 NIBP BP-Mean 87 Respiration from ECG 17 SpO2 94 I&O: 08/07/20 08/08/20 08/09/20 06:59 06:59 06:59 Intake Total 2197 4329 600 Output Total 1400 700 Balance 797 3629 600 Result Diagrams: 08/05/20 05:31 08/08/20 11:33 Additional Labs: Accuchecks 08/08/20 08/08/20 08/07/20 11:23 04:34 19:38 POC Glucose 176 H 129 H 156 H Hospitalist ROS - Review of Systems Constitutional: denies: fever, chills - Medication Medications: Active Medications Generic Name Dose Route Start Last Admin Trade Name Freq PRN Reason Stop Dose Admin Acetaminophen 1,000 mg 07/06/20 14:14 08/07/20 14:41 Acetaminophen 650 Mg/20.3 Ml Udcup PER TUBE 1,000 mg Q6H PRN Administration Headache/Fever or Pain Apixaban 5 mg 08/01/20 21:00 08/08/20 08:40 Apixaban 5 Mg Tab PO 5 mg BID JOHN Administration Ascorbic Acid 1,000 mg 07/03/20 09:00 08/08/20 08:39 Ascorbic Acid 500 Mg Chewable Tablet PO 1,000 mg DAILY JOHN Administration Bisacodyl 10 mg 07/13/20 11:09 07/17/20 14:07 Bisacodyl 10 Mg Supp [place] 10 mg Q8H PRN Administration Constipation Cholecalciferol 400 units 07/03/20 09:00 08/08/20 08:39 Cholecalciferol (Vitamin D3) 400 Units Tab PO 400 units DAILY JOHN Administration Folic Acid 1 mg 07/10/20 09:00 08/08/20 08:40 Folic Acid 1 Mg Tab PO 1 mg DAILY JOHN Administration Haloperidol Lactate 10 mg 08/07/20 12:00 08/08/20 13:37 Haloperidol Lactate 5 Mg/Ml Vial IM Not Given Q6HR JOHN Haloperidol Lactate 5 mg 08/07/20 11:02 08/08/20 14:43 Haloperidol Lactate 5 Mg/Ml Vial IM 5 mg Q4H PRN Administration Agitation Sodium Chloride 1,000 mls @ 0 mls/hr 07/10/20 13:40 08/06/20 05:41 1/2 Normal Saline IV 1,000 mls .Q0M JOHN Administration KVO Cefepime HCl 1 gm/ Sodium 100 mls @ 200 mls/hr 08/07/20 17:00 08/08/20 16:47 Chloride IVPB 08/11/20 17:29 100 mls 1700 JOHN Administration Insulin Human Lispro 0 units 07/03/20 01:26 07/26/20 16:23 Humalog 300 Units/3 Ml Vial SC 2 unit .MILD SLIDING SCALE PRN Administration Mild Correctional Scale Pantoprazole Sodium 40 mg 07/16/20 09:00 08/08/20 08:40 Pantoprazole 40 Mg Granules Packet PER TUBE 40 mg DAILY JOHN Administration Pramipexole Dihydrochloride 1 mg 07/20/20 07:00 08/08/20 14:13 Pramipexole Di-Hcl 1 Mg Tab PO 1 mg 0700,1300,2000 JOHN Administration Quetiapine Fumarate 75 mg 08/07/20 21:00 08/07/20 23:48 Quetiapine Fumarate 25 Mg Tab PO 75 mg HS JOHN Administration Scopolamine 1.5 mg 07/25/20 04:00 08/06/20 04:01 Scopolamine 1.5 Mg/72 Hour Patch TOP 1.5 mg Q3D JOHN Administration Sodium Chloride 10 ml 07/03/20 21:00 08/08/20 08:40 Flush - Normal Saline 10 Ml Syringe IVF 10 ml Q12HR JOHN Administration Tamsulosin HCl 0.4 mg 08/02/20 21:00 08/07/20 23:48 Tamsulosin Hcl 0.4 Mg Cap PO 0.4 mg HS JOHN Administration Hospitalist Exam Vitals: Vital Signs (12 hours) Temp Pulse Resp BP BP Pulse Ox 08/08/20 14:00 98.7 F 86 22 H 106/72 96 08/08/20 12:00 98.6 F 98 24 H 110/66 96 08/08/20 08:19 91 L 08/08/20 07:28 98.2 F 100 20 115/86 98 Weight Admit Weight 163 lb 9.328 oz Weight 135 lb 3.2 oz Most Recent Monitor Data Heart Rate from ECG 89 NIBP 110/76 NIBP BP-Mean 87 Respiration from ECG 17 SpO2 94 General Appearance: NAD General - other findings: tachypneic, diaphoretic Eye: PERRL, anicteric sclera ENT: normocephalic atraumatic, no oropharyngeal lesions Neck: no JVD Heart: RRR, no murmur, no gallops, no rubs Respiratory - other findings: bilateral crackles Gastrointestinal: soft, non-tender, non-distended, normal bowel sounds Gastrointestinal - other findings: rodrigues catheter Extremities: no cyanosis, no clubbing, no edema Skin: normal turgor, no lesions, no rashes Neurological: cranial nerve grossly intact, normal sensation to touch, no weakness Hosp A/P - Plan CTA chest 07/02: extensive fibrotic changes of the lung parenchyma, left lower lobe atelectasis Chest xray 07/03: ET tube in satisfactory position Chest X ray 08/08: progressive bilateral infiltrates This is a 74-year-old male with hole in one of his lungs from pneumonia, prost ate cancer, sleep apnea, ALS, Parkinson's disease who presented with shortness of breath . He was on BIPAP but due to increased work of breathing, he was intubated on 07/03. He is s/p trach and PEG Acute hypoxic respiratory failure secondary to COVID vs lung fibrosis - he was intubated and now has a trach. - chest X ray today shows progressive infiltrates. On cefepime for pseudomonas UTI. Will add vancomycin since WBC up to 13 Pseudmonas UTI - patient is on cefepime. Will complete 5 days while in the hospital. Urology is following. He has rodrigues in place Hyponatremia - sodium 133, stable ALS - outpatient monitoring JACIEL - - resolved Transaminitis -AST still up to 97, may have been from hypotension. Repeat LFTS today Lactic acidosis -resolved Type II NSTEMI -Troponin 0 0.032. CK-MB 16.3. Troponin peaked at 0.066. The patient denies chest pain History of Parkinson's disease and ALS - supportive care
[2020-08-08] MEDS: Tamsulosin HCl 0.4 MG CAP PO SCH (21:34)
[2020-08-08] MEDS: Vancomycin 1 GM in Premix Bag 1 BAG IVPB SCH (21:39)
[2020-08-09] MEDS: Haloperidol Lactate 5 MG/ML VIAL IM SCH ×2 (01:12→07:51)
[2020-08-09] MEDS: Scopolamine 1.5 mg/72 hour Patch TOP SCH ×2 (04:37→10:07)
[2020-08-09] MEDS: Acetaminophen 650 MG/20.3 ML UDCUP PER TUBE PRN (05:16)
[2020-08-09 05:30] LABS: Hemoglobin 12.6 g/dL (14.0-18.0); Mean Corpuscular HGB CONC 34.5 g/dL (32.0-36.0); Mean Corpuscular Hemoglobin 34.2 pg (27.0-31.0); Mean Corpuscular Volume 99.1 fL (78.0-98.0); Mean Platelet Volume 7.7 fL (7.4-10.4); Platelet Count 383 thou/uL (130-400); RBC Distribution Width 12.5 % (11.5-14.5); Red Blood Cell (RBC) Count 3.69 mill/uL (4.70-6.10)
[2020-08-09 05:51] LABS: Anion Gap 17 mmol/L (10-20); BUN (Urea Nitrogen) 28 mg/dL (8.4-25.7); Calc. Creatinine Clearance 72 mL/min (70-130); Calcium 8.9 mg/dL (7.8-10.44); Carbon Dioxide 22 mmol/L (23-31); Chloride 101 mmol/L (98-107); Glucose 148 mg/dL (83-110); Potassium 5.1 mmol/L (3.5-5.1); Sodium 135 mmol/L (136-145)
[2020-08-09] MEDS: Apixaban 5 MG TAB PO SCH ×2 (08:15→20:52)
[2020-08-09] MEDS: Pantoprazole 40 MG GRANULES PACKET PER TUBE SCH (08:15)
[2020-08-09] MEDS: Folic Acid 1 MG TAB PO SCH (08:15)
[2020-08-09] MEDS: Pramipexole Di-HCl 1 MG TAB PO SCH ×3 (08:15→19:43)
[2020-08-09] MEDS: Cholecalciferol (Vitamin D3) 400 UNITS TAB PO SCH (08:15)
[2020-08-09] MEDS: Ascorbic Acid 500 mg Chewable Tablet PO SCH (08:16)
[2020-08-09] MEDS: Vancomycin 1 GM in Premix Bag 1 BAG IVPB SCH ×2 (08:16→20:53)
[2020-08-09 09:45] LABS: Actual Bicarbonate (HCO3a) 24.8 mEq/L (22-28); CO2 Tension 36.6 mmHg (35.0-45.0); Calcium, Ionized (arterial) 1.13 mmol/L (1.12-1.30); Carboxyhemoglobin (COHb) 0.6 gm% (0.0-3.0); Hemoglobin (Hb) 12.2 g/dL (14.0-18.0); Potassium - ABG Lab 4.32 mmol/L (3.70-5.30); pH, Arterial 7.45 (7.35-7.45)
[2020-08-09] MEDS: Haloperidol Lactate 5 MG/ML VIAL IM PRN (09:45)
[2020-08-09 09:48] LABS: O2 Tension (PaO2), arterial 46.9 mmHg (> 70.0); Puncture Site RRA
[2020-08-09] MEDS ORDERED: Albuterol Sulfate 2.5 mg/3 ml Neb EZPAP PRN (10:00)
[2020-08-09] MEDS ORDERED: guaiFENesin ER 600 MG TAB PO SCH (10:15)
--- NOTE | 2020-08-09 10:17 | PDOC.HOSPP ---
- Subjective Encounter Date: 08/09/20 Encounter Time: 10:15 Subjective: F/u: pneumonia The patient is desaturating again to 79% . He is on 80% high flow nasal cannula. The patient feels congested on left side of the chest. He is requiring frequent suctioning with nursing . Sputum culture still pending . He denies chest pain. The patient stated he would like to be back on the ventilator bec ause he doesn't want to Spoke to the about patient being transferred to the ICU. She denies history of ALS. - Objective Vital Signs & Weight: Vital Signs (12 hours) Temp Pulse Resp BP Pulse Ox 08/09/20 07:13 99 08/09/20 06:59 91 L 08/09/20 06:16 98.1 F 08/09/20 05:46 98.1 F 08/09/20 05:16 100.0 F H 08/09/20 04:00 100.0 F H 108 H 36 H 92/59 L 99 08/09/20 00:00 97.9 F 107 H 30 H 96/58 L 99 Weight Admit Weight 163 lb 9.328 oz Weight 135 lb 3.2 oz Most Recent Monitor Data Heart Rate from ECG 89 NIBP 110/76 NIBP BP-Mean 87 Respiration from ECG 17 SpO2 94 I&O: 08/08/20 08/09/20 08/10/20 06:59 06:59 06:59 Intake Total 4329 1800 Output Total 700 Balance 3629 1800 Result Diagrams: 08/09/20 05:19 08/09/20 05:19 Additional Labs: Accuchecks 08/09/20 08/08/20 08/08/20 04:34 20:20 11:23 POC Glucose 124 H 109 H 176 H Hospitalist ROS - Review of Systems Constitutional: denies: fever, chills - Medication Medications: Active Medications Generic Name Dose Route Start Last Admin Trade Name Freq PRN Reason Stop Dose Admin Acetaminophen 1,000 mg 07/06/20 14:14 08/09/20 05:16 Acetaminophen 650 Mg/20.3 Ml Udcup PER TUBE 1,000 mg Q6H PRN Administration Headache/Fever or Pain Apixaban 5 mg 08/01/20 21:00 08/09/20 08:15 Apixaban 5 Mg Tab PO 5 mg BID JOHN Administration Ascorbic Acid 1,000 mg 07/03/20 09:00 08/09/20 08:16 Ascorbic Acid 500 Mg Chewable Tablet PO 1,000 mg DAILY JOHN Administration Bisacodyl 10 mg 07/13/20 11:09 07/17/20 14:07 Bisacodyl 10 Mg Supp MO 10 mg Q8H PRN Administration Constipation Cholecalciferol 400 units 07/03/20 09:00 08/09/20 08:15 Cholecalciferol (Vitamin D3) 400 Units Tab PO 400 units DAILY JOHN Administration Folic Acid 1 mg 07/10/20 09:00 08/09/20 08:15 Folic Acid 1 Mg Tab PO 1 mg DAILY JOHN Administration Haloperidol Lactate 10 mg 08/07/20 12:00 08/09/20 07:51 Haloperidol Lactate 5 Mg/Ml Vial IM Not Given Q6HR JOHN Haloperidol Lactate 5 mg 08/07/20 11:02 08/09/20 09:45 Haloperidol Lactate 5 Mg/Ml Vial IM 5 mg Q4H PRN Administration Agitation Sodium Chloride 1,000 mls @ 0 mls/hr 07/10/20 13:40 08/06/20 05:41 1/2 Normal Saline IV 1,000 mls .Q0M JOHN Administration KVO Cefepime HCl 1 gm/ Sodium 100 mls @ 200 mls/hr 08/07/20 17:00 08/08/20 16:47 Chloride IVPB 08/11/20 17:29 100 mls 1700 JOHN Administration Vancomycin HCl 1 gm/ Device 200 mls @ 200 mls/hr 08/08/20 21:00 08/09/20 08:16 IVPB 200 mls Q12HR JOHN Administration Insulin Human Lispro 0 units 07/03/20 01:26 07/26/20 16:23 Humalog 300 Units/3 Ml Vial SC 2 unit .MILD SLIDING SCALE PRN Administration Mild Correctional Scale Pantoprazole Sodium 40 mg 07/16/20 09:00 08/09/20 08:15 Pantoprazole 40 Mg Granules Packet PER TUBE 40 mg DAILY JOHN Administration Pramipexole Dihydrochloride 1 mg 07/20/20 07:00 08/09/20 08:15 Pramipexole Di-Hcl 1 Mg Tab PO 1 mg 0700,1300,2000 JOHN Administration Quetiapine Fumarate 75 mg 08/07/20 21:00 08/08/20 21:35 Quetiapine Fumarate 25 Mg Tab PO 75 mg HS JOHN Administration Scopolamine 1.5 mg 07/25/20 04:00 08/09/20 10:07 Scopolamine 1.5 Mg/72 Hour Patch TOP 1.5 mg Q3D JOHN Administration Sodium Chloride 10 ml 07/03/20 21:00 08/09/20 08:16 Flush - Normal Saline 10 Ml Syringe IVF 10 ml Q12HR JOHN Administration Tamsulosin HCl 0.4 mg 08/02/20 21:00 08/08/20 21:34 Tamsulosin Hcl 0.4 Mg Cap PO 0.4 mg HS JOHN Administration Hospitalist Exam Vitals: Vital Signs (12 hours) Temp Pulse Resp BP Pulse Ox 08/09/20 07:13 99 08/09/20 06:59 91 L 08/09/20 06:16 98.1 F 08/09/20 05:46 98.1 F 08/09/20 05:16 100.0 F H 08/09/20 04:00 100.0 F H 108 H 36 H 92/59 L 99 08/09/20 00:00 97.9 F 107 H 30 H 96/58 L 99 Weight Admit Weight 163 lb 9.328 oz Weight 135 lb 3.2 oz Most Recent Monitor Data Heart Rate from ECG 89 NIBP 110/76 NIBP BP-Mean 87 Respiration from ECG 17 SpO2 94 General Appearance: NAD, awake alert General - other findings: diaphoretic Eye: PERRL, anicteric sclera ENT: normocephalic atraumatic, no oropharyngeal lesions Neck: no JVD Heart: RRR, no gallops, no rubs Heart - other findings: extensive rhonchi Respiratory: CTAB, no wheezes, no rales, no ronchi Gastrointestinal: soft, non-tender, non-distended, normal bowel sounds Extremities: no cyanosis, no clubbing, no edema Skin: normal turgor, no lesions, no rashes Neurological: cranial nerve grossly intact, normal sensation to touch, no weakne ss, no focal deficits, no new deficit Musculoskeletal: normal tone, normal strength Psychiatric: normal affect, normal behavior, A&O x 3 Hosp A/P - Plan CTA chest 07/02: extensive fibrotic changes of the lung parenchyma, left lower lobe atelectasis Chest xray 07/03: ET tube in satisfactory position Chest X ray 08/08: progressive bilateral infiltrates This is a 74-year-old male with hole in one of his lungs from pneumonia, prostate cancer, sleep apnea, ALS, Parkinson's disease who presented with shortness of breath . He was on BIPAP but due to increased work of breathing, he was intubated on 07/03. He is s/p trach and PEG Acute hypoxic respiratory failure secondary to COVID vs lung fibrosis - he was intubated and now has a trach. He received meropenem from 07/10 to 07/20. He was on dexamethasone taper, which was discontinued on 08/07 - chest X ray 08/08 shows progressive infiltrates. On cefepime for pseudomonas UTI. Added vancomycin 08/09. WBC is up to 15. He sounds very rhonchorous. Will add IV steroids 40 mg q6 hours. - patient's pO2 43, discussed with pulmonary about placing back on the ventilator. Patient is agreeable to being on the ventilator . Will repeat chest X ray today - add mucinex and albuterol prn Pseudomonas UTI - patient is on cefepime. Started 08/07, to continue 08/09 Will complete 5 days while in the hospital. Urology is following. He has rodrigues in place Stage IV pressure ulcer - wound care is following. Needs frequent turning Hyponatremia - sodium went up to 135 Transaminitis -AST still up to 97, may have been from hypotension. Repeat LFTS today Lactic acidosis -resolved Type II NSTEMI -Troponin 0 0.032. CK-MB 16.3. Troponin peaked at 0.066. The patient denies chest pain History of Parkinson's disease - supportive care
[2020-08-09] MEDS ORDERED: Propofol 1,000 MG/100 ML VIAL IV ONE (10:35)
[2020-08-09 10:41] LABS: ALT (SGPT) 32 U/L (8-55); AST (SGOT) 53 U/L (5-34); Albumin 2.8 g/dL (3.4-4.8); Alkaline Phosphatase 139 U/L (40-110); Bilirubin, Direct 0.3 mg/dL (0.1-0.3); Bilirubin, Total 0.7 mg/dL (0.2-1.2)
[2020-08-09] MEDS ORDERED: clonazePAM 0.5 MG TAB PO SCH ×2 (11:15→21:00)
--- NOTE | 2020-08-09 11:20 | RAD ---
CHEST ONE VIEW: HISTORY: Worsening hypoxia. COMPARISON: 07/15/2020 and 08/08/2020 FINDINGS: Extensive bilateral interstitial, alveolar and ground glass opacity changes. Tracheostomy tube in krystal ce. No significant change. IMPRESSION: Extensive bilateral parenchymal changes, evidence for bilateral COVID pneumonia. No significant mcfadden e from prior most recent study. POS: RRE
[2020-08-09] MEDS ORDERED: Lactated Ringer's 500 ML IV SCH (11:30)
[2020-08-09] MEDS ORDERED: Aspirin 325 MG TAB PO SCH (11:45)
[2020-08-09] MEDS ORDERED: methylPREDNISolone Sod Succ 40 MG VIAL IVP SCH (12:00)
--- NOTE | 2020-08-09 12:10 | PRG ---
DATE OF SERVICE: 08/09/2020 TIME: 11 o'clock in the morning. SUBJECTIVE: I was called by Dr. Levy to please assist with the evaluation of his critically ill 75-year-old male who is actually on another unit, not NICU, and had an arterial blood gas showing severe hypoxemia on the maximum flow rate that could be given through his tracheal tube. I suggested that the patient be moved if he is to be fully resuscitated to the ICU for ventilatory support and increased FiO2. The patient is known to this service. Dr. Ames has been following the patient. He has been in the hospital for over 30 days, initially was presenting with COVID and had a trach and PEG placed. I am informed that the patient had a trach change several days ago, perhaps on 08/06, did not find documentation of this. He has had problems with infections that include Pseudomonas UTI with partial sensitivity to Levaquin and Merrem and he is on cefepime and vancomycin at this time. He has an existing Gutierrez catheter. He has been requiring oxygen through high flow but today on arterial blood gas and because the patient appeared to be more septic in appearance, Dr. Levy requested possible ICU transfer which was done. CHIEF COMPLAINT: The patient complains of chest pain in the left precordium. He has not had this in the past. It is not sharp in nature. He felt short of breath despite having full ventilatory support with SIMV and pressure support. He does not have any leg pain. He denies any other symptoms except for shortness of breath. PHYSICAL EXAMINATION: GENERAL: The patient is awake and alert. He is answering appropriately. He follows simple commands. He generally is a thin, white male, in no acute distress. Partial pelaez. He has a tracheostomy which is clean and dry. VITAL SIGNS: His blood pressure is 86/59 with a MAP of 68. His heart rate is 104, his oxygen saturation is 100% on mechanical ventilation with SIMV of 8, tidal volume of 400. He is pulling tidal volumes of 500. Pressure support of 10 to 15 range, FiO2 of 100%, and PEEP of 10. NECK: Supple. I do not see any JVD. There are no masses or lesions. The patient has a left midline that was placed 4 days ago. LUNGS: With bilateral rhonchorous sounds as well as rales throughout. ABDOMEN: He has a constricting abdominal binder that is up into the chest area which I removed. His PEG site is inspected. It appears to need cleaning. There is no active infection of the skin. There is no purulence. The abdomen is scaphoid and soft, benign without tenderness, hepatosplenomegaly, rebound, or guarding. EXTREMITIES: Have significant muscular atrophy. Pulses are present and diminished distally. The capillary refill is greater than 2 seconds. SKIN: Dry. There are no rashes. The MAR is reviewed. The patient has been on Levaquin since the August 01. Cefepime was started on . Vancomycin started on . He is on Haldol IM every 6 hours and IM every 4 hours p.r.n. He is on pramipexole and Seroquel as well at bedtime. He was placed on Solu-Medrol temporarily today by Dr. Levy. He is on some vitamin supplements. His chest x-ray shows chronic post-COVID changes. No new acute infiltrates. IMPRESSION: 1. Chronic respiratory failure with acute exacerbation. Possible secondary nosocomial infection. 2. Hypotension, may be related to discontinuation of steroids done due to his intermittent delirium, could be due to chest pain and cardiac disease or post-COVID versus ischemic cardiac disease, and could be due to sepsis. 3. Sepsis syndrome with hypotension, hypoxemia, and leukocytosis despite cefepime and vancomycin, history of Pseudomonal UTI and history of COVID. 4. Bladder dysfunction, requiring persistent Gutierrez catheter. PLAN: Rule out myocardial infarction, sed rate, D-dimer, cultures of the urine, blood. He has had respiratory cultures done on the . CRP. Continue vancomycin and cefepime for now. Add Florinef and Solu-Cortef for stress-dose steroids. Discontinue intramuscular medications. Continue Seroquel. Add Klonopin b.i.d. for agitation and anxiety. Ask the nurse not to increase the propofol dose until the blood pressure improves. Bolus with Ringer's lactate. Check lactic acid level and follow up as needed. He is on mechanical ventilation with FiO2 of 100%. His prognosis for pulmonary recovery is poor. It is not likely that he will be discharged home in any near future. Resume tube feedings, continuous. Job ID: [id number]
[2020-08-09 12:31] LABS: Lactic Acid 1.2 mmol/L (0.5-2.2)
[2020-08-09 12:33] LABS: Troponin I 0.017 ng/mL (< 0.028)
[2020-08-09] MEDS: Hydrocortisone Sod Succ/PF 500 MG in Sodium Chloride 0.9% 50 ML IVPB SCH ×2 (14:58→22:50)
[2020-08-09 15:10] LABS: Troponin I 0.024 ng/mL (< 0.028)
[2020-08-09] MEDS: Cefepime 1 GM in Sodium Chloride 0.9% 100 ML IVPB SCH (17:16)
[2020-08-09] MEDS ORDERED: Propofol BOLUS 1,000 MG/100 ML VIAL IV PRN (17:30)
[2020-08-09] MEDS ORDERED: DISCONTINUE PREVIOUS NARCOTIC PAIN MEDICATIONS AND BENZODIAZEPINES FS SCH (17:30)
[2020-08-09] MEDS ORDERED: Fentanyl BOLUS 250 ML IVPB PRN (17:30)
[2020-08-09] MEDS ORDERED: Fentanyl CADD 100 ML IV SCH (17:30)
[2020-08-09] MEDS: Propofol 1,000 MG/100 ML VIAL IV PRN (18:30)
[2020-08-09] MEDS: Morphine 2 MG/ML VIAL SLOW IVP PRN (19:43)
[2020-08-09] MEDS: Tamsulosin HCl 0.4 MG CAP PO SCH (20:52)
[2020-08-09] MEDS: Lorazepam 2 MG/ML VIAL SLOW IVP PRN (21:42)
[2020-08-09] MEDS: guaiFENesin ER 600 MG TAB PO SCH (21:44)
[2020-08-09] MEDS: HumaLOG 300 UNITS/3 ML VIAL SC PRN (22:15)
[2020-08-10] MEDS: Hydrocortisone Sod Succ/PF 500 MG in Sodium Chloride 0.9% 50 ML IVPB SCH ×3 (14:07→22:23)
[2020-08-10] MEDS: Pramipexole Di-HCl 1 MG TAB PO SCH ×3 (14:07→20:14)
[2020-08-10] MEDS: Aspirin Chewable 81 MG TAB PO SCH (14:08)
[2020-08-10] MEDS: Folic Acid 1 MG TAB PO SCH (14:08)
[2020-08-10] MEDS: Cholecalciferol (Vitamin D3) 400 UNITS TAB PO SCH (14:08)
[2020-08-10] MEDS: Ascorbic Acid 500 mg Chewable Tablet PO SCH (14:08)
[2020-08-10] MEDS: guaiFENesin ER 600 MG TAB PO SCH ×2 (14:08→20:14)
[2020-08-10] MEDS: Apixaban 5 MG TAB PO SCH ×2 (14:08→21:35)
[2020-08-10] MEDS: Pantoprazole 40 MG GRANULES PACKET PER TUBE SCH (14:08)
[2020-08-10] MEDS: Fludrocortisone Acetate 0.1 MG TAB PO SCH (14:08)
[2020-08-10] MEDS: Vancomycin 1 GM in Premix Bag 1 BAG IVPB SCH ×3 (14:09→21:34)
--- NOTE | 2020-08-10 14:21 | PRG ---
DATE OF SERVICE: 08/10/2020 SUBJECTIVE: Abhay Cooley was moved back to the unit this weekend. He is ventilated now. OBJECTIVE: VITAL SIGNS: Blood pressure 104/64, heart rate is 90, respiratory rates in the 30s. LUNGS: Remarkable for equal breath sounds. HEART: Regular rhythm. ABDOMEN: Soft. LABORATORY DATA: White count 15, hemoglobin 12.6, platelets 383. ASSESSMENT AND PLAN: He is still encephalopathic. We will put him back on IM Haldol every 4 hours 10 mg and put him on high-dose Precedex and see if this controls his encephalopathy. His chest radiograph done yesterday showed no significant change. Critical care time 30 min. Job ID: [id number] MTDD
[2020-08-10 14:45] LABS: Cardiac Risk 4.9 (Less than 4.5)
[2020-08-10 14:55] LABS: Hemoglobin 10.1 g/dL (14.0-18.0); Mean Corpuscular HGB CONC 32.5 g/dL (32.0-36.0); Mean Corpuscular Hemoglobin 32.5 pg (27.0-31.0); Mean Platelet Volume 7.8 fL (7.4-10.4); Platelet Count 327 thou/uL (130-400); RBC Distribution Width 12.5 % (11.5-14.5); White Blood Cell (WBC) Count 10.8 thou/uL (4.8-10.8)
[2020-08-10] MEDS: Cefepime 1 GM in Sodium Chloride 0.9% 100 ML IVPB SCH (17:14)
[2020-08-10] MEDS: Haloperidol Lactate 5 MG/ML VIAL IM PRN (18:19)
[2020-08-10] MEDS: Tamsulosin HCl 0.4 MG CAP PO SCH (20:14)
--- NOTE | 2020-08-10 20:44 | PRG ---
DATE OF SERVICE: 08/10/2020 This patient has been back to the ICU and is back on the ventilator. His vital signs have been okay, not had a fever. He is still on the cefepime, which we placed him on for the Pseudomonas in the urine and he has had vancomycin added. Blood cultures negative and repeat urine culture so far negative at 24 hours. Urine output looks like it has been satisfactory. His white count has come down some. At this point, I really do not have any more to add, his Gutierrez catheter would be left in and as his condition hopefully stabilizes and improves. Look at repeating voiding trials down the road, but I think for now that is going to be put on hold with him back on the ventilator. Job ID: [id number]
--- NOTE | 2020-08-10 20:46 | PDOC.HOSPP ---
- Subjective Encounter Date: 08/10/20 Encounter Time: 20:44 Subjective: Mr. Cooley was seen today in follow-up of respiratory failure due to pneumonia. He has a tracheostomy, and has been placed back on the ventilator. He is awake and alert. He does not have any complaints, but he is confused. - Objective Vital Signs & Weight: Vital Signs (12 hours) Temp Pulse Pulse Pulse Resp BP BP 08/10/20 19:37 35 H 08/10/20 18:00 34 H 08/10/20 16:00 98.1 F 34 H 08/10/20 15:35 104 H 98 95/69 08/10/20 14:54 95 109/78 08/10/20 14:00 30 H 08/10/20 12:00 98.0 F 30 H 08/10/20 10:00 23 H BP Pulse Ox Pulse Ox Pulse Ox 08/10/20 19:37 08/10/20 18:00 08/10/20 16:00 08/10/20 15:35 101/60 92 L 95 08/10/20 14:54 96 08/10/20 14:00 08/10/20 12:00 08/10/20 10:00 Weight Admit Weight 163 lb 9.328 oz Weight 135 lb 3.2 oz Most Recent Monitor Data Heart Rate from ECG 84 NIBP 97/59 NIBP BP-Mean 71 Respiration from ECG 24 SpO2 99 I&O: 08/09/20 08/10/20 08/11/20 06:59 06:59 06:59 Intake Total 1800 2612 270 Output Total 815 375 Balance 1800 1797 -105 Result Diagrams: 08/11/20 03:25 08/11/20 03:25 Additional Labs: Accuchecks 08/10/20 08/10/20 08/09/20 17:17 13:54 22:09 POC Glucose 159 H 148 H 215 H Hospitalist ROS - Medication Medications: Active Medications Generic Name Dose Route Start Last Admin Trade Name Freq PRN Reason Stop Dose Admin Acetaminophen 1,000 mg 07/06/20 14:14 08/09/20 05:16 Acetaminophen 650 Mg/20.3 Ml Udcup PER TUBE 1,000 mg Q6H PRN Administration Headache/Fever or Pain Apixaban 5 mg 08/01/20 21:00 08/10/20 14:08 Apixaban 5 Mg Tab PO 5 mg BID JOHN Administration Ascorbic Acid 1,000 mg 07/03/20 09:00 08/10/20 14:08 Ascorbic Acid 500 Mg Chewable Tablet PO 1,000 mg DAILY JOHN Administration Aspirin 81 mg 08/10/20 09:00 08/10/20 14:08 Aspirin Chewable 81 Mg Tab PO 81 mg DAILY JOHN Administration Bisacodyl 10 mg 07/13/20 11:09 07/17/20 14:07 Bisacodyl 10 Mg Supp VA 10 mg Q8H PRN Administration Constipation Cholecalciferol 400 units 07/03/20 09:00 08/10/20 14:08 Cholecalciferol (Vitamin D3) 400 Units Tab PO 400 units DAILY JOHN Administration Fludrocortisone Acetate 0.1 mg 08/10/20 09:00 08/10/20 14:08 Fludrocortisone Acetate 0.1 Mg Tab PO 0.1 mg DAILY JOHN Administration Folic Acid 1 mg 07/10/20 09:00 08/10/20 14:08 Folic Acid 1 Mg Tab PO 1 mg DAILY JOHN Administration Guaifenesin 600 mg 08/09/20 21:00 08/10/20 20:14 Guaifenesin Er 600 Mg Tab PO 600 mg Q12HR JOHN Administration Haloperidol Lactate 10 mg 08/10/20 12:45 08/10/20 18:19 Haloperidol Lactate 5 Mg/Ml Vial IM 10 mg Q4H PRN Administration Agitation Sodium Chloride 1,000 mls @ 0 mls/hr 07/10/20 13:40 08/06/20 05:41 1/2 Normal Saline IV 1,000 mls .Q0M JOHN Administration KVO Cefepime HCl 1 gm/ Sodium 100 mls @ 200 mls/hr 08/07/20 17:00 08/10/20 17:14 Chloride IVPB 08/11/20 17:29 100 mls 1700 JOHN Administration Vancomycin HCl 1 gm/ Device 200 mls @ 200 mls/hr 08/08/20 21:00 08/10/20 17:06 IVPB Not Given Q12HR JOHN Hydrocortisone Sodium 54 mls @ 50 mls/hr 08/09/20 14:00 08/10/20 15:34 Succinate 500 mg/ Sodium IVPB 54 mls Chloride Q8HR JOHN Administration Dexmedetomidine HCl 400 mcg/ 100 mls @ 0 mls/hr 08/10/20 12:45 08/10/20 15:34 Sodium Chloride IVPB 100 mls INF JOHN Administration Protocol Titrate Insulin Human Lispro 0 units 07/03/20 01:26 08/09/20 22:15 Humalog 300 Units/3 Ml Vial SC 3 unit .MILD SLIDING SCALE PRN Administration Mild Correctional Scale Lorazepam 2 mg 08/09/20 17:30 08/09/20 21:42 Lorazepam 2 Mg/Ml Vial SLOW IVP 09/08/20 17:30 2 mg Q1H PRN Administration Breakthrough agitation Morphine Sulfate 2 mg 08/09/20 17:30 08/09/20 19:43 Morphine 2 Mg/Ml Vial SLOW IVP 09/08/20 17:30 2 mg Q1H PRN Administration Breakthrough Pain/Agitation Pantoprazole Sodium 40 mg 07/16/20 09:00 08/10/20 14:08 Pantoprazole 40 Mg Granules Packet PER TUBE 40 mg DAILY JOHN Administration Pramipexole Dihydrochloride 1 mg 07/20/20 07:00 08/10/20 20:14 Pramipexole Di-Hcl 1 Mg Tab PO 1 mg 0700,1300,2000 JOHN Administration Propofol 1,000 mg 08/09/20 17:30 08/09/20 18:30 Propofol 1,000 Mg/100 Ml Vial IV 09/08/20 17:30 1,000 mg INF PRN Administration TO ACHIEVE GOAL RASS Protocol Quetiapine Fumarate 75 mg 08/07/20 21:00 08/10/20 20:14 Quetiapine Fumarate 25 Mg Tab PO 75 mg HS JOHN Administration Scopolamine 1.5 mg 07/25/20 04:00 08/09/20 10:07 Scopolamine 1.5 Mg/72 Hour Patch TOP 1.5 mg Q3D JOHN Administration Sodium Chloride 10 ml 07/03/20 21:00 08/10/20 20:15 Flush - Normal Saline 10 Ml Syringe IVF 10 ml Q12HR JOHN Administration Tamsulosin HCl 0.4 mg 08/02/20 21:00 08/10/20 20:14 Tamsulosin Hcl 0.4 Mg Cap PO 0.4 mg HS JOHN Administration Hospitalist Exam Vitals: Vital Signs (12 hours) Temp Pulse Pulse Pulse Resp BP BP 08/10/20 19:37 35 H 08/10/20 18:00 34 H 08/10/20 16:00 98.1 F 34 H 08/10/20 15:35 104 H 98 95/69 08/10/20 14:54 95 109/78 08/10/20 14:00 30 H 08/10/20 12:00 98.0 F 30 H 08/10/20 10:00 23 H BP Pulse Ox Pulse Ox Pulse Ox 08/10/20 19:37 08/10/20 18:00 08/10/20 16:00 08/10/20 15:35 101/60 92 L 95 08/10/20 14:54 96 08/10/20 14:00 08/10/20 12:00 08/10/20 10:00 Weight Admit Weight 163 lb 9.328 oz Weight 135 lb 3.2 oz Most Recent Monitor Data Heart Rate from ECG 84 NIBP 97/59 NIBP BP-Mean 71 Respiration from ECG 24 SpO2 99 General Appearance: NAD, awake alert Eye: PERRL, anicteric sclera Heart: RRR, no murmur, no gallops, no rubs, normal peripheral pulses Heart - other findings: + rhonchi Respiratory: no wheezes Gastrointestinal: soft, non-tender, non-distended, normal bowel sounds, no palpable masses Extremities: no cyanosis, no edema Hosp A/P (1) Acute respiratory failure with hypoxia Code(s): J96.01 - ACUTE RESPIRATORY FAILURE WITH HYPOXIA Status: Acute (2) Pneumonia due to COVID-19 virus Code(s): U07.1 - COVID-19; J12.82 - PNEUMONIA DUE TO CORONAVIRUS DISEASE 2019 Status: Acute (3) Diabetes mellitus type 2 in nonobese Code(s): E11.9 - TYPE 2 DIABETES MELLITUS WITHOUT COMPLICATIONS Status: Chronic (4) Hypertension Code(s): I10 - ESSENTIAL (PRIMARY) HYPERTENSION Status: Chronic Qualifiers: Hypertension type: essential hypertension Qualified Code(s): I10 - Essential (primary) hypertension (5) TAMMY (obstructive sleep apnea) Code(s): G47.33 - OBSTRUCTIVE SLEEP APNEA (ADULT) (PEDIATRIC) Status: Chronic (6) Parkinson disease Code(s): G20 - PARKINSON'S DISEASE Status: Chronic - Plan * Acute respiratory failure initially due to COVID pneumonia, now he may have superinfection with bacterial pneumonia- continue supportive care He had to be placed back on mechanical ventilation, and has been moved back to the ICU * HTN- blood pressure -low normal- * Urinary retention- continue Gutierrez catheter * UTI- due to Pseudomonas- continue Cefepime * JACIEL- resolved * DM- blood glucose is stable * DVT- prophylaxis- continue Lovenox * Parkinson's disease- continue Pramipexole * Nutritional support with tube feeds * Continue other management as per PCCM
[2020-08-10 21:09] LABS: Vancomycin, Trough 6.4 ug/mL
[2020-08-10 21:37] LABS: Anion Gap 13 mmol/L (10-20); BUN (Urea Nitrogen) 29 mg/dL (8.4-25.7); Calc. Creatinine Clearance 77 mL/min (70-130); Calcium 8.2 mg/dL (7.8-10.44); Carbon Dioxide 26 mmol/L (23-31); Chloride 104 mmol/L (98-107); Glucose 182 mg/dL (83-110); Potassium 4.2 mmol/L (3.5-5.1); Sodium 139 mmol/L (136-145)
[2020-08-10] MEDS: HumaLOG 300 UNITS/3 ML VIAL SC PRN (22:23)
[2020-08-10] MEDS: Propofol 1,000 MG/100 ML VIAL IV PRN (22:25)
[2020-08-11 04:27] LABS: #Lymphocytes 0.8 thou/uL (1.20-3.40); #Monocytes 0.2 thou/uL (0.11-0.59); #Neutrophils 12.1 thou/uL (1.40-6.50); %Eosinophils 0.3 % (0.0-10.0); %Lymphocytes 6.1 % (21.0-51.0); %Monocytes 1.8 % (0.0-10.0); %Neutrophils 91.8 % (42.0-75.0); Hemoglobin 9.7 g/dL (14.0-18.0); Mean Corpuscular Hemoglobin 32.7 pg (27.0-31.0); Mean Platelet Volume 7.8 fL (7.4-10.4); Platelet Count 369 thou/uL (130-400); RBC Distribution Width 12.4 % (11.5-14.5); Red Blood Cell (RBC) Count 2.98 mill/uL (4.70-6.10); White Blood Cell (WBC) Count 13.2 thou/uL (4.8-10.8)
[2020-08-11 05:01] LABS: Anion Gap 14 mmol/L (10-20); BUN (Urea Nitrogen) 28 mg/dL (8.4-25.7); Calc. Creatinine Clearance 84 mL/min (70-130); Calcium 8.2 mg/dL (7.8-10.44); Carbon Dioxide 27 mmol/L (23-31); Chloride 102 mmol/L (98-107); Glucose 205 mg/dL (83-110); Potassium 4.5 mmol/L (3.5-5.1); Sodium 138 mmol/L (136-145)
[2020-08-11] MEDS: HumaLOG 300 UNITS/3 ML VIAL SC PRN ×3 (05:08→22:12)
[2020-08-11] MEDS: Morphine 2 MG/ML VIAL SLOW IVP PRN (06:13)
[2020-08-11] MEDS: Pramipexole Di-HCl 1 MG TAB PO SCH ×3 (06:14→20:01)
[2020-08-11] MEDS: Hydrocortisone Sod Succ/PF 500 MG in Sodium Chloride 0.9% 50 ML IVPB SCH (07:05)
[2020-08-11] MEDS: Apixaban 5 MG TAB PO SCH ×2 (07:55→20:04)
[2020-08-11] MEDS: Folic Acid 1 MG TAB PO SCH (07:56)
[2020-08-11] MEDS: Ascorbic Acid 500 mg Chewable Tablet PO SCH (07:56)
[2020-08-11] MEDS: Pantoprazole 40 MG GRANULES PACKET PER TUBE SCH (07:56)
[2020-08-11] MEDS: Fludrocortisone Acetate 0.1 MG TAB PO SCH (07:56)
[2020-08-11] MEDS: guaiFENesin ER 600 MG TAB PO SCH ×2 (07:56→20:00)
[2020-08-11] MEDS: Aspirin Chewable 81 MG TAB PO SCH (07:56)
[2020-08-11] MEDS: Cholecalciferol (Vitamin D3) 400 UNITS TAB PO SCH (07:56)
[2020-08-11] MEDS: Haloperidol Lactate 5 MG/ML VIAL IM PRN ×2 (07:57→16:41)
[2020-08-11] MEDS: Vancomycin 1 GM in Premix Bag 1 BAG IVPB SCH (07:57)
--- NOTE | 2020-08-11 10:41 | PDOC.HOSPP ---
- Subjective Encounter Date: 08/11/20 Encounter Time: 10:40 Subjective: Mr. Cooley was seen today in follow-up of respiratory failure due to pneumonia. He has a tracheostomy, and is on the ventilator. He has been confused, and has had some confusion. He has been restless as well. - Objective Vital Signs & Weight: Vital Signs (12 hours) Temp Pulse Resp BP Pulse Ox 08/11/20 08:04 77 100/54 L 98 08/11/20 07:20 30 H 95 08/11/20 06:00 30 H 08/11/20 04:00 97.3 F L 25 H 08/11/20 02:35 54 L 08/11/20 02:00 25 H 08/11/20 00:00 97.6 F 26 H Weight Admit Weight 163 lb 9.328 oz Weight 139 lb 8.842 oz Most Recent Monitor Data Heart Rate from ECG 68 NIBP 91/57 NIBP BP-Mean 68 Respiration from ECG 21 SpO2 98 I&O: 08/10/20 08/11/20 08/12/20 06:59 06:59 06:59 Intake Total 2612 1490.8 Output Total 815 975 Balance 1797 515.8 Result Diagrams: 08/11/20 03:25 08/11/20 03:25 Additional Labs: Accuchecks 08/10/20 08/10/20 17:17 13:54 POC Glucose 159 H 148 H Hospitalist ROS - Medication Medications: Active Medications Generic Name Dose Route Start Last Admin Trade Name Freq PRN Reason Stop Dose Admin Acetaminophen 1,000 mg 07/06/20 14:14 08/09/20 05:16 Acetaminophen 650 Mg/20.3 Ml Udcup PER TUBE 1,000 mg Q6H PRN Administration Headache/Fever or Pain Apixaban 5 mg 08/01/20 21:00 08/11/20 07:55 Apixaban 5 Mg Tab PO 5 mg BID JOHN Administration Ascorbic Acid 1,000 mg 07/03/20 09:00 08/11/20 07:56 Ascorbic Acid 500 Mg Chewable Tablet PO 1,000 mg DAILY JOHN Administration Aspirin 81 mg 08/10/20 09:00 08/11/20 07:56 Aspirin Chewable 81 Mg Tab PO 81 mg DAILY JOHN Administration Bisacodyl 10 mg 07/13/20 11:09 07/17/20 14:07 Bisacodyl 10 Mg Supp [place] 10 mg Q8H PRN Administration Constipation Cholecalciferol 400 units 07/03/20 09:00 08/11/20 07:56 Cholecalciferol (Vitamin D3) 400 Units Tab PO 400 units DAILY JOHN Administration Folic Acid 1 mg 07/10/20 09:00 08/11/20 07:56 Folic Acid 1 Mg Tab PO 1 mg DAILY JOHN Administration Guaifenesin 600 mg 08/09/20 21:00 08/11/20 07:56 Guaifenesin Er 600 Mg Tab PO 600 mg Q12HR JOHN Administration Haloperidol Lactate 10 mg 08/10/20 12:45 08/11/20 07:57 Haloperidol Lactate 5 Mg/Ml Vial IM 10 mg Q4H PRN Administration Agitation Sodium Chloride 1,000 mls @ 0 mls/hr 07/10/20 13:40 08/06/20 05:41 1/2 Normal Saline IV 1,000 mls .Q0M JOHN Administration KVO Cefepime HCl 1 gm/ Sodium 100 mls @ 200 mls/hr 08/07/20 17:00 08/10/20 17:14 Chloride IVPB 08/11/20 17:29 100 mls 1700 JOHN Administration Dexmedetomidine HCl 400 mcg/ 100 mls @ 0 mls/hr 08/10/20 12:45 08/10/20 15:34 Sodium Chloride IVPB 100 mls INF JOHN Administration Protocol Titrate Insulin Human Lispro 0 units 07/03/20 01:26 08/11/20 05:08 Humalog 300 Units/3 Ml Vial SC 3 unit .MILD SLIDING SCALE PRN Administration Mild Correctional Scale Lorazepam 2 mg 08/09/20 17:30 08/09/20 21:42 Lorazepam 2 Mg/Ml Vial SLOW IVP 09/08/20 17:30 2 mg Q1H PRN Administration Breakthrough agitation Morphine Sulfate 2 mg 08/09/20 17:30 08/11/20 06:13 Morphine 2 Mg/Ml Vial SLOW IVP 09/08/20 17:30 2 mg Q1H PRN Administration Breakthrough Pain/Agitation Pantoprazole Sodium 40 mg 07/16/20 09:00 08/11/20 07:56 Pantoprazole 40 Mg Granules Packet PER TUBE 40 mg DAILY JOHN Administration Pramipexole Dihydrochloride 1 mg 07/20/20 07:00 08/11/20 06:14 Pramipexole Di-Hcl 1 Mg Tab PO 1 mg 0700,1300,2000 JOHN Administration Propofol 1,000 mg 08/09/20 17:30 08/10/20 22:25 Propofol 1,000 Mg/100 Ml Vial IV 09/08/20 17:30 1,000 mg INF PRN Administration TO ACHIEVE GOAL RASS Protocol Quetiapine Fumarate 75 mg 08/07/20 21:00 08/10/20 20:14 Quetiapine Fumarate 25 Mg Tab PO 75 mg HS JOHN Administration Scopolamine 1.5 mg 07/25/20 04:00 08/09/20 10:07 Scopolamine 1.5 Mg/72 Hour Patch TOP 1.5 mg Q3D JOHN Administration Sodium Chloride 10 ml 07/03/20 21:00 08/11/20 07:57 Flush - Normal Saline 10 Ml Syringe IVF 10 ml Q12HR JOHN Administration Tamsulosin HCl 0.4 mg 08/02/20 21:00 08/10/20 20:14 Tamsulosin Hcl 0.4 Mg Cap PO 0.4 mg HS JOHN Administration Hospitalist Exam Vitals: Vital Signs (12 hours) Temp Pulse Resp BP Pulse Ox 08/11/20 08:04 77 100/54 L 98 08/11/20 07:20 30 H 95 08/11/20 06:00 30 H 08/11/20 04:00 97.3 F L 25 H 08/11/20 02:35 54 L 08/11/20 02:00 25 H 08/11/20 00:00 97.6 F 26 H Weight Admit Weight 163 lb 9.328 oz Weight 139 lb 8.842 oz Most Recent Monitor Data Heart Rate from ECG 68 NIBP 91/57 NIBP BP-Mean 68 Respiration from ECG 21 SpO2 98 General Appearance: NAD, awake alert Eye: PERRL Heart: RRR, no murmur, no gallops, no rubs, normal peripheral pulses Respiratory: no wheezes, rales, rhonchi Gastrointestinal: soft, non-tender, non-distended, normal bowel sounds, no palpable masses Extremities: no cyanosis (good distal pulses, no lesions), no edema Hosp A/P (1) Acute respiratory failure with hypoxia Code(s): J96.01 - ACUTE RESPIRATORY FAILURE WITH HYPOXIA Status: Acute (2) Pneumonia due to COVID-19 virus Code(s): U07.1 - COVID-19; J12.82 - PNEUMONIA DUE TO CORONAVIRUS DISEASE 2019 Status: Acute (3) Diabetes mellitus type 2 in nonobese Code(s): E11.9 - TYPE 2 DIABETES MELLITUS WITHOUT COMPLICATIONS Status: Chronic (4) Hypertension Code(s): I10 - ESSENTIAL (PRIMARY) HYPERTENSION Status: Chronic Qualifiers: Hypertension type: essential hypertension Qualified Code(s): I10 - Essential (primary) hypertension (5) TAMMY (obstructive sleep apnea) Code(s): G47.33 - OBSTRUCTIVE SLEEP APNEA (ADULT) (PEDIATRIC) Status: Chronic (6) Parkinson disease Code(s): G20 - PARKINSON'S DISEASE Status: Chronic - Plan * Acute respiratory failure initially due to COVID,and now may have nosocomial pneumonia- continue Cefepime and Vancomycin * Urine retention and UTI- continue Gutierrez catheter, , Urine culture is growing Pseudomonas- continue the current therapy * HTN- blood pressure -low normal * JACIEL- resolved * DM- blood glucose is stable * DVT- prophylaxis- continue Lovenox * Parkinson's disease- continue Pramipexole * Nutritional support with tube feeds * He has severe muscle weakness, which may complicate his recovery
[2020-08-11] MEDS: methylPREDNISolone Sod Succ 40 MG VIAL IVP SCH (12:43)
--- NOTE | 2020-08-11 13:26 | PRG ---
DATE OF SERVICE: 08/11/2020 SUBJECTIVE: Mr. Cooley is more cooperative today. OBJECTIVE: VITAL SIGNS: Heart rate 60, blood pressure is 102/60, respiratory rate is in the 20s, we turned down his pressure support and PEEP again today. LUNGS: Remarkable for bilateral wheezes. HEART: Regular rhythm. ABDOMEN: Soft. EXTREMITIES: Without edema. LABORATORY DATA: White count 13.2, hemoglobin 9.7, platelets 369. Electrolytes; sodium 138, potassium 4.5, BUN 28, creatinine 0.7. I suspect bronchospasm is the large part of his requirement for ventilation. Hopefully, we can gradually decrease his ventilatory support, get him on a trach collar within the next day or two. Simplified antibiotics. Job ID: [id number]
[2020-08-11] MEDS: Cefepime 1 GM in Sodium Chloride 0.9% 100 ML IVPB SCH (16:33)
--- NOTE | 2020-08-11 17:38 | PRG ---
DATE OF SERVICE: 08/11/2020 The patient is still on the ventilator, still in room C09, looks like his vital signs have improved. He has had good urine output. His urine culture is negative 48 hours. His blood cultures are still negative also. I talked with his . It does not look like he is at all ready for another voiding trial. We will look at leaving this catheter in I think probably just another couple of days from the urinary tract standpoint that cefepime could be stopped. I do not know if it is needed for any other reason. It looks like he had been on vancomycin, but he is off that and I guess this possible source of the sepsis was pulmonary. I will follow along with you as long as I get in. I will see him tomorrow. Job ID: [id number]
[2020-08-11] MEDS: Tamsulosin HCl 0.4 MG CAP PO SCH (20:01)
[2020-08-12] MEDS: Haloperidol Lactate 5 MG/ML VIAL IM PRN (00:55)
[2020-08-12] MEDS: Scopolamine 1.5 mg/72 hour Patch TOP SCH (03:31)
[2020-08-12 04:10] LABS: #Eosinphils 0.1 thou/uL (0.0-0.7); #Monocytes 0.7 thou/uL (0.11-0.59); #Neutrophils 12.2 thou/uL (1.40-6.50); %Basophils 0.1 % (0.0-1.0); %Eosinophils 0.4 % (0.0-10.0); %Lymphocytes 6.9 % (21.0-51.0); %Monocytes 5.1 % (0.0-10.0); %Neutrophils 87.4 % (42.0-75.0); Hemoglobin 10.2 g/dL (14.0-18.0); Mean Corpuscular HGB CONC 35.3 g/dL (32.0-36.0); Mean Corpuscular Hemoglobin 35.1 pg (27.0-31.0); Mean Corpuscular Volume 99.3 fL (78.0-98.0); Mean Platelet Volume 7.4 fL (7.4-10.4); Platelet Count 366 thou/uL (130-400); RBC Distribution Width 12.4 % (11.5-14.5); White Blood Cell (WBC) Count 13.9 thou/uL (4.8-10.8)
[2020-08-12 04:32] LABS: Anion Gap 14 mmol/L (10-20); BUN (Urea Nitrogen) 30 mg/dL (8.4-25.7); Calc. Creatinine Clearance 88 mL/min (70-130); Calcium 8.1 mg/dL (7.8-10.44); Carbon Dioxide 25 mmol/L (23-31); Chloride 105 mmol/L (98-107); Glucose 187 mg/dL (83-110); Potassium 4.2 mmol/L (3.5-5.1); Sodium 140 mmol/L (136-145)
[2020-08-12] MEDS: HumaLOG 300 UNITS/3 ML VIAL SC PRN ×2 (04:40→15:45)
[2020-08-12] MEDS: Pramipexole Di-HCl 1 MG TAB PO SCH ×3 (06:23→20:30)
[2020-08-12] MEDS: Ascorbic Acid 500 mg Chewable Tablet PO SCH (08:16)
[2020-08-12] MEDS: Cholecalciferol (Vitamin D3) 400 UNITS TAB PO SCH (08:16)
[2020-08-12] MEDS: Folic Acid 1 MG TAB PO SCH (08:16)
[2020-08-12] MEDS: Aspirin Chewable 81 MG TAB PO SCH (08:16)
[2020-08-12] MEDS: Pantoprazole 40 MG GRANULES PACKET PER TUBE SCH (08:16)
[2020-08-12] MEDS: guaiFENesin ER 600 MG TAB PO SCH (08:17)
[2020-08-12 08:38] LABS: Vancomycin, Trough 8.1 ug/mL
--- NOTE | 2020-08-12 09:44 | PRG ---
DATE OF SERVICE: 08/12/2020 SUBJECTIVE: Abhay Cooley is more cooperative again today. We will continue to try to decrease ventilatory support during the day, turn him up at night and then tomorrow try trach collar and continue with nocturnal ventilation until he gets into an LTAC. OBJECTIVE: VITAL SIGNS: Blood pressure 108/66, heart rate 75, respiratory rate 20. LUNGS: Clear. HEART: Regular rhythm. ABDOMEN: Soft. EXTREMITIES: Without edema. Intake and outputs, positive 515. LABORATORY DATA: White count 13.9, hemoglobin 10.2, platelets 366. Electrolytes are normal. BUN 30, creatinine 0.67. IMPRESSION: 1. Respiratory failure after COVID with deconditioning. 2. Encephalopathy, that has improved. 3. Parkinson's. 4. Probable chronic obstructive pulmonary disease. Start diuresing him. See if this helps. Facilitate weaning from mechanical ventilation. Critical care time 30 min. Job ID: [id number] MTDD
[2020-08-12] MEDS ORDERED: Furosemide 40 MG/4 ML VIAL IVP SCH (09:45)
[2020-08-12] MEDS: Morphine 2 MG/ML VIAL SLOW IVP PRN ×2 (10:08→20:29)
[2020-08-12] MEDS: GUAIFENESIN SF SOLN 200 MG/10 ML UDCUP PER TUBE SCH ×2 (10:24→20:54)
[2020-08-12] MEDS: Apixaban 5 MG TAB PO SCH ×2 (10:25→20:54)
--- NOTE | 2020-08-12 11:19 | PDOC.HOSPP ---
- Subjective Encounter Date: 08/12/20 Encounter Time: 11:16 Subjective: Mr. Cooley was seen today in follow-up of respiratory failure due to pneumonia and COPD. He is intubated, he is awake, and alert, but has some confusion. - Objective Vital Signs & Weight: Vital Signs (12 hours) Temp Pulse Resp BP Pulse Ox 08/12/20 10:19 69 30 H 98 08/12/20 10:16 68 124/63 08/12/20 10:00 24 H 08/12/20 08:00 18 08/12/20 06:53 73 108/60 93 L 08/12/20 06:52 79 30 H 96 08/12/20 06:00 26 H 08/12/20 04:00 97.6 F 25 H 08/12/20 03:39 58 L 08/12/20 02:00 26 H 08/12/20 00:00 98.7 F 25 H Weight Admit Weight 163 lb 9.328 oz Weight 138 lb 14.259 oz Most Recent Monitor Data Heart Rate from ECG 81 NIBP 124/63 NIBP BP-Mean 83 Respiration from ECG 17 SpO2 98 I&O: 08/11/20 08/12/20 08/13/20 06:59 06:59 06:59 Intake Total 1490.8 1210.4 180 Output Total 975 1215 290 Balance 515.8 -4.6 -110 Result Diagrams: 08/12/20 04:01 08/12/20 04:01 Additional Labs: Accuchecks 08/11/20 08/11/20 08/11/20 22:11 16:42 12:21 POC Glucose 171 H 201 H 183 H Hospitalist ROS - Medication Medications: Active Medications Generic Name Dose Route Start Last Admin Trade Name Freq PRN Reason Stop Dose Admin Acetaminophen 1,000 mg 07/06/20 14:14 08/09/20 05:16 Acetaminophen 650 Mg/20.3 Ml Udcup PER TUBE 1,000 mg Q6H PRN Administration Headache/Fever or Pain Albuterol/Ipratropium 3 ml 08/11/20 10:30 08/12/20 10:19 Ipratropium/Albuterol Sulfate 3 Ml Neb NEB 3 ml [id number] JOHN Administration Apixaban 5 mg 08/01/20 21:00 08/12/20 10:25 Apixaban 5 Mg Tab PO 5 mg BID JOHN Administration Ascorbic Acid 1,000 mg 07/03/20 09:00 08/12/20 08:16 Ascorbic Acid 500 Mg Chewable Tablet PO 1,000 mg DAILY JOHN Administration Aspirin 81 mg 08/10/20 09:00 08/12/20 08:16 Aspirin Chewable 81 Mg Tab PO 81 mg DAILY JOHN Administration Bisacodyl 10 mg 07/13/20 11:09 07/17/20 14:07 Bisacodyl 10 Mg Supp [place] 10 mg Q8H PRN Administration Constipation Cholecalciferol 400 units 07/03/20 09:00 08/12/20 08:16 Cholecalciferol (Vitamin D3) 400 Units Tab PO 400 units DAILY JOHN Administration Folic Acid 1 mg 07/10/20 09:00 08/12/20 08:16 Folic Acid 1 Mg Tab PO 1 mg DAILY JOHN Administration Furosemide 60 mg 08/12/20 09:45 08/12/20 10:29 Furosemide 40 Mg/4 Ml Vial IVP 08/12/20 13:00 60 mg NOW JOHN Administration Guaifenesin 600 mg 08/12/20 09:00 08/12/20 10:24 Guaifenesin Sf Soln 200 Mg/10 Ml Udcup PER TUBE 600 mg Q12HR JOHN Administration Haloperidol Lactate 10 mg 08/10/20 12:45 08/12/20 00:55 Haloperidol Lactate 5 Mg/Ml Vial IM 10 mg Q4H PRN Administration Agitation Sodium Chloride 1,000 mls @ 0 mls/hr 07/10/20 13:40 08/06/20 05:41 1/2 Normal Saline IV 1,000 mls .Q0M JOHN Administration KVO Dexmedetomidine HCl 400 mcg/ 100 mls @ 0 mls/hr 08/10/20 12:45 08/11/20 20:01 Sodium Chloride IVPB 100 mls INF JOHN Administration Protocol Titrate Insulin Human Lispro 0 units 07/03/20 01:26 08/12/20 04:40 Humalog 300 Units/3 Ml Vial SC 2 unit .MILD SLIDING SCALE PRN Administration Mild Correctional Scale Lorazepam 2 mg 08/09/20 17:30 08/09/20 21:42 Lorazepam 2 Mg/Ml Vial SLOW IVP 09/08/20 17:30 2 mg Q1H PRN Administration Breakthrough agitation Methylprednisolone Sodium Succinate 40 mg 08/11/20 11:00 08/11/20 12:43 Methylprednisolone Sod Succ 40 Mg Vial IVP 40 mg Q24HR JOHN Administration Morphine Sulfate 2 mg 08/09/20 17:30 08/12/20 10:08 Morphine 2 Mg/Ml Vial SLOW IVP 09/08/20 17:30 2 mg Q1H PRN Administration Breakthrough Pain/Agitation Pantoprazole Sodium 40 mg 07/16/20 09:00 08/12/20 08:16 Pantoprazole 40 Mg Granules Packet PER TUBE 40 mg DAILY JOHN Administration Pramipexole Dihydrochloride 1 mg 07/20/20 07:00 08/12/20 06:23 Pramipexole Di-Hcl 1 Mg Tab PO 1 mg 0700,1300,2000 JOHN Administration Propofol 1,000 mg 08/09/20 17:30 08/10/20 22:25 Propofol 1,000 Mg/100 Ml Vial IV 09/08/20 17:30 1,000 mg INF PRN Administration TO ACHIEVE GOAL RASS Protocol Quetiapine Fumarate 75 mg 08/07/20 21:00 08/11/20 20:00 Quetiapine Fumarate 25 Mg Tab PO 75 mg HS JOHN Administration Scopolamine 1.5 mg 07/25/20 04:00 08/12/20 03:31 Scopolamine 1.5 Mg/72 Hour Patch TOP 1.5 mg Q3D JOHN Administration Sodium Chloride 10 ml 07/03/20 21:00 08/12/20 08:17 Flush - Normal Saline 10 Ml Syringe IVF 10 ml Q12HR JOHN Administration Tamsulosin HCl 0.4 mg 08/02/20 21:00 08/11/20 20:01 Tamsulosin Hcl 0.4 Mg Cap PO 0.4 mg HS JOHN Administration Hospitalist Exam Vitals: Vital Signs (12 hours) Temp Pulse Resp BP Pulse Ox 08/12/20 10:19 69 30 H 98 08/12/20 10:16 68 124/63 08/12/20 10:00 24 H 08/12/20 08:00 18 08/12/20 06:53 73 108/60 93 L 08/12/20 06:52 79 30 H 96 08/12/20 06:00 26 H 08/12/20 04:00 97.6 F 25 H 08/12/20 03:39 58 L 08/12/20 02:00 26 H 08/12/20 00:00 98.7 F 25 H Weight Admit Weight 163 lb 9.328 oz Weight 138 lb 14.259 oz Most Recent Monitor Data Heart Rate from ECG 81 NIBP 124/63 NIBP BP-Mean 83 Respiration from ECG 17 SpO2 98 Eye: PERRL, anicteric sclera Heart: RRR, no murmur, no gallops, no rubs, normal peripheral pulses Respiratory: no wheezes, rales (at the bases), rhonchi Gastrointestinal: soft, non-tender, non-distended, normal bowel sounds, no palpable masses, no hepatomegaly Extremities: no cyanosis (palpable pulses bilaterally, no lesions), no edema Hosp A/P (1) Acute respiratory failure with hypoxia Code(s): J96.01 - ACUTE RESPIRATORY FAILURE WITH HYPOXIA Status: Acute (2) Pneumonia due to COVID-19 virus Code(s): U07.1 - COVID-19; J12.82 - PNEUMONIA DUE TO CORONAVIRUS DISEASE 2018 Status: Acute (3) Diabetes mellitus type 2 in nonobese Code(s): E11.9 - TYPE 2 DIABETES MELLITUS WITHOUT COMPLICATIONS Status: Chronic (4) Hypertension Code(s): I10 - ESSENTIAL (PRIMARY) HYPERTENSION Status: Chronic Qualifiers: Hypertension type: essential hypertension Qualified Code(s): I10 - Essential (primary) hypertension (5) TAMMY (obstructive sleep apnea) Code(s): G47.33 - OBSTRUCTIVE SLEEP APNEA (ADULT) (PEDIATRIC) Status: Chronic (6) Parkinson disease Code(s): G20 - PARKINSON'S DISEASE Status: Chronic - Plan * Acute respiratory failure initially due to COVID pneumonia, now he may have superinfection with bacterial pneumonia- He is currently being supported with mechanical ventilation * Antibiotics have been discontinued * HTN- blood pressure -low normal- * Urinary retention- continue Gutierrez catheter * UTI- due to Pseudomonas- He has completed a full course of Cefepime- which has been discontinued * JACIEL- resolved * DM- blood glucose is stable * DVT- prophylaxis- continue Lovenox * Parkinson's disease- continue Pramipexole * Nutritional support with tube feeds
[2020-08-12] MEDS: methylPREDNISolone Sod Succ 40 MG VIAL IVP SCH (11:27)
[2020-08-12] MEDS: Tamsulosin HCl 0.4 MG CAP PO SCH (20:30)
[2020-08-13 03:56] LABS: #Eosinphils 0.1 thou/uL (0.0-0.7); #Lymphocytes 1.3 thou/uL (1.20-3.40); #Monocytes 0.9 thou/uL (0.11-0.59); #Neutrophils 13.8 thou/uL (1.40-6.50); %Eosinophils 0.6 % (0.0-10.0); %Lymphocytes 7.8 % (21.0-51.0); %Monocytes 5.8 % (0.0-10.0); %Neutrophils 85.7 % (42.0-75.0); Hemoglobin 11.7 g/dL (14.0-18.0); Mean Corpuscular HGB CONC 32.9 g/dL (32.0-36.0); Mean Corpuscular Hemoglobin 32.2 pg (27.0-31.0); Mean Corpuscular Volume 97.8 fL (78.0-98.0); Mean Platelet Volume 7.6 fL (7.4-10.4); Platelet Count 394 thou/uL (130-400); RBC Distribution Width 12.7 % (11.5-14.5); Red Blood Cell (RBC) Count 3.63 mill/uL (4.70-6.10); White Blood Cell (WBC) Count 16.1 thou/uL (4.8-10.8)
[2020-08-13 04:09] LABS: Anion Gap 14 mmol/L (10-20); BUN (Urea Nitrogen) 36 mg/dL (8.4-25.7); Calc. Creatinine Clearance 80 mL/min (70-130); Calcium 8.6 mg/dL (7.8-10.44); Carbon Dioxide 33 mmol/L (23-31); Chloride 98 mmol/L (98-107); Glucose 163 mg/dL (83-110); Sodium 141 mmol/L (136-145)
[2020-08-13] MEDS: HumaLOG 300 UNITS/3 ML VIAL SC PRN ×2 (04:28→22:27)
[2020-08-13] MEDS: Morphine 2 MG/ML VIAL SLOW IVP PRN (04:51)
[2020-08-13] MEDS: Pramipexole Di-HCl 1 MG TAB PO SCH ×3 (06:19→20:25)
[2020-08-13] MEDS: Acetaminophen 650 MG/20.3 ML UDCUP PER TUBE PRN ×2 (06:25→20:25)
[2020-08-13] MEDS: Aspirin Chewable 81 MG TAB PO SCH (08:18)
[2020-08-13] MEDS: Pantoprazole 40 MG GRANULES PACKET PER TUBE SCH (08:18)
[2020-08-13] MEDS: Ascorbic Acid 500 mg Chewable Tablet PO SCH (08:18)
[2020-08-13] MEDS: Folic Acid 1 MG TAB PO SCH (08:18)
[2020-08-13] MEDS: Apixaban 5 MG TAB PO SCH ×2 (08:18→20:39)
[2020-08-13] MEDS: Cholecalciferol (Vitamin D3) 400 UNITS TAB PO SCH (08:18)
[2020-08-13] MEDS: GUAIFENESIN SF SOLN 200 MG/10 ML UDCUP PER TUBE SCH ×2 (08:19→21:41)
[2020-08-13] MEDS: Furosemide 40 MG/4 ML VIAL SLOW IVP SCH (08:19)
[2020-08-13] MEDS: methylPREDNISolone Sod Succ 40 MG VIAL IVP SCH (11:53)
--- NOTE | 2020-08-13 12:42 | PRG ---
DATE OF SERVICE: 08/13/2020 SUBJECTIVE: Abhay Cooley was on trach collar this morning. He was in no distress. He was calm and cooperative. OBJECTIVE: VITAL SIGNS: Blood pressure 126/98, heart rate is 94, respiratory rate in the teens. LUNGS: Clear. HEART: Regular rhythm. ABDOMEN: Soft. LABORATORY DATA: White count 16.1, hemoglobin 11.7, platelets 394. Electrolytes are unremarkable. IMPRESSION: Encephalopathy, improved. PLAN: Intake and output -2361. I expected negative fluid balance. This led to an improvement in his work of breathing. We will continue supportive care and continue ventilating at night. Job ID: [id number] MTDD
--- NOTE | 2020-08-13 15:32 | PDOC.HOSPP ---
- Subjective Encounter Date: 08/13/20 Encounter Time: 15:31 Subjective: Mr. Cooley was seen today in follow-up of respiratory failure due to COVID pneumonia. He has been recently placed on a trach collar. He appears comfortable, and tolerating this well. - Objective Vital Signs & Weight: Vital Signs (12 hours) Temp Pulse Pulse Pulse Resp BP BP 08/13/20 14:27 96 24 H 08/13/20 10:42 97 28 H 08/13/20 09:23 94 81 126/98 H 08/13/20 07:45 08/13/20 06:54 92 32 H 08/13/20 06:51 87 111/80 08/13/20 06:00 30 H 08/13/20 04:41 91 08/13/20 04:00 98.5 F 25 H BP Pulse Ox Pulse Ox Pulse Ox 08/13/20 14:27 97 08/13/20 10:42 91 L 08/13/20 09:23 121/51 L 93 L 91 L 08/13/20 07:45 93 L 08/13/20 06:54 99 08/13/20 06:51 94 L 08/13/20 06:00 08/13/20 04:41 08/13/20 04:00 Weight Admit Weight 163 lb 9.328 oz Weight 133 lb 2.547 oz Most Recent Monitor Data Heart Rate from ECG 112 NIBP 136/85 NIBP BP-Mean 102 Respiration from ECG 22 SpO2 92 I&O: 08/12/20 08/13/20 08/14/20 06:59 06:59 06:59 Intake Total 1210.4 1998.4 30 Output Total 1215 4360 100 Balance -4.6 -2361.6 -70 Result Diagrams: 08/13/20 03:31 08/13/20 03:31 Additional Labs: Accuchecks 08/13/20 08/12/20 14:37 20:55 POC Glucose 136 H 145 H Hospitalist ROS - Medication Medications: Active Medications Generic Name Dose Route Start Last Admin Trade Name Freq PRN Reason Stop Dose Admin Acetaminophen 1,000 mg 07/06/20 14:14 08/13/20 06:25 Acetaminophen 650 Mg/20.3 Ml Udcup PER TUBE 1,000 mg Q6H PRN Administration Headache/Fever or Pain Albuterol/Ipratropium 3 ml 08/11/20 10:30 08/13/20 14:27 Ipratropium/Albuterol Sulfate 3 Ml Neb NEB 3 ml [id number] JOHN Administration Apixaban 5 mg 08/01/20 21:00 08/13/20 08:18 Apixaban 5 Mg Tab PO 5 mg BID JOHN Administration Ascorbic Acid 1,000 mg 07/03/20 09:00 08/13/20 08:18 Ascorbic Acid 500 Mg Chewable Tablet PO 1,000 mg DAILY JOHN Administration Aspirin 81 mg 08/10/20 09:00 08/13/20 08:18 Aspirin Chewable 81 Mg Tab PO 81 mg DAILY JOHN Administration Bisacodyl 10 mg 07/13/20 11:09 07/17/20 14:07 Bisacodyl 10 Mg Supp [place] 10 mg Q8H PRN Administration Constipation Cholecalciferol 400 units 07/03/20 09:00 08/13/20 08:18 Cholecalciferol (Vitamin D3) 400 Units Tab PO 400 units DAILY JOHN Administration Folic Acid 1 mg 07/10/20 09:00 08/13/20 08:18 Folic Acid 1 Mg Tab PO 1 mg DAILY JOHN Administration Furosemide 60 mg 08/13/20 09:00 08/13/20 08:19 Furosemide 40 Mg/4 Ml Vial SLOW IVP 60 mg DAILY JOHN Administration Guaifenesin 600 mg 08/12/20 09:00 08/13/20 08:19 Guaifenesin Sf Soln 200 Mg/10 Ml Udcup PER TUBE 600 mg Q12HR JOHN Administration Haloperidol Lactate 10 mg 08/10/20 12:45 08/12/20 00:55 Haloperidol Lactate 5 Mg/Ml Vial IM 10 mg Q4H PRN Administration Agitation Sodium Chloride 1,000 mls @ 0 mls/hr 07/10/20 13:40 08/06/20 05:41 1/2 Normal Saline IV 1,000 mls .Q0M JOHN Administration KVO Dexmedetomidine HCl 400 mcg/ 100 mls @ 0 mls/hr 08/10/20 12:45 08/13/20 09:13 Sodium Chloride IVPB 100 mls INF JOHN Administration Protocol Titrate Insulin Human Lispro 0 units 07/03/20 01:26 08/13/20 04:28 Humalog 300 Units/3 Ml Vial SC 2 unit .MILD SLIDING SCALE PRN Administration Mild Correctional Scale Lorazepam 2 mg 08/09/20 17:30 08/09/20 21:42 Lorazepam 2 Mg/Ml Vial SLOW IVP 09/08/20 17:30 2 mg Q1H PRN Administration Breakthrough agitation Methylprednisolone Sodium Succinate 40 mg 08/11/20 11:00 08/13/20 11:53 Methylprednisolone Sod Succ 40 Mg Vial IVP 40 mg Q24HR JOHN Administration Morphine Sulfate 2 mg 08/09/20 17:30 08/13/20 04:51 Morphine 2 Mg/Ml Vial SLOW IVP 09/08/20 17:30 2 mg Q1H PRN Administration Breakthrough Pain/Agitation Pantoprazole Sodium 40 mg 07/16/20 09:00 08/13/20 08:18 Pantoprazole 40 Mg Granules Packet PER TUBE 40 mg DAILY JOHN Administration Pramipexole Dihydrochloride 1 mg 07/20/20 07:00 08/13/20 13:08 Pramipexole Di-Hcl 1 Mg Tab PO 1 mg 0700,1300,2000 JOHN Administration Propofol 1,000 mg 08/09/20 17:30 08/10/20 22:25 Propofol 1,000 Mg/100 Ml Vial IV 09/08/20 17:30 1,000 mg INF PRN Administration TO ACHIEVE GOAL RASS Protocol Quetiapine Fumarate 75 mg 08/07/20 21:00 08/12/20 20:30 Quetiapine Fumarate 25 Mg Tab PO 75 mg HS JOHN Administration Scopolamine 1.5 mg 07/25/20 04:00 08/12/20 03:31 Scopolamine 1.5 Mg/72 Hour Patch TOP 1.5 mg Q3D JOHN Administration Sodium Chloride 10 ml 07/03/20 21:00 08/13/20 08:20 Flush - Normal Saline 10 Ml Syringe IVF 10 ml Q12HR JOHN Administration Tamsulosin HCl 0.4 mg 08/02/20 21:00 08/12/20 20:30 Tamsulosin Hcl 0.4 Mg Cap PO 0.4 mg HS JOHN Administration Hospitalist Exam Vitals: Vital Signs (12 hours) Temp Pulse Pulse Pulse Resp BP BP 08/13/20 14:27 96 24 H 08/13/20 10:42 97 28 H 08/13/20 09:23 94 81 126/98 H 08/13/20 07:45 08/13/20 06:54 92 32 H 08/13/20 06:51 87 111/80 08/13/20 06:00 30 H 08/13/20 04:41 91 08/13/20 04:00 98.5 F 25 H BP Pulse Ox Pulse Ox Pulse Ox 08/13/20 14:27 97 08/13/20 10:42 91 L 08/13/20 09:23 121/51 L 93 L 91 L 08/13/20 07:45 93 L 08/13/20 06:54 99 08/13/20 06:51 94 L 08/13/20 06:00 08/13/20 04:41 08/13/20 04:00 Weight Admit Weight 163 lb 9.328 oz Weight 133 lb 2.547 oz Most Recent Monitor Data Heart Rate from ECG 112 NIBP 136/85 NIBP BP-Mean 102 Respiration from ECG 22 SpO2 92 General Appearance: NAD, awake alert Eye: PERRL, anicteric sclera Heart: RRR, no murmur, no gallops, no rubs, normal peripheral pulses Respiratory: no wheezes, no ronchi, rales Gastrointestinal: soft, non-tender, non-distended, normal bowel sounds, no palpable masses, no hepatomegaly, no splenomegaly Extremities: no cyanosis, no edema Hosp A/P (1) Acute respiratory failure with hypoxia Code(s): J96.01 - ACUTE RESPIRATORY FAILURE WITH HYPOXIA Status: Acute (2) Pneumonia due to COVID-19 virus Code(s): U07.1 - COVID-19; J12.82 - PNEUMONIA DUE TO CORONAVIRUS DISEASE 2019 Status: Acute (3) Diabetes mellitus type 2 in nonobese Code(s): E11.9 - TYPE 2 DIABETES MELLITUS WITHOUT COMPLICATIONS Status: Chronic (4) Hypertension Code(s): I10 - ESSENTIAL (PRIMARY) HYPERTENSION Status: Chronic Qualifiers: Hypertension type: essential hypertension Qualified Code(s): I10 - E ssential (primary) hypertension (5) TAMMY (obstructive sleep apnea) Code(s): G47.33 - OBSTRUCTIVE SLEEP APNEA (ADULT) (PEDIATRIC) Status: Chronic (6) Parkinson disease Code(s): G20 - PARKINSON'S DISEASE Status: Chronic - Plan * Acute respiratory failure initially due to COVID pneumonia, now he may have superinfection with bacterial pneumonia- He is currently being supported with mechanical ventilation * Antibiotics have been discontinued * HTN- blood pressure -stable * Urinary retention- continue Gutierrez catheter * UTI- resolved- He has completed a course of Cefepime * JACIEL- resolved * DM- blood glucose is stable * DVT- prophylaxis- continue Lovenox * Parkinson's disease- continue Pramipexole * Tolerating Tube feeds
[2020-08-13] MEDS: Tamsulosin HCl 0.4 MG CAP PO SCH (20:25)
[2020-08-13] MEDS: Haloperidol Lactate 5 MG/ML VIAL IM PRN (22:27)
[2020-08-14] MEDS: Lorazepam 2 MG/ML VIAL SLOW IVP PRN ×2 (01:01→05:59)
[2020-08-14 04:14] LABS: Anion Gap 18 mmol/L (10-20); BUN (Urea Nitrogen) 36 mg/dL (8.4-25.7); Calc. Creatinine Clearance 80 mL/min (70-130); Carbon Dioxide 32 mmol/L (23-31); Chloride 97 mmol/L (98-107); Glucose 88 mg/dL (83-110); Potassium 4.5 mmol/L (3.5-5.1); Sodium 142 mmol/L (136-145)
[2020-08-14 04:45] LABS: Band 10 % (5-11); Hemoglobin 12.9 g/dL (14.0-18.0); Hypochromia SLIGHT = 6-15 cells (100X) (0-5/hpf); Lymphocytes 13 % (21-51); MDiff Complete? YES; Macrocytosis SLIGHT = 6-15 cells (100X) (0-5/hpf); Mean Corpuscular HGB CONC 34.1 g/dL (32.0-36.0); Mean Corpuscular Hemoglobin 34.4 pg (27.0-31.0); Mean Platelet Volume 7.5 fL (7.4-10.4); Monocytes 1 % (0-10); Neutrophil 76 % (42-75); Platelet Count 329 thou/uL (130-400); Platelet Morphology Comment Appears Adequate; RBC Distribution Width 12.9 % (11.5-14.5); Red Blood Cell (RBC) Count 3.74 mill/uL (4.70-6.10); White Blood Cell (WBC) Count 20.6 thou/uL (4.8-10.8)
[2020-08-14] MEDS: Pramipexole Di-HCl 1 MG TAB PO SCH ×3 (07:36→20:26)
[2020-08-14] MEDS: GUAIFENESIN SF SOLN 200 MG/10 ML UDCUP PER TUBE SCH ×2 (08:23→20:27)
[2020-08-14] MEDS: Furosemide 40 MG/4 ML VIAL SLOW IVP SCH (08:24)
[2020-08-14] MEDS: Cholecalciferol (Vitamin D3) 400 UNITS TAB PO SCH (08:24)
[2020-08-14] MEDS: Ascorbic Acid 500 mg Chewable Tablet PO SCH (08:24)
[2020-08-14] MEDS: Pantoprazole 40 MG GRANULES PACKET PER TUBE SCH (08:24)
[2020-08-14] MEDS: Folic Acid 1 MG TAB PO SCH (08:24)
[2020-08-14] MEDS: Aspirin Chewable 81 MG TAB PO SCH (08:24)
[2020-08-14] MEDS: Apixaban 5 MG TAB PO SCH ×2 (08:24→20:26)
--- NOTE | 2020-08-14 09:35 | PDOC.HOSPP ---
- Subjective Encounter Date: 08/14/20 Encounter Time: 09:33 Subjective: Mr. Cooley was seen today in follow-up of respiratory failure following COVID infection. He has a trach, and is resting on the Ventilator right now. He does not have any complaints. - Objective Vital Signs & Weight: Vital Signs (12 hours) Temp Pulse Resp BP Pulse Ox 08/14/20 07:29 89 30 H 99 08/14/20 07:27 84 87/62 L 100 08/14/20 04:00 98.4 F 08/14/20 02:51 84 08/14/20 00:00 98.6 F Weight Admit Weight 163 lb 9.328 oz Weight 134 lb 11.239 oz Most Recent Monitor Data Heart Rate from ECG 88 NIBP 96/71 NIBP BP-Mean 79 Respiration from ECG 24 SpO2 100 I&O: 08/13/20 08/14/20 08/15/20 06:59 06:59 06:59 Intake Total 1998.4 1439.5 30 Output Total 4360 2765 Balance -2361.6 -1325.5 30 Result Diagrams: 08/14/20 03:44 08/14/20 03:44 Additional Labs: Accuchecks 08/13/20 08/13/20 08/13/20 22:19 17:49 14:37 POC Glucose 210 H 176 H 136 H Hospitalist ROS - Medication Medications: Active Medications Generic Name Dose Route Start Last Admin Trade Name Freq PRN Reason Stop Dose Admin Acetaminophen 1,000 mg 07/06/20 14:14 08/13/20 20:25 Acetaminophen 650 Mg/20.3 Ml Udcup PER TUBE 1,000 mg Q6H PRN Administration Headache/Fever or Pain Albuterol/Ipratropium 3 ml 08/11/20 10:30 08/14/20 07:29 Ipratropium/Albuterol Sulfate 3 Ml Neb NEB 3 ml [id number] JOHN Administration Apixaban 5 mg 08/01/20 21:00 08/14/20 08:24 Apixaban 5 Mg Tab PO 5 mg BID JOHN Administration Ascorbic Acid 1,000 mg 07/03/20 09:00 08/14/20 08:24 Ascorbic Acid 500 Mg Chewable Tablet PO 1,000 mg DAILY JOHN Administration Aspirin 81 mg 08/10/20 09:00 08/14/20 08:24 Aspirin Chewable 81 Mg Tab PO 81 mg DAILY JOHN Administration Bisacodyl 10 mg 07/13/20 11:09 07/17/20 14:07 Bisacodyl 10 Mg Supp DC 10 mg Q8H PRN Administration Constipation Cholecalciferol 400 units 07/03/20 09:00 08/14/20 08:24 Cholecalciferol (Vitamin D3) 400 Units Tab PO 400 units DAILY JOHN Administration Folic Acid 1 mg 07/10/20 09:00 08/14/20 08:24 Folic Acid 1 Mg Tab PO 1 mg DAILY JOHN Administration Furosemide 60 mg 08/13/20 09:00 08/14/20 08:24 Furosemide 40 Mg/4 Ml Vial SLOW IVP 60 mg DAILY JOHN Administration Guaifenesin 600 mg 08/12/20 09:00 08/14/20 08:23 Guaifenesin Sf Soln 200 Mg/10 Ml Udcup PER TUBE 600 mg Q12HR JOHN Administration Haloperidol Lactate 10 mg 08/10/20 12:45 08/13/20 22:27 Haloperidol Lactate 5 Mg/Ml Vial IM 10 mg Q4H PRN Administration Agitation Sodium Chloride 1,000 mls @ 0 mls/hr 07/10/20 13:40 08/06/20 05:41 1/2 Normal Saline IV 1,000 mls .Q0M JOHN Administration KVO Dexmedetomidine HCl 400 mcg/ 100 mls @ 0 mls/hr 08/10/20 12:45 08/13/20 21:01 Sodium Chloride IVPB 100 mls INF JOHN Administration Protocol Titrate Insulin Human Lispro 0 units 07/03/20 01:26 08/13/20 22:27 Humalog 300 Units/3 Ml Vial SC 3 unit .MILD SLIDING SCALE PRN Administration Mild Correctional Scale Morphine Sulfate 2 mg 08/09/20 17:30 08/13/20 04:51 Morphine 2 Mg/Ml Vial SLOW IVP 09/08/20 17:30 2 mg Q1H PRN Administration Breakthrough Pain/Agitation Pantoprazole Sodium 40 mg 07/16/20 09:00 08/14/20 08:24 Pantoprazole 40 Mg Granules Packet PER TUBE 40 mg DAILY JOHN Administration Pramipexole Dihydrochloride 1 mg 07/20/20 07:00 08/14/20 07:36 Pramipexole Di-Hcl 1 Mg Tab PO 1 mg 0700,1300,2000 JOHN Administration Propofol 1,000 mg 08/09/20 17:30 08/10/20 22:25 Propofol 1,000 Mg/100 Ml Vial IV 09/08/20 17:30 1,000 mg INF PRN Administration TO ACHIEVE GOAL RASS Protocol Quetiapine Fumarate 75 mg 08/07/20 21:00 08/13/20 20:25 Quetiapine Fumarate 25 Mg Tab PO 75 mg HS JOHN Administration Scopolamine 1.5 mg 07/25/20 04:00 08/12/20 03:31 Scopolamine 1.5 Mg/72 Hour Patch TOP 1.5 mg Q3D JOHN Administration Sodium Chloride 10 ml 07/03/20 21:00 08/14/20 08:25 Flush - Normal Saline 10 Ml Syringe IVF 10 ml Q12HR JOHN Administration Tamsulosin HCl 0.4 mg 08/02/20 21:00 08/13/20 20:25 Tamsulosin Hcl 0.4 Mg Cap PO 0.4 mg HS JOHN Administration Hospitalist Exam Vitals: Vital Signs (12 hours) Temp Pulse Resp BP Pulse Ox 08/14/20 07:29 89 30 H 99 08/14/20 07:27 84 87/62 L 100 08/14/20 04:00 98.4 F 08/14/20 02:51 84 08/14/20 00:00 98.6 F Weight Admit Weight 163 lb 9.328 oz Weight 134 lb 11.239 oz Most Recent Monitor Data Heart Rate from ECG 88 NIBP 96/71 NIBP BP-Mean 79 Respiration from ECG 24 SpO2 100 General Appearance: NAD Eye: PERRL, anicteric sclera Heart: RRR, no murmur, no gallops, no rubs, normal peripheral pulses (+ rhonchi bilaterally, no wheezing or rales) Gastrointestinal: soft, non-tender, non-distended, normal bowel sounds, no palpable masses, no hepatomegaly Extremities: no cyanosis, no edema (palpable d.p. pulses Left upper extremity swelling) Hosp A/P (1) Acute respiratory failure with hypoxia Code(s): J96.01 - ACUTE RESPIRATORY FAILURE WITH HYPOXIA Status: Acute (2) Pneumonia due to COVID-19 virus Code(s): U07.1 - COVID-19; J12.82 - PNEUMONIA DUE TO CORONAVIRUS DISEASE 2019 Status: Acute (3) Diabetes mellitus type 2 in nonobese Code(s): E11.9 - TYPE 2 DIABETES MELLITUS WITHOUT COMPLICATIONS Status: Chronic (4) Hypertension Code(s): I10 - ESSENTIAL (PRIMARY) HYPERTENSION Status: Chronic Qualifiers: Hypertension type: essential hypertension Qualified Code(s): I10 - Essential (primary) hypertension (5) TAMMY (obstructive sleep apnea) Code(s): G47.33 - OBSTRUCTIVE SLEEP APNEA (ADULT) (PEDIATRIC) Status: Chronic (6) Parkinson disease Code(s): G20 - PARKINSON'S DISEASE Status: Chronic (7) Chronic anticoagulation Code(s): Z79.01 - CARE HOME (CURRENT) USE OF ANTICOAGULANTS Status: Acute - Plan * Acute respiratory failure initially due to COVID pneumonia- he is using the trach collar during the day, and mechanical ventilation at night * His WBC count has been climbing- will re-culture blood urine and sputum-, may need to re-institute antibiotics * HTN- blood pressure is on the lower side * Urinary retention- continue Gutierrez catheter * UTI- resolved- He has completed a course of Cefepime * Left upper extremity swelling- he is already on therapeutic dose Eliquis * JACIEL- resolved * DM- blood glucose is stable * DVT- prophylaxis- continue Lovenox * Parkinson's disease- continue Pramipexole * Tolerating Tube feeds
[2020-08-14] MEDS: methylPREDNISolone Sod Succ 40 MG VIAL IVP SCH (10:34)
[2020-08-14] MEDS: Haloperidol Lactate 5 MG/ML VIAL SLOW IVP PRN ×2 (12:28→17:54)
--- NOTE | 2020-08-14 12:43 | PRG ---
DATE OF SERVICE: 08/14/2020 SUBJECTIVE: Abhay Cooley received Ativan last night, slow to awaken this morning, so he was not on I will discontinue that from his MAR and put in an IV Haldol dose for extreme agitation. OBJECTIVE: VITAL SIGNS: His heart rate is 80, blood pressure 95/68, respiratory rates in the 20s. LUNGS: Otherwise unchanged. HEART: Otherwise unchanged. ABDOMEN: Otherwise unchanged. LABORATORY DATA: White count 20, hemoglobin 12, platelets 329. Electrolytes are unremarkable. BUN 36, creatinine 0.7, potassium 4.5. IMPRESSION: 1. Respiratory failure after COVID with extreme deconditioning. 2. Encephalopathy, which is likely multifactorial. 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 We will continue supportive care. The Haldol seems to work well combined with Precedex. Hopefully, we are awaiting transfer to long-term acute care center. He has been here 43 days. Job ID: [id number]
[2020-08-14] MEDS: Tamsulosin HCl 0.4 MG CAP PO SCH (20:27)
[2020-08-14] MEDS: HumaLOG 300 UNITS/3 ML VIAL SC PRN (22:47)
[2020-08-15] MEDS: Pramipexole Di-HCl 1 MG TAB PO SCH ×3 (07:50→20:31)
[2020-08-15] MEDS: Cholecalciferol (Vitamin D3) 400 UNITS TAB PO SCH (08:04)
[2020-08-15] MEDS: Aspirin Chewable 81 MG TAB PO SCH (08:04)
[2020-08-15] MEDS: GUAIFENESIN SF SOLN 200 MG/10 ML UDCUP PER TUBE SCH ×2 (08:04→20:31)
[2020-08-15] MEDS: Ascorbic Acid 500 mg Chewable Tablet PO SCH (08:04)
[2020-08-15] MEDS: Furosemide 40 MG/4 ML VIAL SLOW IVP SCH (08:05)
[2020-08-15] MEDS: Apixaban 5 MG TAB PO SCH ×2 (08:05→20:31)
[2020-08-15] MEDS: Folic Acid 1 MG TAB PO SCH (08:05)
[2020-08-15] MEDS: Pantoprazole 40 MG GRANULES PACKET PER TUBE SCH (08:05)
[2020-08-15] MEDS: methylPREDNISolone Sod Succ 40 MG VIAL IVP SCH (08:06)
--- NOTE | 2020-08-15 10:33 | PDOC.HOSPP ---
- Subjective Encounter Date: 08/15/20 Encounter Time: 10:25 Subjective: f/u for COVID/Resp failure with trach/PEG on mech vent with SIMV @ 35%. Intermittent agitation/encephalopathy. Awaiting LTAC options. - Objective Vital Signs & Weight: Vital Signs (12 hours) Temp Pulse Resp Pulse Ox 08/15/20 08:09 75 08/15/20 08:08 81 33 H 95 08/15/20 08:00 93 L 08/15/20 04:00 97.9 F 08/15/20 00:00 98.2 F 08/14/20 23:24 76 Weight Admit Weight 163 lb 9.328 oz Weight 2.205 oz Most Recent Monitor Data Heart Rate from ECG 84 NIBP 84/46 NIBP BP-Mean 58 Respiration from ECG 29 SpO2 95 I&O: 08/14/20 08/15/20 08/16/20 06:59 06:59 06:59 Intake Total 1439.5 2985.6 30 Output Total 2765 1355 110 Balance -1325.5 1630.6 -80 Result Diagrams: 08/14/20 03:44 08/14/20 03:44 Additional Labs: Accuchecks 08/15/20 08/15/20 08/14/20 09:21 05:04 17:06 POC Glucose 106 H 148 H 183 H 08/14/20 08/14/20 10:39 03:56 POC Glucose 135 H 94 Microbiology 08/03/20 06:50 Urine Straight Catheter Urine Culture - Final Pseudomonas aeruginosa 08/14/20 15:05 Urine rodrigues catheter Urine Culture - Preliminary NO GROWTH AT 12 HOURS 08/14/20 08:19 Venous blood - Left Hand Blood Culture - Preliminary Specimen has been received and culture in progress. No Growth to date. 08/14/20 08:19 Venous blood - Left Arm Blood Culture - Preliminary Specimen has been received and culture in progress. No Growth to date. 08/03/20 06:50 Urine Straight Catheter Urine Culture - Preliminary Gram Negative Fidel EKG Reviewed by me: Yes (Tele - SR) Hospitalist ROS - Medication Medications: Active Medications Generic Name Dose Route Start Last Admin Trade Name Freq PRN Reason Stop Dose Admin Acetaminophen 1,000 mg 07/06/20 14:14 08/13/20 20:25 Acetaminophen 650 Mg/20.3 Ml Udcup PER TUBE 1,000 mg Q6H PRN Administration Headache/Fever or Pain Albuterol/Ipratropium 3 ml 08/11/20 10:30 08/15/20 08:08 Ipratropium/Albuterol Sulfate 3 Ml Neb NEB 3 ml [id number] JOHN Administration Apixaban 5 mg 08/01/20 21:00 08/15/20 08:05 Apixaban 5 Mg Tab PO 5 mg BID JOHN Administration Ascorbic Acid 1,000 mg 07/03/20 09:00 08/15/20 08:04 Ascorbic Acid 500 Mg Chewable Tablet PO 1,000 mg DAILY JOHN Administration Aspirin 81 mg 08/10/20 09:00 08/15/20 08:04 Aspirin Chewable 81 Mg Tab PO 81 mg DAILY JOHN Administration Bisacodyl 10 mg 07/13/20 11:09 07/17/20 14:07 Bisacodyl 10 Mg Supp MS 10 mg Q8H PRN Administration Constipation Cholecalciferol 400 units 07/03/20 09:00 08/15/20 08:04 Cholecalciferol (Vitamin D3) 400 Units Tab PO 400 units DAILY JOHN Administration Folic Acid 1 mg 07/10/20 09:00 08/15/20 08:05 Folic Acid 1 Mg Tab PO 1 mg DAILY JOHN Administration Furosemide 60 mg 08/13/20 09:00 08/15/20 08:05 Furosemide 40 Mg/4 Ml Vial SLOW IVP 60 mg DAILY JOHN Administration Guaifenesin 600 mg 08/12/20 09:00 08/15/20 08:04 Guaifenesin Sf Soln 200 Mg/10 Ml Udcup PER TUBE 600 mg Q12HR JOHN Administration Haloperidol Lactate 10 mg 08/10/20 12:45 08/13/20 22:27 Haloperidol Lactate 5 Mg/Ml Vial IM 10 mg Q4H PRN Administration Agitation Haloperidol Lactate 10 mg 08/14/20 09:11 08/14/20 17:54 Haloperidol Lactate 5 Mg/Ml Vial SLOW IVP 10 mg Q2H PRN Administration Agitation Sodium Chloride 1,000 mls @ 0 mls/hr 07/10/20 13:40 08/06/20 05:41 1/2 Normal Saline IV 1,000 mls .Q0M JOHN Administration KVO Dexmedetomidine HCl 400 mcg/ 100 mls @ 0 mls/hr 08/10/20 12:45 08/15/20 00:33 Sodium Chloride IVPB 100 mls INF JOHN Administration Protocol Titrate Insulin Human Lispro 0 units 07/03/20 01:26 08/14/20 22:47 Humalog 300 Units/3 Ml Vial SC 2 unit .MILD SLIDING SCALE PRN Administration Mild Correctional Scale Methylprednisolone Sodium Succinate 20 mg 08/14/20 09:11 08/15/20 08:06 Methylprednisolone Sod Succ 40 Mg Vial IVP 20 mg Q24HR JOHN Administration Morphine Sulfate 2 mg 08/09/20 17:30 08/13/20 04:51 Morphine 2 Mg/Ml Vial SLOW IVP 09/08/20 17:30 2 mg Q1H PRN Administration Breakthrough Pain/Agitation Pantoprazole Sodium 40 mg 07/16/20 09:00 08/15/20 08:05 Pantoprazole 40 Mg Granules Packet PER TUBE 40 mg DAILY JOHN Administration Pramipexole Dihydrochloride 1 mg 07/20/20 07:00 08/15/20 07:50 Pramipexole Di-Hcl 1 Mg Tab PO 1 mg 0700,1300,2000 JOHN Administration Propofol 1,000 mg 08/09/20 17:30 08/10/20 22:25 Propofol 1,000 Mg/100 Ml Vial IV 09/08/20 17:30 1,000 mg INF PRN Administration TO ACHIEVE GOAL RASS Protocol Quetiapine Fumarate 75 mg 08/07/20 21:00 08/14/20 20:27 Quetiapine Fumarate 25 Mg Tab PO 75 mg HS JOHN Administration Scopolamine 1.5 mg 07/25/20 04:00 08/12/20 03:31 Scopolamine 1.5 Mg/72 Hour Patch TOP 1.5 mg Q3D JOHN Administration Sodium Chloride 10 ml 07/03/20 21:00 08/15/20 08:06 Flush - Normal Saline 10 Ml Syringe IVF 10 ml Q12HR JOHN Administration Tamsulosin HCl 0.4 mg 08/02/20 21:00 08/14/20 20:27 Tamsulosin Hcl 0.4 Mg Cap PO 0.4 mg HS JOHN Administration Hospitalist Exam Vitals: Vital Signs (12 hours) Temp Pulse Resp Pulse Ox 08/15/20 08:09 75 08/15/20 08:08 81 33 H 95 08/15/20 08:00 93 L 08/15/20 04:00 97.9 F 08/15/20 00:00 98.2 F 08/14/20 23:24 76 Weight Admit Weight 163 lb 9.328 oz Weight 2.205 oz Most Recent Monitor Data Heart Rate from ECG 84 NIBP 84/46 NIBP BP-Mean 58 Respiration from ECG 29 SpO2 95 General Appearance: awake alert General - other findings: mech vent Eye: PERRL, anicteric sclera ENT: normocephalic atraumatic, no oropharyngeal lesions Neck: supple, symmetric, no JVD, no thyromegaly, no lymphadenopathy Neck - other findings: Trach in place Heart: RRR, no gallops, no rubs, normal peripheral pulses Heart - other findings: S1, S2 Respiratory: CTAB, no wheezes, no rales Respiratory - other findings: diminished in bases bilat Gastrointestinal: soft, non-tender, non-distended, normal bowel sounds, no palpable masses, no hepatomegaly Extremities: no cyanosis, no clubbing, no edema Skin: normal turgor, no lesions Neurological: cranial nerve grossly intact, no new deficit Musculoskeletal: generalized weakness, diffuse muscle atrophy Psychiatric: oriented to person, flat affect, somnolent Hosp A/P (1) Acute respiratory failure with hypoxia Code(s): J96.01 - ACUTE RESPIRATORY FAILURE WITH HYPOXIA Status: Acute Plan: Continue SIMV and titrate to clinical response, FIO2 35% (2) Pneumonia due to COVID-19 virus Code(s): U07.1 - COVID-19; J12.82 - PNEUMONIA DUE TO CORONAVIRUS DISEASE 2018 Status: Acute Plan: Continue Vit C/D3/Eliquis/Solumedrol/mech vent with trach (3) Delirium Code(s): R41.0 - DISORIENTATION, UNSPECIFIED Status: Acute Plan: Likely multifactorial encephalopathy due to Dementia/Parkinson's/prolonged ICU/hospital stay, Haldol/Seroquel/Precedex (4) Diabetes mellitus type 2 in nonobese Code(s): E11.9 - TYPE 2 DIABETES MELLITUS WITHOUT COMPLICATIONS Status: Chronic (5) Parkinson disease Code(s): G20 - PARKINSON'S DISEASE Status: Chronic (6) Urinary retention Code(s): R33.9 - RETENTION OF URINE, UNSPECIFIED Status: Acute Plan: s/p Rodrigues, continue Flomax - Plan PT/OT, aids social worker, speech therapy, respiratory therapy Consults: Palliative Care Stable overall Continue pulmonary support with SIMV ROM exercises with PT/OT Await LTAC options Nutritional support with TF's Haldol PRN agitation/combativeness
--- NOTE | 2020-08-15 14:34 | PRG ---
DATE OF SERVICE: 08/15/2020 SUBJECTIVE: The patient is currently on T collar. He is awaiting LTAC placement, but apparently the first LTAC was not acceptable to the family. The is at bedside. She is complaining of right arm edema from a previously infiltrated IV. OBJECTIVE: VITAL SIGNS: Temperature 97.4, pulse 96, blood pressure 102/60, O2 saturation 100%. HEENT: Unremarkable. NECK: Trach with copious secretions. CARDIAC: S1 and S2. Regular. ABDOMEN: Soft. EXTREMITIES: No edema except in the right arm. LABORATORY DATA: No new labs were drawn today. ASSESSMENT: 1. Status post COVID pneumonia. 2. Encephalopathy. PLAN: His secretions are getting so thick. I am going to stop the scopolamine for a few days. Continue supportive care. Job ID: [id number]
[2020-08-15] MEDS: Acetaminophen 650 MG/20.3 ML UDCUP PER TUBE PRN (18:18)
[2020-08-15] MEDS: Tamsulosin HCl 0.4 MG CAP PO SCH (20:31)
[2020-08-16] MEDS: Ascorbic Acid 500 mg Chewable Tablet PO SCH (08:09)
[2020-08-16] MEDS: GUAIFENESIN SF SOLN 200 MG/10 ML UDCUP PER TUBE SCH ×2 (08:09→21:49)
[2020-08-16] MEDS: Apixaban 5 MG TAB PO SCH ×2 (08:09→21:53)
[2020-08-16] MEDS: Folic Acid 1 MG TAB PO SCH (08:09)
[2020-08-16] MEDS: Pramipexole Di-HCl 1 MG TAB PO SCH ×3 (08:09→21:49)
[2020-08-16] MEDS: Furosemide 40 MG/4 ML VIAL SLOW IVP SCH (08:10)
[2020-08-16] MEDS: Pantoprazole 40 MG GRANULES PACKET PER TUBE SCH (08:10)
[2020-08-16] MEDS: Cholecalciferol (Vitamin D3) 400 UNITS TAB PO SCH (08:10)
[2020-08-16] MEDS: Aspirin Chewable 81 MG TAB PO SCH (08:10)
[2020-08-16] MEDS: methylPREDNISolone Sod Succ 40 MG VIAL IVP SCH (08:11)
--- NOTE | 2020-08-16 11:13 | PDOC.HOSPP ---
- Subjective Encounter Date: 08/16/20 Encounter Time: 11:05 Subjective: f/u for resp failure/COVID/trach placement receiving mech ventilation/T-collar. - Objective Vital Signs & Weight: Vital Signs (12 hours) Temp Pulse Resp BP Pulse Ox 08/16/20 10:27 111 H 08/16/20 10:24 105 H 27 H 100 08/16/20 07:55 111 H 139/99 H 08/16/20 07:46 86 L 08/16/20 07:40 116 H 36 H 08/16/20 04:00 98.6 F 08/16/20 00:51 96 08/16/20 00:00 98.5 F Weight Admit Weight 163 lb 9.328 oz Weight 2.236 oz Most Recent Monitor Data Heart Rate from ECG 110 NIBP 131/92 NIBP BP-Mean 105 Respiration from ECG 35 SpO2 100 I&O: 08/15/20 08/16/20 08/17/20 06:59 06:59 06:59 Intake Total 2985.6 1352.5 150 Output Total 1355 2675 275 Balance 1630.6 -1322.5 -125 Result Diagrams: 08/14/20 03:44 08/14/20 03:44 Additional Labs: Accuchecks 08/16/20 08/15/20 10:47 23:21 POC Glucose 168 H 134 H Microbiology 08/03/20 06:50 Urine Straight Catheter Urine Culture - Final Pseudomonas aeruginosa 08/14/20 15:05 Urine rodrigues catheter Urine Culture - Preliminary NO GROWTH AT 12 HOURS 08/14/20 08:19 Venous blood - Left Hand Blood Culture - Preliminary Specimen has been received and culture in progress. No Growth to date. 08/14/20 08:19 Venous blood - Left Arm Blood Culture - Preliminary Specimen has been received and culture in progress. No Growth to date. 08/03/20 06:50 Urine Straight Catheter Urine Culture - Preliminary Gram Negative Fidel EKG Reviewed by me: Yes (Tele - Sinus tach in 110's) Hospitalist ROS - Medication Medications: Active Medications Generic Name Dose Route Start Last Admin Trade Name Freq PRN Reason Stop Dose Admin Acetaminophen 1,000 mg 07/06/20 14:14 08/15/20 18:18 Acetaminophen 650 Mg/20.3 Ml Udcup PER TUBE 1,000 mg Q6H PRN Administration Headache/Fever or Pain Albuterol/Ipratropium 3 ml 08/11/20 10:30 08/16/20 10:24 Ipratropium/Albuterol Sulfate 3 Ml Neb NEB 3 ml [id number] JOHN Administration Apixaban 5 mg 08/01/20 21:00 08/16/20 08:09 Apixaban 5 Mg Tab PO 5 mg BID JOHN Administration Ascorbic Acid 1,000 mg 07/03/20 09:00 08/16/20 08:09 Ascorbic Acid 500 Mg Chewable Tablet PO 1,000 mg DAILY JOHN Administration Aspirin 81 mg 08/10/20 09:00 08/16/20 08:10 Aspirin Chewable 81 Mg Tab PO 81 mg DAILY JOHN Administration Bisacodyl 10 mg 07/13/20 11:09 07/17/20 14:07 Bisacodyl 10 Mg Supp MS 10 mg Q8H PRN Administration Constipation Cholecalciferol 400 units 07/03/20 09:00 08/16/20 08:10 Cholecalciferol (Vitamin D3) 400 Units Tab PO 400 units DAILY JOHN Administration Folic Acid 1 mg 07/10/20 09:00 08/16/20 08:09 Folic Acid 1 Mg Tab PO 1 mg DAILY JOHN Administration Furosemide 60 mg 08/13/20 09:00 08/16/20 08:10 Furosemide 40 Mg/4 Ml Vial SLOW IVP 60 mg DAILY JOHN Administration Guaifenesin 600 mg 08/12/20 09:00 08/16/20 08:09 Guaifenesin Sf Soln 200 Mg/10 Ml Udcup PER TUBE 600 mg Q12HR JOHN Administration Haloperidol Lactate 10 mg 08/10/20 12:45 08/13/20 22:27 Haloperidol Lactate 5 Mg/Ml Vial IM 10 mg Q4H PRN Administration Agitation Haloperidol Lactate 10 mg 08/14/20 09:11 08/14/20 17:54 Haloperidol Lactate 5 Mg/Ml Vial SLOW IVP 10 mg Q2H PRN Administration Agitation Sodium Chloride 1,000 mls @ 0 mls/hr 07/10/20 13:40 08/06/20 05:41 1/2 Normal Saline IV 1,000 mls .Q0M JOHN Administration KVO Dexmedetomidine HCl 400 mcg/ 100 mls @ 0 mls/hr 08/10/20 12:45 08/15/20 00:33 Sodium Chloride IVPB 100 mls INF JOHN Administration Protocol Titrate Insulin Human Lispro 0 units 07/03/20 01:26 08/14/20 22:47 Humalog 300 Units/3 Ml Vial SC 2 unit .MILD SLIDING SCALE PRN Administration Mild Correctional Scale Methylprednisolone Sodium Succinate 20 mg 08/14/20 09:11 08/16/20 08:11 Methylprednisolone Sod Succ 40 Mg Vial IVP 20 mg Q24HR JOHN Administration Morphine Sulfate 2 mg 08/09/20 17:30 08/13/20 04:51 Morphine 2 Mg/Ml Vial SLOW IVP 09/08/20 17:30 2 mg Q1H PRN Administration Breakthrough Pain/Agitation Pantoprazole Sodium 40 mg 07/16/20 09:00 08/16/20 08:10 Pantoprazole 40 Mg Granules Packet PER TUBE 40 mg DAILY JOHN Administration Pramipexole Dihydrochloride 1 mg 07/20/20 07:00 08/16/20 08:09 Pramipexole Di-Hcl 1 Mg Tab PO 1 mg 0700,1300,2000 JOHN Administration Propofol 1,000 mg 08/09/20 17:30 08/10/20 22:25 Propofol 1,000 Mg/100 Ml Vial IV 09/08/20 17:30 1,000 mg INF PRN Administration TO ACHIEVE GOAL RASS Protocol Quetiapine Fumarate 75 mg 08/07/20 21:00 08/15/20 20:31 Quetiapine Fumarate 25 Mg Tab PO 75 mg HS JOHN Administration Sodium Chloride 10 ml 07/03/20 21:00 08/16/20 08:11 Flush - Normal Saline 10 Ml Syringe IVF 10 ml Q12HR JOHN Administration Tamsulosin HCl 0.4 mg 08/02/20 21:00 08/15/20 20:31 Tamsulosin Hcl 0.4 Mg Cap PO 0.4 mg HS JOHN Administration Hospitalist Exam Vitals: Vital Signs (12 hours) Temp Pulse Resp BP Pulse Ox 08/16/20 10:27 111 H 08/16/20 10:24 105 H 27 H 100 08/16/20 07:55 111 H 139/99 H 08/16/20 07:46 86 L 08/16/20 07:40 116 H 36 H 08/16/20 04:00 98.6 F 08/16/20 00:51 96 08/16/20 00:00 98.5 F Weight Admit Weight 163 lb 9.328 oz Weight 2.236 oz Most Recent Monitor Data Heart Rate from ECG 110 NIBP 131/92 NIBP BP-Mean 105 Respiration from ECG 35 SpO2 100 General Appearance: awake alert Eye: PERRL, anicteric sclera ENT: normocephalic atraumatic, no oropharyngeal lesions Neck: supple, symmetric, no JVD, no thyromegaly, no lymphadenopathy Neck - other findings: trach in place Heart: no gallops, no rubs, normal peripheral pulses Heart - other findings: S1, S2 tachycardic Respiratory: tachypneic Respiratory - other findings: diminished in bases, occ rhonchi Gastrointestinal: soft, non-tender, non-distended, normal bowel sounds, no palpable masses Extremities: no cyanosis, no clubbing, no edema Skin: normal turgor Neurological: cranial nerve grossly intact, no new deficit Musculoskeletal: normal tone, generalized weakness Psychiatric: oriented to person Hosp A/P (1) Acute respiratory failure with hypoxia Code(s): J96.01 - ACUTE RESPIRATORY FAILURE WITH HYPOXIA Status: Acute Plan: Continue mech ventilation/T-collar with trach, general pulm support, sit upright in chair daily, PCXR in am (2) Pneumonia due to COVID-19 virus Code(s): U07.1 - COVID-19; J12.82 - PNEUMONIA DUE TO CORONAVIRUS DISEASE 2018 Status: Acute (3) Delirium Code(s): R41.0 - DISORIENTATION, UNSPECIFIED Status: Acute Plan: Intermittent, continue Haldol/Seroquel PRN (4) Diabetes mellitus type 2 in nonobese Code(s): E11.9 - TYPE 2 DIABETES MELLITUS WITHOUT COMPLICATIONS Status: Chronic (5) Parkinson disease Code(s): G20 - PARKINSON'S DISEASE Status: Chronic (6) Urinary retention Code(s): R33.9 - RETENTION OF URINE, UNSPECIFIED Status: Acute Plan: Continue Rodrigues for decompression/Flomax - Plan plan discussed w/ family, PT/OT, socially responsible investment adviser, speech therapy, respiratory therapy, out of bed/ambulate, DVT proph w/SCDs Stable overall Continue pulmonary support with SIMV/T-collar ROM exercises with PT/OT Up in chair daily Decrease Lasix 40mg daily Await LTAC options Nutritional support with TF's Haldol PRN agitation/combativeness AM lab: BMP, CBC
--- NOTE | 2020-08-16 14:15 | PRG ---
DATE OF SERVICE: 08/16/2020 SUBJECTIVE: He is back on the ventilator today. He stayed on T-piece last night that got tired this morning. He actually is very weak and vibrant today. OBJECTIVE: VITAL SIGNS: Temperature is 98.2, pulse 110, blood pressure 131/92, O2 saturation 100%. HEENT: Unremarkable. His trach has some secretions. LUNGS: Crackles bilaterally. CARDIOVASCULAR: S1, S2. Regular. ABDOMEN: Soft. EXTREMITIES: Severe muscle wasting. LABORATORY DATA: No labs were drawn today. ASSESSMENT: 1. COVID-19 pneumonia. 2. Persistent respiratory failure requiring mechanical ventilation. PLAN: Continue weaning attempts as tolerated. He seems to be more alert since the scopolamine patch has been stopped. Hopefully, we will handle his secretions without it. Job ID: [id number]
[2020-08-16] MEDS: Haloperidol Lactate 5 MG/ML VIAL SLOW IVP PRN (18:20)
[2020-08-16] MEDS: Tamsulosin HCl 0.4 MG CAP PO SCH (21:49)
[2020-08-17 03:43] LABS: #Basophils 0.1 thou/uL (0.0-0.2); #Eosinphils 0.2 thou/uL (0.0-0.7); #Lymphocytes 1.4 thou/uL (1.20-3.40); #Neutrophils 12.9 thou/uL (1.40-6.50); %Basophils 0.4 % (0.0-1.0); %Lymphocytes 8.9 % (21.0-51.0); %Monocytes 6.3 % (0.0-10.0); %Neutrophils 83.4 % (42.0-75.0); Hemoglobin 11.6 g/dL (14.0-18.0); Mean Corpuscular HGB CONC 33.5 g/dL (32.0-36.0); Mean Corpuscular Hemoglobin 32.9 pg (27.0-31.0); Mean Corpuscular Volume 97.9 fL (78.0-98.0); Mean Platelet Volume 7.6 fL (7.4-10.4); Platelet Count 339 thou/uL (130-400); RBC Distribution Width 12.8 % (11.5-14.5); Red Blood Cell (RBC) Count 3.53 mill/uL (4.70-6.10); White Blood Cell (WBC) Count 15.5 thou/uL (4.8-10.8)
[2020-08-17 04:02] LABS: Anion Gap 15 mmol/L (10-20); BUN (Urea Nitrogen) 40 mg/dL (8.4-25.7); Calc. Creatinine Clearance 0 mL/min (70-130); Calcium 9.2 mg/dL (7.8-10.44); Carbon Dioxide 31 mmol/L (23-31); Chloride 96 mmol/L (98-107); Glucose 166 mg/dL (83-110); Sodium 138 mmol/L (136-145)
[2020-08-17] MEDS: Pramipexole Di-HCl 1 MG TAB PO SCH ×3 (07:14→20:08)
--- NOTE | 2020-08-17 07:44 | RAD ---
EXAM: CHEST ONE VIEW HISTORY: Respiratory failure. Post Covid. COMPARISON: 08/09/2020 FINDINGS: Tracheostomy device remains in place. Cardiac silhouette is within normal limits. Extensive bilateral interstitial and patchy parenchymal airspace opacities are again seen diffusely throughout the lungs bilaterally in a similar pattern and distribution when compared to prior exam. Mild elevation r ight hemidiaphragm is present. Bilateral glenohumeral osteoarthropathy is present with postoperative changes cervical spine. No other interval change. IMPRESSION: Stable chest with radiographic findings which can be seen with Covid pneumonia.
[2020-08-17] MEDS: GUAIFENESIN SF SOLN 200 MG/10 ML UDCUP PER TUBE SCH ×2 (08:18→20:07)
[2020-08-17] MEDS: Ascorbic Acid 500 mg Chewable Tablet PO SCH (08:18)
[2020-08-17] MEDS: Cholecalciferol (Vitamin D3) 400 UNITS TAB PO SCH (08:18)
[2020-08-17] MEDS: methylPREDNISolone Sod Succ 40 MG VIAL IVP SCH (08:19)
[2020-08-17] MEDS: Folic Acid 1 MG TAB PO SCH (08:19)
[2020-08-17] MEDS: Apixaban 5 MG TAB PO SCH ×2 (08:19→20:08)
[2020-08-17] MEDS: Aspirin Chewable 81 MG TAB PO SCH (08:19)
[2020-08-17] MEDS: Pantoprazole 40 MG GRANULES PACKET PER TUBE SCH (08:19)
[2020-08-17] MEDS: Furosemide 40 MG/4 ML VIAL SLOW IVP SCH (08:20)
[2020-08-17] MEDS: Acetaminophen 650 MG/20.3 ML UDCUP PER TUBE PRN (13:25)
--- NOTE | 2020-08-17 14:39 | PRG ---
DATE OF SERVICE: 08/17/2020 SUBJECTIVE: Mr. Cooley still awaiting an LTAC bed. OBJECTIVE: VITAL SIGNS: Heart rates in the 90s, respiratory rates in the 20s to low 30s. His encephalopathy is mild and stable. Oximetry is in the high 90s. LUNGS: Unchanged. HEART: Unchanged. ABDOMEN: Unchanged. IMPRESSION: Respiratory failure, clinically improved. We will continue nocturnal ventilation. I do believe he is again turning the corner. Job ID: [id number]
--- NOTE | 2020-08-17 18:40 | PDOC.HOSPP ---
- Subjective Encounter Date: 08/17/20 Encounter Time: 18:40 Subjective: f/u for resp failure/post-COVID with trach and mech vent. Awaiting LTAC options. - Objective Vital Signs & Weight: Vital Signs (12 hours) Temp Pulse Resp BP BP Pulse Ox 08/17/20 18:00 29 H 08/17/20 16:08 89 08/17/20 16:00 98.1 F 21 H 08/17/20 14:25 88 32 H 99 08/17/20 12:00 97.8 F 100 08/17/20 11:40 96 35 H 97 08/17/20 10:19 99 08/17/20 10:16 129/94 H 113/66 08/17/20 10:00 29 H 08/17/20 08:00 98.2 F 08/17/20 07:46 97 08/17/20 07:41 18 Weight Admit Weight 163 lb 9.328 oz Weight 132 lb 8 oz Most Recent Monitor Data Heart Rate from ECG 95 NIBP 103/83 NIBP BP-Mean 89 Respiration from ECG 37 SpO2 100 I&O: 08/16/20 08/17/20 08/18/20 06:59 06:59 06:59 Intake Total 1352.5 1695.2 1247.2 Output Total 2675 3265 900 Balance -1322.5 -1569.8 347.2 Result Diagrams: 08/17/20 03:30 08/17/20 03:30 Additional Labs: Accuchecks 08/17/20 08/17/20 08/16/20 16:29 09:59 23:24 POC Glucose 166 H 146 H 137 H 08/15/20 17:17 POC Glucose 147 H Radiology Reviewed by me: Yes (PCXR - bilat infiltrates consistent with COVID PNA) EKG Reviewed by me: Yes (Tele - SR) Hospitalist ROS - Medication Medications: Active Medications Generic Name Dose Route Start Last Admin Trade Name Freq PRN Reason Stop Dose Admin Acetaminophen 1,000 mg 07/06/20 14:14 08/17/20 13:25 Acetaminophen 650 Mg/20.3 Ml Udcup PER TUBE 1,000 mg Q6H PRN Administration Headache/Fever or Pain Albuterol/Ipratropium 3 ml 08/11/20 10:30 08/17/20 14:25 Ipratropium/Albuterol Sulfate 3 Ml Neb NEB 3 ml [id number] JOHN Administration Apixaban 5 mg 08/01/20 21:00 08/17/20 08:19 Apixaban 5 Mg Tab PO 5 mg BID JOHN Administration Ascorbic Acid 1,000 mg 07/03/20 09:00 08/17/20 08:18 Ascorbic Acid 500 Mg Chewable Tablet PO 1,000 mg DAILY JOHN Administration Aspirin 81 mg 08/10/20 09:00 08/17/20 08:19 Aspirin Chewable 81 Mg Tab PO 81 mg DAILY JOHN Administration Bisacodyl 10 mg 07/13/20 11:09 07/17/20 14:07 Bisacodyl 10 Mg Supp NE 10 mg Q8H PRN Administration Constipation Cholecalciferol 400 units 07/03/20 09:00 08/17/20 08:18 Cholecalciferol (Vitamin D3) 400 Units Tab PO 400 units DAILY JOHN Administration Folic Acid 1 mg 07/10/20 09:00 08/17/20 08:19 Folic Acid 1 Mg Tab PO 1 mg DAILY JOHN Administration Furosemide 40 mg 08/17/20 09:00 08/17/20 08:20 Furosemide 40 Mg/4 Ml Vial SLOW IVP 40 mg DAILY JOHN Administration Guaifenesin 600 mg 08/12/20 09:00 08/17/20 08:18 Guaifenesin Sf Soln 200 Mg/10 Ml Udcup PER TUBE 600 mg Q12HR JOHN Administration Haloperidol Lactate 10 mg 08/10/20 12:45 08/13/20 22:27 Haloperidol Lactate 5 Mg/Ml Vial IM 10 mg Q4H PRN Administration Agitation Haloperidol Lactate 10 mg 08/14/20 09:11 08/16/20 18:20 Haloperidol Lactate 5 Mg/Ml Vial SLOW IVP 10 mg Q2H PRN Administration Agitation Sodium Chloride 1,000 mls @ 0 mls/hr 07/10/20 13:40 08/06/20 05:41 1/2 Normal Saline IV 1,000 mls .Q0M JOHN Administration KVO Dexmedetomidine HCl 400 mcg/ 100 mls @ 0 mls/hr 08/10/20 12:45 08/17/20 05:13 Sodium Chloride IVPB 100 mls INF JOHN Administration Protocol Titrate Insulin Human Lispro 0 units 07/03/20 01:26 08/14/20 22:47 Humalog 300 Units/3 Ml Vial SC 2 unit .MILD SLIDING SCALE PRN Administration Mild Correctional Scale Methylprednisolone Sodium Succinate 20 mg 08/14/20 09:11 08/17/20 08:19 Methylprednisolone Sod Succ 40 Mg Vial IVP 20 mg Q24HR JOHN Administration Morphine Sulfate 2 mg 08/09/20 17:30 08/13/20 04:51 Morphine 2 Mg/Ml Vial SLOW IVP 09/08/20 17:30 2 mg Q1H PRN Administration Breakthrough Pain/Agitation Pantoprazole Sodium 40 mg 07/16/20 09:00 08/17/20 08:19 Pantoprazole 40 Mg Granules Packet PER TUBE 40 mg DAILY JOHN Administration Pramipexole Dihydrochloride 1 mg 07/20/20 07:00 08/17/20 13:08 Pramipexole Di-Hcl 1 Mg Tab PO 1 mg 0700,1300,2000 JOHN Administration Propofol 1,000 mg 08/09/20 17:30 08/10/20 22:25 Propofol 1,000 Mg/100 Ml Vial IV 09/08/20 17:30 1,000 mg INF PRN Administration TO ACHIEVE GOAL RASS Protocol Quetiapine Fumarate 75 mg 08/07/20 21:00 08/16/20 21:49 Quetiapine Fumarate 25 Mg Tab PO 75 mg HS JOHN Administration Sodium Chloride 10 ml 07/03/20 21:00 08/17/20 08:20 Flush - Normal Saline 10 Ml Syringe IVF 10 ml Q12HR JOHN Administration Tamsulosin HCl 0.4 mg 08/02/20 21:00 08/16/20 21:49 Tamsulosin Hcl 0.4 Mg Cap PO 0.4 mg HS JOHN Administration Hospitalist Exam Vitals: Vital Signs (12 hours) Temp Pulse Resp BP BP Pulse Ox 08/17/20 18:00 29 H 08/17/20 16:08 89 08/17/20 16:00 98.1 F 21 H 08/17/20 14:25 88 32 H 99 08/17/20 12:00 97.8 F 100 08/17/20 11:40 96 35 H 97 08/17/20 10:19 99 08/17/20 10:16 129/94 H 113/66 08/17/20 10:00 29 H 08/17/20 08:00 98.2 F 08/17/20 07:46 97 08/17/20 07:41 18 Weight Admit Weight 163 lb 9.328 oz Weight 132 lb 8 oz Most Recent Monitor Data Heart Rate from ECG 95 NIBP 103/83 NIBP BP-Mean 89 Respiration from ECG 37 SpO2 100 General Appearance: NAD, awake alert Eye: PERRL, anicteric sclera ENT: normocephalic atraumatic, no oropharyngeal lesions Neck: supple, symmetric, no JVD, no thyromegaly, no lymphadenopathy Neck - other findings: trach in place Heart: RRR, no gallops, no rubs, normal peripheral pulses Heart - other findings: S1, S2 Respiratory: tachypneic Respiratory - other findings: diminished in bases, occ rhonchi Gastrointestinal: soft, non-tender, non-distended, normal bowel sounds, no palpable masses Extremities: no cyanosis, no clubbing, no edema Skin: normal turgor, no lesions Neurological: cranial nerve grossly intact, no new deficit Musculoskeletal: normal tone, generalized weakness Psychiatric: somnolent, lethargic Hosp A/P (1) Acute respiratory failure with hypoxia Code(s): J96.01 - ACUTE RESPIRATORY FAILURE WITH HYPOXIA Status: Acute Plan: Continue nocturnal mech vent and daytime T-collar (2) Pneumonia due to COVID-19 virus Code(s): U07.1 - COVID-19; J12.82 - PNEUMONIA DUE TO CORONAVIRUS DISEASE 2019 Status: Acute (3) Delirium Code(s): R41.0 - DISORIENTATION, UNSPECIFIED Status: Acute (4) Diabetes mellitus type 2 in nonobese Code(s): E11.9 - TYPE 2 DIABETES MELLITUS WITHOUT COMPLICATIONS Status: Chronic (5) Parkinson disease Code(s): G20 - PARKINSON'S DISEASE Status: Chronic (6) Urinary retention Code(s): R33.9 - RETENTION OF URINE, UNSPECIFIED Status: Acute - Plan PT/OT, case management social worker, speech therapy, respiratory therapy, out of bed/ambulate, DVT proph w/SCDs Stable overall Continue pulmonary support with SIMV/T-collar ROM exercises with PT/OT Up in chair daily Decrease Lasix 40mg daily Await LTAC options Nutritional support with TF's Haldol PRN agitation/combativeness AM lab: BMP, CBC
[2020-08-17] MEDS: Tamsulosin HCl 0.4 MG CAP PO SCH (20:08)
[2020-08-18] MEDS: Pramipexole Di-HCl 1 MG TAB PO SCH ×3 (07:51→21:00)
[2020-08-18] MEDS: Pantoprazole 40 MG GRANULES PACKET PER TUBE SCH (08:07)
[2020-08-18] MEDS: Aspirin Chewable 81 MG TAB PO SCH (08:07)
[2020-08-18] MEDS: Apixaban 5 MG TAB PO SCH ×2 (08:07→21:00)
[2020-08-18] MEDS: Folic Acid 1 MG TAB PO SCH (08:07)
[2020-08-18] MEDS: Ascorbic Acid 500 mg Chewable Tablet PO SCH (08:07)
[2020-08-18] MEDS: Furosemide 40 MG/4 ML VIAL SLOW IVP SCH (08:07)
[2020-08-18] MEDS: GUAIFENESIN SF SOLN 200 MG/10 ML UDCUP PER TUBE SCH ×2 (08:07→21:00)
[2020-08-18] MEDS: Cholecalciferol (Vitamin D3) 400 UNITS TAB PO SCH (08:07)
[2020-08-18] MEDS: methylPREDNISolone Sod Succ 40 MG VIAL IVP SCH (08:08)
[2020-08-18] MEDS: Acetaminophen 650 MG/20.3 ML UDCUP PER TUBE PRN (13:28)
--- NOTE | 2020-08-18 15:09 | ULT ---
Left upper extremity venous Doppler ultrasound: 08/18/2020 COMPARISON: None HISTORY: Medial upper extremity edema, assess for DVT TECHNIQUE: Multiplanar grayscale sonographic imaging of the venous structures of the left upper extre mity obtained with Doppler interrogation including color flow and spectral analysis FINDINGS: The left internal jugular vein, subclavian vein, axillary vein, brachial vein, basilic vein , ulnar vein, radial vein, and cephalic vein appear patent. Normal blood flow, compression, and augmentation. No evidence for DVT. IMPRESSION: No evidence for deep venous thrombosis of the left upper extremity.
--- NOTE | 2020-08-18 15:14 | PRG ---
DATE OF SERVICE: 08/18/2020 SUBJECTIVE: Mr. Cooley did well overnight. He is cooperative. OBJECTIVE: VITAL SIGNS: Heart rate is in the 90s, respiratory rate is in the 20s, oximetry is 98% to 100%, and blood pressure 122/103. LUNGS: Clear. HEART: Regular rhythm. ABDOMEN: Soft. IMPRESSION: COVID pneumonia, on tracheostomy and percutaneous endoscopic gastrostomy, clinically stable. Continue with nocturnal ventilation for muscle rest until he is placed in LTAC. Job ID: [id number]
[2020-08-18] MEDS ORDERED: Ketorolac Tromethamine 30 MG/ML VIAL IVP PRN (18:09)
[2020-08-18] MEDS ORDERED: Ketorolac Tromethamine 30 MG/ML VIAL IVP SCH (18:15)
--- NOTE | 2020-08-18 18:15 | PDOC.HOSPP ---
- Subjective Encounter Date: 08/18/20 Encounter Time: 18:15 Subjective: f/u for resp failure/post-COVID with trach on T-collar. Nursing report LUE edema persistent. - Objective Vital Signs & Weight: Vital Signs (12 hours) Temp Pulse Pulse Pulse Resp BP BP 08/18/20 16:00 98.9 F 08/18/20 14:40 98 08/18/20 12:00 99.5 F 08/18/20 11:11 90 24 H 08/18/20 09:00 117 H 105 H 105/76 08/18/20 08:45 08/18/20 08:00 99.2 F 08/18/20 07:45 89 106/74 08/18/20 07:37 08/18/20 07:21 21 H BP Pulse Ox Pulse Ox Pulse Ox 08/18/20 16:00 08/18/20 14:40 98 08/18/20 12:00 08/18/20 11:11 100 08/18/20 09:00 106/76 100 98 08/18/20 08:45 98 08/18/20 08:00 08/18/20 07:45 08/18/20 07:37 100 08/18/20 07:21 Weight Admit Weight 163 lb 9.328 oz Weight 132 lb 9.6 oz Most Recent Monitor Data Heart Rate from ECG 90 NIBP 114/87 NIBP BP-Mean 96 Respiration from ECG 28 SpO2 100 I&O: 08/17/20 08/18/20 08/19/20 06:59 06:59 06:59 Intake Total 2405.2 2327.2 300 Output Total 3265 1755 1100 Balance -859.8 572.2 -800 Result Diagrams: 08/17/20 03:30 08/17/20 03:30 Additional Labs: Accuchecks 08/18/20 08/18/20 08/17/20 10:06 04:19 22:16 POC Glucose 116 H 131 H 139 H Microbiology 08/03/20 06:50 Urine Straight Catheter Urine Culture - Final Pseudomonas aeruginosa 08/14/20 15:05 Urine rodrigeus catheter Urine Culture - Preliminary NO GROWTH AT 12 HOURS 08/14/20 08:19 Venous blood - Left Hand Blood Culture - Preliminary Specimen has been received and culture in [facility]. No Growth to date. 08/14/20 08:19 Venous blood - Left Arm Blood Culture - Preliminary Specimen has been received and culture in prog ress. No Growth to date. 08/03/20 06:50 Urine Straight Catheter Urine Culture - Preliminary Gram Negative Fidel Radiology Reviewed by me: Yes (AIDEN patel - no DVT) EKG Reviewed by me: Yes (Tele - SR) Hospitalist ROS - Medication Medications: Active Medications Generic Name Dose Route Start Last Admin Trade Name Freq PRN Reason Stop Dose Admin Acetaminophen 1,000 mg 07/06/20 14:14 08/18/20 13:28 Acetaminophen 650 Mg/20.3 Ml Udcup PER TUBE 1,000 mg Q6H PRN Administration Headache/Fever or Pain Albuterol/Ipratropium 3 ml 08/11/20 10:30 08/18/20 14:40 Ipratropium/Albuterol Sulfate 3 Ml Neb NEB 3 ml [id number] JOHN Administration Apixaban 5 mg 08/01/20 21:00 08/18/20 08:07 Apixaban 5 Mg Tab PO 5 mg BID JOHN Administration Ascorbic Acid 1,000 mg 07/03/20 09:00 08/18/20 08:07 Ascorbic Acid 500 Mg Chewable Tablet PO 1,000 mg DAILY JOHN Administration Aspirin 81 mg 08/10/20 09:00 08/18/20 08:07 Aspirin Chewable 81 Mg Tab PO 81 mg DAILY JOHN Administration Bisacodyl 10 mg 07/13/20 11:09 07/17/20 14:07 Bisacodyl 10 Mg Supp [place] 10 mg Q8H PRN Administration Constipation Cholecalciferol 400 units 07/03/20 09:00 08/18/20 08:07 Cholecalciferol (Vitamin D3) 400 Units Tab PO 400 units DAILY JOHN Administration Folic Acid 1 mg 07/10/20 09:00 08/18/20 08:07 Folic Acid 1 Mg Tab PO 1 mg DAILY JOHN Administration Furosemide 40 mg 08/17/20 09:00 08/18/20 08:07 Furosemide 40 Mg/4 Ml Vial SLOW IVP 40 mg DAILY JOHN Administration Guaifenesin 600 mg 08/12/20 09:00 08/18/20 08:07 Guaifenesin Sf Soln 200 Mg/10 Ml Udcup PER TUBE 600 mg Q12HR JOHN Administration Haloperidol Lactate 10 mg 08/10/20 12:45 08/13/20 22:27 Haloperidol Lactate 5 Mg/Ml Vial IM 10 mg Q4H PRN Administration Agitation Haloperidol Lactate 10 mg 08/14/20 09:11 08/16/20 18:20 Haloperidol Lactate 5 Mg/Ml Vial SLOW IVP 10 mg Q2H PRN Administration Agitation Sodium Chloride 1,000 mls @ 0 mls/hr 07/10/20 13:40 08/06/20 05:41 1/2 Normal Saline IV 1,000 mls .Q0M JOHN Administration KVO Dexmedetomidine HCl 400 mcg/ 100 mls @ 0 mls/hr 08/10/20 12:45 08/17/20 05:13 Sodium Chloride IVPB 100 mls INF JOHN Administration Protocol Titrate Insulin Human Lispro 0 units 07/03/20 01:26 08/14/20 22:47 Humalog 300 Units/3 Ml Vial SC 2 unit .MILD SLIDING SCALE PRN Administration Mild Correctional Scale Methylprednisolone Sodium Succinate 20 mg 08/14/20 09:11 08/18/20 08:08 Methylprednisolone Sod Succ 40 Mg Vial IVP 20 mg Q24HR JOHN Administration Morphine Sulfate 2 mg 08/09/20 17:30 08/13/20 04:51 Morphine 2 Mg/Ml Vial SLOW IVP 09/08/20 17:30 2 mg Q1H PRN Administration Breakthrough Pain/Agitation Pantoprazole Sodium 40 mg 07/16/20 09:00 08/18/20 08:07 Pantoprazole 40 Mg Granules Packet PER TUBE 40 mg DAILY JOHN Administration Pramipexole Dihydrochloride 1 mg 07/20/20 07:00 08/18/20 13:28 Pramipexole Di-Hcl 1 Mg Tab PO 1 mg 0700,1300,2000 JOHN Administration Propofol 1,000 mg 08/09/20 17:30 08/10/20 22:25 Propofol 1,000 Mg/100 Ml Vial IV 09/08/20 17:30 1,000 mg INF PRN Administration TO ACHIEVE GOAL RASS Protocol Quetiapine Fumarate 75 mg 08/07/20 21:00 08/17/20 20:07 Quetiapine Fumarate 25 Mg Tab PO 75 mg HS JOHN Administration Sodium Chloride 10 ml 07/03/20 21:00 08/18/20 08:08 Flush - Normal Saline 10 Ml Syringe IVF 10 ml Q12HR JOHN Administration Tamsulosin HCl 0.4 mg 08/02/20 21:00 08/17/20 20:08 Tamsulosin Hcl 0.4 Mg Cap PO 0.4 mg HS JOHN Administration Hospitalist Exam Vitals: Vital Signs (12 hours) Temp Pulse Pulse Pulse Resp BP BP 08/18/20 16:00 98.9 F 08/18/20 14:40 98 08/18/20 12:00 99.5 F 08/18/20 11:11 90 24 H 08/18/20 09:00 117 H 105 H 105/76 08/18/20 08:45 08/18/20 08:00 99.2 F 08/18/20 07:45 89 106/74 08/18/20 07:37 08/18/20 07:21 21 H BP Pulse Ox Pulse Ox Pulse Ox 08/18/20 16:00 08/18/20 14:40 98 08/18/20 12:00 08/18/20 11:11 100 08/18/20 09:00 106/76 100 98 08/18/20 08:45 98 08/18/20 08:00 08/18/20 07:45 08/18/20 07:37 100 08/18/20 07:21 Weight Admit Weight 163 lb 9.328 oz Weight 132 lb 9.6 oz Most Recent Monitor Data Heart Rate from ECG 90 NIBP 114/87 NIBP BP-Mean 96 Respiration from ECG 28 SpO2 100 General Appearance: NAD, awake alert Eye: PERRL, anicteric sclera ENT: normocephalic atraumatic, no oropharyngeal lesions Neck: supple, symmetric, no JVD, no thyromegaly, no lymphadenopathy Neck - other findings: trach in place with T-piece Heart: RRR, no gallops, no rubs, normal peripheral pulses Heart - other findings: S1, S2 Respiratory: tachypneic Respiratory - other findings: diminished in bases Gastrointestinal: soft, non-tender, non-distended, normal bowel sounds, no palpable masses Extremities: no cyanosis, no clubbing, no edema Skin: normal turgor Skin - other findings: LUE with mild erythema near elbow/triceps with edema Neurological: cranial nerve grossly intact, no new deficit Musculoskeletal: normal tone, generalized weakness Psychiatric: oriented to person, oriented to place, flat affect Hosp A/P (1) Acute respiratory failure with hypoxia Code(s): J96.01 - ACUTE RESPIRATORY FAILURE WITH HYPOXIA Status: Acute (2) Pneumonia due to COVID-19 virus Code(s): U07.1 - COVID-19; J12.82 - PNEUMONIA DUE TO CORONAVIRUS DISEASE 2019 Status: Acute (3) Delirium Code(s): R41.0 - DISORIENTATION, UNSPECIFIED Status: Acute (4) Diabetes mellitus type 2 in nonobese Code(s): E11.9 - TYPE 2 DIABETES MELLITUS WITHOUT COMPLICATIONS Status: Chronic (5) Parkinson disease Code(s): G20 - PARKINSON'S DISEASE Status: Chronic (6) Urinary retention Code(s): R33.9 - RETENTION OF URINE, UNSPECIFIED Status: Acute Plan: s/p Rodrigues catheter insertion - Plan plan discussed w/ family, PT/OT, elementary school social worker, respiratory therapy Stable overall Continue pulmonary support with SIMV/T-collar ROM exercises with PT/OT Up in chair daily Decrease Lasix 40mg daily Await LTAC options Nutritional support with TF's Haldol PRN agitation/combativeness AM lab: BMP, CBC
[2020-08-18] MEDS: Tamsulosin HCl 0.4 MG CAP PO SCH (21:00)
[2020-08-19] MEDS: GUAIFENESIN SF SOLN 200 MG/10 ML UDCUP PER TUBE SCH ×2 (08:27→21:26)
[2020-08-19] MEDS: Aspirin Chewable 81 MG TAB PO SCH (08:27)
[2020-08-19] MEDS: Pramipexole Di-HCl 1 MG TAB PO SCH ×3 (08:28→21:25)
[2020-08-19] MEDS: Cholecalciferol (Vitamin D3) 400 UNITS TAB PO SCH (08:28)
[2020-08-19] MEDS: Folic Acid 1 MG TAB PO SCH (08:28)
[2020-08-19] MEDS: Ascorbic Acid 500 mg Chewable Tablet PO SCH (08:28)
[2020-08-19] MEDS: Apixaban 5 MG TAB PO SCH ×2 (08:28→21:25)
[2020-08-19] MEDS: Pantoprazole 40 MG GRANULES PACKET PER TUBE SCH (08:28)
[2020-08-19] MEDS: Furosemide 40 MG TAB PO SCH (08:28)
[2020-08-19] MEDS: methylPREDNISolone Sod Succ 40 MG VIAL IVP SCH (08:33)
--- NOTE | 2020-08-19 14:19 | PRG ---
DATE OF SERVICE: 08/19/2020 SUBJECTIVE: Yasir'jossue heart rate is 113, respiratory rate is 24, oximetry is 97. He is on a trach collar when I saw him this morning. Blood pressure is 109/78. Lungs, heart, and abdomen are unchanged. Extremities are unchanged. LABORATORY DATA: White count 15.5, hemoglobin 11.6, platelets 339. IMPRESSION: Respiratory failure associated with COVID. Continue with nocturnal ventilation. We will change his ventilator time at night from midnight to 6 a.m. and p.r.n. Job ID: [id number]
--- NOTE | 2020-08-19 18:23 | PDOC.HOSPP ---
- Subjective Encounter Date: 08/19/20 Encounter Time: 18:15 Subjective: f/u for resp failure/post-COVID with trach/T-collar. Apparently slid down the side of his bed to floor but no injury noted. Feels ok overall. - Objective Vital Signs & Weight: Vital Signs (12 hours) Pulse Pulse Pulse Resp BP BP Pulse Ox 08/19/20 14:25 111 H 24 H 08/19/20 10:50 113 H 24 H 97 08/19/20 10:00 122 H 108 H 109/77 109/78 08/19/20 08:00 98 08/19/20 07:26 92 L Pulse Ox Pulse Ox 08/19/20 14:25 08/19/20 10:50 08/19/20 10:00 92 L 92 L 08/19/20 08:00 08/19/20 07:26 Weight Admit Weight 163 lb 9.328 oz Weight 132 lb 9.6 oz Most Recent Monitor Data Heart Rate from ECG 120 NIBP 70/36 NIBP BP-Mean 47 Respiration from ECG 22 SpO2 98 I&O: 08/18/20 08/19/20 08/20/20 06:59 06:59 06:59 Intake Total 2327.2 2542.4 398 Output Total 1755 1890 855 Balance 572.2 652.4 -457 Result Diagrams: 08/17/20 03:30 08/17/20 03:30 Additional Labs: Accuchecks 08/19/20 08/18/20 08/18/20 04:52 21:39 17:06 POC Glucose 117 H 113 H 145 H Microbiology 08/03/20 06:50 Urine Straight Catheter Urine Culture - Final Pseudomonas aeruginosa 08/14/20 15:05 Urine rodrigues catheter Urine Culture - Preliminary NO GROWTH AT 12 HOURS 08/14/20 08:19 Venous blood - Left Hand Blood Culture - Preliminary Specimen has been received and culture in progress. No Growth to date. 08/14/20 08:19 Venous blood - Left Arm Blood Culture - Preliminary Specimen has been received and culture in progress. No Growth to date. 08/03/20 06:50 Urine Straight Catheter Urine Culture - Preliminary Gram Negative Fidel EKG Reviewed by me: Yes (Tele - SR) Hospitalist ROS - Medication Medications: Active Medications Generic Name Dose Route Start Last Admin Trade Name Freq PRN Reason Stop Dose Admin Acetaminophen 1,000 mg 01/11/21 14:14 08/18/20 13:28 Acetaminophen 650 Mg/20.3 Ml Udcup PER TUBE 1,000 mg Q6H PRN Administration Headache/Fever or Pain Albuterol/Ipratropium 3 ml 08/11/20 10:30 08/19/20 14:25 Ipratropium/Albuterol Sulfate 3 Ml Neb NEB 3 ml [id number] JOHN Administration Apixaban 5 mg 08/01/20 21:00 08/19/20 08:28 Apixaban 5 Mg Tab PO 5 mg BID JOHN Administration Ascorbic Acid 1,000 mg 07/03/20 09:00 08/19/20 08:28 Ascorbic Acid 500 Mg Chewable Tablet PO 1,000 mg DAILY JOHN Administration Aspirin 81 mg 08/10/20 09:00 08/19/20 08:27 Aspirin Chewable 81 Mg Tab PO 81 mg DAILY JOHN Administration Bisacodyl 10 mg 07/13/20 11:09 07/17/20 14:07 Bisacodyl 10 Mg Supp [place] 10 mg Q8H PRN Administration Constipation Cholecalciferol 400 units 07/03/20 09:00 08/19/20 08:28 Cholecalciferol (Vitamin D3) 400 Units Tab PO 400 units DAILY JOHN Administration Folic Acid 1 mg 07/10/20 09:00 08/19/20 08:28 Folic Acid 1 Mg Tab PO 1 mg DAILY JOHN Administration Furosemide 40 mg 08/19/20 07:30 08/19/20 08:28 Furosemide 40 Mg Tab PO 40 mg DAILY-AC JOHN Administration Guaifenesin 600 mg 08/12/20 09:00 08/19/20 08:27 Guaifenesin Sf Soln 200 Mg/10 Ml Udcup PER TUBE 600 mg Q12HR JOHN Administration Haloperidol Lactate 10 mg 08/10/20 12:45 08/13/20 22:27 Haloperidol Lactate 5 Mg/Ml Vial IM 10 mg Q4H PRN Administration Agitation Haloperidol Lactate 10 mg 08/14/20 09:11 08/16/20 18:20 Haloperidol Lactate 5 Mg/Ml Vial SLOW IVP 10 mg Q2H PRN Administration Agitation Sodium Chloride 1,000 mls @ 0 mls/hr 07/10/20 13:40 08/06/20 05:41 1/2 Normal Saline IV 1,000 mls .Q0M JOHN Administration KVO Dexmedetomidine HCl 400 mcg/ 100 mls @ 0 mls/hr 08/10/20 12:45 08/17/20 05:13 Sodium Chloride IVPB 100 mls INF JOHN Administration Protocol Titrate Insulin Human Lispro 0 units 07/03/20 01:26 08/14/20 22:47 Humalog 300 Units/3 Ml Vial SC 2 unit .MILD SLIDING SCALE PRN Administration Mild Correctional Scale Methylprednisolone Sodium Succinate 20 mg 08/14/20 09:11 08/19/20 08:33 Methylprednisolone Sod Succ 40 Mg Vial IVP 20 mg Q24HR JOHN Administration Pantoprazole Sodium 40 mg 07/16/20 09:00 08/19/20 08:28 Pantoprazole 40 Mg Granules Packet PER TUBE 40 mg DAILY JOHN Administration Pramipexole Dihydrochloride 1 mg 07/20/20 07:00 08/19/20 15:01 Pramipexole Di-Hcl 1 Mg Tab PO 1 mg 0700,1300,2000 JOHN Administration Propofol 1,000 mg 08/09/20 17:30 08/10/20 22:25 Propofol 1,000 Mg/100 Ml Vial IV 09/08/20 17:30 1,000 mg INF PRN Administration TO ACHIEVE GOAL RASS Protocol Quetiapine Fumarate 75 mg 08/07/20 21:00 08/18/20 21:00 Quetiapine Fumarate 25 Mg Tab PO 75 mg HS JOHN Administration Sodium Chloride 10 ml 07/03/20 21:00 08/19/20 08:28 Flush - Normal Saline 10 Ml Syringe IVF 10 ml Q12HR JOHN Administration Tamsulosin HCl 0.4 mg 08/02/20 21:00 08/18/20 21:00 Tamsulosin Hcl 0.4 Mg Cap PO 0.4 mg HS JOHN Administration Hospitalist Exam Vitals: Vital Signs (12 hours) Pulse Pulse Pulse Resp BP BP Pulse Ox 08/19/20 14:25 111 H 24 H 08/19/20 10:50 113 H 24 H 97 08/19/20 10:00 122 H 108 H 109/77 109/78 08/19/20 08:00 98 08/19/20 07:26 92 L Pulse Ox Pulse Ox 08/19/20 14:25 08/19/20 10:50 08/19/20 10:00 92 L 92 L 08/19/20 08:00 08/19/20 07:26 Weight Admit Weight 163 lb 9.328 oz Weight 132 lb 9.6 oz Most Recent Monitor Data Heart Rate from ECG 120 NIBP 70/36 NIBP BP-Mean 47 Respiration from ECG 22 SpO2 98 General Appearance: NAD, awake alert Eye: PERRL, anicteric sclera ENT: normocephalic atraumatic, no oropharyngeal lesions Neck: supple, symmetric, no JVD, no thyromegaly, no lymphadenopathy Neck - other findings: trach in place with T-piece Heart: RRR, no gallops, no rubs, normal peripheral pulses Heart - other findings: S1, S2 Respiratory: no rales Respiratory - other findings: scattered coarse sounds, rhochi Gastrointestinal: soft, non-tender, non-distended, normal bowel sounds, no pal pable masses Extremities: no cyanosis, no clubbing, no edema Skin: normal turgor Neurological: cranial nerve grossly intact, no new deficit Musculoskeletal: normal tone, generalized weakness Psychiatric: oriented to person, flat affect Hosp A/P (1) Acute respiratory failure with hypoxia Code(s): J96.01 - ACUTE RESPIRATORY FAILURE WITH HYPOXIA Status: Acute Plan: Continue pulmonary support with T-collar (2) Pneumonia due to COVID-19 virus Code(s): U07.1 - COVID-19; J12.82 - PNEUMONIA DUE TO CORONAVIRUS DISEASE 2018 Status: Acute Plan: Continue supportive mgmt, suction airway PRN, Solumedrol (3) Delirium Code(s): R41.0 - DISORIENTATION, UNSPECIFIED Status: Acute (4) Diabetes mellitus type 2 in nonobese Code(s): E11.9 - TYPE 2 DIABETES MELLITUS WITHOUT COMPLICATIONS Status: Chronic (5) Parkinson disease Code(s): G20 - PARKINSON'S DISEASE Status: Chronic (6) Urinary retention Code(s): R33.9 - RETENTION OF URINE, UNSPECIFIED Status: Acute - Plan plan discussed w/ family, PT/OT, social services technician, respiratory therapy, out of bed/ambulate, DVT proph w/SCDs Stable overall Continue pulmonary support/T-collar ROM exercises with PT/OT Up in chair daily Decrease Lasix 40mg daily Await LTAC options Nutritional support with TF's Haldol PRN agitation/combativeness
[2020-08-19] MEDS: Tamsulosin HCl 0.4 MG CAP PO SCH (21:25)
[2020-08-20] MEDS: Haloperidol Lactate 5 MG/ML VIAL SLOW IVP PRN (01:15)
[2020-08-20] MEDS ORDERED: Lorazepam 2 MG/ML VIAL ONE (01:28)
[2020-08-20] MEDS: Pramipexole Di-HCl 1 MG TAB PO SCH ×3 (05:58→21:44)
[2020-08-20] MEDS: Furosemide 40 MG TAB PO SCH (05:59)
[2020-08-20] MEDS: Folic Acid 1 MG TAB PO SCH (08:44)
[2020-08-20] MEDS: GUAIFENESIN SF SOLN 200 MG/10 ML UDCUP PER TUBE SCH ×2 (08:44→21:50)
[2020-08-20] MEDS: Apixaban 5 MG TAB PO SCH ×2 (08:44→21:53)
[2020-08-20] MEDS: Aspirin Chewable 81 MG TAB PO SCH (08:44)
[2020-08-20] MEDS: Ascorbic Acid 500 mg Chewable Tablet PO SCH (08:44)
[2020-08-20] MEDS: Cholecalciferol (Vitamin D3) 400 UNITS TAB PO SCH (08:44)
[2020-08-20] MEDS: Pantoprazole 40 MG GRANULES PACKET PER TUBE SCH (08:45)
[2020-08-20] MEDS: methylPREDNISolone Sod Succ 40 MG VIAL IVP SCH ×2 (08:48→21:49)
--- NOTE | 2020-08-20 16:20 | PRG ---
DATE OF SERVICE: 08/20/2020 SUBJECTIVE: Abhay Cooley continued to sleep on ventilator. He does well on trach collar now. OBJECTIVE: VITAL SIGNS: Heart rate is in the 70s, respiratory rates in the 20s, oximetry is 99%, blood pressure 106/58. LUNGS: Clear. HEART: Regular rhythm. ABDOMEN: Soft. EXTREMITIES: Without edema. LABORATORY DATA: No new lab. IMPRESSION: 1. COVID pneumonia, respiratory failure, status post tracheostomy and PEG. 2. Encephalopathy that is dramatically improved. 3. Extreme deconditioning. Await placement. Job ID: [id number]
--- NOTE | 2020-08-20 17:57 | PDOC.HOSPP ---
- Subjective Encounter Date: 08/20/20 Encounter Time: 17:45 Subjective: f/u for resp failure/trach placement on current T-collar. Overall stable without new events. - Objective Vital Signs & Weight: Vital Signs (12 hours) Temp Pulse Resp Pulse Ox 08/20/20 15:20 79 25 H 99 08/20/20 15:00 97.9 F 08/20/20 11:11 79 24 H 99 08/20/20 11:00 97.4 F L 08/20/20 07:57 96 08/20/20 07:40 99 08/20/20 07:36 78 25 H 99 08/20/20 07:00 97.4 F L 08/20/20 06:00 97.6 F 17 Weight Admit Weight 163 lb 9.328 oz Weight 125 lb 10.616 oz Most Recent Monitor Data Heart Rate from ECG 88 NIBP 89/54 NIBP BP-Mean 65 Respiration from ECG 25 SpO2 88 I&O: 08/19/20 08/20/20 08/21/20 06:59 06:59 06:59 Intake Total 2542.4 1498 772 Output Total 1890 1485 945 Balance 652.4 13 -173 Result Diagrams: 08/17/20 03:30 08/17/20 03:30 Additional Labs: Microbiology 08/03/20 06:50 Urine Straight Catheter Urine Culture - Final Pseudomonas aeruginosa 08/14/20 15:05 Urine rodrigues catheter Urine Culture - Preliminary NO GROWTH AT 12 HOURS 08/14/20 08:19 Venous blood - Left Hand Blood Culture - Preliminary Specimen has been received and culture in progress. No Growth to date. 08/14/20 08:19 Venous blood - Left Arm Blood Culture - Preliminary Specimen has been received and culture in progress. No Growth to date. 08/03/20 06:50 Urine Straight Catheter Urine Culture - Preliminary Gram Negative Fidel EKG Reviewed by me: Yes (Tele - SR) Hospitalist ROS - Medication Medications: Active Medications Generic Name Dose Route Start Last Admin Trade Name Freq PRN Reason Stop Dose Admin Acetaminophen 1,000 mg 07/06/20 14:14 08/18/20 13:28 Acetaminophen 650 Mg/20.3 Ml Udcup PER TUBE 1,000 mg Q6H PRN Administration Headache/Fever or Pain Albuterol/Ipratropium 3 ml 08/11/20 10:30 08/20/20 15:20 Ipratropium/Albuterol Sulfate 3 Ml Neb NEB 3 ml [id number] JOHN Administration Apixaban 5 mg 08/01/20 21:00 08/20/20 08:44 Apixaban 5 Mg Tab PO 5 mg BID JOHN Administration Ascorbic Acid 1,000 mg 07/03/20 09:00 08/20/20 08:44 Ascorbic Acid 500 Mg Chewable Tablet PO 1,000 mg DAILY JOHN Administration Aspirin 81 mg 08/10/20 09:00 08/20/20 08:44 Aspirin Chewable 81 Mg Tab PO 81 mg DAILY JOHN Administration Bisacodyl 10 mg 07/13/20 11:09 07/17/20 14:07 Bisacodyl 10 Mg Supp [place] 10 mg Q8H PRN Administration Constipation Cholecalciferol 400 units 07/03/20 09:00 08/20/20 08:44 Cholecalciferol (Vitamin D3) 400 Units Tab PO 400 units DAILY JOHN Administration Folic Acid 1 mg 07/10/20 09:00 08/20/20 08:44 Folic Acid 1 Mg Tab PO 1 mg DAILY JOHN Administration Furosemide 40 mg 08/19/20 07:30 08/20/20 05:59 Furosemide 40 Mg Tab PO 40 mg DAILY-AC JOHN Administration Guaifenesin 600 mg 08/12/20 09:00 08/20/20 08:44 Guaifenesin Sf Soln 200 Mg/10 Ml Udcup PER TUBE 600 mg Q12HR JOHN Administration Haloperidol Lactate 10 mg 08/10/20 12:45 08/13/20 22:27 Haloperidol Lactate 5 Mg/Ml Vial IM 10 mg Q4H PRN Administration Agitation Haloperidol Lactate 10 mg 08/14/20 09:11 08/20/20 01:15 Haloperidol Lactate 5 Mg/Ml Vial SLOW IVP 10 mg Q2H PRN Administration Agitation Sodium Chloride 1,000 mls @ 0 mls/hr 07/10/20 13:40 08/06/20 05:41 1/2 Normal Saline IV 1,000 mls .Q0M JOHN Administration KVO Dexmedetomidine HCl 400 mcg/ 100 mls @ 0 mls/hr 08/10/20 12:45 08/17/20 05:13 Sodium Chloride IVPB 100 mls INF JOHN Administration Protocol Titrate Insulin Human Lispro 0 units 07/03/20 01:26 08/14/20 22:47 Humalog 300 Units/3 Ml Vial SC 2 unit .MILD SLIDING SCALE PRN Administration Mild Correctional Scale Methylprednisolone Sodium Succinate 20 mg 08/14/20 09:11 08/20/20 08:48 Methylprednisolone Sod Succ 40 Mg Vial IVP 20 mg Q24HR JOHN Administration Pantoprazole Sodium 40 mg 07/16/20 09:00 08/20/20 08:45 Pantoprazole 40 Mg Granules Packet PER TUBE 40 mg DAILY JOHN Administration Pramipexole Dihydrochloride 1 mg 07/20/20 07:00 08/20/20 13:19 Pramipexole Di-Hcl 1 Mg Tab PO 1 mg 0700,1300,2000 JOHN Administration Propofol 1,000 mg 08/09/20 17:30 08/10/20 22:25 Propofol 1,000 Mg/100 Ml Vial IV 09/08/20 17:30 1,000 mg INF PRN Administration TO ACHIEVE GOAL RASS Protocol Quetiapine Fumarate 75 mg 08/07/20 21:00 08/19/20 21:25 Quetiapine Fumarate 25 Mg Tab PO 75 mg HS JOHN Administration Sodium Chloride 10 ml 07/03/20 21:00 08/20/20 08:45 Flush - Normal Saline 10 Ml Syringe IVF 10 ml Q12HR JOHN Administration Tamsulosin HCl 0.4 mg 08/02/20 21:00 08/19/20 21:25 Tamsulosin Hcl 0.4 Mg Cap PO 0.4 mg HS JOHN Administration Hospitalist Exam Vitals: Vital Signs (12 hours) Temp Pulse Resp Pulse Ox 08/20/20 15:20 79 25 H 99 08/20/20 15:00 97.9 F 08/20/20 11:11 79 24 H 99 08/20/20 11:00 97.4 F L 08/20/20 07:57 96 08/20/20 07:40 99 08/20/20 07:36 78 25 H 99 08/20/20 07:00 97.4 F L 08/20/20 06:00 97.6 F 17 Weight Admit Weight 163 lb 9.328 oz Weight 125 lb 10.616 oz Most Recent Monitor Data Heart Rate from ECG 88 NIBP 89/54 NIBP BP-Mean 65 Respiration from ECG 25 SpO2 88 General Appearance: NAD, awake alert Eye: PERRL, anicteric sclera ENT: normocephalic atraumatic, no oropharyngeal lesions Neck: supple, symmetric, no JVD, no thyromegaly, no lymphadenopathy Neck - other findings: trach in place with T-collar Heart: RRR, no gallops, no rubs, normal peripheral pulses Heart - other findings: S1, S2 Respiratory: CTAB, rhonchi Gastrointestinal: soft, non-tender, non-distended, normal bowel sounds, no palpable masses, no hepatomegaly Extremities: no cyanosis, no clubbing, no edema Skin: normal turgor Neurological: cranial nerve grossly intact, no new deficit Musculoskeletal: normal tone, generalized weakness Psychiatric: oriented to person, flat affect Hosp A/P (1) Acute respiratory failure with hypoxia Code(s): J96.01 - ACUTE RESPIRATORY FAILURE WITH HYPOXIA Status: Acute Plan: Continue T-collar with O2 support (2) Pneumonia due to COVID-19 virus Code(s): U07.1 - COVID-19; J12.82 - PNEUMONIA DUE TO CORONAVIRUS DISEASE 2018 Status: Acute (3) Delirium Code(s): R41.0 - DISORIENTATION, UNSPECIFIED Status: Acute (4) Diabetes mellitus type 2 in nonobese Code(s): E11.9 - TYPE 2 DIABETES MELLITUS WITHOUT COMPLICATIONS Status: Chronic (5) Parkinson disease Code(s): G20 - PARKINSON'S DISEASE Status: Chronic (6) Urinary retention Code(s): R33.9 - RETENTION OF URINE, UNSPECIFIED Status: Acute - Plan PT/OT, hospice social worker, speech therapy, respiratory therapy, out of bed/ambulate Stable overall Continue pulmonary support/T-collar ROM exercises with PT/OT/SHINGLE INSPECTOR Up in chair daily Decrease Lasix 40mg daily Await LTAC options Nutritional support with TF's Haldol PRN agitation/combativeness
[2020-08-20] MEDS: Tamsulosin HCl 0.4 MG CAP PO SCH (21:51)
[2020-08-20] MEDS: SODIUM CHLORIDE IVPB SCH (21:51)
[2020-08-20] MEDS: ADMIXTURE FEE IVPB SCH (21:51)
[2020-08-20] MEDS: MICAFUNGIN IVPB SCH (21:51)
[2020-08-20] MEDS: TOBRAMYCIN SULFATE IVPB SCH (21:53)
[2020-08-20] MEDS: SODIUM CHLORIDE 0.9% IVPB SCH (21:53)
[2020-08-20] MEDS ORDERED: Tobramycin 80 MG/2 ML VIAL IVPB SCH (22:00)
[2020-08-21] MEDS: Lorazepam 2 MG/ML VIAL SLOW IVP PRN ×2 (00:13→05:03)
[2020-08-21] MEDS: Haloperidol Lactate 5 MG/ML VIAL IM PRN ×2 (00:28→04:21)
[2020-08-21] MEDS: TOBRAMYCIN SULFATE IVPB SCH ×3 (08:37→22:37)
[2020-08-21] MEDS: SODIUM CHLORIDE 0.9% IVPB SCH ×3 (08:37→22:37)
[2020-08-21] MEDS: GUAIFENESIN SF SOLN 200 MG/10 ML UDCUP PER TUBE SCH ×2 (08:38→20:42)
[2020-08-21] MEDS: Pramipexole Di-HCl 1 MG TAB PO SCH ×3 (08:38→20:43)
[2020-08-21] MEDS: Ascorbic Acid 500 mg Chewable Tablet PO SCH (08:39)
[2020-08-21] MEDS: Pantoprazole 40 MG GRANULES PACKET PER TUBE SCH (08:39)
[2020-08-21] MEDS: Aspirin Chewable 81 MG TAB PO SCH (08:39)
[2020-08-21] MEDS: Cholecalciferol (Vitamin D3) 400 UNITS TAB PO SCH (08:39)
[2020-08-21] MEDS: Apixaban 5 MG TAB PO SCH ×2 (08:39→20:43)
[2020-08-21] MEDS: Folic Acid 1 MG TAB PO SCH (08:39)
[2020-08-21] MEDS: Furosemide 40 MG TAB PO SCH (08:39)
[2020-08-21] MEDS ORDERED: Haloperidol Lactate 5 MG/ML VIAL SLOW IVP PRN (11:55)
--- NOTE | 2020-08-21 12:12 | PRG ---
DATE OF SERVICE: 08/21/2020 SUBJECTIVE: Abhay Cooley became extremely encephalopathic last night, had to go back on ventilation after sedation. His p.r.n. medications will be adjusted for his agitation at night. He has been very cooperative all week during the day and on a trach collar comfortably during the day, so hopefully we will get back there. OBJECTIVE: LUNGS: He has equal breath sounds. HEART: Regular rhythm. ABDOMEN: Soft. EXTREMITIES: Without edema. IMPRESSION: 1. Status post tracheostomy and PEG for COVID pneumonia with respiratory failure. 2. Pre-existing Parkinson disease. 3. Sundowning, likely related to a very prolonged stay in the ICU. He had no signs or symptoms of Parkinson's dementia prior to his admission. 4. Probable component of chronic obstructive pulmonary disease because he was a significant smoker prior to admission. Job ID: [id number]
--- NOTE | 2020-08-21 15:27 | PDOC.HOSPP ---
- Subjective Encounter Date: 08/21/20 Encounter Time: 15:20 Subjective: f/u for resp failure/post-COVID PNA with tracheostomy. Agitated overnight and placed back on [facility] vent after T-collar. More calm per nursing today. - Objective Vital Signs & Weight: Vital Signs (12 hours) Temp Pulse Resp BP BP Pulse Ox 08/21/20 11:06 94 28 H 99 08/21/20 11:00 97.5 F L 08/21/20 10:09 111/75 141/117 H 08/21/20 08:33 99 08/21/20 08:32 79 21 H 97 08/21/20 08:00 98.0 F 97 08/21/20 04:00 97.5 F L Weight Admit Weight 163 lb 9.328 oz Weight 58 lb 9.6 oz Most Recent Monitor Data Heart Rate from ECG 98 NIBP 110/76 NIBP BP-Mean 87 Respiration from ECG 26 SpO2 92 I&O: 08/20/20 08/21/20 08/22/20 06:59 06:59 06:59 Intake Total 1498 772 160 Output Total 1485 1750 595 Balance 13 -978 -435 Result Diagrams: 08/17/20 03:30 08/17/20 03:30 Additional Labs: Microbiology 08/03/20 06:50 Urine Straight Catheter Urine Culture - Final Pseudomonas aeruginosa 08/14/20 15:05 Urine rodrigues catheter Urine Culture - Preliminary NO GROWTH AT 12 HOURS 08/14/20 08:19 Venous blood - Left Hand Blood Culture - Preliminary Specimen has been received and culture in progress. No Growth to date. 08/14/20 08:19 Venous blood - Left Arm Blood Culture - Preliminary Specimen has been received and culture in progress. No Growth to date. 08/03/20 06:50 Urine Straight Catheter Urine Culture - Preliminary Gram Negative Fidel EKG Reviewed by me: Yes (Tele - SR) Hospitalist ROS - Medication Medications: Active Medications Generic Name Dose Route Start Last Admin Trade Name Freq PRN Reason Stop Dose Admin Acetaminophen 1,000 mg 07/06/20 14:14 08/18/20 13:28 Acetaminophen 650 Mg/20.3 Ml Udcup PER TUBE 1,000 mg Q6H PRN Administration Headache/Fever or Pain Albuterol/Ipratropium 3 ml 08/11/20 10:30 08/21/20 11:06 Ipratropium/Albuterol Sulfate 3 Ml Neb NEB 3 ml [id number] JOHN Administration Apixaban 5 mg 08/01/20 21:00 08/21/20 08:39 Apixaban 5 Mg Tab PO 5 mg BID JOHN Administration Ascorbic Acid 1,000 mg 07/03/20 09:00 08/21/20 08:39 Ascorbic Acid 500 Mg Chewable Tablet PO 1,000 mg DAILY JOHN Administration Aspirin 81 mg 08/10/20 09:00 08/21/20 08:39 Aspirin Chewable 81 Mg Tab PO 81 mg DAILY JOHN Administration Bisacodyl 10 mg 07/13/20 11:09 07/17/20 14:07 Bisacodyl 10 Mg Supp [place] 10 mg Q8H PRN Administration Constipation Cholecalciferol 400 units 07/03/20 09:00 08/21/20 08:39 Cholecalciferol (Vitamin D3) 400 Units Tab PO 400 units DAILY JOHN Administration Folic Acid 1 mg 07/10/20 09:00 08/21/20 08:39 Folic Acid 1 Mg Tab PO 1 mg DAILY JOHN Administration Furosemide 40 mg 08/19/20 07:30 08/21/20 08:39 Furosemide 40 Mg Tab PO 40 mg DAILY-AC JOHN Administration Guaifenesin 600 mg 08/12/20 09:00 08/21/20 08:38 Guaifenesin Sf Soln 200 Mg/10 Ml Udcup PER TUBE 600 mg Q12HR JOHN Administration Haloperidol Lactate 10 mg 08/14/20 09:11 08/20/20 01:15 Haloperidol Lactate 5 Mg/Ml Vial SLOW IVP 10 mg Q2H PRN Administration Agitation Sodium Chloride 1,000 mls @ 0 mls/hr 07/10/20 13:40 08/06/20 05:41 1/2 Normal Saline IV 1,000 mls .Q0M JOHN Administration KVO Dexmedetomidine HCl 400 mcg/ 100 mls @ 0 mls/hr 08/10/20 12:45 08/17/20 05:13 Sodium Chloride IVPB 100 mls INF JOHN Administration Protocol Titrate Micafungin Sodium 150 mg/ 100 mls @ 66.667 mls/hr 08/20/20 21:00 08/20/20 21:51 Miscellaneous Medication 1 IVPB 100 mls each/ Sodium Chloride 2100 JOHN Administration Tobramycin Sulfate 143 mg/ 103.575 mls @ 103.575 mls/hr 08/20/20 22:00 08/21/20 08:37 Sodium Chloride IVPB 103.575 mls Q8HR JOHN Administration Insulin Human Lispro 0 units 07/03/20 01:26 08/14/20 22:47 Humalog 300 Units/3 Ml Vial SC 2 unit .MILD SLIDING SCALE PRN Administration Mild Correctional Scale Lorazepam 2 mg 08/20/20 01:26 08/21/20 05:03 Lorazepam 2 Mg/Ml Vial SLOW IVP 2 mg Q6H PRN Administration Anxiety/Agitation Methylprednisolone Sodium Succinate 10 mg 08/20/20 21:00 08/20/20 21:49 Methylprednisolone Sod Succ 40 Mg Vial IVP 10 mg 2100 JOHN Administration Pantoprazole Sodium 40 mg 07/16/20 09:00 08/21/20 08:39 Pantoprazole 40 Mg Granules Packet PER TUBE 40 mg DAILY JOHN Administration Pramipexole Dihydrochloride 1 mg 07/20/20 07:00 08/21/20 08:38 Pramipexole Di-Hcl 1 Mg Tab PO 1 mg 0700,1300,2000 JOHN Administration Propofol 1,000 mg 08/09/20 17:30 08/10/20 22:25 Propofol 1,000 Mg/100 Ml Vial IV 09/08/20 17:30 1,000 mg INF PRN Administration TO ACHIEVE GOAL RASS Protocol Quetiapine Fumarate 75 mg 08/07/20 21:00 08/20/20 21:51 Quetiapine Fumarate 25 Mg Tab PO 75 mg HS JOHN Administration Sodium Chloride 10 ml 07/03/20 21:00 08/21/20 08:40 Flush - Normal Saline 10 Ml Syringe IVF 10 ml Q12HR JOHN Administration Tamsulosin HCl 0.4 mg 08/02/20 21:00 08/20/20 21:51 Tamsulosin Hcl 0.4 Mg Cap PO 0.4 mg HS JOHN Administration Hospitalist Exam Vitals: Vital Signs (12 hours) Temp Pulse Resp BP BP Pulse Ox 08/21/20 11:06 94 28 H 99 08/21/20 11:00 97.5 F L 08/21/20 10:09 111/75 141/117 H 08/21/20 08:33 99 08/21/20 08:32 79 21 H 97 08/21/20 08:00 98.0 F 97 08/21/20 04:00 97.5 F L Weight Admit Weight 163 lb 9.328 oz Weight 58 lb 9.6 oz Most Recent Monitor Data Heart Rate from ECG 98 NIBP 110/76 NIBP BP-Mean 87 Respiration from ECG 26 SpO2 92 General Appearance: NAD, awake alert Eye: PERRL, anicteric sclera ENT: normocephalic atraumatic, no oropharyngeal lesions Neck: supple, symmetric, no JVD, no thyromegaly, no lymphadenopathy Neck - other findings: trach in place Heart: RRR, no gallops, no rubs, normal peripheral pulses Heart - other findings: S1, S2 Respiratory - other findings: diminished in bases, occ coarse sound Gastrointestinal: soft, non-tender, non-distended, normal bowel sounds, no palpable masses Extremities: no cyanosis, no clubbing, no edema Skin: normal turgor, no lesions Neurological: cranial nerve grossly intact, no new deficit Musculoskeletal: normal tone, generalized weakness Psychiatric: oriented to person, flat affect Hosp A/P (1) Acute respiratory failure with hypoxia Code(s): J96.01 - ACUTE RESPIRATORY FAILURE WITH HYPOXIA Status: Acute Plan: Continue T-collar for majority of the day/night (2) Pneumonia due to COVID-19 virus Code(s): U07.1 - COVID-19; J12.82 - PNEUMONIA DUE TO CORONAVIRUS DISEASE 2019 Status: Acute (3) Delirium Code(s): R41.0 - DISORIENTATION, UNSPECIFIED Status: Acute Plan: Intermittent, continue Haldol/Seroquel (4) Diabetes mellitus type 2 in nonobese Code(s): E11.9 - TYPE 2 DIABETES MELLITUS WITHOUT COMPLICATIONS Status: Chronic (5) Parkinson disease Code(s): G20 - PARKINSON'S DISEASE Status: Chronic (6) Urinary retention Code(s): R33.9 - RETENTION OF URINE, UNSPECIFIED Status: Acute - Plan continue antibiotics, PT/OT, social insurance adviser, speech therapy, respiratory therapy, DVT proph w/SCDs Consults: Palliative Care Stable overall Continue pulmonary support/T-collar/Limit mech ventilation ROM exercises with PT/OT/BREAKDOWN MAN Up in chair daily Decrease Lasix 40mg daily Await LTAC options Nutritional support with TF's Haldol PRN agitation/combativeness
[2020-08-21] MEDS: methylPREDNISolone Sod Succ 40 MG VIAL IVP SCH (20:42)
[2020-08-21] MEDS: Tamsulosin HCl 0.4 MG CAP PO SCH (20:43)
[2020-08-21] MEDS: ADMIXTURE FEE IVPB SCH (20:43)
[2020-08-21] MEDS: SODIUM CHLORIDE IVPB SCH (20:43)
[2020-08-21] MEDS: MICAFUNGIN IVPB SCH (20:43)
[2020-08-22] MEDS: Lorazepam 2 MG/ML VIAL SLOW IVP PRN (01:33)
[2020-08-22] MEDS: HumaLOG 300 UNITS/3 ML VIAL SC PRN ×2 (03:45→18:19)
[2020-08-22] MEDS: SODIUM CHLORIDE 0.9% IVPB SCH ×3 (06:04→21:40)
[2020-08-22] MEDS: TOBRAMYCIN SULFATE IVPB SCH ×3 (06:04→21:40)
[2020-08-22] MEDS: Acetaminophen 650 MG/20.3 ML UDCUP PER TUBE PRN ×2 (08:09→14:41)
[2020-08-22] MEDS: Furosemide 40 MG TAB PO SCH (08:12)
[2020-08-22] MEDS: Pantoprazole 40 MG GRANULES PACKET PER TUBE SCH (08:12)
[2020-08-22] MEDS: Pramipexole Di-HCl 1 MG TAB PO SCH ×3 (08:12→20:34)
[2020-08-22] MEDS: GUAIFENESIN SF SOLN 200 MG/10 ML UDCUP PER TUBE SCH ×2 (08:12→20:34)
[2020-08-22] MEDS: Cholecalciferol (Vitamin D3) 400 UNITS TAB PO SCH (08:13)
[2020-08-22] MEDS: Ascorbic Acid 500 mg Chewable Tablet PO SCH (08:13)
[2020-08-22] MEDS: Folic Acid 1 MG TAB PO SCH (08:13)
[2020-08-22] MEDS: Apixaban 5 MG TAB PO SCH ×2 (08:13→20:35)
[2020-08-22] MEDS: Aspirin Chewable 81 MG TAB PO SCH (08:14)
[2020-08-22 08:28] LABS: #Lymphocytes 1.3 thou/uL (1.20-3.40); #Monocytes 0.6 thou/uL (0.11-0.59); #Neutrophils 9.5 thou/uL (1.40-6.50); %Basophils 0.2 % (0.0-1.0); %Eosinophils 0.3 % (0.0-10.0); %Monocytes 4.8 % (0.0-10.0); %Neutrophils 83.7 % (42.0-75.0); Hemoglobin 10.2 g/dL (14.0-18.0); Mean Corpuscular HGB CONC 32.6 g/dL (32.0-36.0); Mean Corpuscular Hemoglobin 32.4 pg (27.0-31.0); Mean Corpuscular Volume 99.3 fL (78.0-98.0); Mean Platelet Volume 7.7 fL (7.4-10.4); Platelet Count 307 thou/uL (130-400); RBC Distribution Width 13.3 % (11.5-14.5); Red Blood Cell (RBC) Count 3.16 mill/uL (4.70-6.10); White Blood Cell (WBC) Count 11.4 thou/uL (4.8-10.8)
[2020-08-22 08:47] LABS: Anion Gap 16 mmol/L (10-20); BUN (Urea Nitrogen) 37 mg/dL (8.4-25.7); Calc. Creatinine Clearance 68 mL/min (70-130); Calcium 8.7 mg/dL (7.8-10.44); Carbon Dioxide 29 mmol/L (23-31); Chloride 99 mmol/L (98-107); Glucose 140 mg/dL (83-110); Potassium 4.3 mmol/L (3.5-5.1); Sodium 140 mmol/L (136-145)
--- NOTE | 2020-08-22 10:35 | PDOC.HOSPP ---
- Subjective Encounter Date: 08/22/20 Encounter Time: 10:33 Subjective: Mr. Cooley was seen today in follow-up of respiratory failure following COVID infection. He is sitting up in bed. His is at the bedside. He rested better last night. - Objective Vital Signs & Weight: Vital Signs (12 hours) Temp Pulse Resp BP Pulse Ox 08/22/20 07:18 96 17 100 08/22/20 04:00 98.7 F 20 08/22/20 02:36 89 08/22/20 02:00 19 08/22/20 00:23 83 08/22/20 00:21 84 18 94/64 100 08/22/20 00:00 98.0 F 18 Weight Admit Weight 163 lb 9.328 oz Weight 126 lb 8.725 oz Most Recent Monitor Data Heart Rate from ECG 82 NIBP 98/61 NIBP BP-Mean 73 Respiration from ECG 20 SpO2 100 I&O: 08/21/20 08/22/20 08/23/20 06:59 06:59 06:59 Intake Total 772 2340 Output Total 1750 2009 Balance -978 330 Result Diagrams: 08/22/20 07:55 08/22/20 07:55 Additional Labs: Accuchecks 08/22/20 03:40 POC Glucose 187 H Hospitalist ROS - Medication Medications: Active Medications Generic Name Dose Route Start Last Admin Trade Name Freq PRN Reason Stop Dose Admin Acetaminophen 1,000 mg 07/06/20 14:14 08/22/20 08:09 Acetaminophen 650 Mg/20.3 Ml Udcup PER TUBE 1,000 mg Q6H PRN Administration Headache/Fever or Pain Albuterol/Ipratropium 3 ml 08/11/20 10:30 08/22/20 07:18 Ipratropium/Albuterol Sulfate 3 Ml Neb NEB 3 ml [id number] JOHN Administration Apixaban 5 mg 08/01/20 21:00 08/22/20 08:13 Apixaban 5 Mg Tab PO 5 mg BID JOHN Administration Ascorbic Acid 1,000 mg 07/03/20 09:00 08/22/20 08:13 Ascorbic Acid 500 Mg Chewable Tablet PO 1,000 mg DAILY JOHN Administration Aspirin 81 mg 08/10/20 09:00 08/22/20 08:14 Aspirin Chewable 81 Mg Tab PO 81 mg DAILY JOHN Administration Bisacodyl 10 mg 07/13/20 11:09 07/17/20 14:07 Bisacodyl 10 Mg Supp [place] 10 mg Q8H PRN Administration Constipation Cholecalciferol 400 units 07/03/20 09:00 08/22/20 08:13 Cholecalciferol (Vitamin D3) 400 Units Tab PO 400 units DAILY JOHN Administration Folic Acid 1 mg 07/10/20 09:00 08/22/20 08:13 Folic Acid 1 Mg Tab PO 1 mg DAILY JOHN Administration Furosemide 40 mg 08/19/20 07:30 08/22/20 08:12 Furosemide 40 Mg Tab PO 40 mg DAILY-AC JOHN Administration Guaifenesin 600 mg 08/12/20 09:00 08/22/20 08:12 Guaifenesin Sf Soln 200 Mg/10 Ml Udcup PER TUBE 600 mg Q12HR JOHN Administration Haloperidol Lactate 10 mg 08/14/20 09:11 08/20/20 01:15 Haloperidol Lactate 5 Mg/Ml Vial SLOW IVP 10 mg Q2H PRN Administration Agitation Sodium Chloride 1,000 mls @ 0 mls/hr 07/10/20 13:40 08/06/20 05:41 1/2 Normal Saline IV 1,000 mls .Q0M JOHN Administration KVO Dexmedetomidine HCl 400 mcg/ 100 mls @ 0 mls/hr 08/10/20 12:45 08/17/20 05:13 Sodium Chloride IVPB 100 mls INF JOHN Administration Protocol Titrate Micafungin Sodium 150 mg/ 100 mls @ 66.667 mls/hr 08/20/20 21:00 08/21/20 20:43 Miscellaneous Medication 1 IVPB 100 mls each/ Sodium Chloride 2100 JOHN Administration Tobramycin Sulfate 143 mg/ 103.575 mls @ 103.575 mls/hr 08/20/20 22:00 08/22/20 06:04 Sodium Chloride IVPB 103.575 mls Q8HR JOHN Administration Insulin Human Lispro 0 units 07/03/20 01:26 08/22/20 03:45 Humalog 300 Units/3 Ml Vial SC 2 unit .MILD SLIDING SCALE PRN Administration Mild Correctional Scale Lorazepam 2 mg 08/20/20 01:26 08/22/20 01:33 Lorazepam 2 Mg/Ml Vial SLOW IVP 2 mg Q6H PRN Administration Anxiety/Agitation Methylprednisolone Sodium Succinate 10 mg 08/20/20 21:00 08/21/20 20:42 Methylprednisolone Sod Succ 40 Mg Vial IVP 10 mg 2100 JOHN Administration Pantoprazole Sodium 40 mg 07/16/20 09:00 08/22/20 08:12 Pantoprazole 40 Mg Granules Packet PER TUBE 40 mg DAILY JOHN Administration Pramipexole Dihydrochloride 1 mg 07/20/20 07:00 08/22/20 08:12 Pramipexole Di-Hcl 1 Mg Tab PO 1 mg 0700,1300,2000 JOHN Administration Propofol 1,000 mg 08/09/20 17:30 08/10/20 22:25 Propofol 1,000 Mg/100 Ml Vial IV 09/08/20 17:30 1,000 mg INF PRN Administration TO ACHIEVE GOAL RASS Protocol Quetiapine Fumarate 75 mg 08/07/20 21:00 08/21/20 20:43 Quetiapine Fumarate 25 Mg Tab PO 75 mg HS JOHN Administration Sodium Chloride 10 ml 07/03/20 21:00 08/22/20 08:14 Flush - Normal Saline 10 Ml Syringe IVF 10 ml Q12HR JOHN Administration Tamsulosin HCl 0.4 mg 08/02/20 21:00 08/21/20 20:43 Tamsulosin Hcl 0.4 Mg Cap PO 0.4 mg HS JOHN Administration Hospitalist Exam Vitals: Vital Signs (12 hours) Temp Pulse Resp BP Pulse Ox 08/22/20 07:18 96 17 100 08/22/20 04:00 98.7 F 20 08/22/20 02:36 89 08/22/20 02:00 19 08/22/20 00:23 83 08/22/20 00:21 84 18 94/64 100 08/22/20 00:00 98.0 F 18 Weight Admit Weight 163 lb 9.328 oz Weight 126 lb 8.725 oz Most Recent Monitor Data Heart Rate from ECG 82 NIBP 98/61 NIBP BP-Mean 73 Respiration from ECG 20 SpO2 100 General Appearance: NAD, awake alert Eye: PERRL, anicteric sclera Heart: RRR, no murmur, no gallops, no rubs, normal peripheral pulses Respiratory: rales (at the bases, and some rhonchi) Gastrointestinal: soft, non-tender, non-distended, normal bowel sounds, no palpable masses, no hepatomegaly Extremities: no cyanosis, no edema (palpable d.p. pulses bilaterally no lesions) Hosp A/P (1) Acute respiratory failure with hypoxia Code(s): J96.01 - ACUTE RESPIRATORY FAILURE WITH HYPOXIA Status: Acute (2) Pneumonia due to COVID-19 virus Code(s): U07.1 - COVID-19; J12.82 - PNEUMONIA DUE TO CORONAVIRUS DISEASE 2019 Status: Acute (3) Diabetes mellitus type 2 in nonobese Code(s): E11.9 - TYPE 2 DIABETES MELLITUS WITHOUT COMPLICATIONS Status: Chronic (4) Hypertension Code(s): I10 - ESSENTIAL (PRIMARY) HYPERTENSION Status: Chronic Qualifiers: Hypertension type: essential hypertension Qualified Code(s): I10 - Essential (primary) hypertension (5) TAMMY (obstructive sleep apnea) Code(s): G47.33 - OBSTRUCTIVE SLEEP APNEA (ADULT) (PEDIATRIC) Status: Chronic (6) Parkinson disease Code(s): G20 - PARKINSON'S DISEASE Status: Chronic (7) Chronic anticoagulation Code(s): Z79.01 - HYDRAULIC ENGINEER (CURRENT) USE OF ANTICOAGULANTS Status: Acute (8) Muscular deconditioning Code(s): R29.898 - OT SYMPTOMS AND SIGNS INVOLVING THE MUSCULOSKELETAL SYSTEM Status: Acute (9) Delirium Code(s): R41.0 - DISORIENTATION, UNSPECIFIED Status: Acute - Plan * Acute respiratory failure initially due to COVID pneumonia- he is using the trach collar during the day, and mechanical ventilation at night * HTN- blood pressure - low normal - stable * Urinary retention- continue Gutierrez catheter * UTI- resolved * Elevated blood glucose from Steroids - continue SSI * DVT- prophylaxis- continue Lovenox * Parkinson's disease- continue Pramipexole * Tolerating Tube feeds * Delerium- ICU- improving * Severe deconditioning- continue PT/OT * Awaiting LTAC
--- NOTE | 2020-08-22 18:39 | PDOC.PULPN ---
Progress Note: Subj/Obj - Subjective Date: 08/22/20 Time: 18:38 Narrative: doing well on 35% TC normotensive no distress - ROS ROS unobtainable: due to endotracheal tube (tracheostomy) - Objective Allergies/Adverse Reactions: Allergies Allergy/AdvReac Type Severity Reaction Status Date / Time No Known Drug Allergies Allergy Verified 07/03/20 00:45 MAR Reviewed: Yes Vital Signs: Vital Signs Temp 98.7 F 08/22/20 18:00 Pulse 100 08/22/20 14:35 Resp 17 08/22/20 14:35 BP 94/64 08/22/20 00:21 Pulse Ox 97 08/22/20 14:35 Intake & Output 08/21/20 08/22/20 08/22/20 18:59 06:59 18:59 Intake Total 6440 239 9334 Output Total 5936 912 4195 Balance 257 73 784 Weight 126 lb 8.725 oz Intake: Intake, IV Amount 442 408 401 Micafungin 150 mg 100 Admixture Fee 1 each In Sodium Chloride 0.9% 100 ml @ 66.667 mls/hr IVPB 2100 [facility] Rx#:[id number] Sodium Chloride 0.9% 10 442 108 201 ml IVF PRN PRN Rx#: [id number] Tobramycin Sulfate 143 mg 200 200 In Sodium Chloride 0.9% 100 ml @ 103.575 mls/hr IVPB Q8HR [facility] Rx#: [id number] Tube Feeding 720 1318 Tube Irrigant 480 290 180 Output: Output, Gutierrez 8426 567 2115 Other: Voiding Method Indwelling Catheter Indwelling Catheter Indwelling Catheter # Bowel Movements 1 Progress Note: Exam - Physical Exam HEENT: PERRLA, moist MMs Deviation from normal: tracheostomy Cardiovascular: RRR Respiratory: rhonchi Gastrointestinal: soft Deviation from normal: peg Musculoskeletal: no edema Neurological: non-focal Skin: no rash Deviation from normal: stage 4 decub sacrum Progress Note: Data - Labs Result Diagrams: 08/22/20 07:55 08/22/20 07:55 Progress Note: A/P - Problems (1) Tracheostomy dependent Current Visit: Yes Status: Acute Code(s): Z93.0 - TRACHEOSTOMY STATUS Assessment and Plan: on 35% fio2 stable ok for floor transfer and ltac (2) Stage 4 decubitus ulcer Current Visit: Yes Status: Acute Code(s): L89.94 - PRESSURE ULCER OF UNSPECIFIED SITE, STAGE 4 Assessment and Plan: nourishment
[2020-08-22] MEDS: methylPREDNISolone Sod Succ 40 MG VIAL IVP SCH (20:35)
[2020-08-22] MEDS: Tamsulosin HCl 0.4 MG CAP PO SCH (20:35)
[2020-08-22] MEDS: SODIUM CHLORIDE IVPB SCH (21:50)
[2020-08-22] MEDS: ADMIXTURE FEE IVPB SCH (21:50)
[2020-08-22] MEDS: MICAFUNGIN IVPB SCH (21:50)
[2020-08-23] MEDS: Acetaminophen 650 MG/20.3 ML UDCUP PER TUBE PRN ×2 (01:47→20:14)
[2020-08-23] MEDS: HumaLOG 300 UNITS/3 ML VIAL SC PRN ×3 (04:09→20:59)
[2020-08-23] MEDS: TOBRAMYCIN SULFATE IVPB SCH ×3 (05:22→21:22)
[2020-08-23] MEDS: SODIUM CHLORIDE 0.9% IVPB SCH ×3 (05:22→21:22)
[2020-08-23] MEDS: Pramipexole Di-HCl 1 MG TAB PO SCH ×3 (08:33→20:14)
[2020-08-23] MEDS: Folic Acid 1 MG TAB PO SCH (08:33)
[2020-08-23] MEDS: Furosemide 40 MG TAB PO SCH (08:33)
[2020-08-23] MEDS: Ascorbic Acid 500 mg Chewable Tablet PO SCH (08:34)
[2020-08-23] MEDS: Pantoprazole 40 MG GRANULES PACKET PER TUBE SCH (08:34)
[2020-08-23] MEDS: Cholecalciferol (Vitamin D3) 400 UNITS TAB PO SCH (08:35)
[2020-08-23] MEDS: Aspirin Chewable 81 MG TAB PO SCH (08:35)
[2020-08-23] MEDS: GUAIFENESIN SF SOLN 200 MG/10 ML UDCUP PER TUBE SCH ×2 (08:35→20:15)
[2020-08-23] MEDS: Apixaban 5 MG TAB PO SCH ×2 (08:39→20:14)
--- NOTE | 2020-08-23 09:59 | PDOC.HOSPP ---
- Subjective Encounter Date: 08/23/20 Encounter Time: 09:57 Subjective: Mr. Cooley was seen today in follow-up of respiratory failure following COVID pneumonia. He is sitting up in a chair. He appears very calm, and in no distress. He has speaking valve in, and says he had some trouble sleeping last night, due to things running through his mind. He denies trouble breathing. - Objective Vital Signs & Weight: Vital Signs (12 hours) Temp Pulse Resp Pulse Ox 08/23/20 07:14 100 08/23/20 07:02 99 08/23/20 07:00 99.3 F 08/23/20 06:57 101 H 26 H 100 08/23/20 06:00 23 H 08/23/20 05:20 86 08/23/20 04:00 98.3 F 21 H 08/23/20 03:09 79 08/23/20 02:00 19 08/23/20 00:03 85 08/23/20 00:00 98.6 F 24 H 100 Weight Admit Weight 163 lb 9.328 oz Weight 128 lb 8.472 oz Most Recent Monitor Data Heart Rate from ECG 100 NIBP 108/75 NIBP BP-Mean 86 Respiration from ECG 29 SpO2 92 I&O: 08/22/20 08/23/20 08/24/20 06:59 06:59 06:59 Intake Total 2340 3501 60 Output Total 2010 1890 200 Balance 330 1611 -140 Result Diagrams: 08/22/20 07:55 08/22/20 07:55 Additional Labs: Accuchecks 08/22/20 08/22/20 08/22/20 21:12 16:03 10:47 POC Glucose 96 172 H 145 H Hospitalist ROS - Medication Medications: Active Medications Generic Name Dose Route Start Last Admin Trade Name Freq PRN Reason Stop Dose Admin Acetaminophen 1,000 mg 07/06/20 14:14 08/23/20 01:47 Acetaminophen 650 Mg/20.3 Ml Udcup PER TUBE 1,000 mg Q6H PRN Administration Headache/Fever or Pain Albuterol/Ipratropium 3 ml 08/11/20 10:30 08/23/20 06:57 Ipratropium/Albuterol Sulfate 3 Ml Neb NEB 3 ml [id number] JOHN Administration Apixaban 5 mg 08/01/20 21:00 02/28/21 08:39 Apixaban 5 Mg Tab PO 5 mg BID JOHN Administration Ascorbic Acid 1,000 mg 07/03/20 09:00 08/23/20 08:34 Ascorbic Acid 500 Mg Chewable Tablet PO 1,000 mg DAILY JOHN Administration Aspirin 81 mg 08/10/20 09:00 08/23/20 08:35 Aspirin Chewable 81 Mg Tab PO 81 mg DAILY JOHN Administration Bisacodyl 10 mg 07/13/20 11:09 07/17/20 14:07 Bisacodyl 10 Mg Supp CO 10 mg Q8H PRN Administration Constipation Cholecalciferol 400 units 07/03/20 09:00 08/23/20 08:35 Cholecalciferol (Vitamin D3) 400 Units Tab PO 400 units DAILY JOHN Administration Folic Acid 1 mg 07/10/20 09:00 08/23/20 08:33 Folic Acid 1 Mg Tab PO 1 mg DAILY JOHN Administration Furosemide 40 mg 08/19/20 07:30 08/23/20 08:33 Furosemide 40 Mg Tab PO 40 mg DAILY-AC JOHN Administration Guaifenesin 600 mg 08/12/20 09:00 08/23/20 08:35 Guaifenesin Sf Soln 200 Mg/10 Ml Udcup PER TUBE 600 mg Q12HR JOHN Administration Haloperidol Lactate 10 mg 08/14/20 09:11 08/20/20 01:15 Haloperidol Lactate 5 Mg/Ml Vial SLOW IVP 10 mg Q2H PRN Administration Agitation Sodium Chloride 1,000 mls @ 0 mls/hr 07/10/20 13:40 08/06/20 05:41 1/2 Normal Saline IV 1,000 mls .Q0M JOHN Administration KVO Dexmedetomidine HCl 400 mcg/ 100 mls @ 0 mls/hr 08/10/20 12:45 08/17/20 05:13 Sodium Chloride IVPB 100 mls INF JOHN Administration Protocol Titrate Micafungin Sodium 150 mg/ 100 mls @ 66.667 mls/hr 08/20/20 21:00 08/22/20 21:50 Miscellaneous Medication 1 IVPB 100 mls each/ Sodium Chloride 2100 JOHN Administration Tobramycin Sulfate 143 mg/ 103.575 mls @ 103.575 mls/hr 08/20/20 22:00 08/23/20 05:22 Sodium Chloride IVPB 103.575 mls Q8HR JOHN Administration Insulin Human Lispro 0 units 07/03/20 01:26 08/23/20 04:09 Humalog 300 Units/3 Ml Vial SC 2 unit .MILD SLIDING SCALE PRN Administration Mild Correctional Scale Lorazepam 2 mg 08/20/20 01:26 08/22/20 01:33 Lorazepam 2 Mg/Ml Vial SLOW IVP 2 mg Q6H PRN Administration Anxiety/Agitation Methylprednisolone Sodium Succinate 10 mg 08/20/20 21:00 08/22/20 20:35 Methylprednisolone Sod Succ 40 Mg Vial IVP 10 mg 2100 JOHN Administration Pantoprazole Sodium 40 mg 07/16/20 09:00 08/23/20 08:34 Pantoprazole 40 Mg Granules Packet PER TUBE 40 mg DAILY JOHN Administration Pramipexole Dihydrochloride 1 mg 07/20/20 07:00 08/23/20 08:33 Pramipexole Di-Hcl 1 Mg Tab PO 1 mg 0700,1300,2000 JOHN Administration Propofol 1,000 mg 08/09/20 17:30 08/10/20 22:25 Propofol 1,000 Mg/100 Ml Vial IV 09/08/20 17:30 1,000 mg INF PRN Administration TO ACHIEVE GOAL RASS Protocol Quetiapine Fumarate 75 mg 08/07/20 21:00 08/22/20 20:35 Quetiapine Fumarate 25 Mg Tab PO 75 mg HS JOHN Administration Sodium Chloride 10 ml 07/03/20 21:00 08/23/20 08:36 Flush - Normal Saline 10 Ml Syringe IVF 10 ml Q12HR JOHN Administration Tamsulosin HCl 0.4 mg 08/02/20 21:00 08/22/20 20:35 Tamsulosin Hcl 0.4 Mg Cap PO 0.4 mg HS JOHN Administration Hospitalist Exam Vitals: Vital Signs (12 hours) Temp Pulse Resp Pulse Ox 08/23/20 07:14 100 08/23/20 07:02 99 08/23/20 07:00 99.3 F 08/23/20 06:57 101 H 26 H 100 08/23/20 06:00 23 H 08/23/20 05:20 86 08/23/20 04:00 98.3 F 21 H 08/23/20 03:09 79 08/23/20 02:00 19 08/23/20 00:03 85 08/23/20 00:00 98.6 F 24 H 100 Weight Admit Weight 163 lb 9.328 oz Weight 128 lb 8.472 oz Most Recent Monitor Data Heart Rate from ECG 100 NIBP 108/75 NIBP BP-Mean 86 Respiration from ECG 29 SpO2 92 General Appearance: NAD, awake alert Eye: PERRL, anicteric sclera Heart: RRR, no murmur, no gallops, no rubs, normal peripheral pulses Respiratory: rales (at the bases, and some milf rhonchi) Gastrointestinal: soft, non-tender, non-distended, normal bowel sounds, no palpable masses, no hepatomegaly Extremities: no cyanosis (palpable d.p. pulses, no lesions), no edema Hosp A/P (1) Acute respiratory failure with hypoxia Code(s): J96.01 - ACUTE RESPIRATORY FAILURE WITH HYPOXIA Status: Acute (2) Pneumonia due to COVID-19 virus Code(s): U07.1 - COVID-19; J12.82 - PNEUMONIA DUE TO CORONAVIRUS DISEASE 2019 Status: Acute (3) Diabetes mellitus type 2 in nonobese Code(s): E11.9 - TYPE 2 DIABETES MELLITUS WITHOUT COMPLICATIONS Status: Chronic (4) Hypertension Code(s): I10 - ESSENTIAL (PRIMARY) HYPERTENSION Status: Chronic Qualifiers: Hypertension type: essential hypertension Qualified Code(s): I10 - Essential (primary) hypertension (5) TAMMY (obstructive sleep apnea) Code(s): G47.33 - OBSTRUCTIVE SLEEP APNEA (ADULT) (PEDIATRIC) Status: Chronic (6) Parkinson disease Code(s): G20 - PARKINSON'S DISEASE Status: Chronic (7) Chronic anticoagulation Code(s): 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.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 Status: Acute (8) Muscular deconditioning Code(s): R29.898 - OTH SYMPTOMS AND SIGNS INVOLVING THE MUSCULOSKELETAL SYSTEM Status: Acute (9) Delirium Code(s): R41.0 - DISORIENTATION, UNSPECIFIED Status: Acute - Plan * Acute respiratory failure initially due to COVID pneumonia- he is using the trach collar during the day, and mechanical ventilation at night * HTN- blood pressure - low normal - stable * Urinary retention- continue Gutierrez catheter * Elevated blood glucose from Steroids - continue SSI * DVT- prophylaxis- continue Lovenox * Parkinson's disease- continue Pramipexole * Tolerating Tube feeds * Delerium- ICU-resolved * Severe deconditioning- continue PT/OT * Awaiting LTAC
--- NOTE | 2020-08-23 16:01 | PDOC.PULPN ---
Progress Note: Subj/Obj - Subjective Date: 08/23/20 Time: 14:10 - ROS All systems: reviewed and no additional remarkable complaints except as stated (he wants to stay on vent overnight but has tolerated off vent and out of bed during day) Respiratory: exercise intolerance, non-productive cough - Objective Allergies/Adverse Reactions: Allergies Allergy/AdvReac Type Severity Reaction Status Date / Time No Known Drug Allergies Allergy Verified 07/03/20 00:45 MAR Reviewed: Yes Vital Signs: Vital Signs Temp 98.3 F 08/23/20 12:00 Pulse 112 H 08/23/20 14:50 Resp 18 08/23/20 14:50 BP 94/64 08/22/20 00:21 Pulse Ox 94 L 08/23/20 10:22 Intake & Output 08/22/20 08/23/20 08/23/20 18:59 06:59 18:59 Intake Total 1929 1572 120 Output Total 6699 886 5057 Balance 814 797 -1350 Weight 128 lb 8.472 oz Intake: Intake, IV Amount 401 403 0 Micafungin 150 mg 100 0 Admixture Fee 1 each In Sodium Chloride 0.9% 100 ml @ 66.667 mls/hr IVPB 2100 JOHN Rx#:[id number] Sodium Chloride 0.9% 10 201 103 0 ml IVF PRN PRN Rx#: [id number] Tobramycin Sulfate 143 mg 200 200 0 In Sodium Chloride 0.9% 100 ml @ 103.575 mls/hr IVPB Q8HR [facility] Rx#: [id number] Tube Feeding 1318 709 0 Tube Irrigant 210 460 120 Output: Output, Gutierrez 0864 534 [id number] Other: *Amount Reported-IN IV Fluid 0 Voiding Method Indwelling Catheter Indwelling Catheter Indwelling Catheter # Bowel Movements 1 1 Progress Note: Exam - Physical Exam Deviation from normal: elderly muscle mass decreased trach Deviation from normal: trach without exudate Cardiovascular: RRR Respiratory: rhonchi Focused Respiratory Location: decreased breath sounds: Upper, Lower Gastrointestinal: soft Deviation from normal: peg Deviation from normal: loss muscle mass, very thin Neurological: non-focal Deviation from normal: generalized weakness Skin: no rash Deviation from normal: dry Progress Note: Data - Labs Result Diagrams: 08/22/20 07:55 08/22/20 07:55 Progress Note: A/P - Problems (1) Tracheostomy dependent Current Visit: Yes Status: Acute Code(s): Z93.0 - TRACHEOSTOMY STATUS Assessment and Plan: he is tolerating off vent I believe he should be transferred to the floor, push back from spouse (2) Stage 4 decubitus ulcer Current Visit: Yes Status: Acute Code(s): L89.94 - PRESSURE ULCER OF UNSPECIFIED SITE, STAGE 4 Assessment and Plan: nutrition, vitamins, minerals, would care and out of bed - Time Spent with Patient Time: 50% of the time was spent in coordination of care (as documented) Time (minutes): 25
[2020-08-23] MEDS: SODIUM CHLORIDE IVPB SCH (20:14)
[2020-08-23] MEDS: Tamsulosin HCl 0.4 MG CAP PO SCH (20:14)
[2020-08-23] MEDS: MICAFUNGIN IVPB SCH (20:14)
[2020-08-23] MEDS: ADMIXTURE FEE IVPB SCH (20:14)
[2020-08-23] MEDS: methylPREDNISolone Sod Succ 40 MG VIAL IVP SCH (20:14)
[2020-08-23] MEDS: Lorazepam 2 MG/ML VIAL SLOW IVP PRN (22:52)
[2020-08-24] MEDS: Haloperidol Lactate 5 MG/ML VIAL SLOW IVP PRN (03:49)
[2020-08-24] MEDS: HumaLOG 300 UNITS/3 ML VIAL SC PRN (04:05)
[2020-08-24] MEDS: TOBRAMYCIN SULFATE IVPB SCH ×3 (05:40→21:08)
[2020-08-24] MEDS: SODIUM CHLORIDE 0.9% IVPB SCH ×3 (05:40→21:08)
[2020-08-24] MEDS: Furosemide 40 MG TAB PO SCH (07:39)
[2020-08-24] MEDS: Pramipexole Di-HCl 1 MG TAB PO SCH ×3 (07:39→21:07)
[2020-08-24] MEDS: Folic Acid 1 MG TAB PO SCH (08:27)
[2020-08-24] MEDS: Cholecalciferol (Vitamin D3) 400 UNITS TAB PO SCH (08:27)
[2020-08-24] MEDS: Pantoprazole 40 MG GRANULES PACKET PER TUBE SCH (08:27)
[2020-08-24] MEDS: Apixaban 5 MG TAB PO SCH ×2 (08:27→21:14)
[2020-08-24] MEDS: Aspirin Chewable 81 MG TAB PO SCH (08:27)
[2020-08-24] MEDS: Ascorbic Acid 500 mg Chewable Tablet PO SCH (08:27)
[2020-08-24] MEDS: GUAIFENESIN SF SOLN 200 MG/10 ML UDCUP PER TUBE SCH ×2 (08:31→21:07)
--- NOTE | 2020-08-24 15:16 | PRG ---
DATE OF SERVICE: 08/24/2020 SUBJECTIVE: Mr. Cooley still intermittently getting encephalopathic at night. Heart rate is 88, blood pressure 98/62, respiratory rates in the 20s. Lungs, heart, and abdomen are unchanged. He did well with Haldol last night, so we will put in a scheduled 10:00 p.m. dose of Haldol as he appeared to have slept all night with that. LABORATORY DATA: White count is 11.4, hemoglobin 10.2, platelets 307. There is no recent lab other than blood glucoses, which I had actually stopped his Accu-Cheks last week. IMPRESSION: 1. COVID pneumonia with respiratory failure, on a trach. 2. owning leading to aggressive sedation at night. We will hopefully find that with routine administration of Haldol at 2200 hours, we can switch him to a cuffless fenestrated trach and proceed to rehab at some point in the near future. Job ID: [id number]
[2020-08-24 17:07] VITALS: BP 69/51
--- NOTE | 2020-08-24 17:50 | PDOC.HOSPP ---
- Subjective Encounter Date: 08/24/20 Encounter Time: 17:48 Subjective: Mr. Cooley was seen today in follow-up of respiratory failure following OVID infection. He does not have any complaints. He was seen walking a few steps with physical therapy. - Objective Vital Signs & Weight: Vital Signs (12 hours) Temp Pulse Pulse Pulse Pulse Resp BP 08/24/20 16:00 98.6 F 08/24/20 14:48 110 H 29 H 08/24/20 14:24 96 103 H 90 69/51 L 08/24/20 12:00 97.6 F 08/24/20 11:08 97 26 H 08/24/20 08:24 08/24/20 08:20 79 23 H 08/24/20 07:10 08/24/20 07:00 98.0 F BP BP Pulse Ox Pulse Ox Pulse Ox 08/24/20 16:00 08/24/20 14:48 98 08/24/20 14:24 114/91 H 102/70 91 L 98 08/24/20 12:00 08/24/20 11:08 94 L 08/24/20 08:24 96 08/24/20 08:20 96 08/24/20 07:10 92 L 08/24/20 07:00 Weight Admit Weight 163 lb 9.328 oz Weight 130 lb 4.691 oz Most Recent Monitor Data Heart Rate from ECG 85 NIBP 90/63 NIBP BP-Mean 72 Respiration from ECG 28 SpO2 89 I&O: 08/23/20 08/24/20 08/25/20 06:59 06:59 06:59 Intake Total 3501 2461 180 Output Total 1890 2485 910 Balance 1053 -24 -646 Result Diagrams: 08/22/20 07:55 08/22/20 07:55 Additional Labs: Accuchecks 08/24/20 08/24/20 08/24/20 15:52 10:04 04:03 POC Glucose 138 H 86 179 H 08/23/20 08/23/20 20:58 04:08 POC Glucose 158 H 165 H Hospitalist ROS - Medication Medications: Active Medications Generic Name Dose Route Start Last Admin Trade Name Freq PRN Reason Stop Dose Admin Acetaminophen 1,000 mg 07/06/20 14:14 08/23/20 20:14 Acetaminophen 650 Mg/20.3 Ml Udcup PER TUBE 1,000 mg Q6H PRN Administration Headache/Fever or Pain Albuterol/Ipratropium 3 ml 08/11/20 10:30 08/24/20 14:48 Ipratropium/Albuterol Sulfate 3 Ml Neb NEB 3 ml Q3HK-KI JOHN Administration Apixaban 5 mg 08/01/20 21:00 08/24/20 08:27 Apixaban 5 Mg Tab PO 5 mg BID JOHN Administration Ascorbic Acid 1,000 mg 07/03/20 09:00 08/24/20 08:27 Ascorbic Acid 500 Mg Chewable Tablet PO 1,000 mg DAILY JOHN Administration Aspirin 81 mg 08/10/20 09:00 08/24/20 08:27 Aspirin Chewable 81 Mg Tab PO 81 mg DAILY JOHN Administration Bisacodyl 10 mg 07/13/20 11:09 07/17/20 14:07 Bisacodyl 10 Mg Supp UT 10 mg Q8H PRN Administration Constipation Cholecalciferol 400 units 07/03/20 09:00 08/24/20 08:27 Cholecalciferol (Vitamin D3) 400 Units Tab PO 400 units DAILY JOHN Administration Folic Acid 1 mg 07/10/20 09:00 08/24/20 08:27 Folic Acid 1 Mg Tab PO 1 mg DAILY JOHN Administration Furosemide 40 mg 08/19/20 07:30 08/24/20 07:39 Furosemide 40 Mg Tab PO 40 mg DAILY-AC JOHN Administration Guaifenesin 600 mg 08/12/20 09:00 08/24/20 08:31 Guaifenesin Sf Soln 200 Mg/10 Ml Udcup PER TUBE 600 mg Q12HR JOHN Administration Sodium Chloride 1,000 mls @ 0 mls/hr 07/10/20 13:40 08/06/20 05:41 1/2 Normal Saline IV 1,000 mls .Q0M JOHN Administration KVO Dexmedetomidine HCl 400 mcg/ 100 mls @ 0 mls/hr 08/10/20 12:45 08/17/20 05:13 Sodium Chloride IVPB 100 mls INF JOHN Administration Protocol Titrate Micafungin Sodium 150 mg/ 100 mls @ 66.667 mls/hr 08/20/20 21:00 08/23/20 20:14 Miscellaneous Medication 1 IVPB 100 mls each/ Sodium Chloride 2100 JOHN Administration Tobramycin Sulfate 143 mg/ 103.575 mls @ 103.575 mls/hr 08/20/20 22:00 08/24/20 13:35 Sodium Chloride IVPB 103.575 mls Q8HR JOHN Administration Insulin Human Lispro 0 units 07/03/20 01:26 08/24/20 04:05 Humalog 300 Units/3 Ml Vial SC 2 unit .MILD SLIDING SCALE PRN Administration Mild Correctional Scale Lorazepam 2 mg 08/20/20 01:26 08/23/20 22:52 Lorazepam 2 Mg/Ml Vial SLOW IVP 2 mg Q6H PRN Administration Anxiety/Agitation Methylprednisolone Sodium Succinate 10 mg 08/20/20 21:00 08/23/20 20:14 Methylprednisolone Sod Succ 40 Mg Vial IVP 10 mg 2100 JOHN Administration Pantoprazole Sodium 40 mg 07/16/20 09:00 08/24/20 08:27 Pantoprazole 40 Mg Granules Packet PER TUBE 40 mg DAILY JOHN Administration Pramipexole Dihydrochloride 1 mg 07/20/20 07:00 08/24/20 12:44 Pramipexole Di-Hcl 1 Mg Tab PO 1 mg 0700,1300,2000 JOHN Administration Propofol 1,000 mg 08/09/20 17:30 08/10/20 22:25 Propofol 1,000 Mg/100 Ml Vial IV 09/08/20 17:30 1,000 mg INF PRN Administration TO ACHIEVE GOAL RASS Protocol Quetiapine Fumarate 75 mg 08/07/20 21:00 08/23/20 20:14 Quetiapine Fumarate 25 Mg Tab PO 75 mg HS JOHN Administration Sodium Chloride 10 ml 07/03/20 21:00 08/24/20 08:27 Flush - Normal Saline 10 Ml Syringe IVF 10 ml Q12HR JOHN Administration Tamsulosin HCl 0.4 mg 08/02/20 21:00 08/23/20 20:14 Tamsulosin Hcl 0.4 Mg Cap PO 0.4 mg HS JOHN Administration Hospitalist Exam Vitals: Vital Signs (12 hours) Temp Pulse Pulse Pulse Pulse Resp BP 08/24/20 16:00 98.6 F 08/24/20 14:48 110 H 29 H 08/24/20 14:24 96 103 H 90 69/51 L 08/24/20 12:00 97.6 F 08/24/20 11:08 97 26 H 08/24/20 08:24 08/24/20 08:20 79 23 H 08/24/20 07:10 08/24/20 07:00 98.0 F BP BP Pulse Ox Pulse Ox Pulse Ox 08/24/20 16:00 08/24/20 14:48 98 08/24/20 14:24 114/91 H 102/70 91 L 98 08/24/20 12:00 08/24/20 11:08 94 L 08/24/20 08:24 96 08/24/20 08:20 96 08/24/20 07:10 92 L 08/24/20 07:00 Weight Admit Weight 163 lb 9.328 oz Weight 130 lb 4.691 oz Most Recent Monitor Data Heart Rate from ECG 85 NIBP 90/63 NIBP BP-Mean 72 Respiration from ECG 28 SpO2 89 General Appearance: NAD, awake alert Eye: PERRL, anicteric sclera Heart: RRR, no murmur, no gallops, no rubs, normal peripheral pulses Respiratory: no wheezes, no ronchi, rales (at he bases,) Gastrointestinal: soft, non-tender, non-distended, normal bowel sounds, no palpable masses, no hepatomegaly Extremities: no cyanosis, no edema (palpable d.p. pulses no lesions) Hosp A/P (1) Acute respiratory failure with hypoxia Code(s): J96.01 - ACUTE RESPIRATORY FAILURE WITH HYPOXIA Status: Acute (2) Pneumonia due to COVID-19 virus Code(s): U07.1 - COVID-19; J12.82 - PNEUMONIA DUE TO CORONAVIRUS DISEASE 2019 Status: Acute (3) Diabetes mellitus type 2 in nonobese Code(s): E11.9 - TYPE 2 DIABETES MELLITUS WITHOUT COMPLICATIONS Status: Chronic (4) Hypertension Code(s): I10 - ESSENTIAL (PRIMARY) HYPERTENSION Status: Chronic Qualifiers: Hypertension type: essential hypertension Qualified Code(s): I10 - Essential (primary) hypertension (5) TAMMY (obstructive sleep apnea) Code(s): G47.33 - OBSTRUCTIVE SLEEP APNEA (ADULT) (PEDIATRIC) Status: Chronic (6) Parkinson disease Code(s): G20 - PARKINSON'S DISEASE Status: Chronic (7) Chronic anticoagulation Code(s): 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 * HTN- blood pressure - low normal - stable * Urinary retention- continue Gutierrez catheter * Elevated blood glucose from Steroids - continue SSI * DVT- prophylaxis- continue Lovenox * Parkinson's disease- continue Pramipexole * Tolerating Tube feeds * Delerium- ICU-resolved * Severe deconditioning- continue PT/OT * Awaiting LTAC
[2020-08-24] MEDS: MICAFUNGIN IVPB SCH (21:07)
[2020-08-24] MEDS: ADMIXTURE FEE IVPB SCH (21:07)
[2020-08-24] MEDS: SODIUM CHLORIDE IVPB SCH (21:07)
[2020-08-24] MEDS: Tamsulosin HCl 0.4 MG CAP PO SCH (21:08)
[2020-08-24] MEDS: methylPREDNISolone Sod Succ 40 MG VIAL IVP SCH (21:14)
[2020-08-24] MEDS ORDERED: Haloperidol Lactate 5 MG/ML VIAL SLOW IVP SCH (22:00)
[2020-08-25 05:40] VITALS: BMI 149299.1
[2020-08-25] MEDS: SODIUM CHLORIDE 0.9% IVPB SCH (06:48)
[2020-08-25] MEDS: TOBRAMYCIN SULFATE IVPB SCH (06:48)
[2020-08-25] MEDS: Aspirin Chewable 81 MG TAB PO SCH (08:21)
[2020-08-25] MEDS: Folic Acid 1 MG TAB PO SCH (08:21)
[2020-08-25] MEDS: Cholecalciferol (Vitamin D3) 400 UNITS TAB PO SCH (08:21)
[2020-08-25] MEDS: Ascorbic Acid 500 mg Chewable Tablet PO SCH (08:21)
[2020-08-25] MEDS: GUAIFENESIN SF SOLN 200 MG/10 ML UDCUP PER TUBE SCH (08:21)
[2020-08-25] MEDS: Pantoprazole 40 MG GRANULES PACKET PER TUBE SCH (08:22)
[2020-08-25] MEDS: Furosemide 40 MG TAB PO SCH (08:22)
[2020-08-25] MEDS: Pramipexole Di-HCl 1 MG TAB PO SCH ×3 (08:22→18:16)
[2020-08-25] MEDS: Apixaban 5 MG TAB PO SCH (08:26)
--- NOTE | 2020-08-25 13:27 | PRG ---
DATE OF SERVICE: 08/25/2020 SUBJECTIVE: Abhay Cooley was better last night. OBJECTIVE: VITAL SIGNS: Heart rate is 103, respiratory rate is 20. He is on a trach collar. His oximetry is 100%. LUNGS: Clear. HEART: Regular rhythm. ABDOMEN: Soft. LABORATORY DATA: White count 11.4, hemoglobin 10.2, platelets 307,000. PLAN: We are reaching a point where it is reasonable in my opinion to consider keeping him in town with rehab. We will probably change out his tracheostomy to a cuffless fenestrated trach once a bed becomes available. I would continue with his current medications for his encephalopathy. I really not sure why he was placed on micafungin over the weekend. The Darya in his urine is related to his catheterization issues as is his Pseudomonas. 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 Treatment of any pathogens isolated from his urinary tract probably is going to be of limited utility until we are sure that he can keep any type of catheter out of his bladder. Probably be reasonable when he is transferred to rehab to cut him back to prophylactic dose of Eliquis. Job ID: [id number]
[2020-08-25 16:15] VITALS: TEMP 97.6
--- NOTE | 2020-08-26 04:52 | DIS ---
DATE OF ADMISSION: 07/02/2020 DATE OF DISCHARGE: 08/25/2020 DISCHARGE DIAGNOSES: 1. Acute hypoxic respiratory failure secondary to pneumonia. 2. Pneumonia due to COVID-19 virus. 3. Severe deconditioning. 4. Hypertension, stable. 5. Obstructive sleep apnea. 6. Parkinson's disease. 7. Chronic anticoagulation with Eliquis. 8. Delirium, intermittent. 9. Status post tracheostomy and percutaneous endoscopic gastrostomy tube placement on 07/15/2020. CONSULTATIONS: 1. Dr. Ames with Pulmonology/Critical Care Service. 2. Dr. Lim with Urology Service. 3. Dr. Pandey with General Surgery Service. PERTINENT LABORATORY AND X-RAY FINDINGS: BNP 42. 25-hydroxy vitamin D level 24.8. TSH 0.81. Troponin I ranged between 0.017 to 0.066, hemoglobin ranged between 9.7 to 16.5. D-dimer ranged between 0.93 to 2.94. COVID-19 positive on 07/02/2020. Influenza A and B RNA not detected on 07/02/2020. Blood cultures x2 dated 07/02/2020, showed no growth at 5 days. Blood cultures x2 dated 07/10/2020, showed no growth at 5 days. Urine culture dated 08/03/2020, showed greater than 100,000 colonies of Pseudomonas aeruginosa. Urine culture dated 08/09/2020, showed no growth at 48 hours. Blood cultures x2 dated 08/09/2020, showed no growth at 5 days. Blood cultures x2 dated 08/14/2020, showed no growth at 5 days. Urine culture dated 08/14/2020, showed presumptive Darya krusei. Sputum culture dated 08/15/2020, showed Pseudomonas aeruginosa. CT angiogram of the chest dated 07/02/2020, showed extensive fibrotic changes of the lung parenchyma. Left lower lobe atelectasis. No evidence for pulmonary embolus. Portable chest x-ray dated 07/02/2020 showed multilobar COVID pneumonia. Portable chest x-ray dated 08/09/2020, showed extensive bilateral parenchymal changes consistent with COVID pneumonia. Left upper extremity venous Doppler study dated 08/18/2020, showed no evidence for DVT of the left upper extremity. HOSPITAL COURSE: The patient was initially admitted on 07/02/2020 after presenting with increased shortness of breath and hypoxia with multiple and bilateral infiltrates on chest imaging. The patient initially met sepsis criteria with elevated lactic acid level and a bicarbonate level of 16. The patient received IV azithromycin and Rocephin in addition to dexamethasone and oxygen supplementation by BiPAP noninvasive mechanical ventilation. The patient had previously tested positive for COVID-19 two weeks prior to the admission on 07/02/2020, with repeat COVID-19 positivity on 07/02/2020. The patient continued on standard treatment for COVID-19 with vitamin C, zinc, and D3 supplementation. The patient also received convalescent plasma. The patient continued to receive IV fluids. In addition, the patient was initially placed on Levophed in addition to fluid resuscitation for hypotension. The patient was evaluated by the Pulmonology/Critical Care Service, at which point, the patient continued to clinically decompensate in regard to respiratory status. The patient was placed on mechanical ventilation after intubation and monitored for clinical response. The patient was unable to successfully wean off mechanical ventilation after prolonged ICU stay and underwent subsequent tracheostomy placement on 07/15/2020, approximately 13 days after admission. The patient also underwent PEG tube placement for consistent nutritional supplementation. The patient's hospital course was complicated by severe respiratory compromise in addition to tracheostomy placement as well as acute delirium, which became severe at times. The patient required a chemical and physical restraint for control of combativeness and agitation. The patient also was evaluated for potential long-term acute care and penitentiary placement with multiple attempts utilizing the Case Management Service. Due to the patient's intermittent agitation and combativeness with requirements for wrist restraints, there were multiple unsuccessful attempts at placement. The patient remained severely deconditioned, requiring physical and occupational therapy for mobilization in his bed for gentle range of motion exercises. The patient developed increasing urinary retention, requiring evaluation by the Urology Service and eventual Gutierrez catheter placement. The patient continued the Gutierrez catheter decompression in addition to Flomax medical therapy. The patient was slow to clinically improve in regard to deconditioning, able to stand for approximately 4 minutes per session with physical therapy on 08/24/2020. The patient needed contact guard and standby assistance for the majority of the range of motion exercises as well as supine to sitting and sitting to standing maneuvers. The patient remains with intermittent confusion with orientation x1 to 2 most days. Currently, the patient has been approved to transfer to [facility] in the [place], [place] area on 08/25/2020. I have examined the patient at the time of discharge and discussed followup instructions with the patient's . Family verbalized understanding and in agreement and ready for transfer on 08/25/2020. DISCHARGE MEDICATIONS: 1. Lipitor 40 mg p.o. daily. 2. Mirapex 1 mg p.o. t.i.d. 3. Enteric-coated aspirin 81 mg per PEG tube daily. 4. DuoNeb 3 mL nebulized q.4 hours p.r.n. 5. Eliquis 5 mg per PEG tube b.i.d. 6. Flomax 0.4 mg per PEG tube at bedtime. 7. Folic acid 1 mg per PEG tube daily. 8. Lasix 40 mg per PEG tube daily. 9. Protonix 40 mg per PEG tube daily. 10. Seroquel 75 mg per PEG tube at bedtime. 11. Methylprednisolone 10 mg IV daily. 12. Vitamin C 1000 mg per PEG tube daily. 13. Vitamin D3 of 400 units per PEG tube daily. FOLLOWUP: The patient may follow up with the [facility] in [place], [place] after discharge from long-term acute care. CONDITION ON DISCHARGE: Guarded. ACTIVITY: Ad annalisa. Rolling walker with contact guard assistance for standing. Range of motion exercises while in bed. DIET: Tube feeds with Glucerna 1.5 at 60 mL/h. Cory one packet b.i.d. CODE STATUS: Full. [facility] [place], [place] [facility]. TIME SPENT: Total time preparing and coordinating discharge, 40 minutes. Job ID: [id number]
== END 2020-08-25 19:00 | DRG 4 ==
LOC: ERS 19:53 → IMCU/EMU 22:52 → T4-A 08-04 18:26 → CCU 08-09 10:36
PROVIDERS: ADMIT Student in an Organized Health Care Education/Training Program; ATTEND Family Medicine
PROC: 02HV33Z Insertion of Infusion Device into Superior Vena Cava, Percutaneous Approach (ICD-10-PCS; 2020-07-02)
PROC: 8E0ZXY6 Isolation (ICD-10-PCS; 2020-07-02)
PROC: 3E033XZ Introduction of Vasopressor into Peripheral Vein, Percutaneous Approach (ICD-10-PCS; 2020-07-02)
PROC: XW13325 Transfusion of Convalescent Plasma (Nonautologous) into Peripheral Vein, Percutaneous Approach, New Technology Group 5 (ICD-10-PCS; 2020-07-02)
PROC: 5A1955Z Respiratory Ventilation, Greater than 96 Consecutive Hours (ICD-10-PCS; principal; 2020-07-03)
PROC: 0BH17EZ Insertion of Endotracheal Airway into Trachea, Via Natural or Artificial Opening (ICD-10-PCS; 2020-07-03)
PROC: 0B110F4 Bypass Trachea to Cutaneous with Tracheostomy Device, Open Approach (ICD-10-PCS; 2020-07-15)
PROC: 0DH63UZ Insertion of Feeding Device into Stomach, Percutaneous Approach (ICD-10-PCS; 2020-07-15)
DX: A41.89 Other specified sepsis (principal); L89.154 Pressure ulcer of sacral region, stage 4; J96.01 Acute respiratory failure with hypoxia; U07.1 COVID-19; R65.21 Severe sepsis with septic shock; J12.82 Pneumonia due to coronavirus disease 2019; I21.A1 Myocardial infarction type 2; G93.41 Metabolic encephalopathy; J44.1 Chronic obstructive pulmonary disease with (acute) exacerbation; J44.0 Chronic obstructive pulmonary disease with (acute) lower respiratory infection; E87.2 Acidosis; N17.9 Acute kidney failure, unspecified; E87.1 Hypo-osmolality and hyponatremia; E46 Unspecified protein-calorie malnutrition; N39.0 Urinary tract infection, site not specified; F05 Delirium due to known physiological condition; G25.81 Restless legs syndrome; E86.0 Dehydration; D75.89 Other specified diseases of blood and blood-forming organs; E78.5 Hyperlipidemia, unspecified; N18.9 Chronic kidney disease, unspecified; D63.8 Anemia in other chronic diseases classified elsewhere; I12.9 Hypertensive chronic kidney disease with stage 1 through stage 4 chronic kidney disease, or unspecified chronic kidney disease; N40.0 Benign prostatic hyperplasia without lower urinary tract symptoms; E11.22 Type 2 diabetes mellitus with diabetic chronic kidney disease; F32.9 Major depressive disorder, single episode, unspecified; G47.33 Obstructive sleep apnea (adult) (pediatric); F41.9 Anxiety disorder, unspecified; F02.80 Dementia in other diseases classified elsewhere, unspecified severity, without behavioral disturbance, psychotic disturbance, mood disturbance, and anxiety; G20 Parkinson's disease; R74.01 Elevation of levels of liver transaminase levels; E87.5 Hyperkalemia; R31.9 Hematuria, unspecified; R13.12 Dysphagia, oropharyngeal phase; R07.81 Pleurodynia; D72.829 Elevated white blood cell count, unspecified; R53.81 Other malaise; R41.0 Disorientation, unspecified; R33.9 Retention of urine, unspecified; B96.5 Pseudomonas (aeruginosa) (mallei) (pseudomallei) as the cause of diseases classified elsewhere; N31.9 Neuromuscular dysfunction of bladder, unspecified; R29.898 Other symptoms and signs involving the musculoskeletal system; Z87.891 Personal history of nicotine dependence; Z88.8 Allergy status to other drugs, medicaments and biological substances; Z98.890 Other specified postprocedural states; Z85.46 Personal history of malignant neoplasm of prostate; Z79.899 Other long term (current) drug therapy; Z86.73 Personal history of transient ischemic attack (TIA), and cerebral infarction without residual deficits; Z90.79 Acquired absence of other genital organ(s); Z78.1 Physical restraint status
CPT/HCPCS: 0240U; 36415; 36416; 36556; 36600; 71045; 71275; 80048; 80053; 80061; 80076; 80202; 81001; 82306; 82330; 82553; 82728; 82803; 82805; 83605; 83690; 83735; 83880; 84100; 84443; 84484; 85007; 85025; 85027; 85379; 85610; 85652; 85730; 86140; 87040; 87070; 87077; 87086; 87186; 87205; 93005; 93010; 94002; 94003; 94640; 94660; 96365; 96366; 96367; 96374; 96375; C9113; J0456; J0692; J0696; J1100; J1630; J1650; J1720; J1815; J1885; J1940; J2060; J2185; J2248; J2250; J2270; J2358; J2405; J2704; J2765; J2920; J2997; J3010; J3260; J3370; J3475; J3486; J3490; J7050; J7070; J7620; J8540; P9047; Q9967; S0020